=== PATIENT | female | born 1955 | race Caucasian/White ===

== ENCOUNTER 2018-04-08 22:46 | Emergency (ER) | payer MEDICARE, OTHER ==
[~2018-04-08] VITALS: Ht 160 cm; Wt 70.4 kg
[~2018-04-08 22:46] MED LIST: ATROVENT HFA12.9 GM INH; CEFPODOXIME PR100 MG PO; CEFUROXIME500 MG PO; CEPHALEXIN500 MG PO; CYCLOBENZAPRINE10 MG PO; FLOVENT HFA12 GM INH; GABAPENTIN600 MG PO; HARVONI 90-4001 EACH PO; HYDROCODON-ACE1 EAC8 PO; KEFLEX250 MG PO; LEVOFLOXACIN500 MG PO; LEVOTHYROXINE50 MCG PO; MACROBID 100 M100 MG PO; METFORMIN HCL1000 MG PO; NICOTINE LOZENGE2 MG BUCCAL; NORCO 10-325 T1 EACH PO; OXYCODONE HCL5 MG PO; POTASSIUM CHLO10 MEQ PO; PREDNISONE20 MG PO; PROAIR HFA8.5 GM IH; QVAR7.3 G1 IH; RANITIDINE HCL150 MG PO; TRAMADOL HCL50 MG PO; TRAZODONE HCL50 MG PO; VENLAFAXINE HCL75 MG PO
--- NOTE | 2018-04-09 07:07 | EKG ---
[facility] [address] [facility] [place], [place] [address] Signed Normal sinus rhythm Normal ECG When compared with ECG of 13-FEB-2018 15:38, No significant change was found Confirmed by JUAN LOCKWOOD MD ([id number]) on 04/09/2018 7:07:03 AM Electronically Signed By: JUAN LOCKWOOD MD 04/09/18 0707 PATIENT NAME: UMU CORMIER SURYA Electrocardiogram DATE OF : 51 PHYSICIAN: JUAN LOCKWOOD MD REPORT #: [id number] REPORT IS CONFIDENTIAL AND NOT TO BE RELEASED WITHOUT AUTHORIZATION
== END 2018-04-09 00:55 | disposition home or self-care (01) ==
LOC: ED 22:46
DX: J44.1 Chronic obstructive pulmonary disease with (acute) exacerbation (principal); E03.9 Hypothyroidism, unspecified; E11.9 Type 2 diabetes mellitus without complications; F17.200 Nicotine dependence, unspecified, uncomplicated; Z88.5 Allergy status to narcotic agent; Z79.899 Other long term (current) drug therapy; Z79.84 Long term (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 of oral hypoglycemic drugs
CPT/HCPCS: 71045; 80053; 83735; 83880; 84484; 85025; 93005; 93010; 94644; 96374; 99284; J2930

== ENCOUNTER 2018-04-17 17:16 | Inpatient (IN) | payer MEDICARE, OTHER ==
[~2018-04-17] VITALS: Ht 160 cm; Wt 67.5 kg
--- NOTE | 2018-04-17 22:37 | NUR ---
PATIENT ARRIVES TO CCU VIA STRETCHER FROM ER AROUND 2200 IN AN N-95 MASK. PT HAS A HISTORY OF TESTING POSITIVE ON SKIN TESTS FOR TB, AND ALSO HAS A SUSPICIOUS CT SCAN AT THIS TIME FOR TUBERCULOSIS. PT IS IN ISOLATION ROOM 130. PT ABLE TO STAND AND MOVE INTO CCU BED WITHOUT DIFFICULTLY. PT USES HOME CANE TO HELP SUPPORT SELF. PT RECEIVING IV BOLUS 1 L OF LR, WITH A 2ND TO INFUSE AFTERWARDS. PT AWAKE, ALERT, AND PLEASANT. PT ABLE TO ANSWER ALL QUESTIONS BEST POSSIBLE. PT BECOMES TEARY WHEN ASKING ABOUT HER POTENTIAL TB DIAGNOSIS. PT STATES SHE HAS BEEN WORKED UP FOR TB IN THE PAST AND HAS BEEN TOLD SHE DOES NOT ACTUALLY HAVE TB, BUT AGAIN STILL HAS A SUSPICIOUS CT SCAN. PT WILL HAVE 3 SETS OF SPUTUM CULTURES TO BE SENT FOR AF[employer] TO RULE OUT TB. PT NOTED TO HAVE BIBASILAR LOWER LUNG CRACKLES ON INSPIRATION. PT IS ON 2 L NC AT THIS TIME BUT SHE IS STATING SHE IS LESS SHORT OF BREATH COMPARED TO EARLIER TONIGHT. PT ORIENTED TO CCU ROOM AND CALL LIGHT. PT GIVEN SANDWICH BOX AND HOME MEDS. CBG AT THIS TIME 183 AND 3 UNITS TO BE GIVEN. PT REQUESTING NORCO INSTEAD OF OXYCODONE, SHE STATES THIS WORKS BETTER FOR HER AND SHE REFUSES TO TAKE OXYCODONE. DR. BOYKIN TO BE NOTIFIED OF THIS REQUEST FOR MEDICATION CHANGE. PT RECEIVED IV ZOSYN IN ER. CONTINUE TO MONITOR CLOSEY. LAST BP 124/63 AND HEART RATE IN THE 90-100s.
--- NOTE | 2018-04-17 23:12 | NUR ---
PATIENT UP TO BSC AT THIS TIME TO VOID AND HAVE DIARRHEA. FIRST SPUTUM CULTURE SENT TO LAB. ANOTHER IV TO BE STARTED AND IV MAG TO BE GIVEN. PT ATE SANDWICH BOX AND TOLERATED WELL.
--- NOTE | 2018-04-17 23:55 | NUR ---
DR. BOYKIN CALLED AND ASKED ABOUT PT'S PAIN MEDICATION. PATIENT NOT ON NORCO DUE TO TYLENOL AND PT'S LIVER CIRRHOSIS. THIS EXPLAINED TO PATIENT, AND PATIENT AGREEABLE TO TRY THE OXYCODONE FIRST. ASSESSMENT COMPLETE. 2 L BOLUS FINISHED. IV MAG CONTINUES WITH 2ND DOSE DUE SOON. PT SITTING AT EDGE OF BED WITHOUT COMPLAINTS AT THIS TIME. PT VOIDED ONLY 25 ML EARLIER BUT WILL TRY AGAIN SOON SHE STATES. CONTINUE TO MONITOR.
--- NOTE | 2018-04-18 01:33 | NUR ---
PATIENT UP TO VOID EARLIER AND ONLY ABLE TO VOID 50 ML. PT ONLY VOIDED 25 ML PRIOR TO THAT. BLADDER SCANNED FOR >[address] BOYKIN NOTIFIED AND ORDER REC'D TO PLACE A PADILLA CATHETER. PADILLA PLACED WITHOUT DIFFICULTY AND PT TOLERATED THIS WELL. 450 ML EMPTIED IMMEDIATELY AFTER PADILLA PLACED. PT RESTING. CONTINUE TO MONITOR.
--- NOTE | 2018-04-18 03:16 | NUR ---
PATIENT SLEEPING AT THIS TIME. LAST BP 104/53 AND HR IN THE 70-80s. PADILLA DRAINING CLEAR YELLOW URINE.SP02 IS 92% ON 2 L. PT ENCOURAGED TO GET SOME SLEEP EARLIER SHE WAS STAYING AWAKE WATCHING TELEVISION.
--- NOTE | 2018-04-18 04:43 | NUR ---
PATIENT USES CALL LIGHT AROUND 0400 AND COMPLAINS OF BEING SOAKING WET. PT NOTED TO BE DIAPHORETIC AND TO HAVE BROKE OUT INTO A SWEAT WHILE SLEEPING. LARGE [place] OF [place] OF MOISTURE NOTED ON PILLOWCASE. PT STATES, "I DO THIS A LOT AT HOME AT NIGHT." WHEN ASKING PATIENT HOW LONG SHE HAS NOTED HERSELF HAVING NIGHT SWEATS, SHE STATES FOR A COUPLE YEARS. PATIENT GIVEN A FRESH GOWN AND FRESH PILLOW CASE AND BLANKET UNDERNEATH HER. RT IN ROOM NEXT TO PROVIDE BREATHING TREATMENT. PADILLA CONTINUES TO DRAIN CLEAR YELLOW URINE. CONTINUE TO MONITOR.
--- NOTE | 2018-04-18 09:00 | NUR ---
RESTFUL AFTER PAIN MEDICATION GIVEN. HAS HARSH PRODUCTIVE COUGH. IVF PATENT, PADILLA CATH PATENT WITH CLEAR YELLOW URINE.
[2018-04-18] MEDS ORDERED: RANITIDINE HCL150 MG PO (11:54)
--- NOTE | 2018-04-18 12:55 | NUR ---
SITTING AT BEDSIDE EATING LUNCH. WILL BE TRANSFERRED TO MEDICAL FLOOR TODAY.
--- NOTE | 2018-04-18 13:24 | NUR ---
TOOK LUNCH WELL. SITTING AT BEDSIDE TAKING NEB TREATMENT.
--- NOTE | 2018-04-18 14:00 | NUR ---
PT ARRIVED TO FLOOR FROM CCU VIA BED. PT ALERT AND ORIENTED. RATING CHRONIC PAIN 5/10 AT THIS TIME, DENIED NEED FOR PAIN MEDS AT THIS TIME. SATTING 95% ON 2L NC. DENIES DIFFICULTY BREATHING. COUGHING UP THICK GREEN SPUTUM, LUNGS COURSE. IV INFUSING WNL. CALL LIGHT WITHIN REACH.
--- NOTE | 2018-04-18 16:30 | NUR ---
PT C/O PAIN, REQUESTING PAIN MEDICATION. MEDICATED WITH PRN OXY. PT ORDERED DINNER. CALL LIGHT WITHIN REACH. RANDY PATENT.
--- NOTE | 2018-04-18 18:45 | NUR ---
PT EATING DINNER, HIREN WELL. PT DENIES NEEDS OR CONCERNS AT THIS TIME. SATTING 94% ON 2LNC. CALL LIGHT WITHIN REACH.
--- NOTE | 2018-04-18 19:30 | NUR ---
RECEIVED REPORT ON PT, SHE IS AWAKE IN BED AT THIS TIME.
--- NOTE | 2018-04-18 20:15 | NUR ---
ENTERED PT'S ROOM TO ADMINISTER MEDICATIONS. SHE IS UNHAPPY BECAUSE SHE STATES HER PAIN IS 8/10 AND HER NEXT OXYCODONE IS DUE AT 2200. SHE STATES SHE TAKES 10MG EVERY 4 HOURS AND OUR AVAILABLE DOSE IS 5MG EVERY 6 HOURS. ADVISED HER THAT WE CAN CHECK WITH DR BOYKIN TO SEE WHAT WE CAN DO. PT IS CRYING AT THIS TIME AND STATES SHE NEEDS THE PAIN MEDICINE NOW.
--- NOTE | 2018-04-18 21:32 | NUR ---
SPOKE WITH DR BOYKIN ABOUT PT'S COMPLAINTS OF PAIN MEDS. TORB CHANGE OF OXYCODONE TO 7.5 MG Q6P. ORDERS ENTERED.
--- NOTE | 2018-04-18 23:05 | NUR ---
ADMINISTERED THE REST OF THE PT'S EVENING MEDICATIONS ALONG WITH 7.5 MG OF OXYCODONE. EXPLAINED THAT DR BOYKIN INCREASED THE DOSE TO HELP WITH HER PAIN. SHE CONTINUES TO HAVE COMPLAINTS ABOUT THE DOSE STATING SHE NEEDS 10MG OF OXYCODONE Q4H AND SHE ASKED IF IT WOULD BE NOTED IN THE CHART. CLEANED UP A LARGE PUDDLE OF URINE UNDER THE BED, IT APPEARS THE PADILLA CATHETER WAS LEAKING FROM THE GREEN VALVE AND TIGHTENED IT. PT WAS CONCERNED THAT THE CATHETER WAS LEAKING FROM INSERTION SITE BUT THIS RN DID NOT VISUALIZE ANY LEAKS AND PROVIDED CATH CARE. PT REQUESTED MILK AND DENIES FURTHER NEEDS AT THIS TIME. CALL LIGHT IS WITHIN REACH.
--- NOTE | 2018-04-19 00:45 | NUR ---
PT IS RESTING WITH EYES CLOSED, RESPIRATIONS ARE EVEN AND NONLABORED. CALL LIGHT IS WITHIN REACH.
--- NOTE | 2018-04-19 02:55 | NUR ---
PT IS RESTING WITH EYES CLOSED, RESPIRATIONS ARE EVEN AND NONLABORED. CALL LIGHT IS WITHIN REACH.
--- NOTE | 2018-04-19 03:32 | NUR ---
PT CALLED D/T IV BEEPING, SHE IS RESTING IN BED WITH A COOL WASH CLOTH ON HER FOREHEAD SHE HAS BEEN SWEATING ALOT.
--- NOTE | 2018-04-19 07:42 | NUR ---
PATIENT SITTING UP IN BED. PATIENT STATES PAIN LEVEL IS A 6 OUT OF 10. RN NOTIFIED. CALL LIGHT WITHIN REACH. NO OTHER NEEDS AT THIS TIME.
--- NOTE | 2018-04-19 08:32 | NUR ---
PATIENT SITTING UP IN BED. BLINDS DIMMING ROOM PER PATIENT REFERENCE. WATCHING TELEVISION AND EATING BREAKFAST IN BED. LUNGS DIM. 2L 02 VIA NC. IVF INFUSING INTO LFA IV. 10ML SALINE FLUSH IN RFA IV.
--- NOTE | 2018-04-19 11:22 | NUR ---
PADILLA CATHETER REMOVED BY AUTOMATIC SPINNING LATHE OPERATOR 2 STUDENT AND INSTRUCTOR. SALINE LOCKED IV. PROVIDED PAIN MEDICATION AND MUCINEX TO PATIENT.
--- NOTE | 2018-04-19 12:01 | NUR ---
PATIENT ASSISTED SBA OFF OF COMMODE. SITTING AT BEDSIDE EATING LUNCH. PHARMACIST GOING OVER HOME MEDICATIONS WITH PATIENT. RECLINER PLACED IN ROOM FOR PATIENT TO SIT IN LATER. PLAN TO WALK PATIENT THIS AFTERNOON.
--- NOTE | 2018-04-19 12:19 | NUR ---
MED REC COMPLETE
--- NOTE | 2018-04-19 13:21 | NUR ---
SEE PURCHASING ENGINEER NOTE ABOUT TRANSFERRING FROM CHAIR TO BED. CHANGED ATTENDS. CHANGED LINENS. ARMS FLOATING ON PILLOWS. CALL LIGHT WITHIN REACH.
--- NOTE | 2018-04-19 15:40 | NUR ---
PATIENT SITTING UP IN BED. PATIENT VISITING WITH A FAMILY MEMBER. CALL LIGHT WITHIN REACH. NO OTHER NEEDS AT THIS TIME.
--- NOTE | 2018-04-19 18:39 | NUR ---
CONTACT PERCAUTIONS REMOVED. 3 NEGATIVE SPUTUM SAMPLES. I SUGGEST WEARING MASK IN ROOM. PATIENT COUGHS FREQUENTLY. ADA DIET. ACCU CHECKS. PADILLA OUT. VOIDING WELL. VOIDS SMALL AMOUNTS. OXYCODONE X2. IND TO PIVOT TO COMMODE. SALINE LOCKED. SUMMER HAMMOND. BM 04/18.
--- NOTE | 2018-04-19 19:30 | NUR ---
RECEIVED REPORT, PT IS AWAKE SITTING AT EDGE OF BED WATCHING TV.
--- NOTE | 2018-04-19 22:50 | NUR ---
PT COMPLAINS OF LEFT EAR PAIN BOTH INTERNALLY AND EXTERNAL. SHE STATES SHE THOUGHT A BUG CRAWLS ACROSS HER FACE AND TRIED TO HIT IT OFF AND CUPPED HER EAR AND HAS HAD PAIN SINCE. ADVISED PT THAT WE WILL PASS ALONG THE INFO AND SHE CAN HAVE THE DR LOOK AT IN DURING ROUNDING TOMORROW. PT WAS ANXIOUS AND CRYING D/T A "FAMILY ISSUE". PT RATED PAIN AT 9/10 AND WAS GIVEN OXYCODONE 7.5MG ALONG WITH THE REST OF HER EVENING MEDS. HELPED PT TO THE COMMODE AND SHE VOIDED 325. PT IS BACK IN BED AT THIS TIME AND DENIES FURTHER NEEDS.
--- NOTE | 2018-04-20 | NUR ---
PT IS RESTING WITH EYES CLOSED, RESPIRATIONS ARE EVEN AND NONLABORED. CALL LIGHT IS WITHIN REACH.
--- NOTE | 2018-04-20 03:05 | NUR ---
PT IS AWAKE IN BED. HELPED HER TO THE COMMODE, SHE REQUESTED SOME PUDDING. SHE IS BACK IN BED AT THIS TIME AND DID NOT REQUEST PAIN MEDS. CALL LIGHT IS WITHIN REACH.
--- NOTE | 2018-04-20 04:06 | NUR ---
IN PT'S ROOM TO ADMINISTER PAIN MEDS. SHE RATES HER PAIN AT 8/10 AT THIS TIME. SHE GOT UP TO USE THE COMMODE AND REQUESTED A WARM BLANKET. FRESH WATER IS AT BEDSIDE AND SHE DENIES FURTHER NEEDS.
--- NOTE | 2018-04-20 06:10 | NUR ---
HELPED PT TO COMMODE AND ADMINISTERED MEDICATIONS. PT IS BACK IN BED AND WOULD LIKE TO SLEEP A LITTLE MORE. PT DENIES FURTHER NEEDS AT THIS TIME.
--- NOTE | 2018-04-20 07:19 | NUR ---
REPORT RECEIVED OUTSIDE PATIENT ROOM D/T PATIENT SLEEPING. WISHES TO BE LEFT ALONE IN THIS CASE. WILL UPDATE WHITE BOARD WHEN THIS RN ENTERS LATER. ALL QUESTIONS ANSWERED IN REPORT. PLAN TO WORK WITH PHYSICAL THERAPY TODAY. BSC NEXT TO BED PER REQUEST. LIAM MEDINA BILAT.
--- NOTE | 2018-04-20 07:47 | NUR ---
PATIENT RESTING IN BED, EYES CLOSED. CALL LIGHT IN REACH. NO OTHER NEEDS AT THIS TIME.
--- NOTE | 2018-04-20 08:52 | NUR ---
pt sitting at edge of bed eating breakfast. nicotine patch removed from left shoulder and replaced onto the right shoulder. blinds slightly raised to allow natural light in. patient likes room dimmed this morning.
--- NOTE | 2018-04-20 10:08 | NUR ---
PATIENT RESTING IN BED, EYES CLOSED. CALL LIGHT IN REACH, NO OTHER NEEDS AT THIS TIME.
--- NOTE | 2018-04-20 11:38 | NUR ---
assisted patient to bathroom. patient had medium BM and void. became dizzy when patient stood up. sat patient back down on commode until dizziness resolved. 2l 02 via nc on patient throughout ambulation. pt back in bed now.
--- NOTE | 2018-04-20 12:10 | NUR ---
spoke with patient about concerns for discharge and care for self at home. referred to case management about concerns.
--- NOTE | 2018-04-20 12:25 | NUR ---
PATIENT SITTING UP IN BED, EATING LUNCH. CALL LIGHT IN REACH. NO OTHER NEEDS AT THIS TIME.
--- NOTE | 2018-04-20 13:11 | NUR ---
THIS VENEER TAPING MACHINE OPERATOR ASSISTED PATIENT TO BATHROOM. PATIENT BACK IN BED, RT IN ROOM. SHOWER SET UP FOR PATIENT. CALL LIGHT IN REACH. NO OTHER NEEDS AT THIS TIME.
--- NOTE | 2018-04-20 14:22 | NUR ---
PATIENT SITTING UP IN BED. PATIENT STATES SHE IS TOO SHAKEY AND NAUSEOUS TO GET UP AND WALK OR TAKE A SHOWER AT THIS TIME. RN NOTIFIED. PATIENT RESTING, CALL LIGHT IN REACH. NO OTHER NEEDS AT THIS TIME.
--- NOTE | 2018-04-20 14:36 | NUR ---
PT SITTING AT BEDSIDE WITH VISITOR IN RECLINER. DEPUTY DIRECTOR OF PUBLIC WORKS GETTING DINNER ORDER. OXYCODONE GIVEN PER REQUEST. 1400 ROUDING CREW CAME IN TO CHECK ON PATIENT.
--- NOTE | 2018-04-20 17:02 | NUR ---
THIS YARD OPERATOR ASSISTED PATIENT IN TO SHOWER. PATIENT PERFORMED PERICARE AND SKINCARE. PATIENT BACK TO BED, HAIR BRUSHED, CALL LIGHT IN REACH, RT IN ROOM, NO OTHER NEEDS AT THIS TIME.
--- NOTE | 2018-04-20 17:30 | NUR ---
patient very emotional at this time. this RN entered room to check fsbs and patient was on phone with family member. patient quickly hung up and began to cry. used therapeutic communication to ease patient's discomfort. meal tray delivered to room and set up for patient. she is sitting at edge of bed now.
--- NOTE | 2018-04-20 18:22 | NUR ---
PATIENT EMOTIONAL TODAY. TALKED TO CASE MANAGEMENT ABOUT CONCERNS. ANXIOUS ABOUT GOING HOME-- FAMILY ISSUES, TAKING CARE OF SELF, ETC. 2L 02 VIA NC. 1PA FWW TO BATHROOM. DIZZY AT TIMES. SALINE LOCKED BILAT.
--- NOTE | 2018-04-20 18:46 | NUR ---
PATIENT SITTING UP IN BED, EATING DINNER. FAMILY IN ROOM. NO OTHER NEEDS AT THIS TIME.
--- NOTE | 2018-04-20 20:00 | NUR ---
RECEIVED REPORT AT 1900, FOUND PT AT SIDE OF BED EATING DINNER. PT HAD NO NEEDS OR CONCERNS AT THAT TIME.
--- NOTE | 2018-04-20 22:00 | NUR ---
V/S ARE WDL. ALL LOBES HAVE EXPIRATORY WHEEZING. PT DENIES SOB. PT STATED THAT SHE FELT HER HEART RACING. HR WAS WDL AND SO WERE ALL OTHER V/S. ABD SOUNDS ARE PRESENT. BG WAS 235, 5 UNITS NOVOLOG WAS GIVEN. PT SEEMS RESTLESS OVERALL. WILL CONTINUE TO MONITOR.
--- NOTE | 2018-04-20 22:23 | NUR ---
VITALS AND I&OS DONE AND CHARTED. FRESH WATER GIVEN. BEDSIDE TABLE AND CALL LIGHT WITHIN REACH.
--- NOTE | 2018-04-21 | NUR ---
PT IS AWAKE IN BED. PT IS ANXIOUS ABOUT HER D/C TOMORROW AND HOW SHE WILL CONTROL HER DIABETIS.
--- NOTE | 2018-04-21 02:00 | NUR ---
PT IS UP IN BED EATING. PT HAS PAIN 06/07. 7.5MG PRN OXY WAS GIVEN.
--- NOTE | 2018-04-21 04:00 | NUR ---
PT APPEARS TO BE SLEEPING
--- NOTE | 2018-04-21 05:26 | NUR ---
VITALS AND I&OS DONE AND CHARTED. HELPED PT TO THE BATHROOM AND BACK TO BED. BEDSIDE TABLE AND CALL LIGHT WITHIN REACH.
--- NOTE | 2018-04-21 06:25 | NUR ---
V/S ARE WDL, DURING FIRST ASSESSMENT ALL LOBES HAD EXPIRATORY WHEEZING PRESENT. DURING SENCOND ASSESSMENT ALL LOBES WERE COARSE. PT IS TILL COUGHING AND MUCUS IS VERY THICK. PT DENIED SOB THIS SHIFT. PAIN WAS MORE OF AN ISSUE THIS SHIFT. PT CALLED FOR PRN PAIN MEDICATION. PAIN IS ALWAYS A 7/10. BG WAS 258, PT RECEIVED 5 UNITS OF NOVOLOG. NO NEW ISSUES NOTED THIS SHIFT.
--- NOTE | 2018-04-21 06:47 | NUR ---
PT REQUESTED AND RECEIVED PAIN MEDICATION FOR GENERALIZED PAIN: ABD, JOINTS. FINISHED DRINKING PRUNE JUICE, ICE WATER REFILLED. NO OTHER NEEDS AT THIS TIME. CALL LIGHT WITHIN REACH.
--- NOTE | 2018-04-21 07:32 | NUR ---
UPON INITIAL ASSSESSMENT, PT LAYING IN BED AWAKE. COMPLAINS OF CONSTIPATION AND DISCOMFORT WITH LAYING IN BED. PT BREATHING IS EVEN AND UNLABORED WITH A RESPIRATORY RATE OF 18 BREATHS PER MINUTE. LUNGS ARE DIMINISHED BILATERLLY IN THE BASES. ASSISTED PATIENT UP INTO CHIAR FOR BREAKFAST. PT WAS STAND BY ASSIST WITH USE OF CANE FOR AMBULATION. CALL LIGHT WITHIN REACH. NO FURTHER REQUEST AT THIS TIME.
--- NOTE | 2018-04-21 10:29 | NUR ---
CLOSED THE BLINDS BECAUSE THE PATIENT WANTED IT DARK IN HER ROOM.
--- NOTE | 2018-04-21 11:38 | NUR ---
PT MEDICATED WITH 7.5MG OXY AT THIS TIME FOR PAIN, PT WAS LYING IN A DARK ROOM WITH TV OFF. STAFF IN ROOM COMPLETED CBG AND GAVE PAIN MEDICATIONS, ALSO PT LUNCH HERE SO ROOM LIGHTS ON AND PT SAT ATTHE EDGE OF THE BED TO EAT.
--- NOTE | 2018-04-21 11:47 | NUR ---
PATIENT AT EDGE OF BED, TABLE IN FRONT WITH LUNCH. JOSE VICENTE IN ROOM. GARBAGE EMPTIED. PATIENT REFUSED TODAYS SHOWER, STATES SHE WANTS TO EAT LUNCH AND LIE DOWN UNTIL ITS TIME TO BE DISCHARGED. CALLL AMANDA IN REACH
[2018-04-21] MEDS ORDERED: AMOX TR-K CLV1 EAC1 PO (11:54)
[2018-04-21] MEDS ORDERED: NICOTINE1 EAC1 TD (11:55)
[2018-04-21] MEDS ORDERED: PREDNISONE20 MG PO (11:58)
--- NOTE | 2018-04-21 13:34 | NUR ---
DISCHARGE CHARGE INSTRUCTIONS GIVEN TO PT AT THIS TIME. ALSO PROVIED A FEW PERSONAL ITEMS TO GET PT BY TILL SHE CAN GET TO THE STORE. PT WAS ASSITED TO GET DRESS.
--- NOTE | 2018-04-21 13:50 | NUR ---
STUDENT NURSE CINTHIA GAVE PT DISCHARGE INSTRUCTIONS ALL QUESTIONS ANSWERED AT THIS TIME. PT IS WAITING FOR HER RIDE AT THIS TIME. PORTABLE HOME O2 TANKS PROVIDED FOR PT ALSO AT THIS TIME.
--- NOTE | 2018-04-21 13:51 | NUR ---
REPORTED OFF TO KELVIN GARCIA AT THIS TIME. ALL QUESTIONS ANSWERED.
--- NOTE | 2018-04-21 14:59 | NUR ---
FAXED CHART NOTES INCLUDING FACESHEET, RT IN HOME QUALIFIER, ORDER, ER NOTES, H AND P, PROG NOTES, DC SUMMARY TO [facility]. ALSO SPOKE WITH OSMAR FROM [facility]. RECIEVED FAX CONFIRMATION.
--- NOTE | 2018-04-22 10:30 | NUR ---
RECEIVED A CALL FROM [facility] STATING PATIENT DID NOT QUALIFY THROUGH [facility] FOR OXYGEN SET UP DUE TO PNEUMONIA DIAGNOSIS. THEY STATED THEY OFFERED TO SET PATIENT UP FOR SELF-PAY FOR 30 DAYS AT $75.00. PATIENT REFUSED. THEY STATED PATIENT IS TO RETURN PORTABLE TANK TO HOSPITAL. UPDATED DR LOCKWOOD. SHE STATED PATIENT SHOULD BE OK, SHE BARELY QUALIFIED FOR OXYGEN WITH ACTIVITY, AT REST SHE DOES NOT NEED IT.
--- NOTE | 2018-04-22 13:02 | NUR ---
CALLED PATIENT AT HOME. PATIENT STATES SHE STILL FEELS "NOT GOOD". PATIENT DENIES SOB, STATES SHE JUST "STILL HAVE NO ENERGY". PATIENT STATES SHE HAS ALL HER MEDICATIONS AND IS TAKING THEM, HAS NO QUESTIONS REGARDING THIS. WE DISCUSSED THAT SHE DOES NOT HAVE THE OXYGEN SET UP. PATIENT WAS FRUSTRATED WITH THE PROCESS OF THIS, SHE UNDERSTOOD THE MEDICAL COMPANY WOULD HAVE IT ALL SET UP WHEN SHE CAME HOME. SHE STATED SHE DID NOT HAVE THE MONEY TO PAY FOR IT HERSELF. WE DISCUSSED HER AT REST SATURATIONS AND THAT THE DR FELT SHE SHOULD BE OK IF SHE DOESN'T OVER EXERT HERSELF. SHE STATES HER CAREGIVER IS THERE AND SHE ISN'T DOING MUCH. STATES SHE DOESN'T HAVE TO CLEAN OR DO "THAT SORT OF THING". PATIENT HAS A FOLLOW UP APPT WITH PCP ON WEDNESDAY. SHE STATES SHE ALREADY HAS TRANSPORTATION SET-UP TO TAKE HER. WE DISCUSSED HAVING OUR CHW FOLLOW UP WITH HER IF SHE WAS INTERESTED. WE DISCUSSED WHAT THAT WOULD INVOLVE. SHE IS VERY INTERESTED IN THIS. SHE UNDERSTANDS THEY WILL CALL HER NEXT WEEK. WE DISCUSSED SYMPTOMS AND THAT SHE CAN RETURN TO HOSPITAL IF SHE HAS ANY WORSENING ISSUES. SHE UNDERSTANDS THIS. I SPOKE WITH PATIENTS CAREGIVER, BOB. SHE STATES PATIENT SEEMS TO BE DOING WELL. SHE UNDERSTANDS ALSO THAT PATIENT CAN RETURN IF HAVING ANY WORSENING SYMPTOMS. I GAVE THEM THE NUMBER FOR CASE MANAGEMENT AND FOR THE NURSES STATION IF THEY HAVE ANY QUESTIONS OR CONCERNS.
== END 2018-04-21 13:55 | disposition home or self-care (01) | DRG 871 ==
LOC: ED 17:16 → CCU 21:17 → MS 04-18 14:29
PROVIDERS: ADMIT Internal Medicine
DX: A41.50 Gram-negative sepsis, unspecified (principal); J15.6 Pneumonia due to other Gram-negative bacteria; J96.01 Acute respiratory failure with hypoxia; J44.0 Chronic obstructive pulmonary disease with (acute) lower respiratory infection; J44.1 Chronic obstructive pulmonary disease with (acute) exacerbation; F11.20 Opioid dependence, uncomplicated; F17.210 Nicotine dependence, cigarettes, uncomplicated; E83.42 Hypomagnesemia; F19.11 Other psychoactive substance abuse, in remission; K74.60 Unspecified cirrhosis of liver; K52.9 Noninfective gastroenteritis and colitis, unspecified; B18.2 Chronic viral hepatitis C; E03.9 Hypothyroidism, unspecified; E11.9 Type 2 diabetes mellitus without complications; G89.4 Chronic pain syndrome; M79.7 Fibromyalgia; F39 Unspecified mood [affective] disorder; R74.0 Nonspecific elevation of levels of transaminase and lactic acid dehydrogenase [LDH]; Z88.5 Allergy status to narcotic agent; Z79.84 Long term (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 of oral hypoglycemic drugs; Z79.51 Long term (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 of inhaled steroids; Z79.899 Other long term (current) drug therapy
CPT/HCPCS: 36415; 71046; 74177; 80053; 81001; 83036; 83605; 83735; 84484; 85025; 86703; 87040; 87045; 87046; 87070; 87077; 87185; 87205; 87449; 87493; 87522; 87556; 87798; 87899; 94640; 94645; 94667; 94761; 97110; 97116; 97162; 99406; 99407; J1650; J2270; J2405; J2543; J2920; J2930; J3475; J7120; J7512; Q9967

== ENCOUNTER 2019-03-18 16:24 | Emergency (ER) | payer MEDICARE, OTHER ==
[~2019-03-18] VITALS: Ht 160 cm; Wt 67.5 kg
--- OUTSIDE RECORDS SUMMARY | ~2019-03-18 | XMS | Clinical Summary ---
Demographics + + + | Address | [address] | | | [place] [address] | + + + | Home Phone [...] Author + + + | Author | [facility] | + + + | Organization | [facility] | + + + | Address | Unknown | + + + | Phone | Unavailable | + + + Support + + +---------+ + | Name | Relationship | Address | Phone | + + +---------+ + | Andrew Nelson | ECON | Unknown | | + + +---------+ + Care Team Providers + +------+ + | Care Executive Talent Acquisition Consultant Name | Role | Phone | + +------+ + PP | Unavailable | + +------+ + Source Comments RONALDO is fully live on both [facility] Ambulatory and [facility] InPatient.[facility] Allergies Not on File Current Medications + +------+-------+---------+------+------+-------+ | Prescription | Sig. | Disp. | Refills | Star | End | Statu | | | | | | t | Date | s | | | | | | Date | | | + +------+-------+---------+------+------+-------+ | PROAIR HFA 90 | | | | 08/2 | | Activ | | mcg/actuation | | | | 3/20 | | e | | inhalation HFA | | | | 13 | | | | Aerosol Inhaler | | | | | | | + +------+-------+---------+------+------+-------+ | DOXYCYCLINE | | | | 10/0 | | Activ | | HYCLATE 100 mg oral | | | | 3/20 | | e | | capsule | | | | 13 | | | + +------+-------+---------+------+------+-------+ | FLUCONAZOLE 150 mg | | | | 10/1 | | Activ | | oral tablet | | | | 0/20 | | e | | | | | | 13 | | | + +------+-------+---------+------+------+-------+ | GABAPENTIN 600 mg | | | | 10/3 | | Activ | | oral tablet | | | | 0/20 | | e | | | | | | 13 | | | + +------+-------+---------+------+------+-------+ | | | | | 10/1 | | Activ | | HYDROCODONE-ACETAMIN | | | | 0/20 | | e | | OPHEN 10-325 mg oral | | | | 13 | | | | tablet | | | | | | | + +------+-------+---------+------+------+-------+ | ATROVENT HFA 17 | | | | 08/2 | | Activ | | mcg/actuation | | | | 3/20 | | e | | inhalation HFA | | | | 13 | | | | Aerosol Inhaler | | | | | | | + +------+-------+---------+------+------+-------+ | TRAZODONE 50 mg | | | | 10/2 | | Activ | | oral tablet | | | | 4/20 | | e | | | | | | 13 | | | + +------+-------+---------+------+------+-------+ | VENLAFAXINE 150 mg | | | | 10/1 | | Activ | | oral tablet | | | | 7/20 | | e | | extended release | | | | 13 | | | | 24hr | | | | | | | + +------+-------+---------+------+------+-------+ | VENLAFAXINE 75 mg | | | | 10/1 | | Activ | | oral tablet | | | | 7/20 | | e | | | | | | 13 | | | + +------+-------+---------+------+------+-------+ Active Problems + + + | Problem | Noted Date | + + + | Chronic hepatitis C virus infection (HCC) | 12/15/2011 | + + + + [...] on file | | + + + Last Filed Vital Signs + + + + | Vital Sign | Reading | Time Taken | + + + + | Blood Pressure | 129/69 | 10/04/2013 2:15 PM PST | + + + + | Pulse | 87 | 10/04/2013 2:15 PM PST | + + + + | Temperature | 37.1 C (98.8 F) | 10/04/2013 2:15 PM PST | + + + + | Respiratory Rate | 18 | 10/04/2013 2:15 PM PST | + + + + | Oxygen Saturation | - | - | + + + + | Inhaled Oxygen | - | - | | Concentration | | | + + + + | Weight | 94.1 kg (207 lb 8 | 10/04/2013 2:15 PM PST | | | oz) | | + + + + | Height | 160 cm (5' 3") | 10/04/2013 2:15 PM PST | + + + + | Body Mass Index | 36.76 | 10/04/2013 2:15 PM PST | + + + + Plan of Treatment + + + + + | Health Maintenance | Due Date | Last Done | Comments | + + + + + | Influenza (Flu) | | | | | vaccination (#1) | 8 | | | + + + + + | Pneumococcal (Adult) | | | | | (1 of 2 - PCV13) | 8 | | | + + + + + Results Not on filefrom Last 3 Months Insurance + +--------+ +--------+-------+---------+ | Payer | Benefi | Subscriber | Type | Phone | Address | | | t Plan | ID | | | | | | / | | | | | | | Group | | | | | + +--------+ +--------+-------+---------+ | [employer] | [employer] | xxxxxxxx | Medica | | | | | [place] | | id | | | | | [place] | | | | | + +--------+ +--------+-------+---------+ + +--------+ +--------+ + + | Guarantor Name | Accoun | Relation to | Date | Phone | Billing Address | | | t Type | Patient | of | | | | | | | | | | + +--------+ +--------+ + + | CAROLINA ANG | Person | Self | [birth year] | Home: | [address] | | | al/Fam | | 1955 | [phone] | [place] [address] | | | [place] | | | [phone] | | + +--------+ +--------+ + +
--- OUTSIDE RECORDS SUMMARY | ~2019-03-18 | XMS | Clinical Summary ---
Demographics + + + | Address | [address] | | | [place] [address] | + + + | Home Phone | | + + + | Preferred Language | Unknown | + + + | Marital Status | | + + + | Temple Affiliation | Unknown | + + + | Race | Unknown | + + + | Ethnic Group | Unknown | + + + Author + + + | Author | [facility] | | | and Dhav[place]ana | + + + | Organization | [facility] | | | and [place] | + + + | Address | Unknown | + + + | Phone | Unavailable | + + + Support + + +---------+ + | Name | Relationship | Address | Phone | + + +---------+ + | Agusto Bradford | ESTIVEN | Unknown | | + + +---------+ + | Andrew Andrews | ECON | Unknown | | + + +---------+ + Care Team Providers + +------+ + | Care Bottle Gauger Name | Role | Phone | + +------+ + | Corey Galvan MD | PP | | + +------+ + Allergies + + + + + + | Active Allergy | Reactions | Severity | Noted | Comments | | | | | Date | | + + + + + + | Codeine | Hives | High | 04/06/20 | | | | | | 14 | | + + + + + + | Latex | Rash | Medium | 05/28/20 | | | | | | 14 [...] Noted Date | + + + | Hepatitis C | 05/24/2014 | + + + [...] + + + | Blood Pressure | 112/68 | 06/04/20141132 PDT | + + + + | Pulse | 90 | 06/04/20141132 PDT | + + + + | Temperature | 36.8 C (98.2 F) | 06/04/20141132 PDT | + + + + | Respiratory Rate | 15 | 05/25/20141409 PDT | + + + + | Oxygen Saturation | 93% | 05/25/20141409 PDT | + + + + | Inhaled Oxygen | - | - | | Concentration | | | + + + + | Weight | 97.1 kg (214 lb) | 06/04/20141132 PDT | + + + + | Height | 160 cm (5' 3") | 06/04/20141132 PDT | + + + + | Body Mass Index | 37.91 | 06/04/2014 1133 PDT | + + + + Plan of [...] | | | | (Season Ended) | 9 | | | + + [...] | [employer] | [employer] | [id number] | | [phone] | | Medica | [...] Self | [birth year] | [address] | | | al/Abdullahi | | 1955 | [phone] | [place] [address] | | | [place] | | | 5 (Home) | | + +--------+ +--------+ + + Advance Directives Patient has advance care planning documents on file. For more information, please contact:[facility] [place] [address]
--- OUTSIDE RECORDS SUMMARY | ~2019-03-18 | XMS | Clinical Summary ---
Demographics + + + | Address | [address] | | | [place] [address] | + + + | Home Phone | | + + + | Preferred Language | Unknown | + + + | Marital Status | | + + + | Roman Catholic Affiliation | Unknown | + + + | Race | Unknown | + + + | Ethnic Group | Unknown | + + + Author + + + | Author | [facility] | | | and Dhavalana | + + + | Organization | [facility] | | | and [...] Team Providers + +------+ + | Care Instrument Maintenance Supervisor Name | Role | Phone | + [...] | [employer] | [employer] | [id number] | | [phone] | | Medica | [...] | 1955 | [phone] | [place] [address] | | | [place] | | | 5 (Home) | | + +--------+ +--------+ + + Advance Directives Patient has advance care planning documents on file. For more information, please contact:[facility] [place] [address]
--- OUTSIDE RECORDS SUMMARY | ~2019-03-18 | XMS | Clinical Summary ---
Demographics + + + | Address | [address] | | | [place] [address] | + + + | Home Phone [...] Author + + + | Author | [facility] | + + + | Organization | [facility] | + + + | Address | Unknown | + + + | Phone | Unavailable | + + + Support + + +---------+ + | Name | Relationship | Address | Phone | + + +---------+ + | Andrew Nelson | ECON | Unknown | | + + +---------+ + Care Team Providers + +------+ + | Care Honing Machine Try Out Setter Name | Role | Phone | + +------+ + PP | Unavailable | + +------+ + Source Comments RONALDO is fully live on both [facility] Ambulatory and [facility] InPatient.[facility] Allergies Not on File Current Medications + [...] | | | + +--------+ +--------+-------+---------+ | [employer] | [employer] | xxxxxxxx | Medica | | | [...] | | al/Fam | | 1955 | [phone] | [place] [address] | | | [place] | | | [phone] | | + +--------+ +--------+ + +
[~2019-03-18 16:24] MED LIST changes: +AMOX TR-K CLV1 EAC1 PO; +CITALOPRAM HBR20 MG PO; +KEFLEX500 MG PO; +NICOTINE1 EAC1 TD; +OXYCODONE HCL10 MG PO
--- OUTSIDE RECORDS SUMMARY | 2019-03-18 16:28 | XMS ---
PreManage Notification: [facility] COR[facility] Security [employer] Roller Events No recent Security Events currently on file CRITERIA MET - [facility] C[facility] PROVIDERS Clementina Pérez Boat Tender/Timber Poisoner 08/29/2018-Current PHONE: [phone] Kendall Floyd Boat Tender/Timber Poisoner 08/29/2018-Current PHONE: [phone] Kendall Floyd [facility] 08/29/2018-Current PHONE: [phone] SWAPNA CORONADO Primary [facility] 04/29/2012-Current PHONE: [phone] Henny has no Care Guidelines for this patient. [place] VISIT COUNT (12 MO.) 4 [facility] TOTAL 4 NOTE: Visits indicate total known visits. ED/UCC VISIT TRACKING (12 MO.) 03/18/2019 16:25 [facility] TYPE: Emergency COMPLAINT: - MUTLIPLE COMPLAINTS 12/05/2018 21:22 [facility] TYPE: Emergency COMPLAINT: - STATES BODY IS STRESSED OUT DIAGNOSES: - Hypothyroidism, unspecified - Other form setter helper (current) drug therapy - Allergy status to narcotic agent status - Nicotine dependence, unspecified, uncomplicated - Urinary tract infection, site not specified - Chronic obstructive pulmonary disease, unspecified - Dysuria - Type 2 diabetes mellitus without complications 04/17/2018 17:17 [facility] TYPE: Emergency COMPLAINT: - DIFFICULTY BREATHING,DIARRHEA, 04/08/2018 22:47 [facility] TYPE: Emergency COMPLAINT: - DIFFICULTY BREATHING DIAGNOSES: - Type 2 diabetes mellitus without complications - Chronic obstructive pulmonary disease with (acute) exacerbation - Hypothyroidism, unspecified - Other assisted (current) drug therapy - Nicotine dependence, unspecified, uncomplicated - RETIREMENT (CURRENT) USE OF ORAL HYPOGLYCEMIC DRUGS - Shortness of breath - Allergy status to narcotic agent status - sash clamp operator (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 of oral hypoglycemic drugs INPATIENT VISIT TRACKING (12 MO.) 04/17/2018 21:[address] [facility] [place] TYPE: Medical Surgical COMPLAINT: - SEPSIS,PNEUMONIA DIAGNOSES: - Chronic pain syndrome - Chronic obstructive pulmonary disease with acute lower respiratory infection - Unspecified cirrhosis of liver - halfway (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 of oral hypoglycemic drugs - Other psychoactive substance abuse, in remission - Unspecified mood [affective] disorder - Gram-negative sepsis, unspecified - Chronic obstructive pulmonary disease with (acute) exacerbation - sash clamp operator (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 of inhaled steroids - Pneumonia due to other Gram-negative bacteria - Sepsis, unspecified organism - Noninfective gastroenteritis and colitis, unspecified - Chronic viral hepatitis C - Hypomagnesemia - Type 2 diabetes mellitus without complications - Nicotine dependence, cigarettes, uncomplicated - Allergy status to narcotic agent status - Opioid dependence, uncomplicated - Nonspecific elevation of levels of transaminase and lactic acid dehydrogenase [LDH] - Fibromyalgia - Hypothyroidism, unspecified - Acute respiratory failure with hypoxia - Other form setter helper (current) drug therapy [email or web address]
[2019-03-18] MEDS ORDERED: KEFLEX500 MG PO (18:08)
== END 2019-03-18 19:06 | disposition home or self-care (01) ==
LOC: ED 16:24
DX: J44.1 Chronic obstructive pulmonary disease with (acute) exacerbation (principal); N39.0 Urinary tract infection, site not specified; E11.9 Type 2 diabetes mellitus without complications; E03.9 Hypothyroidism, unspecified; Z86.19 Personal history of other infectious and parasitic diseases; F17.200 Nicotine dependence, unspecified, uncomplicated; Z90.710 Acquired absence of both cervix and uterus; Z88.5 Allergy status to narcotic agent; Z79.84 Long term (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 of oral hypoglycemic drugs; Z79.899 Other long term (current) drug therapy
CPT/HCPCS: 71046; 80053; 81001; 85025; 87077; 87088; 87186; 94640; 96361; 96365; 96375; 99284-25; J0696; J2405; J7030

== ENCOUNTER 2019-07-29 01:25 | Emergency (ER) | payer MEDICARE, OTHER ==
[~2019-07-29] VITALS: Ht 160 cm; Wt 67.1 kg
[~2019-07-29 01:25] MED LIST changes: +PRAVASTATIN SOD20 MG PO
--- OUTSIDE RECORDS SUMMARY | 2019-07-29 01:28 | XMS ---
PreManage Notification: [facility] Security Banquet Set Up Person Events No recent Security Events currently on file CRITERIA MET - [facility] C[facility] PROVIDERS SWAPNA CORONADO [facility] 06/19/2019-Current PHONE: [phone] Kendall Floyd Manager Terminal/Senior Quality Engineer 04/29/2019-Current PHONE: [phone] Kendall Floyd Primary Care 04/29/2019-Current PHONE: [phone] SWAPNA CORONADO Primary Care 04/29/2012-Current PHONE: [phone] Henny has no Care Guidelines for this patient. [place] VISIT COUNT (12 MO.) 4 JOSÉ LUIS [place] TOTAL 4 NOTE: Visits indicate total known visits. ED/UCC VISIT TRACKING (12 MO.) 07/29/2019 01:26 [facility] [place] TYPE: Emergency COMPLAINT: - RASH 06/16/2019 12:27 [facility] [place] TYPE: Emergency COMPLAINT: - SOB DIAGNOSES: - Chronic obstructive pulmonary disease, unspecified - Allergy status to narcotic agent status - Hypothyroidism, unspecified - Shortness of breath - Other skilled nursing (current) drug therapy - terminal carman (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 of oral hypoglycemic drugs - Type 2 diabetes mellitus without complications - Acquired absence of other specified parts of digestive tract - Acquired absence of both cervix and uterus - Nicotine dependence, unspecified, uncomplicated 03/18/2019 16:25 [facility] [place] TYPE: Emergency COMPLAINT: - MUTLIPLE COMPLAINTS DIAGNOSES: - Acquired absence of both cervix and uterus - Chronic obstructive pulmonary disease with (acute) exacerbation - Hypothyroidism, unspecified - Personal history of other infectious and parasitic diseases - Nicotine dependence, unspecified, uncomplicated - Urinary tract infection, site not specified - Shortness of breath - Other skilled nursing (current) drug therapy - Allergy status to narcotic agent status - Type 2 diabetes mellitus without complications - terminal carman (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 of oral hypoglycemic drugs 12/05/2018 21:22 [facility] [place] TYPE: Emergency COMPLAINT: - STATES BODY IS STRESSED OUT DIAGNOSES: - Hypothyroidism, unspecified - Other terminal make up operator (current) drug therapy - Allergy status to narcotic agent status - Nicotine dependence, unspecified, uncomplicated - Urinary tract infection, site not specified - Chronic obstructive pulmonary disease, unspecified - Dysuria - Type 2 diabetes mellitus without complications INPATIENT VISIT TRACKING (12 MO.) No inpatient visits to display in this time frame [email or web address]
== END 2019-07-29 01:57 | disposition home or self-care (01) ==
LOC: ED 01:25
DX: L29.9 Pruritus, unspecified (principal); E11.9 Type 2 diabetes mellitus without complications; E03.9 Hypothyroidism, unspecified; F17.200 Nicotine dependence, unspecified, uncomplicated; Z88.5 Allergy status to narcotic agent; Z79.899 Other long term (current) drug therapy; Z79.84 Long term (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 of oral hypoglycemic drugs
CPT/HCPCS: 99282; Q0163

== ENCOUNTER 2020-03-30 14:49 | Emergency (ER) | payer MEDICARE, OTHER ==
[~2020-03-30] VITALS: Ht 160 cm; Wt 63.6 kg
--- OUTSIDE RECORDS SUMMARY | ~2020-03-30 | XMS | Encounter Summary ---
Demographics + + + | Address | [address] | | | [place] [address] | + + + | Home Phone | | + + + | Preferred Language | Unknown | + + + | Marital Status | | + + + | Yarsani Affiliation | Unknown | + + + | Race | Unknown | + + + | Ethnic Group | Unknown | + + + Author + + + | Author | [facility] | | | and Dhavalana | + + + | Organization | [facility] | | | and [place] | + + + | Address | Unknown | + + + | Phone | Unavailable | + + + Support + + + + + | Name | Relationship | Address | Phone | + + + + + | Agusto Bradford | ESTIVEN | Unknown | | + + + + + | Andrew Andrews | ECON | Unknown | | + + + + + | Magdiel Andrews | ECON | [address] | | | | | [place] [address] | | + + + + + Care Team Providers + +------+ + | Care Visual Display Manager Name | Role | Phone | + +------+ + | Corey Galvan MD | PCP | | + +------+ + Reason for Visit +--------+ + | Reason | Comments | +--------+ + | Other | ZOFRAN | +--------+ + Encounter Details +--------+ + + + + | Date | Type | Department | Care Team | Description | +--------+ + + + + | 05/08/ | Telephone | [facility] | [facility], | Other (ESTER) | | 2013 | | GASTROENTEROLOGY | [place] [address] | | | | | [address] | [place] | | | | | [address] [place], [place] | [place] | | | | | [address] | [id number] | | | | | [phone] | | | +--------+ + + + + Social History + +-------+ +--------+------+ | Tobacco Use | Types | Packs/Day | Years | Date | | | | | Used | | + +-------+ +--------+------+ | Current Every Day | | 1 | 49 | | | Smoker | | | | | + +-------+ +--------+------+ + +---+---+---+ | Smokeless Tobacco: | | | | | Never Used | | | | + +---+---+---+ + + +---------+ + | Alcohol Use | Drinks/Week | oz/Week | Comments | + + +---------+ + | No | | | | + + +---------+ + + + + | Sex Assigned at | Date Recorded | | | | + + + | Not on file | | + + + + + + + | Job Start Date | Occupation | Industry | + + + + | Not on file | Not on file | Not on file | + + + + + + + + | Travel History | Travel Start | Travel End | + + + + + + | No recent travel history available. | + + documented as of this encounter Plan of Treatment Not on filedocumented as of this encounter Visit Diagnoses Not on filedocumented in this encounter"
--- OUTSIDE RECORDS SUMMARY | ~2020-03-30 | XMS | Encounter Summary ---
Demographics + + + | Address | [address] | | | [place] [address] | + + + | Home Phone | | + + + | Preferred Language | Unknown | + + + | Marital Status | Single | + + + | Restorationist Affiliation | NON | + + + | Race | Unknown | + + + | Ethnic Group | Not or | + + + Author + + + | Author | [facility] | + + + | Organization | [facility] | + + + | Address | Unknown | + + + | Phone | Unavailable | + + + Support + + +---------+ + | Name | Relationship | Address | Phone | + + +---------+ + | Andrew Nelson | ECON | Unknown | | + + +---------+ + Care Team Providers + +------+ + | Care Extension Worker Name | Role | Phone | + +------+ + | Corey Galvan MD | PCP | Unavailable | + +------+ + Reason for Visit + + + | Reason | Comments | + + + | Follow-up visit | | + + + Consultation (Routine) +--------+ + + + + + | Status | Reason | Specialty | Diagnoses / | Referred By | Referred To | | | | | Procedures | Contact | Contact | +--------+ + + + + + | Closed | Specialty | Hepatology | Diagnoses | Arnaldo | Jaquan | | | Services | | Chronic | Deandre Linares | Hepatology | | | Required | | hepatitis C | [facility] | [address] | | | | | without | [facility] | [address] | | | | | mention of | Urgent Care | Mailcode: | | | | | hepatic coma | [address] | [facility] | | | | | Viral | [address] | for Health | | | | | hepatitis B | [facility] | and Healing, | | | | | without | [place], [place] | [address] | | | | | mention of | [address] | [place], [place] | | | | | hepatic | Phone: | [address] | | | | | coma, | [phone] | Phone: | | | | | chronic, | Fax: | [phone] | | | | | without | [phone] | Fax: | | | | | mention of | | [phone] | | | | | hepatitis | | | | | | | delta | | | | | | | Procedures | | | | | | | CONSULT TO | | | | | | | HEPATOLOGY | | | +--------+ + + + + + Encounter Details +--------+---------+ + + + | Date | Type | Department | Care Team | Description | +--------+---------+ + + + | 09/14/ | Office | [facility] | Hiren Gutierrez, | Chronic hepatitis C | | 2010 | Visit | Center at [facility] [address] | [place] | without mention of | | | | [address] | | hepatic coma | | | | Mailcode: [facility] | | (Primary Dx) | | | | [facility] | | | | | | and Healing, | | | | | | [address] | | | | | | [place], [place] | | | | | | [address] | | | | | | [phone] | | | +--------+---------+ + + + Social History + +-------+ +--------+------+ | Tobacco Use | Types | Packs/Day | Years | Date | | | | | Used | | + +-------+ +--------+------+ | Current Every Day | | | | | | Smoker | | | | | + +-------+ +--------+------+ + + +---------+ + | Alcohol Use | Drinks/Week | oz/Week | Comments | + + +---------+ + | Not Asked | | | | + + +---------+ [...] + + documented as of this encounter Last Filed Vital Signs + + + + + | Vital Sign | Reading | Time Taken | Comments | + + + + + | Blood Pressure | 124/74 | 09/14/2011 12:02 PM | | | | | PDT | | + + + + + | Pulse | 92 | 09/14/2011 12:02 PM | | | | | PDT | | + + + + + | Temperature | 37 C (98.6 F) | 09/14/2011 12:02 PM | | | | | PDT | | + + + + + | Respiratory Rate | 16 | 09/14/2011 12:02 PM | | | | | PDT | | + + + + + | Oxygen Saturation | - | - | | + + + + + | Inhaled Oxygen | - | - | | | Concentration | | | | + + + + + | Weight | 92.5 kg (203 lb 14.4 | 09/14/2011 12:02 PM | | | | oz) | PDT | | + + + + + | Height | 160 cm (5' 3") | 09/14/2011 12:02 PM | | | | | PDT | | + + + + + | Body Mass Index | 36.12 | 09/14/2011 12:02 PM | | | | | PDT | | + + + + + documented in this encounter Progress Notes Amanda Alfred LPN - 12/15/2011 3:16 PM PST Addended by: AMANDA ALFRED on: 12/15/2011 03: 16 PM Modules accepted: Orders Hiren Tejada PA - 09/14/2011 1:25 PM PDT ID: Carolina Ang is a 56 y.o. female patient of Deandre Mcintosh who was referred to the [facility] for consultation regarding Chronic Hepatitis C. History of Present Illness: Ms. Ang states that she first became aware of her liver dis ease in approximately 1987. At that time, she was under going routine health care and was n oted to have abnormal liver enzymes and further testing identified Chronic Hepatitis C, orig inally non a/non b hepatitis. Remote liver biopsy, pt unsure of results. No prior ifn based tx. She states that her current symptoms include: fatigue and abdominal pain in the RUQ. She denies fluid accumulation in feet/ankles, fluid accumulation in abdomen and blood in audrey wel movements or black tarry bm's. Risk factors for liver disease include: Ivdu 1979-, no transfusions Previously drank > 6 pck of beer daily but none for 17 yrs, remote dui with diversion Review of Systems: All other systems otherwise negative. Allergies not on file No current outpatient prescriptions on file. Pt will call [facility] Past medical history Depression Past surgical history .Tonsils, appendectomy, hysterectomy Family History No liver disease Social History: History Substance Use Topics Smoking status: Current Everyday Smoker Smokeless tobacco: Not on file Alcohol Use: Not on file Vital Signs: BP 124/74 | Pulse 92 | Temp (Src) 37 C (98.6 F) (Oral) | RR 16 | Ht 160 c m (5' 3") | Wt 92.488 kg (203 lb 14.4 oz) | BMI 36.12 kg/(m^2) Exam: General: Alert, NAD. HEENT: Normal, sclerae anicteric. Respiration: Normal CTAB, and good air exchange. Cardiac: Regular rate and rhythm. Abdomen: Soft, non-distended, normal bowel sounds, no hepatosplenomegaly, no fluid wave, no other masses noted. Neuro: Normal, alert with no asterixis. Psych: Normal speech pattern and thought process linear. Extremities: Normal, no edema, or skin discolorations. Skin: Warm and dry without rashes, lesions or spider hemangomota. Laboratory Data: Reviewed outside labs, will scan to epic Assessment: Chronic hepatitis C without mention of hepatic coma (primary encounter diagnosis) Comment: Stable, will evaluate for other etiologies also Discussed role of liver biopsy in evaluating the degree of disease including procedure, potential benefits and risks, pt agree s to procedure. Return to clinic 2-6 weeks after biopsy for discussion of results and manag ement. Plan: US BIOPSY LIVER W/ US & GUIDANCE, SURGICAL PATHOLOGY, COMPLETE METABOLIC SET (NA,K,CL,CO2,BUN,CREAT,GLUC,CA,AST,ALT,BILI TOTAL,ALK PHOS,ALB,PROT TOTAL), CBC, WITH DIFFERENTIAL, INR, ANTI SMOOTH MUSCLE AB, SERUM, ANTI NUCLEAR AB SCREEN, SERUM, IRON AND TIBC, SERUM, HEPATITIS A AB SCREEN, SERUM, HEPATITIS B SURFACE AB QUAL, SERUM, HEPATITIS B SURFACE AG, SERUM, HEPATITIS B CORE AB, SERUM, HEPATITIS C GENOTYPING, PLASMA ZION OROZCO documented in this en counter Plan of Treatment + +------+--------+ + + | Name | Type | Priori | Associated Diagnoses | Order Schedule | | | | ty | | | + +------+--------+ + + | SURGICAL PATHOLOGY | Lab | Routin | Chronic hepatitis | Ordered: 09/14/2011 | | | | e | C without mention of | | | | | | hepatic coma | | + +------+--------+ + + documented as of this encounter Procedures + +--------+ + + + | Procedure Name | Priori | Date/Time | Associated Diagnosis | Comments | | | ty | | | | + +--------+ + + + | LAB OTHER | Routin | 09/14/2011 | | Results for this | | | e | 1:56 PM | | procedure are in the | | | | PDT | | results section. | + +--------+ + + + documented in this encounter Results LAB OTHER (09/14/2011 1:56 PM PDT) + + + + + + | Component | Value | Ref Range | Performed | Pathologist | | | | | At | Signature | + + + + + + | MISC REF | Hepatitis C Virus | | [facility] | | | TEST NAME | Genotyping, Plasma | | DEPARTMENT | | | | | | OF | | | | | | PATHOLOGY | | + + + + + + | MISC REF | 1a or 1b | | [facility] | | | TEST RESULT | | | DEPARTMENT | | | | | | OF | | | | | | PATHOLOGY | | + + + + + + | REFERRAL | Test performed by [facility] | | [facility] | | | LAB NAME | Inez Mendoza | | DEPARTMENT | | | | [facility] [place] [address] | | OF | | | | [phone] | | PATHOLOGY | | | | com | | | | + + + + + + + + | Specimen | + + | | + + + + + + + | Performing | Address | City/State/Zipcode | Phone Number | | Organization | | | | + + + + + | [facility] DEPARTMENT OF | [address] | [place] [address] | | | PATHOLOGY | [address] | | | + + + + + HEPATITIS C GENOTYPING, PLASMA (09/14/2011 1:56 PM PDT) + + + + + + | Component | Value | Ref Range | Performed | Pathologist | | | | | At | Signature | + + + + + + | HEP C | Due to a reagent issue, | | [facility] | | | GENOTYPE | we are temporarily | | [facility] | | | | unable to offer | | LABS | | | | Hepatitis CGenotype | | | | | | testing at [facility]. The | | | | | | samples will be sent to | | | | | | [facility] | | | | | | testing. The results | | | | | | of the referred test | | | | | | will be in Chart | | | | | | Reviewunder Lab Other or | | | | | | in Results Review under | | | | | | Chemistry Misc. | | | | | | Referral. If you have | | | | | | any questions, please | | | | | | contact the laboratory | | | | | | at . | | | | + + + + + + | SPECIMEN | Plasma | | [facility] | | | TYPE | | | [facility] | | | | | | LABS | | + + + + + + + + | Specimen | + + | Blood - Blood | + + + + + + + | Performing | Address | City/State/Zipcode | Phone Number | | Organization | | | | + + + + + | [facility] | [address] | [place] [address] | | | GENETICS LABS | [address] | | | | | [address]VE[address] | | | + + + + + HEPATITIS B CORE AB, SERUM (09/14/2011 1:56 PM PDT) + + + + + + | Component | Value | Ref Range | Performed | Pathologist | | | | | At | Signature | + + + + + + | HEPATITIS B | Negative | Negative | [facility] | | | CORE AB, | | | [facility] | | | SERUM | | | LABORATORY | | + + + + + + + + | Specimen | + + | Blood - Blood | + + + + + | Narrative | Performed At | + + + | [facility] | [facility] | | [place] [address] | REGIONAL | | [place] [address] | LABORATORY | + + + + + + + + | Performing | Address | City/State/Zipcode | Phone Number | | Organization | | | | + + + + + | [facility] | [address] | [place] [address] | | | LABORATORY | | | | + + + + + HEPATITIS B SURFACE AG, SERUM (09/14/2011 1:56 PM PDT) + + + + + + | Component | Value | Ref Range | Performed | Pathologist | | | | | At | Signature | + + + + + + | HEPATITIS B | Negative | Negative | [facility] | | | SURFACE | | | REGIONAL | | | AG, SERUM | | | LABORATORY | | + + + + + + + + | Specimen | + + | Blood - Blood | + + + + + | Narrative | Performed At | + + + | [facility] | [facility] | | [place] [address] | REGIONAL | | [place] [address] | LABORATORY | + + + + + + + + | Performing | Address | City/State/Zipcode | Phone Number | | Organization | | | | + + + + + | [facility] | [address] | [place] [address] | | | LABORATORY | | | | + + + + + HEPATITIS B SURFACE AB QUAL, SERUM (09/14/2011 1:56 PM PDT) + + + + + + | Component | Value | Ref Range | Performed | Pathologist | | | | | At | Signature | + + + + + + | HEP B | Negative | Negative | [facility] | | | SURFACE AB | | | REGIONAL | | | QUAL, SERUM | | | LABORATORY | | + + + + + + + + | Specimen | + + | Blood - Blood | + + + + + | Narrative | Performed At | + + + | [facility] | [facility] | | [place] [address] | REGIONAL | | [place] [address] | LABORATORY | + + + + + + + + | Performing | Address | City/State/Zipcode | Phone Number | | Organization | | | | + + + + + | [facility] | [address] | [place] [address] | | | LABORATORY | | | | + + + + + HEPATITIS A AB SCREEN, SERUM (09/14/2011 1:56 PM PDT) + + + + + + | Component | Value | Ref Range | Performed | Pathologist | | | | | At | Signature | + + + + + + | HEPATITIS A | POSITIVE (A) | Negative | [facility] | | | AB TOTAL | | | REGIONAL | | | | | | LABORATORY | | + + + + + + + + | Specimen | + + | Blood - Blood | + + + + + | Narrative | Performed At | + + + | [facility] | [facility] | | [place] [address] | REGIONAL | | [place] [address] | LABORATORY | + + + + + + + + | Performing | Address | City/State/Zipcode | Phone Number | | Organization | | | | + + + + + | [facility] | [address] | [place] [address] | | | LABORATORY | | | | + + + + + IRON AND TIBC, SERUM (09/14/2011 1:56 PM PDT) + +-------+ + + + | Component | Value | Ref Range | Performed | Pathologist | | | | | At | Signature | + +-------+ + + + | IRON SERUM | 138 | 40 - 150 ug/dL | [facility] | | | | | | REGIONAL | | | | | | LABORATORY | | + +-------+ + + + | IRON BIND | 363 | 225 - 410 ug/dL | [facility] | | | CAP SERUM | | | REGIONAL | | | | | | LABORATORY | | + +-------+ + + + | % | 38 | 20 - 50 % | [facility] | | | SATURATION | | | REGIONAL | | | TRANSFERRIN | | | LABORATORY | | | , SERUM | | | | | + +-------+ + + + + + | Specimen | + + | Blood - Blood | + + + + + | Narrative | Performed At | + + + | Reference Range Change effective 12/25/08 | [facility] | | [facility] | [facility]AL | | [place] [address] | LABORATORY | | [place] [address] | | + + + + + + + + | Performing | Address | City/State/Zipcode | Phone Number | | Organization | | | | + + + + + | [facility] | [address] | [place] [address] | | | LABORATORY | | | | + + + + + ANTI NUCLEAR AB SCREEN, SERUM (09/14/2011 1:56 PM PDT) + + + + + + | Component | Value | Ref Range | Performed | Pathologist | | | | | At | Signature | + + + + + + | MATTY SCREEN | POSITIVE | Negative | [facility] | | | ON HEP | | | REGIONAL | | | 2,SERUM | | | LABORATORY | | + + + + + + + + | Specimen | + + | Blood - Blood | + + + + + | Narrative | Performed At | + + + | Because MATTY titers of 1:40 and 1:80 are prevalent in the | [facility] | | general population, in most cases these titers are not | REGIONAL | | associated with autoimmune disease. MATTY results | LABORATORY | | need to be interpreted in the context of clinical symptoms. A | | | low likelihood of autoimmune disease with equivocal test | | | results is generally not indicative of autoimmune disease. | | | [facility] | | | [address] [facility] [place] | | | [address] Because MATTY titers of 1:40 and 1:80 are prevalent in | | | the general population, in most cases these titers are not | | | associated with autoimmune disease. MATTY results | | | need to be interpreted in the context of clinical symptoms. A | | | low likelihood of autoimmune disease with equivocal test | | | results is generally not indicative of autoimmune disease. | | | [facility] | | | [address], [place] | | | [address] | | + + + + + + + + | Performing | Address | City/State/Zipcode | Phone Number | | Organization | | | | + + + + + | [facility] | [address] | [place] [address] | | | LABORATORY | | | | + + + + + ANTI SMOOTH MUSCLE AB, SERUM (09/14/2011 1:56 PM PDT) + + + + + + | Component | Value | Ref Range | Performed | Pathologist | | | | | At | Signature | + + + + + + | ANTI-SMOOTH | POSITIVE (A) | Negative | [facility] | | | MUSCLE | | | REGIONAL | | | | | | LABORATORY | | + + + + + + | ASMA TITER | 1:20 | Titer | [facility] | | | | | | REGIONAL | | | | | | LABORATORY | | + + + + + + + + | Specimen | + + | Blood - Blood | + + + + + | Narrative | Performed At | + + + | [facility] | [facility] | | [place] [address] | REGIONAL | | [place] [address] | LABORATORY | + + + + + + + + | Performing | Address | City/State/Zipcode | Phone Number | | Organization | | | | + + + + + | [facility] | [address] | [place] [address] | | | LABORATORY | | | | + + + + + INR (09/14/2011 1:56 PM PDT) + + + + + + | Component | Value | Ref Range | Performed | Pathologist | | | | | At | Signature | + + + + + + | INR | 0.91Comment: | 0.90 - 1.20 INR | [facility] | | | | INR Therapeutic ranges | | DEPARTMENT | | | | for full | | OF | | | | anticoagulation: | | PATHOLOGY | | | | INR for Venous | | | | | | Thromboembolism | | | | | | (2.0-3.0) | | | | | | INR INR for most | | | | | | patients with mech. | | | | | | valves (2.5-3.5) | | | | | | INR | | | | + + + + + + + + | Specimen | + + | Blood - Blood | + + + + + + + | Performing | Address | City/State/Zipcode | Phone Number | | Organization | | | | + + + + + | [facility] | [address] | [place] [address] | | | PATHOLOGY | [address] | | | + + + + + CBC, WITH DIFFERENTIAL (09/14/2011 1:56 PM PDT) + + + + + + | Component | Value | Ref Range | Performed | Pathologist | | | | | At | Signature | + + + + + + | WHITE CELL | 7.4 | 4.4 - 11.0 K/cu | [facility] | | | COUNT | | mm | DEPARTMENT | | | | | | OF | | | | | | PATHOLOGY | | + + + + + + | RED CELL | 5.33 (H) | 4.00 - 5.20 | [facility] | | | COUNT | | M/cu mm | DEPARTMENT | | | | | | OF | | | | | | PATHOLOGY | | + + + + + + | HEMOGLOBIN | 17.0 (H) | 12.0 - 16.0 | [facility] | | | | | g/dL | DEPARTMENT | | | | | | OF | | | | | | PATHOLOGY | | + + + + + + | HEMATOCRIT | 49.1 (H) | 36.0 - 46.0 % | [facility] | | | | | | DEPARTMENT | | | | | | OF | | | | | | PATHOLOGY | | + + + + + + | MCV | 92.1 | 80.0 - 96.0 fL | [facility] | | | | | | DEPARTMENT | | | | | | OF | | | | | | PATHOLOGY | | + + + + + + | MCHC | 34.7 | 33.4 - 35.5 | [facility] | | | | | g/dL | DEPARTMENT | | | | | | OF | | | | | | PATHOLOGY | | + + + + + + | RDW | 14.4 | 11.5 - 15.0 % | [facility] | | | | | | DEPARTMENT | | | | | | OF | | | | | | PATHOLOGY | | + + + + + + | PLATELET | 173 | 150 - 400 K/cu | [facility] | | | COUNT | | mm | DEPARTMENT | | | | | | OF | | | | | | PATHOLOGY | | + + + + + + + + | Specimen | + + | Blood - Blood | + + + + + + + | Performing | Address | City/State/Zipcode | Phone Number | | Organization | | | | + + + + + | [facility] | [address] | [place] [address] | | | PATHOLOGY | [address] | | | + + + + + COMPLETE METABOLIC SET (NA,K,CL,CO2,BUN,CREAT,GLUC,CA,AST,ALT,BILI TOTAL,ALK PHOS,ALB,PROT TOTAL) (09/14/2011 1:56 PM PDT) + + + + + + | Component | Value | Ref Range | Performed | Pathologist | | | | | At | Signature | + + + + + + | GLUCOSE, | 99 | 60 - 99 mg/dL | [facility] | | | PLASMA | | | DEPARTMENT | | | (LAB) | | | OF | | | | | | PATHOLOGY | | + + + + + + | BUN, PLASMA | 12 | 6 - 20 mg/dL | [facility] | | | (LAB) | | | DEPARTMENT | | | | | | OF | | | | | | PATHOLOGY | | + + + + + + | CREATININE | 0.79 | 0.60 - 1.10 | [facility] | | | PLASMA | | mg/dL | DEPARTMENT | | | (LAB) | | | OF | | | | | | PATHOLOGY | | + + + + + + | TOTAL | 7.4 | 6.1 - 7.9 g/dL | [facility] | | | PROTEIN, | | | DEPARTMENT | | | PLASMA | | | OF | | | (LAB) | | | PATHOLOGY | | + + + + + + | ALBUMIN, | 3.6 | 3.5 - 4.7 g/dL | [facility] | | | PLASMA | | | DEPARTMENT | | | (LAB) | | | OF | | | | | | PATHOLOGY | | + + + + + + | CALCIUM, | 9.1 | 8.6 - 10.2 | [facility] | | | PLASMA | | mg/dL | DEPARTMENT | | | (LAB) | | | OF | | | | | | PATHOLOGY | | + + + + + + | BILIRUBIN | 0.6 | 0.3 - 1.2 mg/dL | [facility] | | | TOTAL | | | DEPARTMENT | | | | | | OF | | | | | | PATHOLOGY | | + + + + + + | ALK PHOS | 120 (H) | 42 - 98 U/L | [facility] | | | | | | DEPARTMENT | | | | | | OF | | | | | | PATHOLOGY | | + + + + + + | AST(SGOT) | 51 (H) | 15 - 41 U/L | [facility] | | | | | | DEPARTMENT | | | | | | OF | | | | | | PATHOLOGY | | + + + + + + | SODIUM, | 141 | 134 - 143 | [facility] | | | PLASMA | | mmol/L | DEPARTMENT | | | (LAB) | | | OF | | | | | | PATHOLOGY | | + + + + + + | POTASSIUM, | 4.0 | 3.4 - 5.0 | [facility] | | | PLASMA | | mmol/L | DEPARTMENT | | | (LAB) | | | OF | | | | | | PATHOLOGY | | + + + + + + | CHLORIDE, | 103 | 97 - 108 mmol/L | [facility] | | | PLASMA | | | DEPARTMENT | | | (LAB) | | | OF | | | | | | PATHOLOGY | | + + + + + + | TOTAL CO2, | 31 (H) | 22 - 29 mmol/L | [facility] | | | PLASMA | | | DEPARTMENT | | | (LAB) | | | OF | | | | | | PATHOLOGY | | + + + + + + | ALT (SGPT) | 67 (H) | 13 - 48 U/L | [facility] | | | | | | DEPARTMENT | | | | | | OF | | | | | | PATHOLOGY | | + + + + + + | EGFR | > 60 | >60 mL/min | [facility] | | | - | | | DEPARTMENT | | | [facility] | | | OF | | | | | | PATHOLOGY | | + + + + + + | EGFR NON | > 60Comment: GFR is | >60 mL/min | [facility] | | | -MALINI | estimated using the MDRD | | DEPARTMENT | | | RICAN | equation recommended by | | OF | | | | theNational Kidney | | PATHOLOGY | | | | Disease Education | | | | | | Program. Estimated GFR | | | | | | Interpretive | | | | | | Information: <60 | | | | | | mL/min/1.73 sq m | | | | | | Chronic Kidney Disease | | | | | | <15 mL/min/1.73 sq m | | | | | | Kidney Failure | | | | | | Estimated GFR greater | | | | | | than 60mL/min/1.73 is of | | | | | | limited clinical Value. | | | | | | The MDRD equation is | | | | | | not valid in the | | | | | | following situations: - | | | | | | Patients under 18 years | | | | | | of age - Severe | | | | | | malnutrition or obesity | | | | | | - Vegetarian diet - | | | | | | Rapidly changing kidney | | | | | | function | | | | + + + + + + | ANION GAP | 7 | 4 - 11 mmol/L | [facility] | | | | | | DEPARTMENT | | | | | | OF | | | | | | PATHOLOGY | | + + + + + + | ANION | 8 | 4 - 11 mmol/L | [facility] | | | GAP(ALB | | | DEPARTMENT | | | CORRECTED) | | | OF | | | | | | PATHOLOGY | | + + + + + + + + | Specimen | + + | Blood - Blood | + + + + + + + | Performing | Address | City/State/Zipcode | Phone Number | | Organization | | | | + + + + + | [facility] | [address] | [place] [address] | | | PATHOLOGY | [address] | | | + + + + + documented in this encounter Visit Diagnoses + + | Diagnosis | + + | Chronic hepatitis C without mention of hepatic coma - Primary | + + documented in this encounter
--- OUTSIDE RECORDS SUMMARY | ~2020-03-30 | XMS | Encounter Summary ---
Demographics + + + | Address | [address] | | | [place] [address] | + + + | Home Phone | | + + + | Preferred Language | Unknown | + + + | Marital Status | Single | + + + | Moravian Affiliation | NON | + + + | Race | Unknown | + + + | Ethnic Group | Not or | + + + Author + + + | Author | [facility] | + + + | Organization | [facility] | + + + | Address | Unknown | + + + | Phone | Unavailable | + + + Support + + +---------+ + | Name | Relationship | Address | Phone | + + +---------+ + | Andrew Nelson | ECON | Unknown | | + + +---------+ + Care Team Providers + +------+ + | Care Education And Outreach Coordinator Name | Role | Phone | + +------+ + | Corey Galvan MD | PCP | Unavailable | + +------+ + Reason for Visit +--------+ + | Reason | Comments | +--------+ + | Other | liver biopsy with possible sedation | +--------+ + Encounter Details +--------+ + + + + | Date | Type | Department | Care Team | Description | +--------+ + + + + | 12/15/ | Telephone | Digestive Health | Hiren Gutierrez, | Other (liver biopsy | | 2011 | | [place] [facility] [address] | [place] | with possible | | | | [address] | | sedation) | | | | Mailcode: [facility] | | | | | | [facility] | | | | | | and Healing, | | | | | | [address] | | | | | | [place], [place] | | | | | | [address] | | | | | | [phone] | | | +--------+ + + + [...] as of this encounter Plan of Treatment + +------+--------+ + + | Name | Type | Priori | Associated Diagnoses | Order Schedule | | | | ty | | | + +------+--------+ + + | SURGICAL PATHOLOGY | Lab | Routin | Chronic hepatitis | Ordered: 12/15/2011 | | | | e | C without mention of | | | | | | hepatic coma | | | | | | Hepatitis C | | + +------+--------+ + + documented as of this encounter Visit Diagnoses + + | Diagnosis | + + | Chronic hepatitis C without mention of hepatic coma - Primary | + + | Hepatitis C Unspecified viral hepatitis C without hepatic coma | + + documented in this encounter"
--- OUTSIDE RECORDS SUMMARY | ~2020-03-30 | XMS | Encounter Summary ---
Demographics + + + | Address | [address] | | | [place] [address] | + + + | Home Phone | | + + + | Preferred Language | Unknown | + + + | Marital Status | | + + + | Congregation Affiliation | Unknown | + + + | Race | Unknown | + + + | Ethnic Group | Unknown | + + + Author + + + | Author | [facility] | | | and Dhav[place]ana | + + + | Organization | [facility] | | | and [place]hav[place]ana | [...] | | | | | [place] [address] | | + + + + + Care Team Providers + +------+ + | Care Shipwright Apprentice Name | Role | Phone | + [...] | | | | | | | Hemorrhage | | | | | | | of rectum | | | | | | | and anus | | | | | | | Other | | | | | | | symptoms | | | | | | | involving | | | | | | | digestive | | | | | | | system(787.9 | | | | | | | 9) | | | | | | | Dysphagia, | | | | | | | unspecified( | | | | | | | 787.20) | | | | | | | Heartburn | | | | | | | Morbid | | | | | | | obesity | | | | | | | (HCC) | | | | | | | Morbid | | | | | | | obesity | | | | | | | ([facility]) | | | | | | | [278.01] | | | | | | | Heartburn | | | | | | | [787.1] | | | | | | | Dysphagia, | | | | | | | unspecified | | | | | | | Other | | | | | | | symptoms | | | | | | | involving | | | | | | | digestive | | | | | | | system(787.9 | | | | | | | 9) [787.99] | | | | | | | | | | | | | | Procedures | | | | | | | NH | | | | | | | COLONOSCOPY, | | | | | | | DIAGNOSTIC | | | | | | | NH | | | | | | | ESOPHAGOGAST | | | | | | | RODUODENOSCO | | | | | | | PY TRANSORAL | | | | | | | DIAGNOSTIC | | | | | | | EGD / | | | | | | | COLONOSCOPY | | | +--------+--------+ + + + + Encounter Details +--------+---------+ + + + | Date | Type | Department | Care Team | Description | +--------+---------+ + + + | 05/25/ | Surgery | [facility] | Agusto Porter MD | EGD / COLONOSCOPY | | 2013 | | MED CTR [facility] OP | [address], [place] | | | | | [address] | [address] [place] | | | | | [place], [place] | [address] | | | | | [address] | | | | | | [phone] | | | +--------+---------+ + + + [...] + + + | Blood Pressure | 119/52 | 05/25/2014 2:10 PM | | | | | PDT | | + + + + + | Pulse | 70 | 05/25/2014 2:10 PM | | | | | PDT | | + + + + + | Temperature | 36.4 C (97.5 F) | 05/25/2014 1:20 PM | | | | | PDT | | + + + + + | Respiratory Rate | 15 | 05/25/2014 2:10 PM | | | | | PDT | | + + + + + | Oxygen Saturation | 93% | 05/25/2014 2:10 PM | | | | | PDT | | + + + + + | Inhaled Oxygen | - | - | | | Concentration | | | | + + + + + | Weight | 95.3 kg (210 lb) | 05/25/2014 10:00 AM | | | | | PDT | | + + + + + | Height | 160 cm (5' 3") | 05/25/2014 10:00 AM | | | | | PDT | | + + + + + | Body Mass Index | 37.2 | 05/25/2014 10:00 AM | | | | | PDT [...] + + + +---------+ + + | Venlafaxine HCl | Take 1 tablet by | | 0 | | | | 225 MG TB24 | mouth Daily. | | | | 4 | + + + +---------+ + + documented as of this encounter Plan of Treatment + +------+--------+ + + | Name | Type | Priori | Associated Diagnoses | Order Schedule | | | | ty | | | + +------+--------+ + + | Basic Metabolic | Lab | STAT | | As Needed for 1 | | Panel | | | | Occurrences starting | | | | | | 05/25/2014 | + +------+--------+ + + documented as of this encounter Procedures + +--------+ + + + | Procedure Name | Priori | Date/Time | Associated Diagnosis | Comments | | | ty | | | | + +--------+ + + + | HELICOBACTER PYLORI | Routin | 05/25/2014 | | Results for this | | BIOPSY | e | 1:00 PM | | procedure are in the | | | | PDT | | results section. | + +--------+ + + + | EGD | Routin | 05/25/2014 | | Results for this | | | e | 12:53 PM | | procedure are in the | | | | PDT | | results section. | + +--------+ + + + | COLONOSCOPY | Routin | 05/25/2014 | | Results for this | | | e | 12:52 PM | | procedure are in the | | | | PDT | | results section. | + +--------+ + + + | EGD / COLONOSCOPY | | 05/25/2014 | Hemorrhage of | | | | | 12:49 PM | rectum and anus | | | | | PDT | Other symptoms | | | | | | involving digestive | | | | | | system(787.99) | | | | | | Dysphagia, | | | | | | unspecified(787.20) | | | | | | Heartburn Morbid | | | | | | obesity (HCC) | | + +--------+ + + + +---+--------+ | | | | | Specia | | | l | | | Needs | | | BMI | | | 38 | +---+--------+ documented in this encounter Results Helicobactor pylori Biopsy (05/25/2014 1:00 PM PDT) + + + + + + | Component | Value | Ref Range | Performed | Pathologist | | | | | At | Signature | + + + + + + | Helicobacte | Negative | Negative | [facility] | | | r [facility] | | | [facility] | | [facility] - | | | | | | LABORATORY | | + + + + + + + + | Specimen | + + | Tissue - Entire | | pyloric antrum (body | | structure) | + + + + + + + | Performing | Address | City/State/Zipcode | Phone Number | | Organization | | | | + + + + + | [facility] | [address] | [place], [place] | [phone] | | [facility] | | [address] | | | - LABORATORY | | | | + + + + + | [facility] | [address] | [place] | | | [facility] | | [address] [place] [address] | | | - LABORATORY | | | | + + + + + EGD (05/25/2014 12:53 PM PDT) + + | Specimen | + + | | + + + + -+ | Narrative | Performed At | + + -+ | | [facility] | | GastroenterologyPatient Name: Carolina AngProcedure Date: 05/25/2014 | [facility] | | 12:53 PMMRN: [id number] #: [id number] of : | | | 1955dmit Type: AmbulatoryAge: 58Room: [facility] 01Gender: FemaleNote | | | Status: FinalizedAttending MD: Agusto Porter, [facility]rocedure: | | | Upper GI endoscopyIndications: Oropharyngeal phase | | | dysphagia, Hepatitis with suspected | | | esophageal varicesProviders: Agusto Porter MD, [facility] | | | Linda Interiano RN, Jacquie Alcaraz, | | | Lining Repairer, Corey Schwab MD (Anesthesia | | | Staff)Referring MD: Corey Galvan MD (Referring | | | MD)Medicines: Sedation Required Anesthesia Staff | | | AssistanceComplications: No immediate complications. Estimated | | | blood loss: Minimal.Procedure: Pre-Anesthesia Assessment: | | | - Prior to the procedure, a History and Physical was performed, and | | | patient medications, allergies and sensitivities were reviewed. | | | The patient's tolerance of previous anesthesia was reviewed. | | | - Prior to the procedure, a History and Physical was performed, | | | and patient medications and allergies were reviewed. The | | | patient is competent. The risks and benefits of the procedure | | | and the sedation options and risks were discussed with the | | | patient. All questions were answered and informed consent was | | | obtained. Patient identification and proposed procedure were | | | verified by the physician, the nurse, the anesthesiologist and | | | the processing technician in the endoscopy suite. Mental Status | | | Examination: normal. Airway Examination: small/crowded | | | oropharyngeal airway and Mallampati Class III (part of the uvula and | | | soft palate visualized). Prophylactic Antibiotics: The patient | | | does not require prophylactic antibiotics. Prior | | | Anticoagulants: The patient has taken no previous anticoagulant | | | or antiplatelet agents. ASA Grade Assessment: III - A patient | | | with severe systemic disease. After reviewing the risks and | | | benefits, the patient was deemed in satisfactory condition to | | | undergo the procedure. The anesthesia plan was to use monitored | | | anesthesia care (MAC). Immediately prior to administration of | | | medications, the patient was re-assessed for adequacy to receive | | | sedatives. The heart rate, respiratory rate, oxygen saturations, | | | blood pressure, adequacy of pulmonary ventilation, and response | | | to care were monitored throughout the procedure. The physical | | | status of the patient was re-assessed after the procedure. | | | - After reviewing the risks and benefits, the patient was deemed in | | | satisfactory condition to undergo the procedure. - Using | | | IV propofol under the supervision of an anesthesiologist was | | | determined to be medically necessary for this procedure based on | | | severe comorbidity (greater than ASA Grade II), morbid obesity, | | | patient's dependence on opiates, sedatives or hypnotics and | | | patient's history of drug or alcohol abuse. - Immediately | | | prior to administration of medications, the patient was | | | re-assessed for adequacy to receive sedatives. - The heart rate, | | | respiratory rate, oxygen saturations, blood pressure, adequacy | | | of pulmonary ventilation, and response to care were monitored | | | throughout the procedure. - The physical status of the patient | | | was re-assessed after the procedure. After obtaining informed | | | consent, the endoscope was passed under direct vision. | | | Throughout the procedure, the patient's blood pressure, pulse, | | | and oxygen saturations were monitored continuously. The endoscope was | | | introduced through the mouth, and advanced to the third part of | | | duodenum. The upper GI endoscopy was accomplished without | | | difficulty. The patient tolerated the procedure well.Findings: | | | The cricopharyngeus, upper third of the esophagus, middle third | | | of the esophagus, lower third of the esophagus and lower | | | esophageal sphincter were normal. The Z-line was regular | | | and was found 40 cm from the incisors. Localized moderately | | | erythematous mucosa without bleeding was found in the | | | prepyloric region of the stomach. Biopsies were taken with a cold | | | forceps for Helicobacter pylori testing using CLOtest. Verification | | | of patient identification for the specimen was done. Estimated | | | blood loss was minimal. The duodenal bulb, first part of | | | the duodenum, 2nd part of the duodenum, area of the papilla | | | and 3rd part of the duodenum were normal. The retroflexed view | | | confirmed previous findings,Impression: - Normal | | | cricopharyngeus, upper third of esophagus, middle third of | | | esophagus, lower third of esophagus and lower esophageal sphincter. | | | - Z-line regular, 40 cm from the incisors. - Erythematous | | | mucosa in the prepyloric region of the stomach. Biopsied. - | | | Normal duodenal bulb, first part of the duodenum, 2nd part of the | | | duodenum, area of the papilla and 3rd part of the duodenum. - | | | The retroflexed view confirmed previous findings,Recommendation: | | | - Discharge patient to home (ambulatory). - Return to | | | previous diet today. - Perform a colonoscopy today. - | | | Continue present medications. - Return to nurse practitioner at | | | appointment to be scheduled. - Telephone GI clinic for pathology | | | results in 1 week.Agusto Porter MD05/25/2014 1:21 PMThis report has | | | been signed electronically.Number of Addenda: 0Note Initiated On: | | | 05/25/2014 12:53 PM [facility], [address] | | | [place] [address] | | | - The retroflexed view confirmed previous findings, | | |Recommendation: | | | - Discharge patient to home (ambulatory). | | | - Return to previous diet today. | | | - Perform a colonoscopy today. | | | - Continue present medications. | | | - Return to nurse practitioner at appointment to be scheduled. | | | - Telephone GI clinic for pathology results in 1 week. | | |Agusto Porter MD | | |05/25/2014 1:21 PM | | |This report has been signed electronically. | | |Number of Addenda: 0 | | |Note Initiated On: 05/25/2014 12:53 PM | | | [facility], [address] [place], [place] | | | [address] | | + + -+ + + | Transcriptions | + + | Eduardo Casas - 05/25/2014 12:00 AM PDT | + + + +---------+ + + | Performing | Address | City/State/Zipcode | Phone Number | | Organization | | | | + +---------+ + + | [facility] | | | | + +---------+ + + COLONOSCOPY (05/25/2014 12:52 PM PDT) + + | Specimen | + + | | + + + + -+ | Narrative | Performed At | + + -+ | | [facility] | | GastroenterologyPatient Name: Carolina AngProcedure Date: 05/25/2014 | [facility] | | 12:52 [facility]: [id number] #: [id number] of : | | | 3Admit Type: AmbulatoryAge: 58Room: [facility] 01Gender: FemaleNote | | | Status: FinalizedAttending MD: Agusto Porter [facility]rocedure: | | | ColonoscopyIndications: Screening for colorectal malignant | | | neoplasmProviders: Agusto Porter MD, Carol Mckeon | | | JOSE Interiano, Jacquie Alcaraz, | | | TechnicianReferring MD: Corey Galvan MD (Referring | | | MD)Medicines: Sedation Required Anesthesia Staff | | | AssistanceComplications: No immediate complications.Procedure: | | | Pre-Anesthesia Assessment: - Prior to the procedure, a | | | History and Physical was performed, and patient medications, | | | allergies and sensitivities were reviewed. The patient's | | | tolerance of previous anesthesia was reviewed. - Prior to the | | | procedure, a History and Physical was performed, and patient | | | medications and allergies were reviewed. The patient is | | | competent. The risks and benefits of the procedure and the sedation | | | options and risks were discussed with the patient. All questions | | | were answered and informed consent was obtained. Patient | | | identification and proposed procedure were verified by the | | | physician, the nurse, the anesthesiologist and the processing technician | | | in the endoscopy suite. Mental Status Examination: normal. | | | Airway Examination: small/crowded oropharyngeal airway and | | | Mallampati Class III (part of the uvula and soft palate | | | visualized). Prophylactic Antibiotics: The patient does not | | | require prophylactic antibiotics. Prior Anticoagulants: The patient | | | has taken no previous anticoagulant or antiplatelet agents. ASA | | | Grade Assessment: III - A patient with severe systemic | | | disease. After reviewing the risks and benefits, the patient | | | was deemed in satisfactory condition to undergo the procedure. | | | The anesthesia plan was to use monitored anesthesia care (MAC). | | | Immediately prior to administration of medications, the | | | patient was re-assessed for adequacy to receive sedatives. The | | | heart rate, respiratory rate, oxygen saturations, blood | | | pressure, adequacy of pulmonary ventilation, and response to care were | | | monitored throughout the procedure. The physical status of the | | | patient was re-assessed after the procedure. - After | | | reviewing the risks and benefits, the patient was deemed in | | | satisfactory condition to undergo the procedure. - Using IV | | | propofol under the supervision of an anesthesiologist was | | | determined to be medically necessary for this procedure based on | | | severe comorbidity (greater than ASA Grade II), increased risk | | | of airway obstruction (oral, facial, neck, jaw abnormalities), | | | morbid obesity, patient's dependence on opiates, sedatives or | | | hypnotics and patient's history of drug or alcohol abuse. | | | - Immediately prior to administration of medications, the patient was | | | re-assessed for adequacy to receive sedatives. - The | | | heart rate, respiratory rate, oxygen saturations, blood pressure, | | | adequacy of pulmonary ventilation, and response to care were | | | monitored throughout the procedure. - The physical status | | | of the patient was re-assessed after the procedure. - After | | | reviewing the risks and benefits, the patient was deemed in | | | satisfactory condition to undergo the procedure. After I | | | obtained informed consent, the scope was passed under direct | | | vision. Throughout the procedure, the patient's blood pressure, pulse, | | | and oxygen saturations were monitored continuously. The | | | endoscope was introduced through the anus and advanced to the | | | cecum, identified by the appendiceal orifice, ileocecal valve | | | and palpation. The colonoscopy was somewhat difficult due to a | | | tortuous colon and the patient's body habitus. Successful | | | completion of the procedure was aided by using manual pressure. | | | The patient tolerated the procedure well. The quality of the | | | bowel preparation was good.Findings: The perianal exam was | | | abnormal. Findings include non-thrombosed external hemorrhoids. | | | The sigmoid colon was moderately tortuous. A moderate | | | amount of semi-liquid stool was found in the ascending colon | | | and in the cecum, interfering with visualization. Lavage of the area | | | was performed using copious amounts, resulting in clearance | | | with good visualization. Non-bleeding internal | | | hemorrhoids were found during retroflexion and during perianal | | | exam and were moderate. The exam was otherwise without | | | abnormality. No additional abnormalities were found on | | | retroflexion.Impression: - Non-thrombosed external hemorrhoids | | | found on perianal exam. - Tortuous colon. - Stool in the | | | ascending colon and in the cecum. - Non-bleeding internal | | | hemorrhoids. - The examination was otherwise | | | normal.Recommendation: - Discharge patient to home (ambulatory). | | | - Return to previous diet today. - Continue present | | | medications. - Repeat colonoscopy in 10 years for screening | | | purposes. - Return to primary care physician as previously | | | scheduled. - Return to nurse practitioner at appointment to be | | | scheduled.Agusto Porter MD05/25/2014 1:26 PMThis report has been | | | signed electronically.Number of Addenda: 0Note Initiated On: 05/25/2014 | | | 12:52 PM [facility], [address] [place] [address], | | | [place], [place] [address] | | | - Non-bleeding internal hemorrhoids. | | | - The examination was otherwise normal. | | |Recommendation: | | | - Discharge patient to home (ambulatory). | | | - Return to previous diet today. | | | - Continue present medications. | | | - Repeat colonoscopy in 10 years for screening purposes. | | | - Return to primary care physician as previously scheduled. | | | - Return to nurse practitioner at appointment to be scheduled. | | |Agusto Porter MD | | |05/25/2014 1:26 PM | | |This report has been signed electronically. | | |Number of Addenda: 0 | | |Note Initiated On: 05/25/2014 12:52 PM | | | [facility], [address], [place], [place] | | | [address] | | + + -+ + + | Transcriptions | + + | Eduardo Casas - 05/25/2014 12:00 AM PDT | + + + +---------+ + + | Performing | Address | City/State/Zipcode | Phone Number | | Organization | | | | + +---------+ + + | [facility] | | | | + +---------+ + + documented in this encounter Visit Diagnoses + + | Diagnosis | + + | Hemorrhage of rectum and anus | + + | Other symptoms involving digestive system(787.99) Other symptoms involving digestive | | system | + + | Dysphagia, unspecified(787.20) Dysphagia, unspecified | + + | Heartburn | + + | Morbid obesity (HCC) Morbid obesity | + + documented in this encounter Administered Medications + +---------+ +------+-------+------+ | Medication Order | MAR | Action | Dose | Rate | Site | | | Action | Date | | | | + +---------+ +------+-------+------+ | lactated ringers (LR) infusion | New Bag | 05/25/20 | | 100 | | | at 100 mL/hr, Intravenous, | | 14 11:30 | | mL/hr | | | CONTINUOUS, Starting 05/25/14 | | AM PDT | | | | | at 1130, Pre-op | | | | | | + +---------+ +------+-------+------+ +---+---+ | | | +---+---+ documented in this encounter
--- OUTSIDE RECORDS SUMMARY | ~2020-03-30 | XMS | Encounter Summary ---
Demographics + + + | Address | [address] | | | [place] [address] | + + + | Home Phone | | + + + | Preferred Language | Unknown | + + + | Marital Status | Single | + + + | Mu-Ism Affiliation | NON | + + + | Race | Unknown | + + + | Ethnic Group | Not or | + + + Author + + + | Author | [facility] | + + + | Organization | [facility] | + + + | Address | Unknown | + + + | Phone | Unavailable | + + + Support + + +---------+ + | Name | Relationship | Address | Phone | + + +---------+ + | Andrew Nelson | ECON | Unknown | | + + +---------+ + Care Team Providers + +------+ + | Care Fermenter Name | Role | Phone | + +------+ + | Corey Galvan MD | PCP | Unavailable | + +------+ + Encounter Details +--------+ + + + + | Date | Type | Department | Care Team | Description | +--------+ + + + + | 07/06/ | Abstract | [facility] | Ari Sierra MD | | | 2010 | | [place] [address] [id number] | [address] | | | | [address] | [place], [place] | | | | | Mailcode: [id number] | [address] | | | | | [facility] | [phone] | | | | | [facility] Healing, | | | | | | [address] | | | | | | [place], [place] | | | | | | [address] | | | | | | [phone] | | | +--------+ + + + + Social History + +-------+ +--------+------+ | Tobacco Use | Types | Packs/Day | Years | Date | | | | | Used | | + +-------+ +--------+------+ | Never Assessed | | | | | + +-------+ +--------+------+ + + + | Sex Assigned at [...]
--- OUTSIDE RECORDS SUMMARY | ~2020-03-30 | XMS | Clinical Summary ---
Demographics + + + | Address | [address] | | | [place] [address] | + + + | Home Phone | | + + + | Preferred Language | Unknown | + + + | Marital Status | | + + + | Baptist Affiliation | Unknown | + + + | Race | Unknown | + + + | Ethnic Group | Unknown | + + + Author + + + | Author | [facility] | | | and [place] | + + + | Organization | [facility] | | | and [place] | [...] | | | | | [place] [address] | | + + + + + Care Team Providers + +------+ + | Care Casino Floor Person Name | Role | Phone | + +------+ + | Corey Galvan MD | PCP | | + +------+ + Allergies + + + + + + | Active Allergy | Reactions | Severity | Noted | Comments | | | | | Date | | + + + + + + | Codeine | Hives, Itching | High | 04/06/20 | | | | | | 14 | | + + + + + + | Latex | Rash | Medium | 04/25/20 | | | | | | 14 | | + + + + + + Medications + + + +---------+------+------+-------+ | Medication | Sig | Dispensed | Refills | Star | End | Statu | | | | | | t | Date | s | | | | | | Date | | | + + + +---------+------+------+-------+ | beclomethasone | Inhale 2 puffs into | | 0 | | | Activ | | (QVAR) 40 mcg/puff | the lungs 2 times | | | | | e | | inhaler | daily. | | | | | | + + + +---------+------+------+-------+ | albuterol | Inhale 2 puffs into | | 0 | | | Activ | | (VENTOLIN HFA) 90 | the lungs EVERY 4 TO | | | | | e | | mcg/puff inhaler | 6 HOURS NEEDED. | | | | | | + + + +---------+------+------+-------+ | gabapentin | Take 600 mg by mouth | | 0 | | | Activ | | (NEURONTIN) 600 MG | 2 times daily. | | | | | e | | tablet | | | | | | | + + + +---------+------+------+-------+ | | Take 1 tablet by | | 0 | | | Activ | | HYDROcodone-acetamin | mouth every 6 hours | | | | | e | | ophen (NORCO) 10-325 | as needed. | | | | | | | mg per tablet | | | | | | | + + + +---------+------+------+-------+ | traZODone | Take 50 mg by mouth | | 0 | | | Activ | | (DESYREL) 50 mg | nightly. | | | | | e | | tablet | | | | | | | + + + +---------+------+------+-------+ | ipratropium | Inhale 2 puffs into | | 0 | | | Activ | | (ATROVENT HFA) 17 | the lungs 2 times | | | | | e | | mcg/puff inhaler | daily. | | | | | | + + + +---------+------+------+-------+ | MULTIPLE VITAMIN | Take 1 tablet by | | 0 | | | Activ | | PO | mouth Daily. | | | | | e | + + + +---------+------+------+-------+ | ondansetron | Take 1 tablet by | 20 | 0 | 06/0 | | Activ | | (ZOFRAN) 4 mg tablet | mouth Daily as | tablet | | 4/20 | | e | | | needed for Nausea. | | | 14 | | | + + + +---------+------+------+-------+ | venlafaxine | Take 75 mg by mouth | | 0 | | | Activ | | (EFFEXOR) 75 MG | Daily. | | | | | e | | tablet | | | | | | | + + + +---------+------+------+-------+ | cephalexin | Take 1 capsule by | | 0 | 11/1 | | Activ | | (KEFLEX) 750 mg | mouth 3 (three) | | | 0/20 | | e | | capsule | times daily. | | | 17 | | | + + + +---------+------+------+-------+ | cyclobenzaprine | take 1 tablet by | | 0 | 08/0 | | Activ | | (FLEXERIL) 10 mg | mouth three times a | | | 7/20 | | e | | tablet | day IF DROWSINESS IS | | | 17 | | | | | A PROBLEM TAKE ONLY | | | | | | | | at bedtime | | | | | | + + + +---------+------+------+-------+ | fluticasone | | | 0 | 07/3 | | Activ | | (FLOVENT HFA) 220 | | | | 1/20 | | e | | mcg/puff inhaler | | | | 17 | | | + + + +---------+------+------+-------+ | levothyroxine | | | 0 | 07/3 | | Activ | | (SYNTHROID) 50 mcg | | | | 1/20 | | e | | tablet | | | | 17 | | | + + + +---------+------+------+-------+ | metFORMIN | | | 0 | 07/1 | | Activ | | (GLUCOPHAGE) 850 mg | | | | 8/20 | | e | | tablet | | | | 17 | | | + + + +---------+------+------+-------+ Active Problems + + + | Problem | Noted Date | + + + | Chronic midline low back pain without sciatica | 11/19/2017 | + + + | Osteophyte, vertebrae | 11/19/2017 | + + + | S/P laminectomy | 10/26/2017 | + + + | Herniation of cervical intervertebral disc with radiculopathy | 2017 | + + + | Numbness and tingling in right hand | 07/26/2017 | + + + | Spondylosis of cervical joint with myelopathy | 07/26/2017 | + + + | DDD (degenerative disc disease), cervical | 06/24/2017 | + + + | Neck pain on right side | 06/24/2017 | + + + | Pain radiating to neck | 06/24/2017 | + + + | Chronic hepatitis C | 05/24/2014 | + + + | Dysphagia | 05/24/2014 | + + + | Rectal bleeding | 05/24/2014 | + + + | Other symptoms involving digestive system(787.99) | 05/24/2014 | + + + | Heartburn | 05/24/2014 | + + + | BMI 38.0-38.9 | 05/24/2014 | + + + | Smoker | 05/24/2014 | + + + | Hemorrhage of rectum | 05/24/2014 | + + + | Constipation | 05/24/2014 | + + + | Marijuana use | 05/24/2014 | + + + | COPD (chronic obstructive pulmonary disease) | | + + + Social History + +-------+ +--------+------+ | Tobacco Use | Types | Packs/Day | Years | Date | | | | | Used | | + +-------+ +--------+------+ | Current Every Day | | 0.75 | 49 | | | Smoker | | | | | + +-------+ +--------+------+ + +---+---+---+ | Smokeless Tobacco: | | | | | Never Used | | | | + +---+---+---+ + + | Tobacco Cessation: Ready to Quit: No; Counseling Given: Yes | + + + + +---------+ + | Alcohol Use [...] recent travel history available. | + + Last Filed Vital Signs + + + + + | Vital Sign | Reading | Time Taken | Comments | + + + + + | Blood Pressure | 131/79 | 01/19/2018 2:24 PM | | | | | PST | | + + + + + | Pulse | 86 | 01/19/2018 2:24 PM | | | | | PST | | + + + + + | Temperature | 37 C (98.6 F) | 10/08/2017 12:50 PM | | | | | PST | | + + + + + | Respiratory Rate | 16 | 10/08/2017 12:50 PM | | | | | PST | | + + + + + | Oxygen Saturation | 93% | 05/25/2014 2:10 PM | | | | | PDT | | + + + + + | Inhaled Oxygen | - | - | | | Concentration | | | | + + + + + | Weight | 71.2 kg (157 lb) | 01/19/2018 2:24 PM | | | | | PST | | + + + + + | Height | 160 cm (5' 3") | 01/19/2018 2:24 PM | | | | | PST | | + + + + + | Body Mass Index | 27.81 | 01/19/2018 2:24 PM | | | | | PST | | + + + + + Plan of Treatment + + + + + | Health Maintenance | Due Date | Last Done | Comments | + + + + + | Vaccine: | | | | | Dtap/Tdap/Td (1 - | 4 | | | | Tdap) | | | | + + + + + | Vaccine: Zoster (1 | | | | | of 2) | 3 | | | + + + + + | Breast Cancer | 09/28/200 | | | | Screening | 8 | | | + + + + + | Vaccine: | | | | | Pneumococcal 65+ (1 | 8 | | | | of 2 - PCV13) | | | | + + + + + | Vaccine: Influenza | | | | | (Season Ended) | 0 | | | + + + + + Results Not on filefrom Last 3 Months Insurance + +--------+ +--------+ +---------+--------+ | Payer | Benefi | Subscriber | Effect | Phone | Address | Type | | | t Plan | ID | richelle | | | | | | / | | Dates | | | | | | Group | | | | | | + +--------+ +--------+ +---------+--------+ | [employer] | [employer] | [id number] | | [phone] | | Medica | | MEDICAID HMO | HEALTH | | [id number] | 1 | | id | | | MDCD | | esent | | | | | | [place] | | | | | | + +--------+ +--------+ +---------+--------+ + +--------+ +--------+ + + | Guarantor Name | Accoun | Relation to | Date | Phone | Billing Address | | | t Type | Patient | of | | | | | | | | | | + +--------+ +--------+ + + | Carolina Ang | Person | Self [birth year] | [address] | | | al/Fam | | 1954 | [phone] | [address] [place] | | | [place] | | | [address] (Home) | [phone] | + +--------+ +--------+ + + Advance Directives + + + + + | Type | Date Recorded | Patient | Explanation | | | | Behavioral Health Assistant | | + + + + + | Power of | | | GAVE INFO ON [phone] | | Jet Worker | | | | + + + + + | Advance | 04/25/2014 10:03 | | | | Directive | AM | | | + + + + +
--- OUTSIDE RECORDS SUMMARY | ~2020-03-30 | XMS | Encounter Summary ---
Demographics + + + | Address | [address] | | | [place] [address] | + + + | Home Phone | | + + + | Preferred Language | Unknown | + + + | Marital Status | Single | + + + | Christian Affiliation | NON | + + + [...] Team Providers + +------+ + | Care Catalogue Clerk Name | Role | Phone | + [...] (liver biopsy | | 2011 | | [place] [facility] [address] | [place] | with possible | | | | [address] | | sedation) | | | | Mailcode: OC8D | | | | | | [facility] | | | | | | and Healing, | | | | | | [address] | | | | | | [place], [place] | | | | | | [address] | | | | | | [phone] | | | +--------+ + + + [...]
--- OUTSIDE RECORDS SUMMARY | ~2020-03-30 | XMS | Encounter Summary ---
Demographics + + + | Address | [address] | | | [place] [address] | + + + | Home Phone | | + + + | Preferred Language | Unknown | + + + | Marital Status | Single | + + + | Synagogue Affiliation | NON | + + + | Race | Unknown | + + + | Ethnic Group | Not or | + + + Author + + + | Author | [facility] | + + + | Organization | [facility] | + + + | Address | Unknown | + + + | Phone | Unavailable | + + + Support + + +---------+ + | Name | Relationship | Address | Phone | + + +---------+ + | Andrew Nelson | ECON | Unknown | | + + +---------+ + Care Team Providers + +------+ + | Care Dipper And Drier Name | Role | Phone | + [...] - Upper | | 2010 | | [place] [phone] | [place] | Respiratory | | | | [address] | | Infection; Fever | | | | Mailcode: OC8D | | | | | | [facility] | | | | | | and Healing, | | | | | | [address] | | | | | | [place], [place] | | | | | | [address] | | | | | | [phone] | | | +--------+ + + + [...]
--- OUTSIDE RECORDS SUMMARY | ~2020-03-30 | XMS | Encounter Summary ---
Demographics + + + | Address | [address] [facility] | | | [place] [address] | + + + | Home Phone | | + + + | Preferred Language | Unknown | + + + | Marital Status | | + + + | Druze Affiliation | Unknown | + + + | Race | Unknown | + + + | Ethnic Group | Unknown | + + + Author + + + | Author | [facility] | | | and Dhavalana | + + + | Organization | [facility] | | | and [...] | | | | | [place] [address] | | + + + + + Care Team Providers + +------+ + | Care Supervisor Wound Name | Role | Phone | + +------+ + | Corey Galvan MD | PCP | | + +------+ + Encounter Details +--------+ + + + + | Date | Type | Department | Care Team | Description | +--------+ + + + + | 10/06/ | Hospital | [facility] | Suzette Cao MD | Osteoarthritis of | | 2017 - | Encounter | [facility] [address] | [address] [facility] | cervical spine with | | | | [address] | 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; Cervical | | 10/08/ | | [place], [place] | [place] | disc prolapse with | | 2017 | | [address] | [address] | radiculopathy; | | | | [phone] | [phone] | Degeneration of | | | | | | intervertebral disc | | | | | | of cervical region | +--------+ + + + + Social [...] + + + | Blood Pressure | 126/64 | 10/08/2017 12:50 PM | | | | | PST | | + + + + + | Pulse | 79 | 10/08/2017 12:50 PM | | | [...] + + + + | Weight | 75.8 kg (167 lb 1.8 | 10/08/2017 12:50 PM | | | | oz) | PST | | + + + + + | Height | 160 cm (5' 3") | 10/08/2017 12:50 PM | | | | | PST | | + + + + + | Body Mass Index | 29.6 | 10/08/2017 12:50 PM | | | | | PST | | + + + + + documented in this encounter Discharge Summaries Suzette Cao MD - 10/08/2017 7:54 AM PSTFormatting of this note might be different fr om the original. Discharge Summaries by Suzette Cao MD at 10/08/17 0754 Author: Suzette Cao MD Service: Neurosurgery Author Type: Physician Filed: 10/08/17 0758 Date of Service: 10/08/17753 Status: Signed Product Safety Technician: Suzette Cao MD (Physician) [facility] Service: Neurosurgery Discharge Summary Date of Admission: 10/06/2017 Date of Discharge: 10/08/2017 Discharge Physician: SUZETTE CAO MD Treatment Team: Treatment Team: Admitting Provider: Suzette Cao MD Discharge Diagnoses: Cervical stenosis Procedures: CERVICAL - LAMINECTOMY POSTERIOR - C3-6 , right C7-T1 discectomy BRIEF HISTORY OF PRESENTATION: Umu Ang is a 62 y.o. female who presented for elective surgery. HOSPITAL COURSE: The patient was taken to the operating room and underwent surgery without complication s. They were sent to the surgical floor for postoperative recovery. Their diet and activit y level were advanced as tolerated. PT was consulted to help with mobilization. The hospita l course was uncomplicated. Her drain was removed on 10-08. On the day of discharge, the p atient was ambulatory, voiding and tolerating oral pain medications. The incision zoe w ere intact and she was stable for discharge home. Condition at discharge: Alive and well Past Medical History Diagnosis Date Arthritis Chronic bronchitis (HCC) Chronic kidney disease kidney stone Depression Emphysema/COPD (HCC) Hepatitis C Type 2 diabetes mellitus (HCC) Past Surgical History Procedure Laterality Date APPENDECTOMY arm surgery CERVICAL LAMINECTOMY N/A 10/06/2017 Procedure: CERVICAL - LAMINECTOMY POSTERIOR; Surgeon: Suzette Cao MD; Location: [facility]; Service: Neurosurgery; Laterality: N/A; C3-6 , right C7-T1 discectomy FINGER SURGERY HAND SURGERY HYSTERECTOMY TONSILLECTOMY Allergies Allergen Reactions Codeine Itching Prescriptions Prior to Admission Medication Sig Dispense Refill Last Dose albuterol (PROAIR HFA) 108 (90 Base) MCG/ACT inhaler 10/06/2017 at Unknown time ATROVENT HFA 17 MCG/ACT inhaler 0 10/06/2017 at Unknown time gabapentin (NEURONTIN) 600 MG tablet Take 600 mg by mouth. 10/05/2017 at Unknown time levothyroxine (SYNTHROID) 50 MCG tablet 0 10/06/2017 at Unknown time metFORMIN (GLUCOPHAGE) 850 MG tablet 0 10/05/2017 at Unknown time traZODone (DESYREL) 50 MG tablet 0 10/05/2017 at Unknown time venlafaxine (EFFEXOR) 75 MG tablet 0 10/05/2017 at Unknown time cyclobenzaprine (FLEXERIL) 10 MG tablet take 1 tablet by mouth three times a day IF CYN WSINESS IS A PROBLEM TAKE ONLY at bedtime 0 10/04/2017 FLOVENT HFA 220 MCG/ACT inhaler 0 09/29/2017 DISCHARGE EXAM Vital Signs: BP 140/77 (BP Location: Left upper arm) | Pulse 71 | Temp 98.3 F (36.8 C) (Oral) | R kevin 18 | Ht 1.6 m (5' 3") | Wt 75.8 kg (167 lb 1.7 oz) | LMP 09/21/1989 | SpO2 94% | BM I 29.60 kg/m Alert and oriented x 3. Moves UE and LE well. Ambulatory. Incision C/D/I zoe. PLAN Discharge home with granddaughter. Soft collar when up. Followup on about 10-25 for staple removal. Discharge instructions given (and provided in preop packet and discharge papers). Call office [phone] if any questions or problems or return to [facility] ER. Follow up: Suzette Cao MD [address] [address] In 2 weeks For staple removal Corey Galvan MD [address] [facility] [address] Medication List START taking these medications cephALEXin 750 MG capsule QTY: 30 capsule Refills: 0 Commonly known as: KEFLEX Take 1 capsule by mouth 3 (three) times daily. CHANGE how you take these medications HYDROcodone-acetaminophen 10-325 MG per tablet QTY: 60 tablet Refills: 0 Commonly known as: NORCO Take 1 tablet by mouth every 6 (six) hours as needed for Pain. What changed: when to take this reasons to take this CONTINUE taking these medications ATROVENT HFA 17 MCG/ACT inhaler Refills: 0 Generic drug: ipratropium cyclobenzaprine 10 MG tablet Refills: 0 Commonly known as: FLEXERIL FLOVENT HFA 220 MCG/ACT inhaler Refills: 0 Generic drug: fluticasone gabapentin 600 MG tablet Refills: 0 Commonly known as: NEURONTIN levothyroxine 50 MCG tablet Refills: 0 Commonly known as: SYNTHROID metFORMIN 850 MG tablet Refills: 0 Commonly known as: GLUCOPHAGE PROAIR HFA 108 (90 Base) MCG/ACT inhaler Refills: 0 Generic drug: albuterol traZODone 50 MG tablet Refills: 0 Commonly known as: DESYREL venlafaxine 75 MG tablet Refills: 0 Commonly known as: EFFEXOR You might also be taking other medications not listed above. If you have questions about an y of your other medications, talk to the person who prescribed them or your Primary Care Pro vider. Where to Get Your Medications You can get these medications from any pharmacy Bring a paper prescription for each of these medications cephALEXin 750 MG capsule HYDROcodone-acetaminophen 10-325 MG per tablet SUZETTE CAO MD documented in this encounter Medications at Time [...] + + + +---------+ + + | cephalexin | Take 1 capsule by | | 0 | 10/08/20 | | | (KEFLEX) 750 mg | mouth 3 (three) | | | 17 | | | capsule | times daily. | | | | | + + + +---------+ + + | cyclobenzaprine | take 1 tablet by | | 0 | 07/05/20 | | | (FLEXERIL) 10 mg | mouth three times a | | | 17 | | | tablet | day IF DROWSINESS IS | | | | | | | A PROBLEM TAKE ONLY | | | | | | | at bedtime | | | | | + + + +---------+ + + | fluticasone | | | 0 | 06/28/20 | | | (FLOVENT HFA) 220 | [...] + + documented as of this encounter Progress Notes Conversion Transaction, Provider Unknown - 10/08/2017 12:44 PM PSTFormatting of this note m ight be different from the original. Therapy Progress Note by Ernie Ibanez PTA at 10/08/17 4154 Author: Ernie Ibanez PTA Service: (none) Author Type: Health Information Manager Filed: 10/08/17 2877 Date of Service: 10/08/171243 Status: Signed Product Safety Technician: Ernie Ibanez PTA (Health Information Manager) 10/08/17 3088 PT Last Visit PT Received On 10/08/17 Reason for Treatment Spinal surgery Requires PT Follow Up Yes Assistance Required 1 person Precautions Spinal Precautions Cervical Other Comments Comments pt supine in bed willing to participate w/ therex Cognition Overall Cognitive Status WFL Orientation Level Oriented Supine Supine-Exercise Type Ankle pumps;Quad sets;Glut sets;ABD/ADD;Heel slides Activity Tolerance Activity Tolerance Patient limited by fatigue Plan Treatment/Interventions Continue per Primary PT POC Progress Progressing toward goals Recommendation Recommendations Home Assist PT Ready for Discharge Yes PT recommendations were discussed and verified with supervising PT. The patient demonstrated no indication of pain during therapy session. Education Completed: Education Topics: Rationale for PT, exercises Completed with: Patient Completed by: Verbal Education, Demonstration Response to Education: stated understanding Suzette Smith MD - 10/08/2017 7:48 AM PST Progress Notes by Suzette Cao MD at 10/08/1748 Author: Suzette Cao MD Service: Neurosurgery Author Type: Physician Filed: 10/08/17 0754 Date of Service: 10/08/17747 Status: Addendum Product Safety Technician: Suzette Cao MD (Physician) Related Notes: Original Note by Suzette Cao MD (Physician) filed at 10/08/17 0750 [facility] Service: Neurological Surgery Progress Note Hospital Day: LOS: 0 days Post-Op Day: 2 Days Post-Op SUBJECTIVE C/O some burning at incision site. Arms and legs feel less numb she says. OBJECTIVE Vital Signs: BP 140/77 (BP Location: Left upper arm) | Pulse 79 | Temp 98.3 F (36.8 C) (Oral) | R kevin 18 | Ht 1.6 m (5' 3") | Wt 75.8 kg (167 lb 1.7 oz) | LMP 09/21/1989 | SpO2 92% | BM I 29.60 kg/m Input/Output Last 3 shifts I/O last 3 completed shifts: In: 1774 [P.O.:1774] Out: 2049 [Urine:1895; Drains:155] Input/Output Last shift No intake/output data recorded. Physical Exam: Alert and oriented x 3. In soft collar. Drain removed. Some redness along zoe. Moves UE and LE to command. ASSESSMENT & PLAN Discharge home with granddaughter. Soft collar when up. Followup on about 10-25 for staple removal. Discharge instructions given (and provided in preop packet and discharge papers). Call office [phone] if any questions or problems or return to [facility] ER. SUZETTE CAO MD 10/08/2017 onversion Transact ion, Provider Unknown - 10/07/2017 4:17 PM PSTFormatting of this note might be different fr om the original. Case Management by Wilfred Mcmillan RN at 10/07/171616 Author: Wilfred Mcmillan RN Service: (none) Author Type: Registered Nurse Filed: 10/07/171622 Date of Service: 10/07/171616 Status: Signed Product Safety Technician: Wilfred Mcmillan RN (Registered Nurse) 10/07/171612 Discharge Planning Evaluation Admitting Diagnosis Cervical disc surgery Readmission No Living Arrangements Alone Support Systems Children;Friends/neighbors Type of Residence Private residence House type Apartment Elevator available Yes Independent with ADL's No-comment (jason will be staying with her to help) Independent with Mobility No-comment (FWW) Home Care Services Yes Type of Home Care Services Housekeeping Caregiver after Discharge Yes Caregiver Name Deborah Relationship to Patient granddaughter Mental Status Oriented Prior functional status indep with FWW Power of Box Closing Machine Operator No Anticipated Discharge Plan Post Acute Care Needs None at this time Resources Financial concerns No Transportation issues No Patient/Family concerns Yes (patient would like grab bars installed) Prescription Plan Yes Name of Pharmacy [facility] Previous home health equipment Yes (FWW, cane) Vascular access device No Ostomy/Drains/Appliances No Anticipated Disposition Facility Type Home Met with matti and her granddaughterDeborah at bedside to discuss discharge plan and ne eds. Umu is a 62 year old female who was admitted for cervical disc surgery. She lives in an upstairs aprt by herself. The apt building has an elevator and her granddaughter is going to stay with her to help as long as she needs. Patient is indep at baseline but does have assistance with household cleaning and chores. S he is not on any home oxygen, dialysis, blood thinners, or other home care services. CM to len hernandez for further needs that may arise. Patient's PCP is: Corey Galvan MD Patient's insurance:Medicare IP-OP; Medicaid- [place] Coverage concerns:no Medication coverage/concerns: no Community resources utilized / needed: TBD Assistance in transportation: no Identification of any specific education / training: PT Barriers to Discharge / Alternative housing needed: not at this time Anticipated DCP: home with assist WILFRED MCMILLAN RN Case Management [phone] IContorey Lópezaction, Provider Unknown - 10/07/2017 2:53 PM PST Therapy Progress Note by Ernie Ibanez PTA at 10/07/171452 Author: Ernie Ibanez PTA Service: (none) Author Type: Health Information Manager Filed: 10/07/171457 Date of Service: 10/07/171452 Status: Signed Product Safety Technician: Ernie Ibanez PTA (Health Information Manager) 10/07/171452 PT Last Visit PT Received On 10/07/17 Reason for Treatment Spinal surgery Requires PT Follow Up Yes Assistance Required 1 person Precautions Spinal Precautions Cervical Other Comments Comments pt supine in bed ready to participate completed transfer and gait training and re turned to supine in bed Cognition Overall Cognitive Status WFL Orientation Level Oriented Bed Mobility Rolling Standby assist Sidelying to Sit Minimal assist (1 LE OOB) Sit to Sidelying Minimal assist (1 LE into bed) Scooting Minimal assist Transfers Sit to/from Stand Minimal assist (steadying/contact guard) Mobility Ambulation Assistance Standby assist Maximal Ambulation Distance (feet) 60 Total Ambulation Distance (feet) 120 Distance limited by? Therapist/staff discretion Pattern Alternating;Decreased herbie Assistive Device Walker front wheeled Activity Tolerance Activity Tolerance Patient limited by fatigue Plan Treatment/Interventions Continue per Primary PT POC Progress Progressing toward goals Recommendation Recommendations Home Assist PT Ready for Discharge Yes PT recommendations were discussed and verified with supervising PT. The patient demonstrated no indication of pain during therapy session. Education Completed: Education Topics: Rationale for PT, precautions, bed mobility, transfer training with dunn nd placement, gait training, use of gait belt Completed with: Patient, Family Completed by: Verbal Education, Demonstration Response to Education: stated understanding onver ruth ann Transaction, Provider Unknown - 10/07/2017 9:00 AM PST Therapy Progress Note by Jocelyne Minor PT at 10/07/17899 Author: Jocelyne Minor PT Service: (none) Author Type: Physical Therapist Filed: 10/07/17947 Date of Service: 10/07/17899 Status: Signed Product Safety Technician: Jocelyne Minor PT (Physical Therapist) 10/07/17899 PT Last Visit PT Received On 10/07/17 Reason for Treatment Spinal surgery (C7-T1 hemilaminectomy/foraminotomy for discectomy, C3-6 lami) Requires PT Follow Up Yes Follow up PT Only? No PT Eval/Reassessment Date 10/07/17 Assistance Required 1 person Grape Pruner Needed No Home Environment Type of Home Apartment upper level Home Exterior Layout Elevator Home Interior Layout Lives on main level with bedroom/bathroom Bathroom Shower/Tub Walk-in shower Bathroom Toilet Standard Bathroom Equipment Built-in shower seat Bathroom Accessibility Accessible via walker Home Equipment Cane single point;Walker front wheeled Prior Function Level of Miller Modified independent with functional mobility;Independent with ADLs; Independent with IADLs Falls in Past Year No Lives With Other (Comment) (has granddaughter that is planning to stay with pt ) Receives Help From Family ADL Assistance Independent Home ADL's Independent RUE Assessment RUE Assessment X (3/5) LUE Assessment LUE Assessment X (3/5) RLE Assessment RLE Assessment WFL LLE Assessment LLE Assessment WFL Cognition Overall Cognitive Status WFL Orientation Level Oriented Assessment of Patient Status Assessment of Patient Status Decreased UE strength;Decreased functional mobility;Decreased ADL status;Decreased endurance;Precautions;Pain Prognosis Should progress with skilled therapy intervention Precautions Spinal Precautions Cervical Plan Treatment/Interventions Balance training;Bed mobility training;Family training;Gait trainin g;Provide HEP;Review HEP;Review precautions;Therapeutic exercise;Transfer training PT Frequency 5-7x/wk;Once per day;Twice a day Care Duration (# of days) 7 # of days Recommendation Recommendations Home Assist Equipment Recommended None Barriers to Discharge Physical Deficits Impacting Functional Miller;Self-care Deficit s Impacting Functional Miller;Pain PT Ready for Discharge Yes 11/09/17 0900 PT Last Visit PT Received On 10/07/17 Reason for Treatment Spinal surgery (C7-T1 hemilaminectomy/foraminotomy for discectomy, C3-6 lami) Requires PT Follow Up Yes Follow up PT Only? No PT Eval/Reassessment Date 10/07/17 Assistance Required 1 person Grape Pruner Needed No Precautions Spinal Precautions Cervical Other Comments Comments Eval/chart review performed in room, pt s/p C7-T1 hemilaminectomy/foraminotomy for discectomy, C3-6 lami. Pt supine in bed upon arrival. Bed mobility with HOB elevated SBA, e d pt on bed mobility techniques with bed flat. Pt needed Aaron for bringing turnk fully uprig ht. Sit-stand to FWW SBA. Pts breakfast just arrived and pt asked if she could just sit in c hair to eat. Pt amb to chair with FWW and slight LOB noted. Pt sitting up in chair at end of session. Ed pt on precautions and home safety techniques. Pt reports her granddaughter is bhavik flores on staying with her for a few days at d/c. Pt demonstrates good LE strength but impa ired balance. Encouraged pt to use her FWW for mobility. Cognition Overall Cognitive Status WFL Orientation Level Oriented Bed Mobility Rolling Standby assist Sidelying to Sit Minimal assist (1 LE OOB) Transfers Sit to/from Stand Standby assist Bed to/from Chair Minimal assist (steadying/contact guard) (pt had slight LOB turning to chair ) Mobility Ambulation Assistance Not performed (pts breakfast just arrived and pt wanted to eat ) Activity Tolerance Activity Tolerance Patient limited by fatigue;Patient limited by pain Nurse Made Aware Rn aware Plan Treatment/Interventions Balance training;Bed mobility training;Family training;Gait trainin g;Provide HEP;Review HEP;Review precautions;Therapeutic exercise;Transfer training PT Frequency 5-7x/wk;Once per day;Twice a day Care Duration (# of days) 7 # of days Recommendation Recommendations Home Assist Equipment Recommended None Barriers to Discharge Physical Deficits Impacting Functional Miller;Self-care Deficit s Impacting Functional Miller;Pain PT Ready for Discharge Yes Education Completed: Education Topics: Current condition, PT POC, precautions, safe mobility techniques, use of AD, use of call light, d/c planning. Completed with: Patient Completed by: Verbal Education, Demonstration as indicated Response to Education: Stated Understanding, Returned Demonstration Low - 26218 Moderate - 79967 High - 40953 History no personal factors &/or comorbidities Examination 1-2 elements Clinical Presentation stable Clinical Decision Making Complexity: Low 43989 Suzette Smith MD - 10/07/2017 7:03 AM PST Progress Notes by Suzette Cao MD at 10/07/17702 Author: Suzette Cao MD Service: Neurosurgery Author Type: Physician Filed: 10/07/17704 Date of Service: 10/07/17702 Status: Signed Product Safety Technician: Suzette Cao MD (Physician) [facility] Service: Neurological Surgery Post-Op Day: 1 Day Post-Op SUBJECTIVE Doing OK. Incisional pain. Says her legs and arms feel less numb. OBJECTIVE Vital Signs: BP 108/56 (BP Location: Left upper arm) | Pulse 66 | Temp 98 F (36.7 C) (Oral) | Res p 16 | Ht 1.6 m (5' 3") | Wt 75.8 kg (167 lb 1.7 oz) | LMP 09/21/1989 | SpO2 91% | BMI 29.60 kg/m Input/Output Last 3 shifts I/O last 3 completed shifts: In: 1610 [P.O.:600; I.V.:1010] Out: 1920 [Urine:1820; Drains:90; Blood:10] Input/Output Last shift No intake/output data recorded. Physical Exam: Alert and oriented x 3. Drain in place. Moves UE and LE to command. ASSESSMENT & PLAN POD#1 s/p C3-6 lami, C7-T1 discectomy, doing fine. -Keep drain likely until tomorrow. -PT to assist with mobility. -Probable d/c tomorrow, lives by herself but reportedly daughter is coming. SUZETTE CAO MD 10/07/2017 documented in this encounter Plan of Treatment Not on filedocumented as of this encounter Procedures + +--------+ + + + | Procedure Name | Priori | Date/Time | Associated Diagnosis | Comments | | | ty | | | | + +--------+ + + + | POC GLUCOSE | Routin | 10/08/2017 | | Results for this | | | e | 11:21 AM | | procedure are in the | | | | PST | | results section. | + +--------+ + + + | POC GLUCOSE | Routin | 10/08/2017 | | Results for this | | | e | 5:14 AM | | procedure are in the | | | | PST | | results section. | + +--------+ + + + | POC GLUCOSE | Routin | 10/07/2017 | | Results for this | | | e | 9:22 PM | | procedure are in the | | | | PST | | results section. | + +--------+ + + + | POC GLUCOSE | Routin | 10/07/2017 | | Results for this | | | e | 4:45 PM | | procedure are in the | | | | PST | | results section. | + +--------+ + + + | POC GLUCOSE | Routin | 10/07/2017 | | Results for this | | | e | 12:00 PM | | procedure are in the | | | | PST | | results section. | + +--------+ + + + | POC GLUCOSE | Routin | 10/07/2017 | | Results for this | | | e | 5:27 AM | | procedure are in the | | | | PST | | results section. | + +--------+ + + + | POC GLUCOSE | Routin | 10/06/2017 | | Results for this | | | e | 11:47 PM | | procedure are in the | | | | PST | | results section. | + +--------+ + + + | POC GLUCOSE | Routin | 10/06/2017 | | Results for this | | | e | 4:55 PM | | procedure are in the | | | | PST | | results section. | + +--------+ + + + | POC GLUCOSE | Routin | 10/06/2017 | | Results for this | | | e | 2:16 PM | | procedure are in the | | | | PST | | results section. | + +--------+ + + + | FL C ARM < 1 HOUR | Routin | 10/06/2017 | | Results for this | | | e | 1:55 PM | | procedure are in the | | | | PST | | results section. | + +--------+ + + + | POC ISTAT, CG8, | Routin | 10/06/2017 | | Results for this | | ARTERIAL | e | 12:49 PM | | procedure are in the | | | | PST | | results section. | + +--------+ + + + | POC GLUCOSE | Routin | 10/06/2017 | | Results for this | | | e | 10:20 AM | | procedure are in the | | | | PST | | results section. | + +--------+ + + + documented in this encounter Results POC Glucose (10/08/2017 11:21 AM PST) + + + + + + | Component | Value | Ref Range | Performed | Pathologist | | | | | At | Signature | + + + + + + | Glucose, | 99Comment: Testing | 65 - 99 mg/dL | EXTERNAL | | | Fingerstick | performed at [facility];[address] | | LAB | | | | [address];[place], [place] | | | | | | [address] | | | | + + + + + + + + | Specimen | + + | | + + + +---------+ + + | Performing | Address | City/State/Zipcode | Phone Number | | Organization | | | | + +---------+ + + | EXTERNAL LAB | | | | + +---------+ + + POC Glucose (10/08/2017 5:14 AM PST) + + + + + + | Component | Value | Ref Range | Performed | Pathologist | | | | | At | Signature | + + + + + + | Glucose, | 86Comment: Testing | 65 - 99 mg/dL | EXTERNAL | | | Fingerstick | performed at [facility];[address] | | LAB | | | [address];[place], [place] | | | | | | [address] | | | | + + + + + + + + | Specimen | + + | | + + + +---------+ + + | Performing | Address | City/State/Zipcode | Phone Number | | Organization | | | | + +---------+ + + | EXTERNAL LAB | | | | + +---------+ + + POC Glucose (10/07/2017 9:22 PM PST) + + + + + + | Component | Value | Ref Range | Performed | Pathologist | | | | | At | Signature | + + + + + + | Glucose, | 80Comment: Testing | 65 - 99 mg/dL | EXTERNAL | | | Fingerstick | performed at [facility] | | LAB | | | | [address];[place], [place] | | | | | | [address] | | | | + + + + + + + + | Specimen | + + | | + + + +---------+ + + | Performing | Address | City/State/Zipcode | Phone Number | | Organization | | | | + +---------+ + + | EXTERNAL LAB | | | | + +---------+ + + POC Glucose (10/07/2017 4:45 PM PST) + + + + + + | Component | Value | Ref Range | Performed | Pathologist | | | | | At | Signature | + + + + + + | Glucose, | 88Comment: Testing | 65 - 99 mg/dL | EXTERNAL | | | Fingerstick | performed at [facility];888 | | LAB | | | | [address];[place] | | | | | | [address] | | | | + + + + + + + + | Specimen | + + | | + + + +---------+ + + | Performing | Address | City/State/Zipcode | Phone Number | | Organization | | | | + +---------+ + + | EXTERNAL LAB | | | | + +---------+ + + POC Glucose (10/07/2017 12:00 PM PST) + + + + + + | Component | Value | Ref Range | Performed | Pathologist | | | | | At | Signature | + + + + + + | Glucose, | 104 (H)Comment: Testing | 65 - 99 mg/dL | EXTERNAL | | | Fingerstick | performed at [facility];888 | | LAB | | | | [address];[place] | | | | | | [address] | | | | + + + + + + + + | Specimen | + + | | + + + +---------+ + + | Performing | Address | City/State/Zipcode | Phone Number | | Organization | | | | + +---------+ + + | EXTERNAL LAB | | | | + +---------+ + + POC Glucose (10/07/2017 5:27 AM PST) + + + + + + | Component | Value | Ref Range | Performed | Pathologist | | | | | At | Signature | + + + + + + | Glucose, | 99Comment: Testing | 65 - 99 mg/dL | EXTERNAL | | | Fingerstick | performed at [facility];[address] | | LAB | | | | [address];[place], [place] | | | | | | [address] | | | | + + + + + + + + | Specimen | + + | | + + + +---------+ + + | Performing | Address | City/State/Zipcode | Phone Number | | Organization | | | | + +---------+ + + | EXTERNAL LAB | | | | + +---------+ + + POC Glucose (10/06/2017 11:47 PM PST) + + + + + + | Component | Value | Ref Range | Performed | Pathologist | | | | | At | Signature | + + + + + + | Glucose, | 117 (H)Comment: Testing | 65 - 99 mg/dL | EXTERNAL | | | Fingerstick | performed at [facility];888 | | LAB | | | | [address];[place] | | | | | | [address] | | | | + + + + + + + + | Specimen | + + | | + + + +---------+ + + | Performing | Address | City/State/Zipcode | Phone Number | | Organization | | | | + +---------+ + + | EXTERNAL LAB | | | | + +---------+ + + POC Glucose (10/06/2017 4:55 PM PST) + + + + + + | Component | Value | Ref Range | Performed | Pathologist | | | | | At | Signature | + + + + + + | Glucose, | 129 (H)Comment: Testing | 65 - 99 mg/dL | EXTERNAL | | | Fingerstick | performed at [facility];[address] | | LAB | | | | [address];[place], [place] | | | | | | [address] | | | | + + + + + + + + | Specimen | + + | | + + + +---------+ + + | Performing | Address | City/State/Zipcode | Phone Number | | Organization | | | | + +---------+ + + | EXTERNAL LAB | | | | + +---------+ + + POC Glucose (10/06/2017 2:16 PM PST) + + + + + + | Component | Value | Ref Range | Performed | Pathologist | | | | | At | Signature | + + + + + + | Glucose, | 144 (H)Comment: Testing | 65 - 99 mg/dL | EXTERNAL | | | Fingerstick | performed at [facility];8 | | LAB | | | | [address];[place] | | | | | | [address] | | | | + + + + + + + + | Specimen | + + | | + + + +---------+ + + | Performing | Address | City/State/Zipcode | Phone Number | | Organization | | | | + +---------+ + + | EXTERNAL LAB | | | | + +---------+ + + FL C-Arm < 1 Hour (10/06/2017 1:55 PM PST) + + | Specimen | + + | | + + + + + | Impressions | Performed At | + + + | 1. Surgical hardware is noted posterior to the C4-C5 disc level. | | | | | + + + + + + | Narrative | Performed At | + + + | [facility] ANG 1953 XR C-ARM FLUORO UP TO 1 HOUR 10/06/2017 | | | 1:55 PM INDICATION: Cervical laminectomy COMPARISON: MRI, | | | 08/23/2017 TECHNIQUE: Single intraoperative fluoroscopic view, | | | fluoroscopy time 2.5 seconds FINDINGS: Surgical retraction | | | hardware is noted posterior to the C4-C5 level. Vertebral body heights | | | are preserved. The mid to lower cervical spine is poorly seen due to | | | overlying soft tissues. | | + + + + + | Procedure Note | + + | Kirk, Rad Conversion - 07/12/2019 10:11 PM [facility] [id number] C-ARM FLUORO | | UP TO 1 HOUR10/06/2017 1:55 PM INDICATION: Cervical laminectomy COMPARISON: MRI, | | 08/23/2017 TECHNIQUE: Single intraoperative fluoroscopic view, fluoroscopy time 2.5 | | seconds FINDINGS: Surgical retraction hardware is noted posterior to the C4-C5 level. | | Vertebral body heights are preserved. The mid to lower cervical spine is poorly seen due | | to overlying soft tissues. IMPRESSION: 1. Surgical hardware is noted posterior to the | | C4-C5 disc level. | |COMPARISON: MRI, 08/23/2017 | | | |TECHNIQUE: Single intraoperative fluoroscopic view, fluoroscopy time 2.5 seconds | | | |FINDINGS: Surgical retraction hardware is noted posterior to the C4-C5 level. Vertebral bod y heights are preserved. The mid to lower cervical spine is poorly seen due to overlying sof t tissues. | | | |IMPRESSION: | |1. Surgical hardware is noted posterior to the C4-C5 disc level. | | | | | + + BRIA SALAS8, Arterial (10/06/2017 12:49 PM PST) + + + + + + | Component | Value | Ref Range | Performed | Pathologist | | | | | At | Signature | + + + + + + | PH ART | 7.280 (L) | 7.350 - 7.450 | EXTERNAL | | | | | | LAB | | + + + + + + | PCO2 ART | 60 (H) | 35 - 45 mmHg | EXTERNAL | | | | | | LAB | | + + + + + + | PO2 ART | 476 (H) | 80 - 105 mmHg | EXTERNAL | | | | | | LAB | | + + + + + + | HCO3 ART | 28 (H) | 22 - 26 mmol/L | EXTERNAL | | | | | | LAB | | + + + + + + | POC | 30 (H) | 23 - 27 mEq/L | EXTERNAL | | | APPEARANCE | | | LAB | | | UA | | | | | + + + + + + | Base | 1 | 0 - 3 mEq/L | EXTERNAL | | | Excess, | | | LAB | | | Arterial | | | | | + + + + + + | O2 SAT ART | 100 (H) | 95 - 98 % | EXTERNAL | | | | | | LAB | | + + + + + + | Sodium, POC | 140 | 135 - 145 mEq/L | EXTERNAL | | | | | | LAB | | + + + + + + | Potassium, | 3.7 | 3.5 - 5.0 mEq/L | EXTERNAL | | | POC | | | LAB | | + + + + + + | Ionized | 1.16 | 1.12 - 1.32 | EXTERNAL | | | Calcium, | | mmol/L | LAB | | | POC | | | | | + + + + + + | Glucose, | 126 (H) | 65 - 99 mg/dL | EXTERNAL | | | POC | | | LAB | | + + + + + + | Hematocrit, | 47 (H) | 35.0 - 46.0 % | EXTERNAL | | | POC | | | LAB | | + + + + + + | Hemoglobin, | 16.0 (H)Comment: Testing | 11.6 - 15.5 | EXTERNAL | | | POC | performed at [facility];888 | g/dL | LAB | | | | [address];[place], [place] | | | | | | [address] | | | | + + + + + + + + | Specimen | + + | | + + + +---------+ + + | Performing | Address | City/State/Zipcode | Phone Number | | Organization | | | | + +---------+ + + | EXTERNAL LAB | | | | + +---------+ + + POC Glucose (10/06/2017 10:20 AM PST) + + + + + + | Component | Value | Ref Range | Performed | Pathologist | | | | | At | Signature | + + + + + + | Glucose, | 93Comment: Testing | 65 - 99 mg/dL | EXTERNAL | | | Fingerstick | performed at [facility];[address] | | LAB | | | | [address];[place] | | | | | | [address] | | | | + + + + + + + + | Specimen | + + | | + + + +---------+ + + | Performing | Address | City/State/Zipcode | Phone Number | | Organization | | | | + +---------+ + + | EXTERNAL LAB | | | | + +---------+ + + documented in this encounter Visit Diagnoses + + | Diagnosis | + + | Osteoarthritis of cervical spine with myelopathy | + + | Cervical disc prolapse with radiculopathy Displacement of cervical intervertebral | | disc without myelopathy | + + | Degeneration of intervertebral disc of cervical region | + + documented in this encounter
--- OUTSIDE RECORDS SUMMARY | ~2020-03-30 | XMS | Encounter Summary ---
Demographics + + + | Address | [address] | | | [place] [address] | + + + | Home Phone | | + + + | Preferred Language | Unknown | + + + | Marital Status | | + + + | Adventism Affiliation | Unknown | + + + | Race | Unknown | + + + | Ethnic Group | Unknown | + + + Author + + + | Author | [facility] | | | and [place] | + + + | Organization | [facility] | | | and [place] [...] | | | | | [place] [address] | | + + + + + Care Team Providers + +------+ + | Care High Energy Forming Equipment Operator Name | Role | Phone | + +------+ + PCP | Unavailable | + +------+ + Encounter Details +--------+ + + + + | Date | Type | Department | Care Team | Description | +--------+ + + + + | 05/26/ | Emergency | [facility] | Conversion | Cervicalgia | | 2006 | | [facility]ICAL CENTER | Transaction, | | | | | EMERGENCY CENTER | Provider Unknown | | | | | [address] | | | | | | [place], [place] | (Fax) | | | | | [address] | | | | | | [phone] | | | +--------+ + + + [...] filedocumented as of this encounter Visit Diagnoses + + | Diagnosis | + + | Cervicalgia | + + documented in this encounter"
--- OUTSIDE RECORDS SUMMARY | ~2020-03-30 | XMS | Encounter Summary ---
Demographics + + + | Address | [address] | | | [place] [address] | + + + | Home Phone [...] Author + + + | Author | [facility] | + + + | Organization | [facility] | + + + | Address | Unknown | + + + | Phone | Unavailable | + + + Support + + +---------+ + | Name | Relationship | Address | Phone | + + +---------+ + | Andrew Nelson | ECON | Unknown | | + + +---------+ + Care Team Providers + +------+ + | Care Scaffold Worker Name | Role | Phone | + +------+ + | Corey Galvan MD | PCP | Unavailable | + +------+ + Encounter Details +--------+------+ + + + | Date | Type | Department | Care Team | Description | +--------+------+ + + + | 09/14/ | Lab | Laboratory at [facility] | | Chronic hepatitis C | | 2010 | | [address] | | without mention of | | | | [place], [place] | | hepatic coma | | | | [address] | | | | | | [phone] | | | +--------+------+ + + + Social History + +-------+ [...] | + +--------+ + + + | APT-MATTY AB ON HEP 2, | Routin | 09/14/2011 | | Results for this | | SER | e | 1:56 PM | | procedure are in the | | | | PDT | | results section. | + +--------+ + + + | DIFFERENTIAL | Routin | 09/14/2011 | | Results for this | | | e | 1:56 PM | | procedure are in the | | | | PDT | | results section. | + +--------+ + + + | HEPATITIS C | Routin | 09/14/2011 | Chronic hepatitis | Results for this | | GENOTYPING, PLASMA | e | 1:56 PM | C without mention of | procedure are in the | | | | PDT | hepatic coma | results section. | + +--------+ + + + | INR | Routin | 09/14/2011 | Chronic hepatitis | Results for this | | | e | 1:56 PM | C without mention of | procedure are in the | | | | PDT | hepatic coma | results section. | + +--------+ + + + | CBC, WITH | Routin | 09/14/2011 | Chronic hepatitis | Results for this | | DIFFERENTIAL | e | 1:56 PM | C without mention of | procedure are in the | | | | PDT | hepatic coma | results section. | + +--------+ + + + | COMPLETE METABOLIC | Routin | 09/14/2011 | Chronic hepatitis | Results for this | | SET | e | 1:56 PM | C without mention of | procedure are in the | | (NA,K,CL,CO2,BUN,CRE | | PDT | hepatic coma | results section. | | AT,GLUC,CA,AST,ALT,B | | | | | | MILO TOTAL,ALK | | | | | | PHOS,ALB,PROT TOTAL) | | | | | + +--------+ + + + | ANTI SMOOTH MUSCLE | Routin | 09/14/2011 | Chronic hepatitis | Results for this | | AB, SERUM | e | 1:56 PM | C without mention of | procedure are in the | | | | PDT | hepatic coma | results section. | + +--------+ + + + | ANTI NUCLEAR AB | Routin | 09/14/2011 | Chronic hepatitis | Results for this | | SCREEN, SERUM | e | 1:56 PM | C without mention of | procedure are in the | | | | PDT | hepatic coma | results section. | + +--------+ + + + | HEPATITIS A AB IGM, | Routin | 09/14/2011 | | Results for this | | SERUM | e | 1:56 PM | | procedure are in the | | | | PDT | | results section. | + +--------+ + + + | HEPATITIS B SURFACE | Routin | 09/14/2011 | Chronic hepatitis | Results for this | | AB QUAL, SERUM | e | 1:56 PM | C without mention of | procedure are in the | | | | PDT | hepatic coma | results section. | + +--------+ + + + | HEPATITIS B SURFACE | Routin | 09/14/2011 | Chronic hepatitis | Results for this | | AG, SERUM | e | 1:56 PM | C without mention of | procedure are in the | | | | PDT | hepatic coma | results section. | + +--------+ + + + | HEPATITIS B CORE AB, | Routin | 09/14/2011 | Chronic hepatitis | Results for this | | SERUM | e | 1:56 PM | C without mention of | procedure are in the | | | | PDT | hepatic coma | results section. | + +--------+ + + + | HEPATITIS A AB | Routin | 09/14/2011 | Chronic hepatitis | Results for this | | SCREEN, SERUM | e | 1:56 PM | C without mention of | procedure are in the | | | | PDT | hepatic coma | results section. | + +--------+ + + + | IRON AND TIBC, SERUM | Routin | 09/14/2011 | Chronic hepatitis | Results for this | | | e | 1:56 PM | C without mention of | procedure are in the | | | | PDT | hepatic coma | results section. | + +--------+ + + + documented in this encounter Results APT-MATTY AB ON HEP 2, SER (09/14/2011 1:56 PM PDT) + + + + + + | Component | Value | Ref Range | Performed | Pathologist | | | | | At | Signature | + + + + + + | MATTY PATTERN | Speckled | | [facility] | | | | | | REGIONAL | | | | | | LABORATORY | | + + + + + + | MATTY TITER | 1:40 | | [facility] | | | | | | REGIONAL | | | | | | LABORATORY | | + + + + + + + + | Specimen | + + | | + + + + + | Narrative | Performed At | + + + | Because MATTY titers of 1:40 and 1:80 are prevalent in the | [facility] | | general population, in most cases these titers are not | REGIONAL | | associated with autoimmune disease. MATTY results | LABORATORY | | need to be interpreted in the context of clinical symptoms. A | | | low likelihood of autoimmune disease with equivocal test | | | results is generally not indicative of autoimmune disease. | | | [facility] | | | [address] [facility] [place] | | | [address] Because MATTY titers of 1:40 and 1:80 [...] of autoimmune disease. | | | [facility]) [facility] | | | [address] [facility] [place] | | | [address] | | + + + + + + + + | Performing | Address | City/State/Zipcode | Phone Number | | Organization | | | | + + + + + | [facility] | [address] | [place] [address] | | | LABORATORY | | | | + + + + + HEPATITIS A AB IGM, SERUM (09/14/2011 1:56 PM PDT) + + + + + + | Component | Value | Ref Range | Performed | Pathologist | | | | | At | Signature | + + + + + + | HEPATITIS A | Negative | Negative | [facility] | | | AB, IGM | | | REGIONAL | | | | | | LABORATORY | | + + + + + + + + | Specimen | + + | | + + + + + | Narrative | Performed At | + + + | [facility] | [place] | | [place] [address] | REGIONAL | | [place] [address] | LABORATORY | + + + + + + + + | Performing | Address | City/State/Zipcode | Phone Number | | Organization | | | | + + + + + | [facility] | [address] | [place] [address] | | | LABORATORY | | | | + + + + + DIFFERENTIAL (09/14/2011 1:56 PM PDT) + +--------+ + + + | Component | Value | Ref Range | Performed | Pathologist | | | | | At | Signature | + +--------+ + + + | NEUTROPHIL | 59 | 50 - 70 % | [facility] | | | % | | | DEPARTMENT | | | | | | OF | | | | | | PATHOLOGY | | + +--------+ + + + | LYMPHOCYTE | 27 | 18 - 42 % | [facility] | | | % | | | DEPARTMENT | | | | | | OF | | | | | | PATHOLOGY | | + +--------+ + + + | MONOCYTE % | 10 (H) | 2 - 8 % | [facility] | | | | | | DEPARTMENT | | | | | | OF | | | | | | PATHOLOGY | | + +--------+ + + + | EOS % | 4 (H) | 1 - 3 % | [facility] | | | | | | DEPARTMENT | | | | | | OF | | | | | | PATHOLOGY | | + +--------+ + + + | BASO % | 0 | <3 % | [facility] | | | | | | DEPARTMENT | | | | | | OF | | | | | | PATHOLOGY | | + +--------+ + + + | NEUTROPHIL | 4.4 | 1.8 - 7.7 K/cu | [facility] | | | # | | mm | DEPARTMENT | | | | | | OF | | | | | | PATHOLOGY | | + +--------+ + + + | LYMPHOCYTE | 2.0 | 1.0 - 4.8 K/cu | [facility] | | | # | | mm | DEPARTMENT | | | | | | OF | | | | | | PATHOLOGY | | + +--------+ + + + | MONOCYTE # | 0.7 | <0.9 K/cu mm | [facility] | | | | | | DEPARTMENT | | | | | | OF | | | | | | PATHOLOGY | | + +--------+ + + + | EOS # | 0.3 | <0.6 K/cu mm | [facility] | | | | | | DEPARTMENT | | | | | | OF | | | | | | PATHOLOGY | | + +--------+ + + + | BASO # | 0.0 | <0.3 | [facility] | | | | | | DEPARTMENT | | | | | | OF | | | | | | PATHOLOGY | | + +--------+ + + + + + | Specimen | + + | | + + + + + + + | Performing | Address | City/State/Zipcode | Phone Number | | Organization | | | | + + + + + | [facility] | [address] | [place] [address] | | | PATHOLOGY | [address] [...] Due to a reagent issue, | | [facility] | | | GENOTYPE | we are temporarily | | [facility] | | | | unable to offer | | LABS | | | | Hepatitis CGenotype | | | | | | testing at [facility]. The | | | | | | samples will be sent to | | | | | | [facility] | | | | | | testing. [...] + | SPECIMEN | Plasma | | [facility] | | | TYPE | | | [...] + + + + | [facility] | Apartment List | [place] [address] | | | GENETICS LABS | [address] | | | | | [address]VE[address] [...] B | Negative | Negative | [facility] | | | CORE AB, | | | REGIONAL | | | SERUM | | | LABORATORY | | + + + + + + + + | Specimen | + + | Blood - Blood | + + + + + | Narrative | Performed At | + + + | [facility]) [facility] | [place] | | [place] [address] | REGIONAL | | [place] [address] | LABORATORY | + + + + + + + + | Performing | Address | City/State/Zipcode | Phone Number | | Organization | | | | + + + + + | [facility] | [address] | [place] [address] | | | LABORATORY | | | | + + + + + HEPATITIS B SURFACE AG, SERUM (09/14/2011 1:56 PM PDT) + + + + + + | Component | Value | Ref Range | Performed | Pathologist | | | | | At | Signature | + + + + + + | HEPATITIS B | Negative | Negative | [facility] | | | SURFACE | | | REGIONAL | | | AG, SERUM | | | LABORATORY | | + + + + + + + + | Specimen | + + | Blood - Blood | + + + + + | Narrative | Performed At | + + + | [facility] | [place] | | [place] [address] | REGIONAL | | [place] [address] | LABORATORY | + + + + + + + + | Performing | Address | City/State/Zipcode | Phone Number | | Organization | | | | + + + + + | [facility] | [address] | [place] [address] | | | LABORATORY | | | [...] B | Negative | Negative | [facility] | | | SURFACE AB | | | REGIONAL | | | QUAL, SERUM | | | LABORATORY | | + + + + + + + + | Specimen | + + | Blood - Blood | + + + + + | Narrative | Performed At | + + + | [facility]) [place] | [address] | | [place] [address] [address] [facility] | | [place] [address] | LABORATORY | + + + + + + + + | Performing | Address | City/State/Zipcode | Phone Number | | Organization | | | | + + + + + | [facility] | [address] | [place] [address] | | | LABORATORY | | | | + + + + + HEPATITIS A AB SCREEN, SERUM (09/14/2011 1:56 PM PDT) + + + + + + | Component | Value | Ref Range | Performed | Pathologist | | | | | At | Signature | + + + + + + | HEPATITIS A | POSITIVE (A) | Negative | [facility] | | | AB TOTAL | | | REGIONAL | | | | | | LABORATORY | | + + + + + + + + | Specimen | + + | Blood - Blood | + + + + + | Narrative | Performed At | + + + | [facility]) [place] | [place] | | [place] [address] | REGIONAL | | [place] [address] | LABORATORY | + + + + + + + + | Performing | Address | City/State/Zipcode | Phone Number | | Organization | | | | + + + + + | [facility] | [address] | [place] [address] | | | LABORATORY | | | | + + + + + IRON AND TIBC, SERUM (09/14/2011 1:56 PM PDT) + +-------+ + + + | Component | Value | Ref Range | Performed | Pathologist | | | | | At | Signature | + +-------+ + + + | IRON SERUM | 138 | 40 - 150 ug/dL | [facility] | | | | | | REGIONAL | | | | | | LABORATORY | | + +-------+ + + + | IRON BIND | 363 | 225 - 410 ug/dL | [facility] | | | CAP SERUM | | | REGIONAL | | | | | | LABORATORY | | + +-------+ + + + | % | 38 | 20 - 50 % | [facility] | | | SATURATION | | | [...] | Reference Range Change effective 12/25/08 | [facility] | | [facility] | REGIONAL | | [place] [place] [address] | LABORATORY | | [place] [address] | | + + + + + + + + | Performing | Address | City/State/Zipcode | Phone Number | | Organization | | | | + + + + + | [facility] | [address] | [place] [address] | | | LABORATORY | | | | + + + + + ANTI NUCLEAR AB SCREEN, SERUM (09/14/2011 1:56 PM PDT) + + + + + + | Component | Value | Ref Range | Performed | Pathologist | | | | | At | Signature | + + + + + + | MATTY SCREEN | POSITIVE | Negative | [facility] | | | ON HEP | | [...] and 1:80 are prevalent in the | [facility] | | general population, in most cases these titers are not | REGIONAL | | associated with autoimmune disease. MATTY results | LABORATORY | | need to be interpreted in the context of clinical symptoms. A | | | low likelihood of autoimmune disease with equivocal test | | | results is generally not indicative of autoimmune disease. | | | [facility]) [facility] | | | [address] [facility] [place] | | | [address] Because MATTY titers of 1:40 and 1:80 [...] of autoimmune disease. | | | [facility] | | | [address] [facility] [place] | | | [address] | | + + + + + + + + | Performing | Address | City/State/Zipcode | Phone Number | | Organization | | | | + + + + + | [facility] | [address] | [place] [address] | | | LABORATORY | | | | + + + + + ANTI SMOOTH MUSCLE AB, SERUM (09/14/2011 1:56 PM PDT) + + + + + + | Component | Value | Ref Range | Performed | Pathologist | | | | | At | Signature | + + + + + + | ANTI-SMOOTH | POSITIVE (A) | Negative | [facility] | | | MUSCLE | | | REGIONAL | | | | | | LABORATORY | | + + + + + + | ASMA TITER | 1:20 | Titer | [facility] | | | | | | REGIONAL | | | | | | LABORATORY | | + + + + + + + + | Specimen | + + | Blood - Blood | + + + + + | Narrative | Performed At | + + + | [facility] | [place] | | [place] [address] | REGIONAL | | [place] [address] | LABORATORY | + + + + + + + + | Performing | Address | City/State/Zipcode | Phone Number | | Organization | | | | + + + + + | [facility] | [address] | [place] [address] | | | LABORATORY | | | [...] + + + + + | [facility] | [address] | [place] [address] | | | PATHOLOGY | [address] [...] | + + + + + | [facility] | [address] | [place] [address] | | | PATHOLOGY | [address] [...] 99 | 60 - 99 mg/dL | [facility] | | | PLASMA | | | [...] | | | DEPARTMENT | | | [place] | | | OF | | | [...] | + + + + + | [facility] | [address] | [place] [address] | | | PATHOLOGY | [address] | | | + + + + + documented in this encounter Visit Diagnoses + + | Diagnosis | + + | Chronic hepatitis C without mention of hepatic coma | + + documented in this encounter"
--- OUTSIDE RECORDS SUMMARY | ~2020-03-30 | XMS | Encounter Summary ---
Demographics + + + | Address | [address] | | | [place] [address] | + + + | Home Phone | | + + + | Preferred Language | Unknown | + + + | Marital Status | Single | + + + | Orthodox Affiliation | NON | + + + | Race | Unknown | + + + | Ethnic Group | Not or | + + + Author + + + | Author | [facility] | + + + | Organization | [facility] | + + + | Address | Unknown | + + + | Phone | Unavailable | + + + Support + + +---------+ + | Name | Relationship | Address | Phone | + + +---------+ + | Andrew Nelson | ECON | Unknown | | + + +---------+ + Care Team Providers + +------+ + | Care Electric Drill Operator Name | Role | Phone | + +------+ + | Corey Galvan MD | PCP | Unavailable | + +------+ + Encounter Details +--------+ + + + + | Date | Type | Department | Care Team | Description | +--------+ + + + + | 10/11/ | Abstract | [facility] | Hiren Gutierrez, | | | 2012 | | [place] [address] | [place] | | | | | [address] | | | | | | Mailcode: OC8D | | | | | | [facility] | | | | | | and Healing, | | | | | | Building [address] | | | | | | [facility] [place] | | | | | | [address] | | | | | | [phone] | | | +--------+ + + + [...]
--- OUTSIDE RECORDS SUMMARY | ~2020-03-30 | XMS | Encounter Summary ---
Demographics + + + | Address | [address] | | | [place] [address] | + + + | Home Phone | | + + + | Preferred Language | Unknown | + + + | Marital Status | | + + + | Yarsanism Affiliation | Unknown | + + + | Race | Unknown | + + + | Ethnic Group | Unknown | + + + Author + + + | Author | [facility] | | | and Dhavalana | + + + | Organization | [facility] | | | and [...] | | | | | [place] [address] | | + + + + + Care Team Providers + +------+ + | Care Automobile Taillight Assembler Name | Role | Phone | + +------+ + | Corey Galvan MD | PCP | | + +------+ + Encounter Details +--------+ + + + + | Date | Type | Department | Care Team | Description | +--------+ + + + + | 07/10/ | Orders Only | [facility] | Provider, | | | 2019 | | SYSTEM GENERIC OP | MD [address] | | | | | CONVERSION [address] | [address] | | | | | [address] [place], [place] | [place] [address] | | | | | [address] | | | | | | [phone] | | | +--------+ + + + [...]
--- OUTSIDE RECORDS SUMMARY | ~2020-03-30 | XMS | Encounter Summary ---
Demographics + + + | Address | [address] | | | [place] [address] | + + + | Home Phone | | + + + | Preferred Language | Unknown | + + + | Marital Status | | + + + | Worship Affiliation | Unknown | + + + | Race | Unknown | + + + | Ethnic Group | Unknown | + + + Author + + + | Author | [facility] | | | and Dhavalana | + + + | Organization | [facility] | | | and Dhavalana [...] | | | | | [place] [address] | | + + + + + Care Team Providers + +------+ + | Care Tap And Die Maker Technician Name | Role | Phone | + +------+ + | Corey Galvan MD | PCP | | + +------+ + Reason for Visit + + + | Reason | Comments | + + + | Appointment | liver biopsy | + + + Encounter Details +--------+ + + + + | Date | Type | Department | Care Team | Description | +--------+ + + + + | 04/11/ | Telephone | [facility] | [facility], | Appointment (liver | | 2013 | | GASTROENTEROLOGY | [address] | biopsy) | | | | [address] [place] | [place], [place] [address] | | | | | [address] [place] [address] | [place] | | | | | [address] | [address] | | | | | [phone] | | | +--------+ + + + [...]
--- OUTSIDE RECORDS SUMMARY | ~2020-03-30 | XMS | Encounter Summary ---
Demographics + + + | Address | [address] | | | [place] [address] | + + + | Home Phone | | + + + | Preferred Language | Unknown | + + + | Marital Status | | + + + | Protestant Affiliation | Unknown | + + + | Race | Unknown | + + + | Ethnic Group | Unknown | + + + Author + + + | Author | [facility] | | | and Dhavalana | + + + | Organization | [facility] | | | and Dhavalana [...] | Magdiel Andrews | ECON | [address] | | | | | [place] [address] | | + + + + + Care Team Providers + +------+ + | Care Splitter Machine Name | Role | Phone | + +------+ + | Corey Galvan MD | PCP | | + +------+ + Reason for Visit + + + | Reason | Comments | + + + | Medication Refill | | + + + Encounter Details +--------+--------+ + + + | Date | Type | Department | Care Team | Description | +--------+--------+ + + + | 05/02/ | Refill | [facility] | [facility], | Medication Refill | | 2013 | | GASTROENTEROLOGY | [address] | | | | | [address] | [place], [address] | | | | | [address] [place], [place] | [place] | | | | | [address] | [address] | | | | | [phone] | | | +--------+--------+ + + + [...]
--- OUTSIDE RECORDS SUMMARY | ~2020-03-30 | XMS | Encounter Summary ---
Demographics + + + | Address | [address] | | | [place] [address] | + + + | Home Phone | | + + + | Preferred Language | Unknown | + + + | Marital Status | | + + + | Anabaptism Affiliation | Unknown | + + + | Race | Unknown | + + + | Ethnic Group | Unknown | + + + Author + + + | Author | [facility] | | | and Dhavalana | + + + | Organization | [facility] | | | and Dhavalana [...] | | | | | [place] [address] | | + + + + + Care Team Providers + +------+ + | Care Content Management Specialist Name | Role | Phone | + [...] Provider Unknown | | | | | [place] | [phone] | | | | | [address] | | | | | | [phone] | | | +--------+ + + + [...]
--- OUTSIDE RECORDS SUMMARY | ~2020-03-30 | XMS | Encounter Summary ---
Demographics + + + | Address | [address] | | | [place] [address] | + + + | Home Phone | | + + + | Preferred Language | Unknown | + + + | Marital Status | | + + + | Jehovah'S Witness Affiliation | Unknown | + + + | Race | Unknown | + + + | Ethnic Group | Unknown | + + + Author + + + | Author | [facility] | | | and Dhavalana | + + + | Organization | [facility] | | | and Dhavalana | [...] | + + + + + | aMgdiel Andrews | ECON | [address] | | | | | [place] [address] | | + + + + + Care Team Providers + +------+ + | Care Fabric Machine Operator Name | Role | Phone | + +------+ + | Corey Galvan MD | PCP | | + +------+ + Encounter Details +--------+ + + + + | Date | Type | Department | Care Team | Description | +--------+ + + + + | 09/21/ | Hospital | [facility] | Conversion | | | 2017 | Encounter | [facility] | Transaction, | | | | | [address] | Provider Unknown | | | | | [place], [place] | [phone] | | | | | [address] | | | | | | [phone] | Kong Cao MD | | | | | | [address] [facility] | | | | | | FLOOR [place], [place] | | | | | | [address] | | | | | | [phone] | | | | | | | | +--------+ + + + [...]
--- OUTSIDE RECORDS SUMMARY | ~2020-03-30 | XMS | Encounter Summary ---
Demographics + + + | Address | [address] | | | [place] [address] | + + + | Home Phone [...] + | Author | [facility] | | | and Dhavalana | + + + | Organization | [facility] | | | and [...] | | | | | [place] [address] | | + + + + + Care Team Providers + +------+ + | Care Mammography Tech Name | Role | Phone | + +------+ + PCP | Unavailable | + +------+ + Encounter Details +--------+ + + + + | Date | Type | Department | Care Team | Description | +--------+ + + + + | 11/08/ | Emergency | [facility] | Conversion | Cough | | 2006 | | MEDICAL CENTER | Transaction, | | | | | EMERGENCY CENTER | Provider Unknown | | | | | [address] | | | | | | [place], [place] | (Fax) | | | | | [address] | | | | | | [phone] | | | +--------+ + + + [...] + | Diagnosis | + + | Cough | + + documented in this encounter"
--- OUTSIDE RECORDS SUMMARY | ~2020-03-30 | XMS | Encounter Summary ---
Demographics + + + | Address | [address] | | | [place] [address] | + + + | Home Phone | | + + + | Preferred Language | Unknown | + + + | Marital Status | | + + + | Pentecostalism Affiliation | Unknown | + + + | Race | Unknown | + + + | Ethnic Group | Unknown | + + + Author + + + | Author | [facility] | | | and Dhavalana | + + + | Organization | [facility] [...] | | | | | [place] [address] | | + + + + + Care Team Providers + +------+ + | Care Copy Worker Name | Role | Phone | [...] | | | | | | | ([facility]) | | | | | | | [...] | | | | | | | [place] | | | | | | | COLONOSCOPY, | | | | | | | DIAGNOSTIC | | | | | | | [place] | | | | | | | [...] | +--------+ + + + + | 05/25/ | Hospital | [facility] | Agusto Porter MD | Dysphagia (Primary | | 2013 | Encounter | MED CTR MP INTRA OP | [address], [place] | Dx); Heartburn; | | | | [address] | [address] [place], [place] | Hemorrhage of rectum | | | | [place], [place] | [address] | and anus | | | | [address] | | | | | | [phone] | | | +--------+ + + + [...] r pylori Ag | | | [facility] | | | | | | MEDICAL [...] + | [facility] | [address] | [place], [place] | [phone] | | [facility] | | [address] | | | - LABORATORY | | | | + + + + + | [facility] | [address] | [place], [place] | | | [facility] | | [id number] [place] [address] | | | - LABORATORY | | | | + + + + + EGD (05/25/2014 12:53 PM PDT) + + | Specimen | + + | | + + + + -+ | Narrative | Performed At | + + -+ | | [facility] | | GastroenterologyPatient Name: Carolina Bejarano Date: 05/25/2014 | [place] | | 12:53 PMMRN: [id number] #: [id number] of : | | | 1955dmit Type: AmbulatoryAge: 58Room: [facility] 01Gender: FemaleNote | | | Status: FinalizedAttending MD: Agusto Porter, [facility] | | | Upper GI endoscopyIndications: Oropharyngeal phase | | | dysphagia, Hepatitis with suspected | | | esophageal varicesProviders: Agusto Porter MD, Carol | | | Linda Interiano RN, Jacquie Alcaraz, | | | Carbon Cleaner, Corey Schwab MD (Anesthesia | | | [...] the anesthesiologist and | | | the radiocommunications technician in the endoscopy suite. Mental Status [...] On: | | | 05/25/2014 12:53 PM [facility], [address] | | | [place] [address] | | | - The retroflexed view [...] On: 05/25/2014 12:53 PM | | | [facility], [address] [place], [place] | | | [address] | | + + -+ + + [...] Date: 05/25/2014 | [place] | | 12:52 PMMRN: [id number] #: [id number] of : | | | 1955dmit Type: AmbulatoryAge: 58Room: [facility] 01Gender: FemaleNote | | | Status: FinalizedAttending MD: Agusto Porter, MDProcedure: | | | ColonoscopyIndications: Screening for colorectal [...] physician, the nurse, the anesthesiologist and the radiocommunications technician | | | in the endoscopy [...] On: 05/25/2014 | | | 12:52 PM [facility], [address] [place] [address], | | | [place] [address] | | | - Non-bleeding internal hemorrhoids. [...] On: 05/25/2014 12:52 PM | | | [facility], [facility] [address] [facility], [place], [place] | | | [address] | | + + -+ + + [...] + | Diagnosis | + + | Dysphagia - Primary Dysphagia, unspecified | + + | Heartburn | + + | Hemorrhage of rectum and anus | + + | Chronic hepatitis C (HCC) Chronic hepatitis C without mention of hepatic coma | + + | Rectal bleeding Hemorrhage of rectum and anus | + + | Other symptoms involving digestive system(787.99) Other symptoms involving digestive | | system | + + documented in this encounter Administered Medications + +---------+ +------+-------+------+ | Medication Order | MAR | Action | Dose | Rate | Site | | | Action | Date | | | | + +---------+ +------+-------+------+ | lactated ringers (LR) infusion | New Bag | 06/27/20 | | 100 | | | at 100 mL/hr, Intravenous, | | 14 11:30 | | mL/hr | | | CONTINUOUS, Starting 05/25/14 | | AM PDT | | | | | at 1130, Pre-op | | | | | | + +---------+ +------+-------+------+ +---+---+ | | | +---+---+ documented in this encounter
--- OUTSIDE RECORDS SUMMARY | ~2020-03-30 | XMS | Encounter Summary ---
Demographics + + + | Address | [address] | | | [place] [address] | + + + | Home Phone | | + + + | Preferred Language | Unknown | + + + | Marital Status | Single | + + + | Catholic Affiliation | NON | + + + | Race | Unknown | + + + | Ethnic Group | Not or | + + + Author + + + | Author | [facility] | + + + | Organization | [facility] | + + + | Address | Unknown | + + + | Phone | Unavailable | + + + Support + + +---------+ + | Name | Relationship | Address | Phone | + + +---------+ + | Andrew Nelson | ECON | Unknown | | + + +---------+ + Care Team Providers + +------+ + | Care Shipper Receiver Name | Role | Phone | + [...] | | | | mention of | [address] | [place], [place] | | | | | hepatic | Phone: | [address] | | | | | coma, | [phone] | Phone: | | | | | chronic, | Fax: | [phone] | | | | | without | [phone] | Fax: | | | | | mention of | | [phone] | | | | | hepatitis | [...] | 2013 | Visit | Center at [facility] [address] | [place] | without mention of | | | | [address] | | hepatic coma | | | | Mailcode: OC8D | | (Primary Dx) | | | | [facility] | | | | | | and Healing, | | | | | | Building [address] | | | | | | [place], [place] | | | | | | [address] | | | | | | [phone] | | | +--------+---------+ + + + [...] | | | | Test performed by [id number] | | | [place] [address] | | |[facility] | | |[address] | | |[place] [address] | | + + + + + + + + | Performing | Address | City/State/Zipcode | Phone Number | | Organization | | | | + + + + + | [facility] | | | | + + + + + | [facility] | [address] | [place] [address] | | | SERVICES, JOS[address] | [address] | | | + + + + + | [facility] | see below | | [...] + | [facility] | [address] | [place] [address] | | | [place] | | | [...] + | [facility] | [address] | [place] [address] | | | [place] | | | [...] + | [facility] | [address] | [place] [address] | | | [place] | | | [...] [facility] | [address] | [place] [address] | | | SERVICES, CORE | PARK [...] | | | LABORATORY | | | EMIRATI | | | SERVICES, | | | [...] the MDRD equation recommended by the | [facility] | | National Kidney Disease Education Program. [...] | + + + + + | [facility] | [address] | [place] [id number] | | | SERVICES, CORE | [address] | | | + + + + + documented in this encounter Visit Diagnoses + + | Diagnosis | + + | Chronic hepatitis C without mention of hepatic coma - Primary | + + documented in this encounter
--- OUTSIDE RECORDS SUMMARY | ~2020-03-30 | XMS | Encounter Summary ---
Demographics + + + | Address | [address] | | | [place] [address] | + + + | Home Phone | | + + + | Preferred Language | Unknown | + + + | Marital Status | | + + + | Rastafari Affiliation | Unknown | + + + | Race | Unknown | + + + | Ethnic Group | Unknown | + + + Author + + + | Author | [facility] | | | and Dhavalana | + + + | Organization | [facility] | | [...] | | | | | [place] [address] | | + + + + + Care Team Providers + +------+ + | Care Track Maintainer Name | Role | Phone | + [...] + + | 04/25/ | Hospital | [facility] | Agusto Vital MD | HCV infection, | | 2014 | Encounter | MED CTR IR INTRA OP | [address] | without hepatic coma | | | | [address] | [place], [place] | | | | | [place], [place] | [address] | | | | | [address] | [phone] | | | | | [phone] | | | +--------+ + + + [...] appointment. Thank you documented in this encounter Plan of Treatment [...] The | | | patient was placed [id number] down and remained this way for | [...] wasapplied. | | The patient was placed [id number] down and remained this way forapproximately 1 [...] + + | Performing | Address | City/State/[facility] | Phone Number | | Organization | | | | + +---------+ + + | [facility] | | | [phone] | + +---------+ + + | [facility] | | | [phone] | + +---------+ + + POC Fingerstick [...]
--- OUTSIDE RECORDS SUMMARY | ~2020-03-30 | XMS | Encounter Summary ---
Demographics + + + | Address | [address] | | | [place] [address] | + + + | Home Phone | | + + + | Preferred Language | Unknown | + + + | Marital Status | | + + + | Sikhism Affiliation | Unknown | + + + | Race | Unknown | + + + | Ethnic Group | Unknown | + + + Author + + + | Author | [facility] | | | and Dhavalana | + + + | Organization | [facility] | | | and Dhavalana [...] [address] | | | | | [place] [address] | | + + + + + Care Team Providers + +------+ + | Care Charger Operator Helper Name | Role | Phone | + [...] | | | | | | | ([facility]) | | | | | | [...] | | | | | | | [place] | | | | | | | COLONOSCOPY, | | | | | | | DIAGNOSTIC | | | | | | | [place] | | | | | | | [...] + + | 05/25/ | Surgery | [facility] | Agusto Porter MD | EGD / COLONOSCOPY | | 2013 | | MED CTR MP INTRA OP | [address], [place] | | | | | [address] | [address] [place] | | | | | [place], [place] | [address] | | | | | [address] | | | | | | [phone] | | | +--------+---------+ + + + [...] + | [facility] | [address] | [place], [place] | [phone] | | [facility] | | [address] | | | - LABORATORY | | | | + + + + + | [facility] | [address] | [place] | | | [facility] | | [address] [place] [address] | | | - LABORATORY | | | | + + + + + EGD (05/25/2014 12:53 PM PDT) + + | Specimen | + + | | + + + + -+ | Narrative | Performed At | + + -+ | | [facility] | | GastroenterologyPatient Name: Carolina AngProcedure Date: 05/25/2014 | [place] | | 12:53 PMMRN: [id number] #: [id number] of : | | | 1955dmit Type: AmbulatoryAge: 58Room: [facility] 01Gender: FemaleNote | | | Status: FinalizedAttending MD: Agusto Porter, [facility]: | | | Upper GI endoscopyIndications: Oropharyngeal phase | | | dysphagia, Hepatitis with suspected | | | esophageal varicesProviders: Agusto Porter MD, [facility] | | | Linda Interiano RN, Jacquie Alcaraz, | | | Hop Separator, Corey Schwab MD (Anesthesia | | | [...] the anesthesiologist and | | | the human resources technician in the endoscopy suite. Mental Status [...] On: | | | 05/25/2014 12:53 PM [facility], [address] | | | [place] [address] | | | - The retroflexed view [...] On: 05/25/2014 12:53 PM | | | [facility], [address] [place], [place] | | | [address] | | + + -+ + + [...] [facility] | | 12:52 [facility]: [id number] #: [id number] of : | | | 3Admit Type: AmbulatoryAge: 58Room: [facility] 01Gender: FemaleNote | | | Status: FinalizedAttending MD: Agusto Porter [facility]: | | | ColonoscopyIndications: Screening for colorectal [...] physician, the nurse, the anesthesiologist and the human resources technician | | | in the endoscopy [...] On: 05/25/2014 | | | 12:52 PM [facility], [address] [place] [address], | | | [place], [place] [address] | | | - Non-bleeding internal hemorrhoids. [...] On: 05/25/2014 12:52 PM | | | [facility], [address] [facility], [place], [place] | | | [address] | | + + -+ + + [...]
--- OUTSIDE RECORDS SUMMARY | ~2020-03-30 | XMS | Encounter Summary ---
Demographics + + + | Address | [address] | | | [place] [address] | + + + | Home Phone | | + + + | Preferred Language | Unknown | + + + | Marital Status | | + + + | Samaritan Affiliation | Unknown | + + + | Race | Unknown | + + + | Ethnic Group | Unknown | + + + Author + + + | Author | [facility] | | | and Dhavalana | + + + | Organization | [facility] | | | and [...] | | | | | [place] [address] | | + + + + + Care Team Providers + +------+ + | Care Film Numberer Name | Role | Phone | + [...] | | | | | | | ([facility]) | | | | | | [...] | | | | | | | [place] | | | | | | | COLONOSCOPY, | | | | | | | DIAGNOSTIC | | | | | | | [place] | | | | | | | [...] + + | 05/25/ | Hospital | [facility] | Agusto Porter MD | Dysphagia (Primary | | 2013 | Encounter | MED CTR MP INTRA OP | [address], [place] | Dx); Heartburn; | | | | [address] | [address] [place], [place] | Hemorrhage of rectum | | | | [place], [place] | [address] | and anus | | | | [address] | | | | | | [phone] | | | +--------+ + + + [...] + | [facility] | [address] | [place], [place] | [phone] | | [facility] | | [address] | | | - LABORATORY | | | | + + + + + | [facility] | [address] | [place], [place] | | | [facility] | | [id number] [place] [address] | | | - LABORATORY | | | | + + + + + EGD (05/25/2014 12:53 PM PDT) + + | Specimen | + + | | + + + + -+ | Narrative | Performed At | + + -+ | | [facility] | | GastroenterologyPatient Name: Carolina Bejarano Date: 05/25/2014 | [place] | | 12:53 PMMRN: [id number] #: [id number] of : | | | 1955dmit Type: AmbulatoryAge: 58Room: [facility] 01Gender: FemaleNote | | | Status: FinalizedAttending MD: Agusto Porter, [facility]rocedure: | | | Upper GI endoscopyIndications: Oropharyngeal phase | | | dysphagia, Hepatitis with suspected | | | esophageal varicesProviders: Agusto Porter MD, Carol | | | Linda Interiano RN, Jacquie Alcaraz, | | | Retail Pharmacy Merchandiser, Corey Schwab MD (Anesthesia | | | [...] the anesthesiologist and | | | the quality assurance lab technician in the endoscopy suite. Mental Status [...] On: | | | 05/25/2014 12:53 PM [facility], [address] | | | [place] [address] | | | - The retroflexed view [...] On: 05/25/2014 12:53 PM | | | [facility], [address] [place], [place] | | | [address] | | + + -+ + + [...] 05/25/2014 | [place] | | 12:52 PMMRN: [id number] #: [id number] of : | | | 1955dmit Type: AmbulatoryAge: 58Room: [facility] 01Gender: FemaleNote | | | Status: FinalizedAttending [...] physician, the nurse, the anesthesiologist and the quality assurance lab technician | | | in the endoscopy [...] On: 05/25/2014 | | | 12:52 PM [facility], [address] [place] [address], | | | [place] [address] | | | - Non-bleeding internal hemorrhoids. [...] On: 05/25/2014 12:52 PM | | | [facility], [facility] [address] [facility], [place], [place] | | | [address] | | + + -+ + + [...]
--- OUTSIDE RECORDS SUMMARY | ~2020-03-30 | XMS | Clinical Summary ---
Demographics + + + | Address | [address] | | | [place] [address] | + + + | Home Phone | | + + + | Preferred Language | Unknown | + + + | Marital Status | Legally | + + + | Orthodoxy Affiliation | Unknown | + + + | Race | Unknown | + + + | Ethnic Group | Unknown | + + + Author + + + | Author | [facility] (Historical as of | | | 07-15-19) | + + + | Organization | [facility] (Historical as of | | | 07-15-19) | + + + | Address | Unknown | + + + | Phone | Unavailable | + + + Support + + + + + | Name | Relationship | Address | Phone | + + + + + | Magdiel Andrews | ECON | [address] | | | | | [place] [address] | | + + + + + Care Team Providers + +------+ + | Care Database Development Project Manager Name | Role | Phone | + +------+ + | Corey Galvan MD | PP | | + +------+ + Allergies + + + + + + | Active Allergy | Reactions | Severity | Noted | Comments | | | | | Date | | + + + + + + | Codeine | Itching | Medium | 06/24/20 | | | | | | 17 | | + + + + + + Current Medications + + +---------+---------+------+------+-------+ | Prescription | Sig. | Disp. | Refills | Star | End | Statu | | | | | | t | Date | s | | | | | | Date | | | + + +---------+---------+------+------+-------+ | gabapentin | Take 600 mg by | | | | | Activ | | (NEURONTIN) 600 MG | mouth. | | | | | e | | tablet | | | | | | | + + +---------+---------+------+------+-------+ | venlafaxine | | | 0 | 08/1 | | Activ | | (EFFEXOR) 75 MG | | | | 8/20 | | e | | tablet | | | | 17 | | | + + +---------+---------+------+------+-------+ | traZODone | | | 0 | /3 | | Activ | | (DESYREL) 50 MG | | | | 20 | | e | | tablet | | | | 17 | | | + + +---------+---------+------+------+-------+ | ATROVENT HFA 17 | | | 0 | 3 | | Activ | | MCG/ACT inhaler | | | | 12/18 | | e | | | | | | 17 | | | + + +---------+---------+------+------+-------+ | albuterol (PROAIR | | | | 08/2 | | Activ | | HFA) 108 (90 Base) | | | | 02/15 | | e | | MCG/ACT inhaler | | | | 13 | | | + + +---------+---------+------+------+-------+ | cyclobenzaprine | take 1 tablet by | | 0 | 08/0 | | Activ | | (FLEXERIL) 10 MG | mouth three times a | | | 06/17 | | e | | tablet | day IF DROWSINESS IS | | | 17 | | | | | A PROBLEM TAKE ONLY | | | | | | | | at bedtime | | | | | | + + +---------+---------+------+------+-------+ | FLOVENT HFA 220 | | | 0 | 07/3 | | Activ | | MCG/ACT inhaler | | | | 1/20 | | e | | | | | | 17 | | | + + +---------+---------+------+------+-------+ | metFORMIN | | | 0 | 07/1 | | Activ | | (GLUCOPHAGE) 850 MG | | | | 8/20 | | e | | tablet | | | | 17 | | | + + +---------+---------+------+------+-------+ | levothyroxine | | | 0 | 07/3 | | Activ | | (SYNTHROID) 50 MCG | | | | 1/20 | | e | | tablet | | | | 17 | | | + + +---------+---------+------+------+-------+ | | Take 1 tablet by | 60 | 0 | 11/1 | | Activ | | HYDROcodone-acetamin | mouth every 6 (six) | tablet | | 0/20 | | e | | ophen (NORCO) 10-325 | hours as needed for | | | 17 | | | | MG per tablet | Pain. | | | | | | + + +---------+---------+------+------+-------+ | cephALEXin | Take 1 capsule by | 30 | 0 | / | | Activ | | (KEFLEX) 750 MG | mouth 3 (three) | capsule | | 0/20 | | e | | capsule | times daily. | | | 17 | | | + + +---------+---------+------+------+-------+ Active Problems + + + | Problem | Noted Date | + + + | Chronic midline low back pain without sciatica | 11/19/2017 | + + + | Osteophyte, vertebrae | 11/19/2017 | + + + | S/P laminectomy | 10/26/2017 | + + + | Herniation of cervical intervertebral disc with radiculopathy | 2017 | + + + | Spondylosis of cervical joint with myelopathy | 07/26/2017 | + + + | Numbness and tingling in right hand | 07/26/2017 | + + + | Neck pain on right side | 06/24/2017 | + + + | Pain radiating to neck | 06/24/2017 | + + + | DDD (degenerative disc disease), cervical | 06/24/2017 | + + + Social History + +-------+ +--------+------+ | Tobacco Use | Types | Packs/Day | Years | Date | | | | | Used | | + +-------+ +--------+------+ | Current Every Day | | 0.75 | 53 | | | Smoker | | | | | + +-------+ +--------+------+ + +---+---+---+ | Smokeless Tobacco: | | | | | Never Used | | | | + +---+---+---+ + + +---------+ + | Alcohol Use | Drinks/We | oz/Week | Comments | | | ek | | | + + +---------+ + | No [...] | Blood Pressure | 131/79 | 01/19/2018 2:22 PM PST | + + + + | Pulse | 86 | 01/19/2018 2:22 PM PST | + + + + | Temperature | 37 C (98.6 F) | 10/08/2017 11:18 AM PST | + + + + | Respiratory Rate | 16 | 10/08/2017 11:18 AM PST | + + + + | Oxygen Saturation | 92% | 10/08/2017 11:18 AM PST | + + + + | Inhaled Oxygen | - | - | | Concentration | | | + + + + | Weight | 71.2 kg (157 lb) | 01/19/2018 2:22 PM PST | + + + + | Height | 160 cm (5' 3") | 01/19/2018 2:22 PM PST | + + + + | Body Mass Index | 27.81 | 01/19/2018 2:22 PM PST | + + + + Plan of Treatment + + + + + | Health Maintenance | Due Date | Last Done | Comments | + + + + + | Vaccine: | | | | | Dtap/Tdap/Td (1 - | 2 | | | | Tdap) | | | | + + + + + | Breast Cancer | | | | | Screening | 3 | | | | (Mammogram) | | | | + + + + + | Colon Cancer | | | | | Screening | 3 | | | | (Colonoscopy) | | | | + + + + + | Vaccine: Zoster (1 | | | | | of 2) | 3 | | | + + + + + | Lung Cancer | | | | | Screening | 8 | | | + + + + + | DEXA SCAN SCREENING | | | | | | 8 | | | + + + + + | Vaccine: | | | | | Pneumococcal 65+ | 8 | | | | Low/Medium Risk (1 | | | | | of 2 - PCV13) | | | | + + + + + | Vaccine: Influenza | | | | | (Season Ended) | 0 | | | + + + + + Results Not on filefrom Last 3 Months Insurance + +--------+ +------+-------+ + | Payer | Benefi | Subscriber | Type | Phone | Address | | | t Plan | ID | | | | | | / | | | | | | | Group | | | | | + +--------+ +------+-------+ + | MEDICARE | MEDICA | [id number] | | | [address] | | | [place] | | | | [place] [phone] | | | IP-OP | | | | | + +--------+ +------+-------+ + | MEDICAID | [place] | [id number] | | | [address] | | | N | | | | [place] | | | [place] | | | | [phone] | | | 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
--- OUTSIDE RECORDS SUMMARY | ~2020-03-30 | XMS | Encounter Summary ---
Demographics + + + | Address | [address] | | | [place] [address] | + + + | Home Phone | | + + + | Preferred Language | Unknown | + + + | Marital Status | | + + + | Mandaen Affiliation | Unknown | + + + | Race | Unknown | + + + | Ethnic Group | Unknown | + + + Author + + + | Author | [facility] | | | and [place]ana | + + + | Organization | [facility] | | [...] | | | | | [place] [address] | | + + + + + Care Team Providers + +------+ + | Care Ironing Worker Name | Role | Phone | [...] Provider Unknown | | | | | [address] | [phone] | | | | | [address] | | | | | | [phone] | | | +--------+ + + + [...] | + +--------+ + + + | CT ABDOMEN PELVIS W | Routin | 04/14/2017 | | Results for this | | CONTRAST | e | 12:26 AM | | procedure are in the | | | | PDT | | results section. | + +--------+ + + + documented in this encounter Results CT Abdomen Pelvis w Contrast (04/14/2017 12:26 AM PDT) + + | Specimen | + + | | + + + + + | Narrative | Performed At | + + + | This is a non-reportable procedure without a radiologist report and | | | is used for image storage only | | + + + + + | Procedure Note | + + | Vinicius Bradley Pino - 07/12/2019 10:11 PM PDT This is a non-reportable procedure | | without a radiologist report and isused for image storage only | + + documented in this encounter Visit Diagnoses + + | Diagnosis | + + | Pain Generalized pain | + + documented in this encounter"
--- OUTSIDE RECORDS SUMMARY | ~2020-03-30 | XMS | Encounter Summary ---
Demographics + + + | Address | [address] | | | [place] [address] | + + + | Home Phone | | + + + | Preferred Language | Unknown | + + + | Marital Status | Single | + + + | Islam Affiliation | NON | + + + | Race | Unknown | + + + | Ethnic Group | Not or | + + + Author + + + | Author | [facility] | + + + | Organization | [facility] | + + + | Address | Unknown | + + + | Phone | Unavailable | + + + Support + + +---------+ + | Name | Relationship | Address | Phone | + + +---------+ + | Andrew Nelson | ECON | Unknown | | + + +---------+ + Care Team Providers + +------+ + | Care It Senior Analyst Name | Role | Phone | + +------+ + | Corey Galvan MD | PCP | Unavailable | + +------+ + Encounter Details +--------+ + + + + | Date | Type | Department | Care Team | Description | +--------+ + + + + | 10/11/ | Abstract | Dig[facility]ive [facility] | Hiren Gutierrez, | | | 2012 | | [place] [address] | [place] | | | | | [place] | | | | | | Mailcode: OC8D | | | | | | [facility] | | | | | | and Healing, | | | | | | [address] | | | | | | [facility] [place] | | | | | | [address] | | | | | | [phone] | | | +--------+ + + + [...]
--- OUTSIDE RECORDS SUMMARY | ~2020-03-30 | XMS | Encounter Summary ---
Demographics + + + | Address | [address] | | | [place] [address] | + + + | Home Phone | | + + + | Preferred Language | Unknown | + + + | Marital Status | | + + + | Muslim Affiliation | Unknown | + + + | Race | Unknown | + + + | Ethnic Group | Unknown | + + + Author + + + | Author | [facility] | | | and [place]havalana | + + + | Organization | [facility] | | | and [place] | [...] | | | | | [place] [address] | | + + + + + Care Team Providers + +------+ + | Care Transcription Specialist Name | Role | Phone | + +------+ + | Corey Galvan MD | PCP | | + +------+ + Reason for Visit +--------+ + | Reason | Comments | +--------+ + | Other | | +--------+ + Encounter Details +--------+--------+ + + + | Date | Type | Department | Care Team | Description | +--------+--------+ + + + | 07/10/ | Refill | [facility] | [place], | Other | | 2013 | | GASTROENTEROLOGY | [place] | | | | | [address] | [place] | | | | | [address] [place], [place] | [place] | | | | | [address] | [address] | | | | | [phone] | | | +--------+--------+ + + + [...]
--- OUTSIDE RECORDS SUMMARY | ~2020-03-30 | XMS | Encounter Summary ---
Demographics + + + | Address | [address] | | | [place] [address] | + + + | Home Phone | | + + + | Preferred Language | Unknown | + + + | Marital Status | Single | + + + | Hoahaoism Affiliation | NON | + + + | Race | Unknown | + + + | Ethnic Group | Not or | + + + Author + + + | Author | [facility] | + + + | Organization | [facility] | + + + | Address | Unknown | + + + | Phone | Unavailable | + + + Support + + +---------+ + | Name | Relationship | Address | Phone | + + +---------+ + | nAdrew Nelson | ECON | Unknown | | + + +---------+ + Care Team Providers + +------+ + | Care Animal Sitter Name | Role | Phone | + [...] - Upper | | 2010 | | [place] [address] | [place] | Respiratory | | | | [address] | | Infection; Fever | | | | Mailcode: OC8D | | | | | | [facility] | | | | | | and Healing, | | | | | | [address] | | | | | | [place], [place] | | | | | | [address] | | | | | | [phone] | | | +--------+ + + + [...]
--- OUTSIDE RECORDS SUMMARY | ~2020-03-30 | XMS | Encounter Summary ---
Demographics + + + | Address | [address] | | | [place] [address] | + + + | Home Phone | | + + + | Preferred Language | Unknown | + + + | Marital Status | | + + + | Gnosticism Affiliation | Unknown | + + + | Race | Unknown | + + + | Ethnic Group | Unknown | + + + Author + + + | Author | [facility] | | | and [place]hav[place]ana | + + + | Organization | [facility] | | | and [...] | | | | | [place] [address] | | + + + + + Care Team Providers + +------+ + | Care Lag Screwer Name | Role | Phone | + [...] Provider Unknown | | | | | [place] | [phone] | | | | | [address] | | | | | | [phone] | | | +--------+ + + + [...]
--- OUTSIDE RECORDS SUMMARY | ~2020-03-30 | XMS | Encounter Summary ---
Demographics + + + | Address | [address] | | | [place] [address] | + + + | Home Phone | | + + + | Preferred Language | Unknown | + + + | Marital Status | Single | + + + | Muslim Affiliation | NON | + + + | Race | Unknown | + + + | Ethnic Group | Not or | + + + Author + + + | Author | [facility] | + + + | Organization | [facility] | + + + | Address | Unknown | + + + | Phone | Unavailable | + + + Support + + +---------+ + | Name | Relationship | Address | Phone | + + +---------+ + | Andrew Nelson | ECON | Unknown | | + + +---------+ + Care Team Providers + +------+ + | Care Senior Data Warehouse Architect Name | Role | Phone | + +------+ + | Corey Galvan MD | PCP | Unavailable | + +------+ + Encounter Details +--------+ + + + + | Date | Type | Department | Care Team | Description | +--------+ + + + + | 06/23/ | Abstract | Dig[facility]ive Health | Hiren Gutierrez, | | | 2012 | | [place] [address] | [place] | | | | | [place] | | | | | | Mailcode: OC8D | | | | | | [facility] | | | | | | and Healing, | | | | | | [address] | | | | | | [place], [place] | | | | | | [address] | | | | | | [phone] | | | +--------+ + + + [...]
--- OUTSIDE RECORDS SUMMARY | ~2020-03-30 | XMS | Encounter Summary ---
Demographics + + + | Address | [address] | | | [place] [address] | + + + | Home Phone | | + + + | Preferred Language | Unknown | + + + | Marital Status | | + + + | Yarsanism Affiliation | Unknown | + + + | Race | Unknown | + + + | Ethnic Group | Unknown | + + + Author + + + | Author | [facility] | | | and [place]hav[place] | + + + | Organization | [facility] | | | and [place]hav[place]ana [...] | | | | | [place] [address] | | + + + + + Care Team Providers + +------+ + | Care Weight Control Engineer Name | Role | Phone | + +------+ + | Corey Galvan MD | PCP | | + +------+ + Reason for Visit +--------+ + | Reason | Comments | +--------+ + | Other | | +--------+ + Encounter Details +--------+ + + + + | Date | Type | Department | Care Team | Description | +--------+ + + + + | 04/26/ | Telephone | [facility] | [facility], | Other | | 2013 | | GASTROENTEROLOGY | [place] [address] | | | | | [address] | [place] | | | | | [address] [place], [place] | [place] | | | | | [address] | [address] | | | | | [phone] | | | +--------+ + + + [...]
--- OUTSIDE RECORDS SUMMARY | ~2020-03-30 | XMS | Clinical Summary ---
Demographics + + + | Address | [address] | | | [place] [address] | + + + | Home Phone | | + + + | Preferred Language | Unknown | + + + | Marital Status | Single | + + + | Denominational Affiliation | NON | + + + | Race | Unknown | + + + | Ethnic Group | Not or | + + + Author + + + | Author | [facility] | + + + | Organization | [facility] | + + + | Address | Unknown | + + + | Phone | Unavailable | + + + Support + + +---------+ + | Name | Relationship | Address | Phone | + + +---------+ + | Andrew Nelson | ECON | Unknown | | + + +---------+ + Care Team Providers + +------+ + | Care Shelter Case Manager Name | Role | Phone | + +------+ + PCP | Unavailable | + +------+ + Source Comments RONALDO is fully live on both [facility] and [facility] InPatient.[facility] Allergies Not on File Medications + +-----+ [...] | | | + +--------+ +--------+-------+---------+--------+ | PARAFFIN MACHINE OPERATOR MEDICAID | PARAFFIN MACHINE OPERATOR | xxxxxxxx | | | | Medica [...] | 1955 | [phone] | [place] [address] | | | [place] | | | 5 (Home) | | + +--------+ +--------+ + +
--- OUTSIDE RECORDS SUMMARY | ~2020-03-30 | XMS | Encounter Summary ---
Demographics + + + | Address | [address] | | | [place] [address] | + + + | Home Phone | | + + + | Preferred Language | Unknown | + + + | Marital Status | | + + + | Mormon Affiliation | Unknown | + + + | Race | Unknown | + + + | Ethnic Group | Unknown | + + + Author + + + | Author | [facility] | | | and [place]hav[place]ana | + + + | Organization | [facility] | | | and [...] | | | | | [place] [address] | | + + + + + Care Team Providers + +------+ + | Care Project Archivist Name | Role | Phone | + +------+ + PCP | Unavailable | + +------+ + Encounter Details +--------+ + + + + | Date | Type | Department | Care Team | Description | +--------+ + + + + | 03/13/ | Emergency | [facility] | Carter Bailey MD | | | 2010 | | MEDICAL CENTER | [address] | | | | | EMERGENCY CENTER | [place] [address] | | | | | [address] | [phone] | | | | | [place], [place] | | | | | | [address] | | | | | | [phone] | | | +--------+ + + + [...]
--- OUTSIDE RECORDS SUMMARY | ~2020-03-30 | XMS | Encounter Summary ---
Demographics + + + | Address | [address] | | | [place] [address] | + + + | Home Phone | | + + + | Preferred Language | Unknown | + + + | Marital Status | | + + + | Roman Catholic Affiliation | Unknown | + + + | Race | Unknown | + + + | Ethnic Group | Unknown | + + + Author + + + | Author | [facility] | | | and [place]hav[place]ana | + + + | Organization | [facility] | | | and [place]hav[place]ana [...] | | | | | [place] [address] | | + + + + + Care Team Providers + +------+ + | Care Fisher Terrapin Name | Role | Phone | + +------+ + PCP | Unavailable | + +------+ + Encounter Details +--------+ + + + + | Date | Type | Department | Care Team | Description | +--------+ + + + + | 10/27/ | Emergency | [facility] | Conversion | Pain in Joint, | | 2006 | | [facility] | Transaction, | Shoulder Region | | | | EMERGENCY CENTER | Provider Unknown | | | | | [address] | | | | | | [place], [place] | (Fax) | | | | | [address] | | | | | | [phone] | | | +--------+ + + + [...] | Diagnosis | + + | Pain in joint, shoulder region | + + documented in this encounter"
--- OUTSIDE RECORDS SUMMARY | ~2020-03-30 | XMS | Encounter Summary ---
Demographics + + + | Address | [address] | | | [place] [address] | + + + | Home Phone | | + + + | Preferred Language | Unknown | + + + | Marital Status | Single | + + + | Confucianism Affiliation | NON | + + + | Race | Unknown | + + + | Ethnic Group | Not or | + + + Author + + + | Author | [facility] | + + + | Organization | [facility] | + + + | Address | Unknown | + + + | Phone | Unavailable | + + + Support + + +---------+ + | Name | Relationship | Address | Phone | + + +---------+ + | Andrew Nelson | ECON | Unknown | | + + +---------+ + Care Team Providers + +------+ + | Care Surgery Aide Name | Role | Phone | + [...] | | | | mention of | [address] | [place], [place] | | | | | hepatic | Phone: | [address] | | | | | coma, | [phone] | Phone: | | | | | chronic, | Fax: | [phone] | | | | | without | [phone] | Fax: | | | | | mention of | | [phone] | | | | | hepatitis | [...] | 2010 | Visit | Center at [facility] [address] | [place] | without mention of | | | | [address] | | hepatic coma | | | | Mailcode: OC8D | | (Primary Dx) | | | | [facility] | | | | | | and Healing, | | | | | | [address] | | | | | | [place], [place] | | | | | | [address] | | | | | | [phone] | | | +--------+---------+ + + + [...] Deandre Mcintosh who was referred to the [facility] for consultation regarding Chronic [...] outpatient prescriptions on file. Pt will call [facility] list Past medical history Depression Past surgical [...] | DEPARTMENT | | | | [facility] [place] [address] | | OF | | | | [phone] | PATHOLOGY | | | | com | | | | + + + + + + + + | Specimen | + + | | + + + + + + + | Performing | Address | City/State/Zipcode | Phone Number | | Organization | | | | + + + + + | [facility] DEPARTMENT OF | [address] | [place] [address] | | | PATHOLOGY | [address] [...] Due to a reagent issue, | | [facility] | | | GENOTYPE | we are temporarily | | [facility] | | | | unable to offer | | LABS | | | | Hepatitis CGenotype | | | | | | testing at [facility]. The | | | | | | samples will be sent to | | | | | | [facility] | | | | | | testing. [...] + | SPECIMEN | Plasma | | [facility] | | | TYPE | | [...] + + + + | [facility] | [facility] | [place] [address] | | | GENETICS LABS | [address] | | | | | AVE. [...] At | + + + | [facility] ([facility]) [facility] | [facility] | | [place] [address] | REGIONAL | | [place] [address] | LABORATORY | + + + + + + + + | Performing | Address | City/State/Zipcode | Phone Number | | Organization | | | | + + + + + | [facility] | [address] | [place] [address] | | | LABORATORY | | | [...] [facility] | [facility] | | [place] [address] | REGIONAL | | [place] [address] | LABORATORY | + + + + + + + + | Performing | Address | City/State/Zipcode | Phone Number | | Organization | | | | + + + + + | [facility] | [address] | [place] [address] | | | LABORATORY | | | [...] [facility] | [place] | | [place] [address] | REGIONAL | | [place] [address] | LABORATORY | + + + + + + + + | Performing | Address | City/State/Zipcode | Phone Number | | Organization | | | | + + + + + | [facility] | [address] | [place] [address] | | | LABORATORY | | | [...] [facility] | [facility] | | [place] [address] | REGIONAL | | [place] [address] | LABORATORY | + + + + + + + + | Performing | Address | City/State/Zipcode | Phone Number | | Organization | | | | + + + + + | [facility] | [address] | [place] [address] | | | LABORATORY | | | [...] [facility] | [facility]IONAL | | [place] [address] | LABORATORY | | [place] [address] | | + + + + + + + + | Performing | Address | City/State/Zipcode | Phone Number | | Organization | | | | + + + + + | [facility] | [address] | [place] [address] | | | LABORATORY | | | [...] | | | [facility] ([address] [facility]) [facility] [place] | | | [address] [facility] [place] | | | [address] Because MATTY titers of 1:40 and 1:80 [...] | | | [facility] ([address] [facility]) [facility] [place] | | | [address], [place] | | | [address] | | + + + + + + + + | Performing | Address | City/State/Zipcode | Phone Number | | Organization | | | | + + + + + | [facility] | [address] | [place] [address] | | | LABORATORY | | | [...] + + + | [facility] ([facility] [facility]) [facility] | [facility] | | [place] [address] | REGIONAL | | [place] [address] | LABORATORY | + + + + + + + + | Performing | Address | City/State/Zipcode | Phone Number | | Organization | | | | + + + + + | [facility] | [address] | [place] [address] | | | LABORATORY | | | [...] | + + + + + | [facility] | [address] | [place] [address] | | | PATHOLOGY | [address] [...] | + + + + + | [facility] | [address] | [place] [address] | | | PATHOLOGY | [address] [...] | | | DEPARTMENT | | | [place] | | | OF | | | [...] | + + + + + | [facility] | [address] | [place] [address] | | | PATHOLOGY | [address] | | | + + + + + documented in this encounter Visit Diagnoses + + | Diagnosis | + + | Chronic hepatitis C without mention of hepatic coma - Primary | + + documented in this encounter
--- OUTSIDE RECORDS SUMMARY | ~2020-03-30 | XMS | Encounter Summary ---
Demographics + + + | Address | [address] | | | [place] [address] | + + + | Home Phone | | + + + | Preferred Language | Unknown | + + + | Marital Status | | + + + | Jainism Affiliation | Unknown | + + + | Race | Unknown | + + + | Ethnic Group | Unknown | + + + Author + + + | Author | [facility] | | | and Dhavalana | + + + | Organization | [facility] | | | and Dhavalana [...] | | | | | [place] [address] | | + + + + + Care Team Providers + +------+ + | Care Endless Belt Finisher Name | Role | Phone | + +------+ + PCP | Unavailable | + +------+ + Encounter Details +--------+ + + + + | Date | Type | Department | Care Team | Description | +--------+ + + + + | 06/10/ | Hospital | [facility] | | Unspecified | | 2007 | Encounter | [address] | | Inflammatory | | | | [address] | | Polyarthropathy | | | | [place], [place] | | ([facility]) | | | | [address] | | | | | | [phone] | | | +--------+ + + + [...] + | Diagnosis | + + | Unspecified inflammatory polyarthropathy | + + documented in this encounter"
--- OUTSIDE RECORDS SUMMARY | ~2020-03-30 | XMS | Encounter Summary ---
Demographics + + + | Address | [address] | | | [place] [address] | + + + | Home Phone | | + + + | Preferred Language | Unknown | + + + | Marital Status | | + + + | Mormonism Affiliation | Unknown | + + + | Race | Unknown | + + + | Ethnic Group | Unknown | + + + Author + + + | Author | [facility] | | | and Dhavalana | + + + | Organization | [facility] [...] | | | | | [place] [address] | | + + + + + Care Team Providers + +------+ + | Care Home Planning Consultant Salesperson Name | Role | Phone | + [...] Provider Unknown | | | | | [place] | [phone] | | | | | [address] | | | | | | [phone] | | | +--------+ + + + [...]
--- OUTSIDE RECORDS SUMMARY | ~2020-03-30 | XMS | Encounter Summary ---
Demographics + + + | Address | [address] | | | [place] [address] | + + + | Home Phone | | + + + | Preferred Language | Unknown | + + + | Marital Status | | + + + | Zoroastrian Affiliation | Unknown | + + + | Race | Unknown | + + + | Ethnic Group | Unknown | + + + Author + + + | Author | [facility] | | | and Dhavalana | + + + | Organization | [facility] | | | [...] | | | | | [place] [address] | | + + + + + Care Team Providers + +------+ + | Care Assistant Operator Name | Role | Phone | [...] Provider Unknown | | | | | [place] | [phone] | | | | | [address] | | | | | | [phone] | | | +--------+ + + + [...] XR CHEST 1 VIEW | Routin | 04/26/2016 | | Results for this | | | e | 12:28 AM | | procedure are in the | | | | PDT | | results section. | + +--------+ + + + documented in this encounter Results XR Chest 1 Vw (04/26/2016 12:28 AM PDT) + + | Specimen | [...]
--- OUTSIDE RECORDS SUMMARY | ~2020-03-30 | XMS | Encounter Summary ---
Demographics + + + | Address | [address] | | | [place] [address] | + + + | Home Phone [...] | [facility] | | | and Dhavalana | + + + | Organization | [facility] | | | and Dhavalana [...] | | | | | [place] [address] | | + + + + + Care Team Providers + +------+ + | Care Typesetter Perforator Operator Name | Role | Phone | [...] Provider Unknown | | | | | [place] | [phone] | | | | | [address] | | | | | | [phone] | | | +--------+ + + + [...]
--- OUTSIDE RECORDS SUMMARY | ~2020-03-30 | XMS | Encounter Summary ---
Demographics + + + | Address | [address] | | | [place] [address] | + + + | Home Phone | | + + + | Preferred Language | Unknown | + + + | Marital Status | | + + + | Church Affiliation | Unknown | + + + | Race | Unknown | + + + | Ethnic Group | Unknown | + + + Author + + + | Author | [facility] | | | and Dhavalana | + + + | Organization | [facility] | | [...] | | | | | [place] [address] | | + + + + + Care Team Providers + +------+ + | Care Mix House Tender Name | Role | Phone | + +------+ + | Corey Galvan MD | PCP | | + +------+ + Reason for Referral Evaluate & Treat (Routine) +--------+ + + + + + | Status | Reason | Specialty | Diagnoses / | Referred By | Referred To | | | | | Procedures | Contact | Contact | +--------+ + + + + + | Closed | Specialty | Gastroenterol | Diagnoses | | Harri, | | | Services | ogy | HCV | Maya, | Agusto Worrell MD | | | Required | | infection, | Mindi, | [address], | | | | | without | [employer] [employer] [address] | [address] | | | | | hepatic coma | [place], [place] | [place], | | | | | Rectal | [address] [place] | [place] [address] | | | | | bleeding | [place] | Phone: | | | | | Bowel habit | [address] | [phone] | | | | | changes | Phone: | Fax: | | | | | Dysphagia | [phone] | [phone] | | | | | Heartburn | Fax: | | | | | | COPD | [phone] | | | | | | (chronic | | | | | | | obstructive | | | | | | | pulmonary | | | | | | | disease) | | | | | | | (HCC) | | | | | | | Obesity, | | | | | | | Class II, | | | | | | | BMI 35-39.9, | | | | | | | with | | | | | | | comorbidity | | | | | | | Procedures | | | | | | | OH | | | | | | | ESOPHAGOGAST | | | | | | | RODUODENOSCO | | | | | | | PY TRANSORAL | | | | | | | DIAGNOSTIC | | | | | | | OH EDG | | | | | | | TRANSORAL | | | | | | | BIOPSY | | | | | | | SINGLE/MULTI | | | | | | | PLE [place] | | | | | | | COLONOSCOPY, | | | | | | | DIAGNOSTIC | | | | | | | [place] | | | | | | | COLONOSCOPY, | | | | | | | BIOPSY | | | +--------+ + + + + + Evaluate & Treat (Routine) +--------+ + + + + + | Status | Reason | Specialty | Diagnoses / | Referred By | Referred To | | | | | Procedures | Contact | Contact | +--------+ + + + + + | Closed | Specialty | Gastroenterol | Diagnoses | | [facility] | | | Services | ogy / | HCV | [place], | Ultrasound | | | Required | Radiology | infection, | Mindi, | [address] | | | | | without | [employer] [address] | [place], | | | | | hepatic coma | [place], [place] | [place] | | | | | Rectal | [address] | [address] | | | | | bleeding | [place] | Phone: | | | | | Bowel habit | [address] | [phone] | | | | | changes | Phone: | Fax: | | | | | Dysphagia | [phone] | [phone] | | | | | Heartburn | Fax: | | | | | | COPD | [phone] | | | | | | (chronic | | | | | | | obstructive | | | | | | | pulmonary | | | | | | | disease) | | | | | | | (HCC) | | | | | | | Obesity, | | | | | | | Class II, | | | | | | | BMI 35-39.9, | | | | | | | with | | | | | | | comorbidity | | | | | | | Procedures | | | | | | | [place] BIOPSY | | | | | | | LIVER NEEDLE | | | | | | | | | | | | | | PERCUTANEOUS | | | | | | | OH SONO | | | | | | | GUIDE NEEDLE | | | | | | | BIOPSY US, | | | | | | | ABDOMEN | | | | | | | LIMITED | | | +--------+ + + + + + Reason for Visit +--------+ + | Reason | Comments | +--------+ + | Other | Hep C | +--------+ + Evaluate & Treat (Routine) +--------+--------+ + + + + | Status | Reason | Specialty | Diagnoses / | Referred By | Referred To | | | | | Procedures | Contact | Contact | +--------+--------+ + + + + | Closed | | Gastroenterol | Diagnoses | Mandy, | Maya, | | | | ogy | Chronic | Corey | Mindi | | | | | hepatitis C | MD Cholo | [employer] [address] | | | | | without | [address] | [place] [address] | | | | | mention of | [address] | [address] | | | | | hepatic coma | [place], | [place] | | | | | Procedures | [place] [address] | [address] Phone: | | | | | evaluate | Phone: | [phone] | | | | | and treat | [phone] | Fax: | | | | | | Fax: | [phone] | | | | | | [phone] | | +--------+--------+ + + + + Encounter Details +--------+---------+ + + + | Date | Type | Department | Care Team | Description | +--------+---------+ + + + | 04/09/ | Office | [facility] | [facility], | HCV infection, | | 2013 | Visit | GASTROENTEROLOGY | [address] | without hepatic coma | | | | [address] | [place], [address] | (Primary Dx); | | | | [address] [place], [place] | [place], [place] | Rectal bleeding; | | | | [address] | [address] | Bowel habit changes; | | | | [phone] | | Dysphagia; | | | | | | Heartburn; COPD | | | | | | (chronic obstructive | | | | | | pulmonary disease) | | | | | | (HCC); Obesity, | | | | | | Class II, BMI | | | | | | 35-39.9, with | | | | | | comorbidity (HCC) | +--------+---------+ + + + Social History [...] + + + | Blood Pressure | 140/82 | 04/09/2014 11:29 AM | | | | | PDT | | + + + + + | Pulse | 76 | 04/09/2014 11:29 AM | | | | | PDT | | + + + + + | Temperature | 36.6 C (97.8 F) | 04/09/2014 11:29 AM | | | | | PDT | | + + + + + | Respiratory Rate | 18 | 04/09/2014 11:29 AM | | | | | PDT | | + + + + + | Oxygen Saturation | - | - | | + + + + + | Inhaled Oxygen | - | - | | | Concentration | | | | + + + + + | Weight | 97.5 kg (215 lb) | 04/09/2014 11:29 AM | | | | | PDT | | + + + + + | Height | 160 cm (5' 3") | 04/09/2014 11:29 AM | | | | | PDT | | + + + + + | Body Mass Index | 38.09 | 04/09/2014 11:29 AM | | | | | PDT | | + + + + + documented in this encounter Progress Notes Mindi Trejo ARNP - 04/09/2014 12:01 PM PDTFormatting of this note might be differe nt from the original. Carolina Ang is a 58 y.o. female [...] changes, or confusion. Patient was seen at [facility] 09/2013. Records indicate negative HBV panel. Not [...] not have to vomit. Allergies Allergen Reactions Codeine Hives Past Medical History Diagnosis Date Chronic hepatitis [...] Genotype 06/24/2011 1a Final HCV Quantitative 06/24/2011 [id number] Final HCV Quantitative Log 06/24/2011 6.5 Final [...] and AFP. All other labs done by [facility]. Vaccination: If it has not been done, recommend patient is vaccinated for both Hepatitis A and Hepatitis B. Transmission: Discussed following infection control guidelines. In[facility] of HCV infection. Avoid sharing personal [...] and procedures. documented in t his encounter Plan of Treatment + +------+--------+ + + | Name | Type | Priori | Associated Diagnoses | Order Schedule | | | | ty | | | + +------+--------+ + + | CBC with | Lab | Routin | HCV infection | 1 Occurrences | | Differential | | e | | starting 04/09/2014 | | | | | | until 04/09/2015 | + +------+--------+ + + | Comprehensive | Lab | Routin | HCV infection | 1 Occurrences | | Metabolic Panel | | e | | starting 04/09/2014 | | | | | | until 04/09/2015 | + +------+--------+ + + | Protime INR | Lab | Routin | HCV infection | 1 Occurrences | | | | e | | starting 04/09/2014 | | | | | | until 04/09/2015 | + +------+--------+ + + | Alpha Fetoprotein, | Lab | Routin | HCV infection | 1 Occurrences | | Tumor Marker | | e | | starting 04/09/2014 | | | | | | until 04/09/2015 | + +------+--------+ + + + + +--------+ + + | Name | Type | Priori | Associated Diagnoses | Order Schedule | | | | ty | | | + + +--------+ + + | Ambulatory referral | Outpatient | Routin | HCV infection, | Ordered: 04/09/2014 | | to Gastroenterology | Referral | e | without hepatic coma | | | | | | Rectal bleeding | | | | | | Bowel habit changes | | | | | | Dysphagia | | | | | | Heartburn COPD | | | | | | (chronic obstructive | | | | | | pulmonary disease) | | | | | | ([facility]) Obesity, | | | | | | Class II, BMI | | | | | | 35-39.9, with | | | | | | comorbidity (HCC) | | + + +--------+ + + | Ambulatory referral | Outpatient | Routin | HCV infection | Expected: | | to Gastroenterology | Referral | e | Rectal bleeding | 04/27/2014, Expires: | | (riky) | | | Bowel habit changes | 04/09/2015 | | | | | Dysphagia | | | | | | Heartburn COPD | | | | | | (chronic obstructive | | | | | | pulmonary disease) | | | | | | (HCC) Obesity, | | | | | | Class II, BMI | | | | | | 35-39.9, with | | | | | | comorbidity (HCC) | | + + +--------+ + + documented as of this encounter Results US Guided Liver Biopsy [...] The | | | patient was placed dnhfy-fsif-hdlv down and remained this way for | [...] wasapplied. | | The patient was placed [id number]-[id number] down and remained this way forapproximately 1 [...] + | MISCELLANEOUS LAB | | | [phone] | + +---------+ + + | MISCELANIOUS LAB | | | [phone] | + +---------+ + + documented in this encounter Visit Diagnoses + + | Diagnosis | + + | HCV infection, without hepatic coma - Primary | + + | Rectal bleeding Hemorrhage of rectum and anus | + + | Bowel habit changes Other symptoms involving digestive system | + + | Dysphagia Dysphagia, unspecified | + + | Heartburn | + + | COPD (chronic obstructive pulmonary disease) (HCC) Chronic airway obstruction, not | | elsewhere classified | + + | Obesity, Class II, BMI 35-39.9, with comorbidity Obesity, unspecified | + + documented in this encounter
--- OUTSIDE RECORDS SUMMARY | ~2020-03-30 | XMS | Encounter Summary ---
Demographics + + + | Address | [address] | | | [place] [address] | + + + | Home Phone | | + + + | Preferred Language | Unknown | + + + | Marital Status | | + + + | Restorationist Affiliation | Unknown | + + + | Race | Unknown | + + + | Ethnic Group | Unknown | + + + Author + + + | Author | [facility] | | | and Dhavalana | + + + | Organization | [facility] | | | and Dhavalana [...] | | | | | [place] [address] | | + + + + + Care Team Providers + +------+ + | Care Stationary Engineer Apprentice Name | Role | Phone | [...] + + | 05/08/ | Telephone | [facility] | [facility], | Other (ESTER) | | 2013 | | GASTROENTEROLOGY | [address] | | | | | [address] [facility] | [place] | | | | | [address] [place], [place] | [place] | | | | | [address] | [id number] | | | | | [phone] | | | +--------+ + + + [...]
--- OUTSIDE RECORDS SUMMARY | ~2020-03-30 | XMS | Encounter Summary ---
Demographics + + + | Address | [address] | | | [place] [address] | + + + | Home Phone | | + + + | Preferred Language | Unknown | + + + | Marital Status | Single | + + + | Mormon Affiliation | NON | + + + | Race | Unknown | + + + | Ethnic Group | Not or | + + + Author + + + | Author | [facility] | + + + | Organization | [facility] | + + + | Address | Unknown | + + + | Phone | Unavailable | + + + Support + + +---------+ + | Name | Relationship | Address | Phone | + + +---------+ + | Andrew Nelson | ECON | Unknown | | + + +---------+ + Care Team Providers + +------+ + | Care Youth Development Specialist Name | Role | Phone | + +------+ + | Corey Galvan MD | PCP | Unavailable | + +------+ + Encounter Details +--------+ + + + + | Date | Type | Department | Care Team | Description | +--------+ + + + + | 06/23/ | Abstract | [facility] | Hiren Gutierrez, | | | 2012 | | [place] [address] [address] | [place] | | | | | [address] | | | | | | Mailcode: OC8D | | | | | | [facility] | | | | | | and Healing, | | | | | | [address] | | | | | | [place], [place] | | | | | | [address] | | | | | | [phone] | | | +--------+ + + + [...]
--- OUTSIDE RECORDS SUMMARY | ~2020-03-30 | XMS | Encounter Summary ---
Demographics + + + | Address | [address] | | | [place] [address] | + + + | Home Phone | | + + + | Preferred Language | Unknown | + + + | Marital Status | | + + + | Rastafari Affiliation | Unknown | + + + | Race | Unknown | + + + | Ethnic Group | Unknown | + + + Author + + + | Author | [facility] | | | and Dhavalana | + + + | Organization | [facility] | | | and Dhavalana [...] | | | | | [place] [address] | | + + + + + Care Team Providers + +------+ + | Care Global Supply Chain Director Name | Role | Phone | + +------+ + | Corey Galvan MD | PCP | | + +------+ + Encounter Details +--------+ + + + + | Date | Type | Department | Care Team | Description | +--------+ + + + + | 08/26/ | Hospital | [facility] [place] [place] [facility] | Conversion | Neck pain | | 2017 | Encounter | [address] | Transaction, | | | | | [address] | Provider Unknown | | | | | [place] | [phone] | | | | | [address] | | | | | | [phone] | | | +--------+ + + + [...] + + + | XR CERVICAL SPINE 6 | Routin | 08/17/2017 | | Results for this | | OR MORE VWS | e | 8:43 AM | | procedure are in the | | | | PDT | | results section. | + +--------+ + + + documented in this encounter Results XR Cervical Spine 6 or More Vws (08/17/2017 8:43 AM PDT) + + | Specimen [...]
--- OUTSIDE RECORDS SUMMARY | ~2020-03-30 | XMS | Encounter Summary ---
Demographics + + + | Address | [address] | | | [place] [address] | + + + | Home Phone | | + + + | Preferred Language | Unknown | + + + | Marital Status | Single | + + + | Congregation Affiliation | NON | + + + [...] Team Providers + +------+ + | Care Lime Plant Operator Name | Role | Phone | [...] | | | | mention of | [address] | [place], [place] | | | | | hepatic | Phone: | [address] | | | | | coma, | [phone] | Phone: | | | | | chronic, | Fax: | [phone] | | | | | without | [phone] | Fax: | | | | | mention of | | [phone] | | | | | hepatitis | [...] | 2013 | Visit | Center at [facility] [address] | [place] | without mention of | | | | [address] | | hepatic coma | | | | Mailcode: OC8D | | (Primary Dx) | | | | [facility] | | | | | | and Healing, | | | | | | Building [address] | | | | | | [place], [place] | | | | | | [address] | | | | | | [phone] | | | +--------+---------+ + + + [...] | | | | Test performed by [address] | | | [place] [address] | | |[facility] | | |[address] | | |[place] [address] | | + + + + + + + + | Performing | Address | City/State/Zipcode | Phone Number | | Organization | | | | + + + + + | [facility] | | | | + + + + + | [facility] | [address] | [place] [address] | | | SERVICES, JOSH | [address] | | | + + + + + | [facility] | see below | | [...] + | [facility] [facility] | [address] | [place] [address] | | | [place] | | | [...] + | [facility] | [address] | [place] [address] | | | [place] | | | [...] + | [facility] | [address] | [place] [address] | | | [place] | | | [...] [facility] | [address] | [place] [address] | | | SERVICES, CORE | [address]ARK [...] | | | LABORATORY | | | NIUEAN | | | SERVICES, | | | [...] the MDRD equation recommended by the | [facility] | | National Kidney Disease Education Program. [...] | + + + + + | [facility] | [address] | [place] [id number] | | | SERVICES, CORE | [address] | | | + + + + + documented in this encounter Visit Diagnoses + + | Diagnosis | + + | Chronic hepatitis C without mention of hepatic coma - Primary | + + documented in this encounter
--- OUTSIDE RECORDS SUMMARY | ~2020-03-30 | XMS | Encounter Summary ---
Demographics + + + | Address | [address] | | | [place] [address] | + + + | Home Phone | | + + + | Preferred Language | Unknown | + + + | Marital Status | Single | + + + | Nondenominational Affiliation | NON | + + + | Race | Unknown | + + + | Ethnic Group | Not or | + + + Author + + + | Author | [facility] | + + + | Organization | [facility] | + + + | Address | Unknown | + + + | Phone | Unavailable | + + + Support + + +---------+ + | Name | Relationship | Address | Phone | + + +---------+ + | Andrew Nelson | ECON | Unknown | | + + +---------+ + Care Team Providers + +------+ + | Care Foreign Service Teacher Name | Role | Phone | + +------+ + | Corey Galvan MD | PCP | Unavailable | + +------+ + Encounter Details +--------+------+ + + + | Date | Type | Department | Care Team | Description | +--------+------+ + + + | 10/04/ | Lab | Laboratory at [facility] | | Chronic hepatitis C | | 2012 | | [address] | | without mention of | | | | [place], [place] | | hepatic coma | | | | [address] | | | | | | [phone] | | | +--------+------+ + + + [...] | + + + + + | [facility] | [address] | [place] [address] | | | SERVICES, CORE | [address] [...] [address] | | | [place] [address] | | |[facility]arc [address] | | |[address] | | |[place] [address] | | + + + + + + + + | Performing | Address | City/State/Zipcode | Phone Number | | Organization | | | | + + + + + | [facility] | | | | + + + + + | [facility] | [address] | [place] [address] | | | ESTELLA, JOSH | [address] | | | + + + + + | [facility] | see below | | [...] + | [facility] | [address] | [place] [address] | | | [place] | | | [...] + | [facility] | [address] | [place] [address] | | | [place] | | | [...] + | [facility] | [address] | [place] [address] | | | [place] | | | [...] + + | [facility] | [address] | [place] [address] | | | SERVICES, CORE | PARK [...] | | | LABORATORY | | | [place] | | | SERVICES, | | | [...] the MDRD equation recommended by the | [facility] | | National Kidney Disease Education Program. Estimated GFR | LABORATORY | | Interpretive Information: <60 mL/min/1.73 sq m | SERVICES, [facility] | | Chronic Kidney Disease <15 mL/min/1.73 [...] | + + + + + | [facility] | [address] | [place] [address] | | | SERVICES, CORE | [address] | | | + + + + + documented in this encounter Visit Diagnoses + + | Diagnosis | + + | Chronic hepatitis C without mention of hepatic coma | + + documented in this encounter"
--- OUTSIDE RECORDS SUMMARY | ~2020-03-30 | XMS | Encounter Summary ---
Demographics + + + | Address | [address] | | | [place] [address] | + + + | Home Phone [...] Author | [facility] | | | and Dhavalana | + + + | Organization | [facility] | | | [...] | | | | | [place] [address] | | + + + + + Care Team Providers + +------+ + | Care Notereader Name | Role | Phone | + [...] Description | +--------+---------+ + + + | 04/25/ | Surgery | [facility] | Agusto Vital MD | US LIVER BIOPSY | | 2013 | | MED CTR IR [facility]TRA OP | [address] | | | | | [address] | [place], [place] | | | | | [place], [place] | [address] | | | | | [address] | [phone] | | | | | [phone] | | | +--------+---------+ + + + [...] The | | | patient was placed slzpr-mtfe-vxgi down and remained this way for | [...] wasapplied. | | The patient was placed nlchd-qunp-jweo down and remained this way forapproximately 1 [...] + | MISCELLANEOUS LAB | | | [phone] | + +---------+ + + | MISCELANIOUS LAB | | | [phone] | + +---------+ + + POC Fingerstick [...] + documented in this encounter Visit Diagnoses Not on filedocumented in this encounter Administered Medications + +--------+ [...] | | | | | protocol, Starting Wed04/25/14 at | | | | | | | 1205, For 6 doses, To maximum of | | | | | | | 300 mcg in 4 hours, | | | | | | + +--------+ +--------+------+------+ +---+---+ | | | +---+---+ + +-------+ +--------+---+---+ | fentaNYL injection PRN, Pain, | Given | 04/25/20 | 50 mcg | | | | Starting Wed04/25/14 at 1134 | | 14 11:41 | [...]
--- OUTSIDE RECORDS SUMMARY | ~2020-03-30 | XMS | Encounter Summary ---
Demographics + + + | Address | [address] | | | [place] [address] | + + + | Home Phone | | + + + | Preferred Language | Unknown | + + + | Marital Status | | + + + | Advent Affiliation | Unknown | + + + | Race | Unknown | + + + | Ethnic Group | Unknown | + + + Author + + + | Author | [facility] | | | and Dhavalana | + + + | Organization | [facility] | | | and [...] | | | | | [place] [address] | | + + + + + Care Team Providers + +------+ + | Care Allocations Clerk Name | Role | Phone | + +------+ + | Corey Galvan MD | PCP | | + +------+ + Encounter Details +--------+ + + + + | Date | Type | Department | Care Team | Description | +--------+ + + + + | 04/06/ | Abstract | [facility] [place] | [facility], | | | 2013 | | GASTROENTEROLOGY | [address] | | | | | [address] | [place] | | | | | [address] [place], [place] | [place] | | | | | [address] | [address] | | | | | [phone] | | | +--------+ + + + [...] +--------+ + + + | EXTERNAL LAB: AST | Routin | 12/07/2012 | | Results for this | | | e | 12:33 PM | | procedure are in the | | | | PST | | results section. | + +--------+ + + + | EXTERNAL LAB: ALT | Routin | 12/07/2012 | | Results for this | | | e | 12:33 PM | | procedure are in the | | | | PST | | results section. | + +--------+ + + + | EXTERNAL LAB: EGFR | Routin | 12/07/2012 | | Results for this | | | e | 12:33 PM | | procedure are in the | | | | PST | | results section. | + +--------+ + + + | EXTERNAL LAB: | Routin | 12/07/2012 | | Results for this | | CREATININE | e | 12:33 PM | | procedure are in the | | | | PST | | results section. | + +--------+ + + + | COMPREHENSIVE | Routin | 12/07/2012 | | Results for this | | METABOLIC PANEL | e | | | procedure are in the | | | | | | results section. | + +--------+ + + + | HEPATITIS C | Routin | 06/24/2011 | | Results for this | | GENOTYPING | e | | | procedure are in the | | | | | | results section. | + +--------+ + + + | HEPATITIS C | Routin | 06/24/2011 | | Results for this | | RNA,QUANTITATIVE,PCR | e | | | procedure are in the | | | | | | results section. | + +--------+ + + + documented in this encounter Results External Lab: RUTHIE (12/07/2012 12:33 PM PST) + +-------+ + + + | Component | Value | Ref Range | Performed | Pathologist | | | | | At | Signature | + +-------+ + + + | AST, | 32 | | EXTERNAL | | | External | | | LAB | | + +-------+ + + + + + | Specimen | + + | Blood specimen | | (specimen) | + + + + | Resulting Agency Comment | + + | [facility] | + + + +---------+ + + | Performing | Address | City/State/Zipcode | Phone Number | | Organization | | | | + +---------+ + + | EXTERNAL LAB | | | | + +---------+ + + External Lab: ALT (12/07/2012 12:33 PM PST) + +-------+ + + + | Component | Value | Ref Range | Performed | Pathologist | | | | | At | Signature | + +-------+ + + + | ALT, | 35 | | EXTERNAL | | | External | | | LAB | | + +-------+ + + + + + | Specimen | + + | Blood specimen | | (specimen) | + + + + | Resulting Agency Comment | + + | [facility] | + + + +---------+ + + | Performing | Address | City/State/Zipcode | Phone Number | | Organization | | | | + +---------+ + + | EXTERNAL LAB | | | | + +---------+ + + External Lab: eGFR (12/07/2012 12:33 PM PST) + +-------+ + + + | Component | Value | Ref Range | Performed | Pathologist | | | | | At | Signature | + +-------+ + + + | eGFR, | >60 | | EXTERNAL | | | External | | | LAB | | + +-------+ + + + | eGFR, | | | EXTERNAL | | | | | | LAB | | | [place]ian, | | | | | | External | | | | | + +-------+ + + + + + | Specimen | + + | Blood specimen | | (specimen) | + + + + | Resulting Agency Comment | + + | [facility] | + + + +---------+ + + | Performing | Address | City/State/Zipcode | Phone Number | | Organization | | | | + +---------+ + + | EXTERNAL LAB | | | | + +---------+ + + External Lab: Creatinine (12/07/2012 12:33 PM PST) + +-------+ + + + | Component | Value | Ref Range | Performed | Pathologist | | | | | At | Signature | + +-------+ + + + | Creatinine, | 0.80 | | EXTERNAL | | | External | | | LAB | | + +-------+ + + + + + | Specimen | + + | Blood specimen | | (specimen) | + + + + | Resulting Agency Comment | + + | [facility] | + + + +---------+ + + | Performing | Address | City/State/Zipcode | Phone Number | | Organization | | | | + +---------+ + + | EXTERNAL LAB | | | | + +---------+ + + Comprehensive Metabolic Panel (12/07/2012) + +-------+ + + + | Component | Value | Ref Range | Performed | Pathologist | | | | | At | Signature | + +-------+ + + + | Na | 141 | mmol/L | [facility] | | [facility] | [facility] | | | | | [facility] - | | | | | | LABORATORY | | + +-------+ + + + | K | 4.3 | mmol/L | [facility] | [facility] | | | [facility] | | [facility] | | | | | | [facility] - | | | | | | LABORATORY | | + +-------+ + + + | Cl | 102 | mmol/L | [facility] | | | [facility] | | | | | | [facility] | | | | | | C[facility] - | | | | | | LABORATORY | | + +-------+ + + + | CO2 | 30 | mmol/L | [facility] | | [facility] | | | | | | [facility] | | | | | | CENTER - | | | | | | LABORATORY | | + +-------+ + + + | Anion Gap | 13 | mmol/L | [facility] | | | [facility] | | | | | | [facility]ICAL | | | | | | CENTER - | | | | | | LABORATORY | | + +-------+ + + + | Glucose | 121 | mg/dL | [facility] | | | [facility] | | | | | | MEDICAL | | | | | | CENTER - | | | | | | LABORATORY | | + +-------+ + + + | BUN | 16 | mg/dL | [facility] | | | | | | [facility] | | | | | | MEDICAL | | | | | | CENTER - | | | | | | LABORATORY | | + +-------+ + + + | BUN/Creatin | 20 | | [facility] | | | ine Ratio | | | [facility] | | | | | | MEDICAL | | | | | | CENTER - | | | | | | LABORATORY | | + +-------+ + + + | Calcium | 8.9 | mg/dL | [facility] | | | | | | [facility] | | | | | | MEDICAL | | | | | | CENTER - | | | | | | LABORATORY | | + +-------+ + + + | Alkaline | 104 | U/L | [facility] | | | Phosphatase | | | [facility] | | | | | | MEDICAL | | | | | | CENTER - | | | | | | LABORATORY | | + +-------+ + + + | Bilirubin | 0.3 | mg/dL | [facility] | | | Total | | | [facility] | | | | | | MEDICAL | | | | | | CENTER - | | | | | | LABORATORY | | + +-------+ + + + | Total | 6.8 | g/dL | [facility] | | | Protein | | | [facility] | | | | | | MEDICAL | | | | | | CENTER - | | | | | | LABORATORY | | + +-------+ + + + | Albumin | 4.0 | g/dL | [facility] | | | | | | [facility] | | | | | | MED[facility] | | | | | | CENTER - | | | | | | LABORATORY | | + +-------+ + + + | Globulin | 2.8 | | [facility] | | | | | | [facility] | | | | | | [facility]ICAL | | | | | | CENTER - | | | | | | LABORATORY | | + +-------+ + + + | Albumin/Carmencita | 1.4 | | [facility] | | | bulin Ratio | | | [facility] | | | | | | MEDICAL | | | | | | CENTER - | | | | | | LABORATORY | | + +-------+ + + + + + | Specimen | + + | Blood specimen | | (specimen) | + + + + + + + | Performing | Address | City/State/Zipcode | Phone Number | | Organization | | | | + + + + + | [facility] | [address] | [place] | | | [facility] | | [address] | | | - LABORATORY | | | | + + + + + Hepatitis C RNA, quantitative, PCR (06/24/2011) + + + + + + | Component | Value | Ref Range | Performed | Pathologist | | | | | At | Signature | + + + + + + | HCV | 2,930,083 | | [facility] | | | Quantitativ | | | [facility] | | | e | | | MEDICAL | | | | | | CENTER - | | | | | | LABORATORY | | + + + + + + | HCV | 6.5 | | [facility] | | | Quantitativ | | | [facility] | | | e Log | | | MEDICAL | | | [...] | | + +---------+ + + | [facility] | | | | | [facility] | | | | | - LABORATORY | | | | + +---------+ + + Hepatitis C Genotyping (06/24/2011) + +-------+ + + + | Component | Value | Ref Range | Performed | Pathologist | | | | | At | Signature | + +-------+ + + + | HCV | 1a | | | | | Genotype | | | | | + +-------+ + + + + + | Specimen | + + | Blood specimen | | (specimen) | + + documented in this encounter Visit Diagnoses Not on filedocumented in this encounter"
--- OUTSIDE RECORDS SUMMARY | ~2020-03-30 | XMS | Encounter Summary ---
Demographics + + + | Address | [address] | | | [place] [address] | + + + | Home Phone | | + + + | Preferred Language | Unknown | + + + | Marital Status | Single | + + + | Baptist Affiliation | NON | + + + | Race | Unknown | + + + | Ethnic Group | Not or | + + + Author + + + | Author | [facility] | + + + | Organization | [facility] | + + + | Address | Unknown | + + + | Phone | Unavailable | + + + Support + + +---------+ + | Name | Relationship | Address | Phone | + + +---------+ + | Andrew Nelson | ECON | Unknown | | + + +---------+ + Care Team Providers + +------+ + | Care Subpoena Server Name | Role | Phone | + [...] | Scheduling | | 2012 | | [place] [address] [address] | [facility] | | | | | [address] | | | | | | Mailcode: OC8D | | | | | | [facility] | | | | | | and Healing, | | | | | | [address] | | | | | | [place], [place] | | | | | | [address] | | | | | | [phone] | | | +--------+ + + + [...]
--- OUTSIDE RECORDS SUMMARY | ~2020-03-30 | XMS | Encounter Summary ---
Demographics + + + | Address | [address] | | | [place] [address] | + + + | Home Phone | | + + + | Preferred Language | Unknown | + + + | Marital Status | | + + + | Synagogue Affiliation | Unknown | + + + | Race | Unknown | + + + | Ethnic Group | Unknown | + + + Author + + + | Author | [facility] | | | and Dhavalana | + + + | Organization | [facility] | | | and [...] | | | | | [place] [address] | | + + + + + Care Team Providers + +------+ + | Care Field Installation Technician Name | Role | Phone | [...] + + | 04/26/ | Telephone | [facility] | [facility], | Other | | 2013 | | GASTROENTEROLOGY | [address] | | | | | [address] | [place] | | | | | [address] [place], [place] | [place] | | | | | [address] | [address] | | | | | [phone] | | | +--------+ + + + [...]
--- OUTSIDE RECORDS SUMMARY | ~2020-03-30 | XMS | Encounter Summary ---
Demographics + + + | Address | [address] | | | [place] [address] | + + + | Home Phone | | + + + | Preferred Language | Unknown | + + + | Marital Status | | + + + | Congregational Affiliation | Unknown | + + + | Race | Unknown | + + + | Ethnic Group | Unknown | + + + Author + + + | Author | [facility] | | | and Dhavalana | + + + | Organization | [facility] | | | and Dhavalana | [...] | | | | | [place] [address] | | + + + + + Care Team Providers + +------+ + | Care Career Representative Name | Role | Phone | + [...] | | | | | | | ([facility]) | | | | | | | [...] | | | | | | | CT | | | | | | | COLONOSCOPY, | | | | | | | DIAGNOSTIC | | | | | | | CT | | | | | | | [...] + + + + | 05/25/ | Anesthesia | [facility] | Corey Schwab, | | | 2013 | Event | MED CTR MP INTRA OP | MD [address] | | | | | [address] | [place] | | | | | [place] | [address] | | | | | [address] | | | | | | [phone] | | | +--------+ + + + + Anesthesia Record + + + + + | Procedure Name | Responsible | Anesthesia Start | Anesthesia Stop Time | | | Anesthesiologist | Time | | + + + + + | EGD / COLONOSCOPY | | 05/25/14 1247 | 05/25/14 1323 | | (N/A ) | | | | + + + + + +----+---+ + + | Da | T | Event | Comment | | te | i | | | | | m | | | | | e | | | +----+---+ + + | 06 | 1 | An Checkout | Pre-use anesthesia machine/equipment checkout | | /2 | 2 | | | | 7/ | 2 | | | | 20 | 9 | | | | 14 | | | | +----+---+ + + | | 1 | | | | | 2 | | | | | 4 | | | | | 1 | | | +----+---+ + + | | 1 | An Start | Reassessment prior to anesthesia induction/procedure. | | | 2 | | | | | 4 | | | | | 7 | | | +----+---+ + + | | 1 | AN | Per surgeon request | | | 2 | Antibiotic | | | | 5 | declined | | | | 1 | | | +----+---+ + + | | 1 | An | | | | 2 | Induction | | | | 5 | | | | | 6 | | | +----+---+ + + | | 1 | Breathing | | | | 2 | Spontaneous | | | | 5 | ly | | | | 7 | | | +----+---+ + + | | 1 | an stop | | | | 3 | data | | | | 1 | | | | | 6 | | | +----+---+ + + | | 1 | An Stop | Patient handed off to recovery nurse. | | | 2 | | | | | 3 | | | +----+---+ + + +------+ | Meds | +------+ + + + | Name | Total | + + + | lidocaine 2% | 50 mg | + + + | propofol | 70 mg | + + + | propofol | 244.35 mg | + + + | lactated ringers (LR) infusion | 950 mL | + + + + + | Name | + + | O2 Flow Rate (L/Min) | + + + + | No blood administrations on file. | + + +--------+ + + + | Type | Details | Placement | Removal | +--------+ + + + | Wound | 04/25/14; 1145; Right:; abdomen; | 04/25/14 1145 by | 02/20/19 1643 by | | | puncture; 02/20/19 | Davion Connor, | User Epic | | | (Removed/Completed by utility); | RN | | | | 1643 (Removed/Completed by | | | | | utility) | | | +--------+ + + + | [READ | 05/25/14; 1130; healing within | 05/25/14 1130 by | 05/25/14 1415 by | | ONLY] | expectations; 05/25/14; 1415 | Cydney Collier RN | Cydney Collier RN | | | | | | | Periph | | | | | eral | | | | | IV - | | | | | Single | | | | | Lumen | | | | | | | | | +--------+ + + + documented in this encounter Social History + +-------+ +--------+------+ | Tobacco [...] in this encounter Administered Medications + +--------+ +-------+------+------+ | Medication Order | MAR | Action | Dose | Rate | Site | | | Action | Date | | | | + +--------+ +-------+------+------+ | lidocaine (PF) 2% injection | Given | 05/25/20 | 50 mg | | | | Intravenous, PRN, Starting Wed | | 14 12:55 | | | | | 05/25/14 at 1255, Anesthesia | | PM PDT | | | | | Intra-op | | | | | | + +--------+ +-------+------+------+ +---+---+ | | | +---+---+ + +-------+ +-------+---+---+ | propofol (DIPRIVAN) injection | Given | 05/25/20 | 70 mg | | | | PRN, Starting 05/25/14 at | | 14 12:56 | | | | | 1256, Anesthesia Intra-op | | PM PDT | | | | + +-------+ +-------+---+---+ +---+---+ | | | +---+---+ + + + + +-------+---+ | propofol (DIPRIVAN) injection | Rate/Dos | 05/25/20 | 75 | 40.5 | | | CONTINUOUS PRN, Starting Fri | e Change | 14 1:09 | mcg/kg/m | mL/hr | | | 05/25/14 at 1256, Anesthesia | | PM PDT | in | | | | Intra-op | | | | | | + + + + +-------+---+ +---------+ + +-------+---+ | New Bag | 05/25/20 | 180 | 97.2 | | | | 14 12:56 | mcg/kg/m | mL/hr | | | | PM PDT | in | | | +---------+ + +-------+---+ +---+---+ | | | +---+---+ documented in this encounter"
--- OUTSIDE RECORDS SUMMARY | ~2020-03-30 | XMS | Encounter Summary ---
Demographics + + + | Address | [address] | | | [place] [address] | + + + | Home Phone [...] | Author | [facility] | | | and Dahvalana | + + + | Organization | [facility] | | | and Dhavalana | [...] | | | | | [place] [address] | | + + + + + Care Team Providers + +------+ + | Care Circulation Sales Representative Name | Role | Phone | [...] + + | 04/25/ | Hospital | [facility] | Agusto Vital MD | HCV infection, | | 2014 | Encounter | MED CTR IR INTRA OP | [address] | without hepatic coma | | | | [address] | [place], [place] | | | | | [place], [place] | [address] | | | | | [address] | [phone] | | | | | [phone] | | | +--------+ + + + [...] The | | | patient was placed xieun-wgko-pdkk down and remained this way for | [...] wasapplied. | | The patient was placed hjamz-riju-whfv down and remained this way forapproximately 1 [...] + + | Performing | Address | City[facility] Phone Number | | Organization | | | | + +---------+ + + | MISCELLANEOUS LAB | | | [phone] | + +---------+ + + | MISCELANIOUS LAB | | | [phone] | + +---------+ + + POC Fingerstick [...]
--- OUTSIDE RECORDS SUMMARY | ~2020-03-30 | XMS | Encounter Summary ---
Demographics + + + | Address | [address] | | | [place] [address] | + + + | Home Phone [...] Author | [facility] | | | and Dhavalana | + + + | Organization | [facility] | | | and [...] | | | | | [place] [address] | | + + + + + Care Team Providers + +------+ + | Care Manager Front Name | Role | Phone | + [...] Provider Unknown | | | | | [place] | [phone] | | | | | [address] | | | | | | [phone] | | | +--------+ + + + [...]
--- OUTSIDE RECORDS SUMMARY | ~2020-03-30 | XMS | Encounter Summary ---
Demographics + + + | Address | [address] | | | [place] [address] | + + + | Home Phone | | + + + | Preferred Language | Unknown | + + + | Marital Status | | + + + | Alevism Affiliation | Unknown | + + + | Race | Unknown | + + + | Ethnic Group | Unknown | + + + Author + + + | Author | [facility] | | | and [place]hav[place]ana | + + + | Organization | [facility] | | | and [place] | [...] | | | | | [place] [address] | | + + + + + Care Team Providers + +------+ + | Care Worm Farm Laborer Name | Role | Phone | + +------+ + | Corey Galvan MD | PCP | | + +------+ + Encounter Details +--------+ + + + + | Date | Type | Department | Care Team | Description | +--------+ + + + + | 07/10/ | Orders Only | [facility] | Provider, | | | 2019 | | SYSTEM GENERIC OP | [address] | | | | | CONVERSION [address] | [address] | | | | | [address] [place], [place] | [place] [address] | | | | | [address] | | | | | | [phone] | | | +--------+ + + + [...]
--- OUTSIDE RECORDS SUMMARY | ~2020-03-30 | XMS | Encounter Summary ---
Demographics + + + | Address | [address] | | | [place] [address] | + + + | Home Phone | | + + + | Preferred Language | Unknown | + + + | Marital Status | | + + + | Christianity Affiliation | Unknown | + + + | Race | Unknown | + + + | Ethnic Group | Unknown | + + + Author + + + | Author | [facility] | | | and Dhavalana | + + + | Organization | [facility] [...] | | | | | [place] [address] | | + + + + + Care Team Providers + +------+ + | Care Livestock Caretaker Name | Role | Phone | + +------+ + | Corey Galvan MD | PCP | | + +------+ + Encounter Details +--------+ + + + + | Date | Type | Department | Care Team | Description | +--------+ + + + + | 08/26/ | Hospital | [facility] | Conversion | Neck pain | | 2017 | Encounter | CONVERSION [address] | Transaction, | | | | | [address] | Provider Unknown | | | | | [place] | [phone] | | | | | [address] | | | | | | [phone] | | | +--------+ + + + [...]
--- OUTSIDE RECORDS SUMMARY | ~2020-03-30 | XMS | Encounter Summary ---
Demographics + + + | Address | [address] | | | [place] [address] | + + + | Home Phone [...] Author + + + | Author | [facility] | + + + | Organization | [facility] | + + + | Address | Unknown | + + + | Phone | Unavailable | + + + Support + + +---------+ + | Name | Relationship | Address | Phone | + + +---------+ + | Andrew Nelson | ECON | Unknown | | + + +---------+ + Care Team Providers + +------+ + | Care Claims Customer Service Representative Name | Role | Phone | + +------+ + | Corey Galvan MD | PCP | Unavailable | + +------+ + Encounter Details +--------+------+ + + + | Date | Type | Department | Care Team | Description | +--------+------+ + + + | 10/04/ | Lab | Laboratory at [facility] | | Chronic hepatitis C | | 2012 | | [address] | | without mention of | | | | [place], [place] | | hepatic coma | | | | [address] | | | | | | [phone] | | | +--------+------+ + + + [...] [facility] | [address] | [place] [address] | | | SERVICES, CORE | PARK [...] [address] | | | [place] [address] | | |[address] | | |[address] | | |[place] [address] | | + + + + + + + + | Performing | Address | City/State/Zipcode | Phone Number | | Organization | | | | + + + + + | [facility] | | | | + + + + + | [facility] | [address] | [place] [address] | | | [place], [place]OS[address] | [address] | | | + + + + + | [facility] | see below | | [...] + | [facility] | [address] | [place] [address] | | | [place] | | | [...] + | [facility] | [address] | [place] [address] | | | [place] | | | [...] + | [facility] | [address] | [place] [address] | | | [place] | | | [...] [facility] | [address] | [place] [address] | | | SERVICES, CORE | PARK [...] | | | LABORATORY | | | LAO | | | SERVICES, | | | [...] the MDRD equation recommended by the | [facility] | | National Kidney Disease Education Program. Estimated GFR | LABORATORY | | Interpretive Information: <60 mL/min/1.73 sq m | SERVICES, [facility] | | Chronic Kidney Disease <15 mL/min/1.73 [...] | + + + + + | [facility] | [address] | [place] [address] | | | SERVICES, CORE | [address] | | | + + + + + documented in this encounter Visit Diagnoses + + | Diagnosis | + + | Chronic hepatitis C without mention of hepatic coma | + + documented in this encounter"
--- OUTSIDE RECORDS SUMMARY | ~2020-03-30 | XMS | Encounter Summary ---
Demographics + + + | Address | [address] | | | [place] [address] | + + + | Home Phone [...] | [facility] | | | and [place] | + + + | Organization | [facility] | | | and [...] | | | | | [place] [address] | | + + + + + Care Team Providers + +------+ + | Care Rounding Machine Operator Name | Role | Phone | + +------+ + | Corey Galvan MD | PCP | | + +------+ + Encounter Details +--------+ + + + + | Date | Type | Department | Care Team | Description | +--------+ + + + + | 09/21/ | Hospital | [facility] | Conversion | 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, | intervertebral disc | | | | CLINIC [address] | Provider Unknown | of cervical region | | | | [address] [place], [place] | | | | | | [address] | (Fax) | | | | | [phone] | | | +--------+ + + + [...] | fluticasone | | | 0 | 07/31/20 | | | (FLOVENT HFA) 220 | [...] Kirk, Rad Conversion - 07/12/2019 10:11 PM PDT HISTORY: [...] present on the studies | | from 2015 and stable to technique since that time [...] NEGATIVE Testing | | | performed at [facility];[address] [place] [address];[place] [address] | | + + + + +---------+ [...] | | | Patient | performed at [facility];[address] | | LAB | | | | [address];[place] | | | | | | [address] | | | | + + + [...] | | | | | performed at [facility] | | | | | | [facility];[place], [place] | | | | | | [address] | | | | + + + [...] + + + + + + | Red Blood | 5.69 (H) | 3.70 - 5.10 | EXTERNAL | | | Cells | | M/uL | LAB | | | Counted | | | [...] | | | Basophils | performed at [facility], [address] | K/uL | LAB | | | | [address], | | | | | | [place] [address] | | | | + + + [...] | | | | | | at [facility], [address] | | | | | | [address], | | | | | | [place] [address] | | | | + + + [...] + + | Historically converted procedure [facility] Epic environment | EXTERNAL LAB | + [...]
--- OUTSIDE RECORDS SUMMARY | ~2020-03-30 | XMS | Encounter Summary ---
Demographics + + + | Address | [address] | | | [place] [address] | + + + | Home Phone | | + + + | Preferred Language | Unknown | + + + | Marital Status | | + + + | Denominational Affiliation | Unknown | + + + | Race | Unknown | + + + | Ethnic Group | Unknown | + + + Author + + + | Author | [facility] | | | and Dhavalana | + + + | Organization | [facility] | [...] | | | | | [place] [address] | | + + + + + Care Team Providers + +------+ + | Care Herd Tester Name | Role | Phone | + +------+ + | Corey Galvan MD | PCP | | + +------+ + Reason for Visit + + + | Reason | Comments | + + + | Follow-up | | + + + | Hepatitis C | | + + + | Results | | + + + Evaluate & Treat (Routine) +--------+--------+ + + + + | Status | Reason | Specialty | Diagnoses / | Referred By | Referred To | | | | | Procedures | Contact | Contact | +--------+--------+ + + + + | Closed | | Nurse | Diagnoses | Mandy, | Maya, | | | | Practitioner | Unspecified | Corey | Mindi | | | | / | viral | MD Cholo | [facility] [address] | | | | Gastroenterol | hepatitis C | [address] | [place] [address] | | | | oggissell | without | [address] | [address] | | | | | hepatic coma | [place], | [place] | | | | | follow up | [place] [address] | [address] Phone: | | | | | hep c & test | Phone: | [phone] | | | | | results/pcp | [phone] | Fax: | | | | | | Fax: | [phone] | | | | | mandy/fami | [phone] | | | | | | [facility]care | | | | | | | Procedures | | | | | | | OFFICE VISIT | | | | | | | REGULAR | | | +--------+--------+ + + + + Encounter Details +--------+---------+ + + + | Date | Type | Department | Care Team | Description | +--------+---------+ + + + | 06/04/ | Office | [facility] [place] | [facility], | Hepatitis C | | 2013 | Visit | GASTROENTEROLOGY | [address] [address] | infection, without | | | | [address] | [place], [address] | hepatic coma | | | | [address] [place], [place] | [place], [place] | (Primary Dx); Fatty | | | | [address] | [address] | liver; Obesity (BMI | | | | [phone] | | 30-39.9); Marijuana | | | | | | use | +--------+---------+ + + + Social History [...] + | Blood Pressure | 112/68 | 06/04/2014 11:33 AM | | | | | PDT | | + + + + + | Pulse | 90 | 06/04/2014 11:33 AM | | | | | PDT | | + + + + + | Temperature | 36.8 C (98.2 F) | 06/04/2014 11:33 AM | | | | | PDT [...] Weight | 97.1 kg (214 lb) | 06/04/2014 11:33 AM | | | | | PDT | | + + + + + | Height | 160 cm (5' 3") | 06/04/2014 11:33 AM | | | | | PDT | | + + + + + | Body Mass Index | 37.91 | 06/04/2014 11:33 AM | | | | | PDT | | + + + + + documented in this encounter Patient Instructions Patient Instructions Mindi Trejo ARNP - 06/04/2014 11:49 AM PDT Adding Flavor to Low-Fat Meals There are endless ways to add more variety and flavor to your diet. You don t need salt o r high-fat additions. Coat meats, poultry, and fish with mixtures of dry or fresh herbs and spices (rubs) before grilling or baking. The flavors will diffuse into the food as it cooks. Keep plenty of fresh fruit on hand. Try adding it to your main dishes. For example, peac hes go well with chicken. They can be very flavorful in casseroles or with roasted poultry. Bananas or raisins add flavor to mcfarlane dishes with a Ace theme. Buy fruits and vegetables you haven t tried before. Often, recipes or suggestions for their use will be listed in the produce section at the grocery store. This is often the case with more exotic or rare foods. Go to the cookbook section at the bookstore or library. Many of the unique flavors we as sociate with German, , or Ace dishes come from the seasonings used in their recip es. Try one new recipe a week. You ll soon know what spices to add to a dish to give it th e taste of exotic places. Marinate meats, poultry, and fish before grilling or baking. Try mixtures of wine, fruit juice, low-sodium tomato juice, vinegar, lemon juice, herbs, and spices. Be aware that soy sauce and teriyaki sauce are high in sodium. Use low-sodium versions, and use less of them. Florentino, dry sera, and sesame seeds can add flavors to foods. [id number] [facility], [address] [place] [address], [place] [address]. All rights reserve d. This information is not intended as a substitute for professional medical care. Always fo llow your healthcare professional's instructions. Low Fat Diet A Low-fat diet will help you lose weight. It also can lower cholesterol and prevent symptom s of gallbladder disease. The average Wallisian diet contains up to 50% fat. This means that 50% of all calories come from fat (80-100 Grams of fat per day). Choosing normal portions of foods from the list below can lower your fat intake to 25-40 Grams of fat per day. This cliff ns 10-20% of calories come from fat. The remaining 80-90% of calories come from protein and carbohydrate. This is much healthier for you. Beverages Ok: Nonfat milk, coffee, tea, carbonated beverages Avoid: Whole and low-fat milk, evaporated milk and condensed milk; hot chocolate mixes, mil k shakes, malts, eggnog Bread Ok: White, whole wheat or rye bread, john or soda crackers, [place] toast, plain rolls, bag els Avoid: Rolls and breads containing whole milk or egg, waffles, pancakes, biscuits, corn bharath ad; cheese crackers, other flavored crackers, pastries, doughnuts; wheat germ Cereal Ok: Oatmeal, whole wheat, bran, multi grain, rice Avoid: Granola or others containing oil or coconut or more than 2 Grams of fat per serving Desserts Ok: Gelatin, water ices, cristiana food cake, puddings or sherbet made with non-fat milk, matt gues and non-fat yogurt Avoid: Any other commercially prepared desserts or desserts containing fat, whole milk, cre am, chocolate and coconut Fats Ok: You may have up to 3 teaspoons of fat daily. This can be in the form of butter, margari ne, mayonnaise or vegetable oil Avoid: Cream, non-dairy creams, gravies and cream sauces Fruits Ok: All fruits prepared without fat Avoid: Avocado, coconut, olives Meats Ok: Limit meat to 6 oz daily (broiled, roasted, baked or boiled). Select only lean cuts, we ll trimmed of fat: beef, fish, ballesteros, pork and canned fish packed in water. Chicken and turke y with the skin removed Avoid: Fried meats, fish, poultry, fried eggs and fish canned in oils; fatty meats such as solis, corned beef, hot dogs, luncheon meats, or meats with gravies and sauces Cheese & Eggs Ok: Cheeses labeled "Low Fat"; 3 whole eggs per week, egg whites (Eggbeaters) as desired Avoid: All other cheeses Potatoes, Beans, Pasta Ok: Dried beans, split peas, lentils, potatoes, rice, macaroni, noodles, spaghetti prepared without added fat Avoid: Fried potatoes, potato chips, potatoes prepared with butter, cream cheese Soups Ok: Bouillon or broth soups without fat and with allowed vegetables Avoid: All other soups Vegetables Ok: Fresh, frozen, canned or dried vegetables all prepared without added fat Avoid: Fried vegetables and those prepared with butter, cream, sauces Miscellaneous Ok: Salt, sugar, jelly, hard candy, marshmallows, honey, syrup, spices and herbs, mustard, catsup, lemon, vinegar Avoid: Chocolate, nuts, coconut, cream candies, olives, sunflower or sesame and other seeds , all fried foods, and all cream sauces and gravies 1189-4815 [facility], [address] [place] [address]. All rights reserve d. This information is not intended as a substitute for professional medical care. Always fo llow your healthcare professional's instructions. Low-Fat Cooking Tips To eat less fat, you may need to learn some new ways to cook. But that doesn t mean you h ave to eat bland, boring food. And it doesn t mean cooking needs to take any more time. He re are some tips for cooking and seasoning foods with less fat. Broil fish instead of frying it. And sprinkle on herbs to add flavor. Try New Cooking Methods Broil, roast, bake, steam, or microwave fish, chicken, turkey, and meat. Remove skin from chicken and turkey and trim extra fat from meat before cooking. Sprinkle herbs on meat, chicken, and fish, and in soups. Cook in broth instead of fat. Use nonstick cooking sprays or nonstick pans. Steam or microwave vegetables without adding fat. Serve with herbs, lemon juice, vinegar , or fat-free butter-flavored powder. To flavor beans and rice, add chopped onions, garlic, and peppers. Chill soups and stews. Before reheating and serving, skim off the fat. When you add fat, use canola or olive oil instead of butter or lard. Lighten Up Your Recipes In soups and sauces: Replace whole milk or cream with low-fat milk, evaporated fat-free milk, or nonfat dry milk. In puddings and other desserts: Replace whole milk or cream with low-fat milk or fat-bonilla e condensed milk. To make dips and toppings: Use low-fat or nonfat cottage cheese or sour cream. To make salad dressings: Use nonfat yogurt or low-fat buttermilk. In place of 1 whole egg in recipes: Use 2 egg whites or 1/4 cup egg substitute. In place of regular cheese: Use fat-free or reduced-fat cheese. [phone] [facility], [address] [place] [address], [place] [address]. All rights reserve d. This information is not intended as a substitute for professional medical care. Always fo llow your healthcare professional's instructions. Quick, Healthy Ways to Cook Here are some tips for quick and nutritious food preparation. These techniques will save yo u time and help to cut down on fat. Stir-Frying If you don t have a wok, use a cast-iron or non-stick skillet. Most dishes can be cooked with just a tablespoon of oil if you heat the coffey first. Buy pre-cut vegetables to cut down on preparation time. Try stir-frying sliced lean beef or boneless, skinless chicken and read y-cut broccoli with a dash of soy sauce and a few slices of fresh florentino root. Microwaving Because microwaves cook so quickly, most of the nutrients in the foods you re cooking don t have time to escape. Read the cooking directions carefully; it s easy to overcook padmini ds. Use the microwave to bake potatoes or winter squash and to reheat leftovers or laila p. Fish filets can be microwaved in minutes add seasoning and a dash of milk, cover with w ax paper, and cook. Crock Pots This handy kitchen appliance cooks food slowly at low temperatures. Set it up in the Squee and dinner will be ready and waiting for you when you get home. Soups, stews, and pot roas ts all make great crock pot meals. (Be sure to trim fat before cooking.) Extra-lean, less ma rbled cuts of meat become tender and juicy when cooked in a crock pot. Create a variety of f lavors by adding different types of canned tomatoes, herbs, and spices. Baking, Broiling, and Grilling Bake, broil, or grill foods on a rack to drain fats away during cooking. Not only is this a healthier way to eat, but it s delicious as well. Sena vegetables as well as meat add bradford peppers, tomatoes, onions, and mushrooms to kebobs and foil-wrapped packets. Steaming Steaming can be done either in a microwave or on the stove top. Either way, it keeps in nut rients and flavor, without adding fat. Ready-cut vegetable florettes and baby carrots can go straight from the bag to the steamer. Pressure Cooking By using steam, pressure cookers can cook a pound of potatoes in just 4 minutes or a chicke n stew in less than half an hour. A pressure cooker can also turn the toughest cut of meat i nto a tender main course. Don t overseason foods pressure cooking uses very little liqui d, so flavors are more concentrated. Poaching In poaching, the food is covered with liquid (such as broth, milk, or wine) and gently simm ered until done. Poaching uses less liquid than steaming or boiling, so delicate flavors are less diluted. Poaching works well for fish or eggs. [id number] [facility], [address] [place] [address], [place] [address]. All rights reserve d. This information is not intended as a substitute for professional medical care. Always fo llow your healthcare professional's instructions. Non-Alcoholic Fatty Liver Disease (NAFLD) NAFLD is a common disease of the liver. It occurs when there is too much fat in the liver. If NAFLD is severe, it can cause liver damage similar to the damage caused by drinking too m uch alcohol. However, NAFLD is not caused by drinking alcohol. This sheet tells you more abo ut NAFLD and how it can be managed. How the Liver Works The liver is an organ located in the upper right side of the abdomen. It has many important functions. These include: Metabolizing proteins, carbohydrates, and fats Making a substance called bile that helps break down fats Storing and releasing sugar (glucose) into the blood to give the body energy Removing toxins from the blood Helping with the clotting of blood Understanding NAFLD A healthy liver may contain some fat. But if too much fat builds up in the liver, this caus es NAFLD. NAFLD can be mild, causing fatty liver. Or it can be more severe, causing non-alco holic steatohepatitis (PRAJAPATI) or cirrhosis. With fatty liver, the liver simply contains more fat than normal. This extra fat usually causes no damage to the liver. With PRAJAPATI, the fatty liver becomes inflamed over time. PRAJAPATI is serious because it can lead to hardening and early scarring of the liver (fibrosis). If the fibrosis worsens, it can cause complete scarring o f the liver (cirrhosis). This can eventually cause liver failure or liver cancer. Causes and Risk Factors of NAFLD The cause of NAFLD is unknown. But certain risk factors make the problem more likely to occ ur. These include: Obesity Prediabetes or diabetes High levels of cholesterol and triglycerides (types of fat found in the blood) Exposure to certain medications or toxins Symptoms of NAFLD Most people with NAFLD have no symptoms. If symptoms do occur, they can include: Tiredness Weakness Weight loss Loss of appetite Nausea and vomiting Abdominal pain and cramping Yellowing of the skin and eyes (jaundice); dark urine, or light-colored stools Swelling in the abdomen or legs Diagnosing NAFLD The doctor may suspect you have NAFLD if routine blood tests show high levels of liver enzy mes. This means that a liver problem is likely. One or more imaging tests, such as an ultras ound, CT scan, or MRI scan, may be done to check for NAFLD. A liver biopsy may also be done. During this test, a hollow needle is used to remove a tiny amount of tissue from the liver. This tissue is then studied in a lab. This test can detect signs of damage involving liver tissue. It can also help determine the cause of the damage and tell the difference between f atty liver and PRAJAPATI. Treating NAFLD Treatment for NAFLD varies for each person. Your doctor will monitor your health and treat any symptoms or underlying health problems you have. Your doctor will also work with you to control your risk factors so that damage to your liver is less likely. Your plan may include : Losing excess weight Getting regular exercise Controlling diabetes and high cholesterol or triglyceride levels Taking medications and vitamins as prescribed by your doctor Quitting smoking Avoiding drinking alcohol Eating a healthy and balanced diet Living with NAFLD If NAFLD is caught early, it can be managed to help reverse the liver damage. If NAFLD has progressed to PRAJAPATI or cirrhosis, you will likely need more aggressive treatment. Your doctor will discuss further treatment options with you as needed. [id number] [facility], [address] [place] [address], [place] [address]. All rights reserve d. This information is not intended as a substitute for professional medical care. Always fo llow your healthcare professional's instructions. documented in this encounter Progress Notes Mindi Trejo ARNP - 06/04/2014 11:43 AM PDTFormatting of this note might be differe nt from the original. Carolina Ang is a 58 y.o. female here for followup liver biopsy for hepatitis C. History of present illness: Patient complains of increased fatigue. She in the middle of changing living situations. She last smoked marijuana 2 weeks ago. Does not drink alcohol. Denies ascites, jaundice, hematemesis, peripheral edema, sleep changes, or confusion. Complains of continued abdominal bloating and lower abdominal pain. Concerned that bladder mesh is causing her pain. Allergies Allergen Reactions Codeine Hives Latex Rash Past Medical History Diagnosis Date Chronic hepatitis C without mention of hepatic coma (HCC) Tobacco use disorder Spondylosis of unspecified site without mention of myelopathy Myalgia and myositis, unspecified COPD (chronic obstructive pulmonary disease) (HCC) Past Surgical History Procedure Date Hysterectomy Bladder suspension X 2 with mesh Appendectomy Tonsillectomy and adenoidectomy Finger surgery fracture repair Rt arm orif Egd and colonoscopy 05/25/2014 EGD / COLONOSCOPY performed by Agusto Porter MD at [facility] History reviewed. No pertinent family history. History Social History Marital Status: Spouse Name: N/A Number of Children: N/A Years of Education: N/A Occupational History Not on file. Social History Main Topics Smoking status: Current Every Day Smoker -- 1.0 packs/day for 49 years Smokeless tobacco: Never Used Alcohol Use: No Drug Use: 6 per week Comment: marijuana Sexually Active: Not on file Other Topics Concern Not on file Social History Narrative No narrative on file Review of systems: Constitutional:Denies any fevers, chills, or unintentional weight loss. Respiratory:Denies shortness of breath, cough or wheezing. Gastrointestinal:Denies constipation, diarrhea, bloody or black stools, hematemesis, nausea or vomiting, hemorrhoids, heartburn, abdominal pain, or dysphagia Cardiovascular:Denies chest pain, palpitations, or swelling to legs. Physical exam: General: Alert and oriented, NAD Eyes: Sclera clear Mouth: Mucous membranes moist Extremities: No clubbing or edema Skin: Warm, dry, intact. No rashes noted Neuro: Cranial nerves 2-12 grossly intact. Psych: Appropriate mood and affect. Pathology 04/25/2014: Liver biopsy: -Steatosis, prominent. -Chronic portal inflammation consistent with hepatitis C. -Knodell activity score: I. Moderate piecemeal necrosis (3). II. Moderate lobular degeneration (3). III. Moderate portal inflammation (3). IV. Negative for fibrosis (0). - Knodell activity score: 3+3+3+0 = 08/20 - Iron stain-negative for increased iron stores. - Negative for malignancy. Laboratory 04/23/2014: CBC within normal limits with the exception of glucose 169, AST 66, ALT 81. WBC 7.8 Hemoglobin 17.1 Hematocrit 49.9 Platelets 154,000 INR 1.0 Assessment 1. Hepatitis C infection, without hepatic coma Genotype 1A 2. Fatty liver 3. Obesity (BMI 30-39.9) 4. Marijuana use Has been abstinent for 2 weeks. Plan: Discussed results of liver biopsy and lab tests. Advised that in order to be a candidate fo r HCV treatment she will need to remain sober from all illegal drugs including marijuana and alcohol. Discussed options for HCV therapy. Current treatment for hepatitis C genotype 1 includes S ofosbuvir, Peg interferon, and Ribavirin for 12 weeks. Other option for HCV treatment naive , genotype 1, would be to wait for once daily combination pill taken for 8 weeks. This is s cheduled to be FDA approved 08/2014. Patient is currently not eligible to undergo hepatitis C treatment due to recent marijuana use. Patient opts to wait for once daily shorter treatment regimen that is interferon free. Patient should maintain a normal BMI, avoid high fat foods, keep triglycerides under contro l, and ensure vaccinations are up to date. Recommend ultrasound of liver, CBC, CMP, and INR every 12 months for routine screening for hepatocellular carcinoma. Discussed exercise and low-fat diet. Spent approximately 25 minutes with patient, with over half in patient education Patient is to call with any question or concerns. Any fevers, chills, chest pain, SOB or o ther serious symptoms patient is to call the office or go to ER Cc: Corey Galvan This note was dictated using voice recognition software. Please contact me if there are an y questions regarding its content. documented in this encounter Plan of Treatment Not on filedocumented as of this encounter Visit Diagnoses + + | Diagnosis | + + | Hepatitis C infection, without hepatic coma - Primary | + + | Fatty liver Other chronic nonalcoholic liver disease | + + | Obesity (BMI 30-39.9) Obesity, unspecified | + + | Marijuana use Cannabis abuse, unspecified | + + documented in this encounter
--- OUTSIDE RECORDS SUMMARY | ~2020-03-30 | XMS | Encounter Summary ---
Demographics + + + | Address | [address] | | | [place] [address] | + + + | Home Phone [...] + | Author | [facility] | | | and Dhaavlana | + + + | Organization | [facility] | | | and Dhavalana [...] | | | | | [place] [address] | | + + + + + Care Team Providers + +------+ + | Care Police Detention Attendant Name | Role | Phone | + +------+ + | Corey Galvna MD | PCP | | + +------+ [...] Provider Unknown | | | | | [place] | [phone] | | | | | [address] | | | | | | [phone] | | | +--------+ + + + [...]
--- OUTSIDE RECORDS SUMMARY | ~2020-03-30 | XMS | Encounter Summary ---
Demographics + + + | Address | [address] | | | [place] [address] | + + + | Home Phone | | + + + | Preferred Language | Unknown | + + + | Marital Status | | + + + | Evangelical Affiliation | Unknown | + + + | Race | Unknown | + + + | Ethnic Group | Unknown | + + + Author + + + | Author | [facility] | | | and Dhavalana | + + + | Organization | [facility] | | | and Dhavalana [...] | | | | | [place] [address] | | + + + + + Care Team Providers + +------+ + | Care Mud Analysis Well Logging Operator Name | Role | Phone | + +------+ + | Corey Galvan MD | PCP | | + +------+ + Encounter Details +--------+ + + + + | Date | Type | Department | Care Team | Description | +--------+ + + + + | 04/06/ | Abstract | [facility] [place] | [facility], | | | 2013 | | GASTROENTEROLOGY | [place] [place] [address] | | | | | [address] [place] | [place] | | | | | [address] [place], [place] | [place] | | | | | [address] | [address] | | | | | [phone] | | | +--------+ + + + [...] Resulting Agency Comment | + + | [facility] | + + + +---------+ [...] Resulting Agency Comment | + + | [facility] | + + + +---------+ [...] | | | LAB | | | [place], | | | | | | External | | | | | + +-------+ + + + + + | Specimen | + + | Blood specimen | | (specimen) | + + + + | Resulting Agency Comment | + + | [facility] | + + + +---------+ [...] Resulting Agency Comment | + + | [facility] | + + + +---------+ [...] + | [facility] | [address] [place] [address] | [place] | | | [facility] | | [address] | | | - LABORATORY | | | | + + + + + Hepatitis C RNA, quantitative, PCR (06/24/2011) + + + + + + | Component | Value | Ref Range | Performed | Pathologist | | | | | At | Signature | + + + + + + | HCV | [phone] | | [facility] | | | Quantitativ [...] | | | | | [facility] | | | | | - [...]
--- OUTSIDE RECORDS SUMMARY | ~2020-03-30 | XMS | Encounter Summary ---
Demographics + + + | Address | [address] [facility] | | | [place] [address] | + + + | Home Phone | | + + + | Preferred Language | Unknown | + + + | Marital Status | | + + + | Rastafarian Affiliation | Unknown | + + + | Race | Unknown | + + + | Ethnic Group | Unknown | + + + Author + + + | Author | [facility] | | | and Dhavalana | + + + | Organization | [facility] | | [...] | | | | | [place] [address] | | + + + + + Care Team Providers + +------+ + | Care Application Systems Engineer Name | Role | Phone | [...] | | | | | [address] [facility] | | | | | | [place], [place] | (Fax) | | | | | [address] | | | | | | [phone] | | | +--------+ + + + [...]
--- OUTSIDE RECORDS SUMMARY | ~2020-03-30 | XMS | Encounter Summary ---
Demographics + + + | Address | [address] [facility] [address] | | | [place] [address] | + + + | Home Phone | | + + + | Preferred Language | Unknown | + + + | Marital Status | | + + + | Orthodoxy Affiliation | Unknown | + + + | Race | Unknown | + + + | Ethnic Group | Unknown | + + + Author + + + | Author | [facility] | | | and Dhavalana | + + + | Organization | [facility] | | | and Dhavalana [...] [place] | | | | | [place] [address] | | + + + + + Care Team Providers + +------+ + | Care Car Conditioner Name | Role | Phone | + [...] | | Polyarthropathy | | | | [place], [place] | | ([facility]) | | | | [address] | | | | | | [phone] | | | +--------+ + + + [...]
--- OUTSIDE RECORDS SUMMARY | ~2020-03-30 | XMS | Encounter Summary ---
Demographics + + + | Address | [address] [facility] [facility] [facility] [address] | | | [place] [address] | + + + | Home Phone | | + + + | Preferred Language | Unknown | + + + | Marital Status | | + + + | Orthodox Affiliation | Unknown | + + + | Race | Unknown | + + + | Ethnic Group | Unknown | + + + Author + + + | Author | [facility] | | | and Dhavalana | + + + | Organization | [facility] | | | and [...] | | | | | [place] [address] | | + + + + + Care Team Providers + +------+ + | Care Program Services Planner Name | Role | Phone | + +------+ + | Corey Galvan MD | PCP | | + +------+ + Encounter Details +--------+ + + + + | Date | Type | Department | Care Team | Description | +--------+ + + + + | 12/11/ | Hospital | [facility] | Conversion | Pain | | 2018 | Encounter | CONVERSION DEP [address] | Transaction, | | | | [address] | Provider Unknown | | | | | [place] | [phone] | | | | | [address] | | | | | | [phone] | | | +--------+ + + + [...] + | Vinicius Bradley Pino - 07/12/2019 8:16 AM PDT This is a non-reportable procedure | | without a radiologist report and isused for image storage only | + + documented in this encounter Visit Diagnoses + + | Diagnosis | + + | Pain Generalized pain | + + documented in this encounter"
--- OUTSIDE RECORDS SUMMARY | ~2020-03-30 | XMS | Encounter Summary ---
Demographics + + + | Address | [address] [facility] [address] | | | [place] [address] | + + + | Home Phone | | + + + | Preferred Language | Unknown | + + + | Marital Status | | + + + | Taoist Affiliation | Unknown | + + + | Race | Unknown | + + + | Ethnic Group | Unknown | + + + Author + + + | Author | [facility] | | | and Dhavalana | + + + | Organization | [facility] | | | and [...] | | | | | [place] [address] | | + + + + + Care Team Providers + +------+ + | Care Software Engineer Web Services Name | Role | Phone | + +------+ + | Corey Galvan MD | PCP | | + +------+ + Encounter Details +--------+ + + + + | Date | Type | Department | Care Team | Description | +--------+ + + + + | 09/21/ | Hospital | [facility] | Conversion | 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, | intervertebral disc | | | | CLINIC [address] | Provider Unknown | of cervical region | | | | [address] [place], [place] | | | | | | [address] | (Fax) | | | | | [phone] | | | +--------+ + + + [...] NEGATIVE Testing | | | performed at [facility] [place] [address];[place] [address] | | + + + + +---------+ [...] | | | Patient | performed at [facility];[address] | | LAB | | | | [place] [place] | | | | | | [address] | | | | + + + [...] | | | | | performed at [facility] | | | | | | [facility];[place], [place] | | | | | | [address] | | | | + + + [...] | | | Basophils | performed at [facility], [address] | K/uL | LAB | | | | [address], | | | | | | [place] [address] | | | | + + + [...] | | | | | | at [facility], [address] | | | | | | [address], | | | | | | [place] [address] | | | | + + + [...] + + | Historically converted procedure from [facility] Epic environment | EXTERNAL LAB | [...]
--- OUTSIDE RECORDS SUMMARY | ~2020-03-30 | XMS | Encounter Summary ---
Demographics + + + | Address | [address] [facility] [address] | | | [place] [address] | + + + | Home Phone [...] Author | [facility] | | | and Dhavalana | + + + | Organization | [facility] | | | and Dhavalana [...] | | | | | [place] [address] | | + + + + + Care Team Providers + +------+ + | Care Environmental Programs Manager Name | Role | Phone | [...] + + | 04/11/ | Telephone | [facility] | [facility], | Appointment (liver | | 2013 | | GASTROENTEROLOGY | [address] | biopsy) | | | | [address] [place] | [place], [place] | | | | | [address] [address] | [place] | | | | | [address] | [address] | | | | | [phone] | | | +--------+ + + + [...]
--- OUTSIDE RECORDS SUMMARY | ~2020-03-30 | XMS | Encounter Summary ---
Demographics + + + | Address | [address] [facility] | | | [place] [address] | + + + | Home Phone | | + + + | Preferred Language | Unknown | + + + | Marital Status | | + + + | Baptist Affiliation | Unknown | + + + | Race | Unknown | + + + | Ethnic Group | Unknown | + + + Author + + + | Author | [facility] | | | and Dhavalana | + + + | Organization | [facility] [...] | | | | | [place] [address] | | + + + + + Care Team Providers + +------+ + | Care Nuclear Medical Technologist Name | Role | Phone | + [...] Provider Unknown | | | | | [place] | [phone] | | | | | [address] | | | | | | [phone] | | | +--------+ + + + [...]
--- OUTSIDE RECORDS SUMMARY | ~2020-03-30 | XMS | Encounter Summary ---
Demographics + + + | Address | [address] [facility] | | | [place] [address] | + + + | Home Phone | | + + + | Preferred Language | Unknown | + + + | Marital Status | | + + + | Episcopal Affiliation | Unknown | + + + | Race | Unknown | + + + | Ethnic Group | Unknown | + + + Author + + + | Author | [facility] | | | and Dhavalana | + + + | Organization | [facility] | | | and Dhavalana [...] | | | | | [place] [address] | | + + + + + Care Team Providers + +------+ + | Care Facilities Director Name | Role | Phone | + +------+ + | Corey Galvan MD | PCP | | + +------+ + Encounter Details +--------+ + + + + | Date | Type | Department | Care Team | Description | +--------+ + + + + | 09/21/ | Hospital | [facility] | Conversion | | | 2017 | Encounter | [facility] XRAY | Transaction, | | | | | [address] | Provider Unknown | | | | | [place], [place] | [phone] | | | | | [address] | | | | | | [phone] | Kong Cao MD | | | | | | [address] [facility] | | | | | | FLOOR [place], [place] | | | | | | [address] | | | | | | [phone] | | | | | | | [...]
--- OUTSIDE RECORDS SUMMARY | ~2020-03-30 | XMS | Encounter Summary ---
Demographics + + + | Address | [address] [facility] [address] | | | [place] [address] | + + + | Home Phone | | + + + | Preferred Language | Unknown | + + + | Marital Status | | + + + | Denominational Affiliation | Unknown | + + + | Race | Unknown | + + + | Ethnic Group | Unknown | + + + Author + + + | Author | [facility] | | | and Dhavalana | + + + | Organization | [facility] | | | and Dhavalana | + + + | Address | Unknown | + + + | Phone | Unavailable | + + + Support + + + + + | Name | Relationship | Address | Phone | + + + + + | Agusto Bradford | ESTIVEN | Unknown | | + + + + + | Andrew nAdrews | ECON | Unknown | | + + + + + | Magdiel Andrews | ECON | [address] | | | | | [place] [address] | | + + + + + Care Team Providers + +------+ + | Care Plate Glass Polisher Name | Role | Phone | + +------+ + | Corey Galvan MD | PCP | | + +------+ + Encounter Details +--------+ + + + + | Date | Type | Department | Care Team | Description | +--------+ + + + + | 02/28/ | Documentati | [facility] [place] | [facility], | | | 2013 | on | GASTROENTEROLOGY | [address] | | | | | [address] [place] | [place], [place] [address] | | | | | [address] | [place] | | | | | [address] | [id number] | | | | | [phone] | | | +--------+ + + + [...]
--- OUTSIDE RECORDS SUMMARY | ~2020-03-30 | XMS | Encounter Summary ---
Demographics + + + | Address | [address] [facility] [address] | | | [place] [address] | + + + | Home Phone | | + + + | Preferred Language | Unknown | + + + | Marital Status | | + + + | Gnosticism Affiliation | Unknown | + + + | Race | Unknown | + + + | Ethnic Group | Unknown | + + + Author + + + | Author | [facility] | | | and Dhavalana | + + + | Organization | [facility] | | | and Dhavalana [...] | | | | | [place] [address] | | + + + + + Care Team Providers + +------+ + | Care Radiology Services Manager Name | Role | Phone | [...] Provider Unknown | | | | | [place] | [phone] | | | | | [address] | | | | | | [phone] | | | +--------+ + + + [...]
--- OUTSIDE RECORDS SUMMARY | ~2020-03-30 | XMS | Encounter Summary ---
Demographics + + + | Address | [address] [facility] [facility] [facility] [facility] [address] | | | [place] [address] | + + + | Home Phone [...] Author | [facility] | | | and Dhavalana | + + + | Organization | [facility] | | | and Dhavalana [...] | | | | | [place] [address] | | + + + + + Care Team Providers + +------+ + | Care Reimbursement Counselor Name | Role | Phone | + [...] | infection, | Mindi, | [address] [place], | | | | | without | ACCOUNTING REPRESENTATIVE [address] | [address] | | | | | hepatic coma | [place], [place] | [place], | | | | | Rectal | [address] [place] | [place] [address] | | | | | bleeding | [place] | Phone: | | | | | Bowel habit | [address] | [phone] | | | | | changes | Phone: | Fax: | | | | | Dysphagia | [phone] | [phone] | | | | | Heartburn | Fax: | | | | | | COPD | [phone] | | | | | | (chronic [...] | | | | | | | [place] | | | | | | | ESOPHAGOGAST | | | | | | | RODUODENOSCO | | | | | | | PY TRANSORAL | | | | | | | DIAGNOSTIC | | | | | | | [place] EDG | | | | | | | TRANSORAL | | | | | | | BIOPSY | | | | | | | SINGLE/MULTI | | | | | | | PLE [place] | | | | | | | COLONOSCOPY, | | | | | | | DIAGNOSTIC | | | | | | | [place] | | | | | | | [...] | infection, | Mindi, | [address] | | | | | without | ACCOUNTING REPRESENTATIVE [address] | [place], | | | | | hepatic coma | [place], [place] | [place] | | | | | Rectal | [address] [place] | [address] | | | | | bleeding | [place] | Phone: | | | | | Bowel habit | [address] | [phone] | | | | | changes | Phone: | Fax: | | | | | Dysphagia | [phone] | [phone] | | | | | Heartburn | Fax: | | | | | | COPD | [phone] | | | | | | (chronic [...] | | | | | | | [place] BIOPSY | | | | | | | LIVER NEEDLE | | | | | | | | | | | | | | PERCUTANEOUS | | | | | | | [place] SONO | | | | | | [...] | hepatitis C | MD Cholo | ACCOUNTING REPRESENTATIVE [address] | | | | | without | [address] | [place] | | | | | mention of | [address] | [address] | | | | | hepatic coma | [place], | [place] | | | | | Procedures | [place] [address] | [address] Phone: | | | | | evaluate | Phone: | [phone] | | | | | and treat | [phone] | Fax: | | | | | | Fax: | [phone] | | | | | | [phone] | | +--------+--------+ + + + + Encounter Details +--------+---------+ + + + | Date | Type | Department | Care Team | Description | +--------+---------+ + + + | 04/09/ | Office | [facility] | [facility], | HCV infection, | | 2013 | Visit | GASTROENTEROLOGY | [address] | without hepatic coma | | | | [address] | [place], [address] | (Primary Dx); | | | | [address] [place], [place] | [place] | Rectal bleeding; | | | | [address] | [address] | Bowel habit changes; | | | | [phone] | | Dysphagia; | | | | [...] changes, or confusion. Patient was seen at [facility] 09/2013. Records indicate negative HBV panel. Not [...] Genotype 06/24/2011 1a Final HCV Quantitative 06/24/2011 [id number] Final HCV Quantitative Log 06/24/2011 6.5 Final [...] and AFP. All other labs done by [facility]. Vaccination: If it has not been done, recommend patient is vaccinated for both Hepatitis A and Hepatitis B. Transmission: Discussed following infection control guidelines. Inform tattoo parl[facility] and [facility] providers of HCV infection. Avoid sharing personal [...] disease) | | | | | | ([facility]) Obesity, | | | | | | [...] The | | | patient was placed mwmdo-deqj-zltt down and remained this way for | [...] wasapplied. | | The patient was placed wsvji-nwih-zfbc down and remained this way forapproximately 1 [...] + | MISCELLANEOUS LAB | | | [phone] | + +---------+ + + | MISCELANIOUS LAB | | | [phone] | + +---------+ + + documented in [...]
--- OUTSIDE RECORDS SUMMARY | ~2020-03-30 | XMS | Encounter Summary ---
Demographics + + + | Address | [address] [facility] [address] | | | [place] [address] | + + + | Home Phone | | + + + | Preferred Language | Unknown | + + + | Marital Status | | + + + | Gnosticism Affiliation | Unknown | + + + | Race | Unknown | + + + | Ethnic Group | Unknown | + + + Author + + + | Author | [facility] | | | and Dhavalana | + + + | Organization | [facility] | | | and [...] | | | | | [place] [address] | | + + + + + Care Team Providers + +------+ + | Care Electromechanical Technologist Name | Role | Phone | [...] Provider Unknown | | | | | [place] | [phone] | | | | | [address] | | | | | | [phone] | | | +--------+ + + + [...]
--- OUTSIDE RECORDS SUMMARY | ~2020-03-30 | XMS | Encounter Summary ---
Demographics + + + | Address | [address] | | | [place] [address] | + + + | Home Phone | | + + + | Preferred Language | Unknown | + + + | Marital Status | Single | + + + | Sikh Affiliation | NON | + + + | Race | Unknown | + + + | Ethnic Group | Not or | + + + Author + + + | Author | [facility] | + + + | Organization | [facility] | + + + | Address | Unknown | + + + | Phone | Unavailable | + + + Support + + +---------+ + | Name | Relationship | Address | Phone | + + +---------+ + | nAdrew Nelson | ECON | Unknown | | + + +---------+ + Care Team Providers + +------+ + | Care General Laborer Name | Role | Phone | + +------+ + | Corey Galvan MD | PCP | Unavailable | + +------+ + Encounter Details +--------+ + + + + | Date | Type | Department | Care Team | Description | +--------+ + + + + | 07/06/ | Abstract | [facility] | Ari Sierra MD | | | 2010 | | [place] [address] [address] | [address] | | | | | [address] | [place], [place] | | | | | Mailcode: OC8D | [address] | | | | | [facility] | [phone] | | | | | and Healing, | | | | | | [address] | | | | | | [place], [place] | | | | | | [address] | | | | | | [phone] | | | +--------+ + + + [...]
--- OUTSIDE RECORDS SUMMARY | ~2020-03-30 | XMS | Encounter Summary ---
Demographics + + + | Address | [address] | | | [place] [address] | + + + | Home Phone | | + + + | Preferred Language | Unknown | + + + | Marital Status | Single | + + + | Church Affiliation | NON | + + + | Race | Unknown | + + + | Ethnic Group | Not or | + + + Author + + + | Author | [facility] | + + + | Organization | [facility] | + + + | Address | Unknown | + + + | Phone | Unavailable | + + + Support + + +---------+ + | Name | Relationship | Address | Phone | + + +---------+ + | Andrew Nelson | ECON | Unknown | | + + +---------+ + Care Team Providers + +------+ + | Care Beeswax Bleacher Name | Role | Phone | + [...] | Scheduling | | 2012 | | [place] [address] [address] | [facility] | | | | | [address] | | | | | | Mailcode: OC8D | | | | | | [facility] | | | | | | and Healing, | | | | | | [address] | | | | | | [place], [place] | | | | | | [address] | | | | | | [phone] | | | +--------+ + + + [...]
--- OUTSIDE RECORDS SUMMARY | ~2020-03-30 | XMS | Encounter Summary ---
Demographics + + + | Address | [address] [address] [facility] | | | [place] [address] | + + + | Home Phone | | + + + | Preferred Language | Unknown | + + + | Marital Status | | + + + | Congregation Affiliation | Unknown | + + + | Race | Unknown | + + + | Ethnic Group | Unknown | + + + Author + + + | Author | [facility] | | | and Dhavalana | + + + | Organization | [facility] | | | and Dhavalana [...] | | | | | [place] [address] | | + + + + + Care Team Providers + +------+ + | Care Vp Genetic Name | Role | Phone | + [...] Provider Unknown | | | | | [place] | [phone] | | | | | [address] | | | | | | [phone] | | | +--------+ + + + [...]
--- OUTSIDE RECORDS SUMMARY | ~2020-03-30 | XMS | Clinical Summary ---
Demographics + + + | Address | [address] | | | [place] [address] | + + + | Home Phone | | + + + | Preferred Language | Unknown | + + + | Marital Status | Legally | + + + | Restorationism Affiliation | Unknown | + + + | Race | Unknown | + + + | Ethnic Group | Unknown | + + + Author + + + | Author | [facility] (Historical as of | | | 07-15-19) | + + + | Organization | [facility] (Historical as of | | | 07-15-19) | + + + | Address | Unknown | + + + | Phone | Unavailable | + + + Support + + + + + | Name | Relationship | Address | Phone | + + + + + | Magdiel Andrews | ECON | [address] | | | | | [place] [address] | | + + + + + Care Team Providers + +------+ + | Care Electrical And Instrument Engineer Name | Role | Phone | [...] +------+-------+ + | MEDICARE | MEDICA | [id number] | | | [address] | | | RE | | | | [place] [address] | | | IP-OP | | | | | + +--------+ +------+-------+ + | MEDICAID | [place] | [id number] | | | [address] | | | N | | | | [place] | | | [place] | | | | [address] | | | GROUT MACHINE OPERATOR | | | | | + +--------+ [...] | [place] | | | [address] | [address] | + +--------+ +--------+ + +
--- OUTSIDE RECORDS SUMMARY | ~2020-03-30 | XMS | Encounter Summary ---
Demographics + + + | Address | [address] | | | [place] [address] | + + + | Home Phone [...] + | Author | [facility] | | | and Dhavalana | + + + | Organization | [facility] | [...] | | | | | [place] [address] | | + + + + + Care Team Providers + +------+ + | Care Delivery Aide Name | Role | Phone | [...] | [address] | [place], [address] | | | | | [address] [place], [place] | [place] | | | | | [address] | [address] | | | | | [phone] | | | +--------+--------+ + + + [...]
--- OUTSIDE RECORDS SUMMARY | ~2020-03-30 | XMS | Clinical Summary ---
Demographics + + + | Address | [address] | | | [place] [address] | + + + | Home Phone | | + + + | Preferred Language | Unknown | + + + | Marital Status | Single | + + + | Uatsdin Affiliation | NON | + + + | Race | Unknown | + + + | Ethnic Group | Not or | + + + Author + + + | Author | [facility] | + + + | Organization | [facility] | + + + | Address | Unknown | + + + | Phone | Unavailable | + + + Support + + +---------+ + | Name | Relationship | Address | Phone | + + +---------+ + | Andrew Nelson | ECON | Unknown | | + + +---------+ + Care Team Providers + +------+ + | Care Novelty Balloon Assembler And Packer Name | Role | Phone | + +------+ + PCP | Unavailable | + +------+ + Source Comments RONALDO is fully live on both [facility] Ambulatory and [facility] InPatient.[facility] Allergies Not on File Medications + +-----+ [...] | | | + +--------+ +--------+-------+---------+--------+ | QUALITY ASSURANCE TESTER MEDICAID | QUALITY ASSURANCE TESTER | xxxxxxxx | | | | Medica [...] | 1955 | [phone] | [place] [address] | | | [place] | | | 5 (Home) | | + +--------+ +--------+ + +
--- OUTSIDE RECORDS SUMMARY | ~2020-03-30 | XMS | Encounter Summary ---
Demographics + + + | Address | [address] | | | [place] [address] | + + + | Home Phone | | + + + | Preferred Language | Unknown | + + + | Marital Status | | + + + | Buddhist Affiliation | Unknown | + + + | Race | Unknown | + + + | Ethnic Group | Unknown | + + + Author + + + | Author | [facility] | | | and Dhavalana | + + + | Organization | [facility] | | | and [...] | | | | | [place] [address] | | + + + + + Care Team Providers + +------+ + | Care Street Light Servicer Supervisor Name | Role | Phone | [...] | | | follow up | [place] [address] | [address] Phone: | | | | | hep c & test | Phone: | [phone] | | | | | results/pcp | [phone] | Fax: | | | | | | Fax: | [phone] | | | | | mandy/fami | [phone] | | | | | | lycare [...] | Office | [facility] [place] | [facility], | Hepatitis C | | 2013 | Visit | GASTROENTEROLOGY | [address] | infection, without | | | | [address] | [place], [place] [address] | hepatic coma | | | | [address] [place], [place] | [place], [place] | (Primary Dx); Fatty | | | | [address] | [address] | liver; Obesity (BMI | | | | [phone] | | 30-39.9); Marijuana | | | [...] the unique flavors we as sociate with Greek, , or Ace dishes come from the [...] sesame seeds can add flavors to foods. [phone] [facility], [address] [place] [address], [place] [address]. All rights reserve d. This information is not intended as a substitute for professional medical care. Always fo llow your healthcare professional's instructions. Low Fat Diet A Low-fat diet will help you lose weight. It also can lower cholesterol and prevent symptom s of gallbladder disease. The average [place]ine[place] diet contains up to 50% fat. This [...] or rye bread, john or soda crackers, Concrete toast, plain rolls, bag els Avoid: Rolls [...] foods, and all cream sauces and gravies 7596-3922 [employer], [address] [place] [address]. All rights reserve d. This information is [...] regular cheese: Use fat-free or reduced-fat cheese. 4095-6563 [employer] [facility], [address] [place] [address], [place] [address]. All rights reserve d. This information is [...] low temperatures. Set it up in the [employer] and dinner will be ready and waiting [...] eat, but it s delicious as well. [place] vegetables as well as meat add bradford [...] Poaching works well for fish or eggs. [phone] [employer], [address] [place] [address], [place] [address]. All rights reserve d. This information is [...] further treatment options with you as needed. 8574-0813 [facility], [address] [place] [address], [place] [address]. All rights reserve d. This information is [...] COLONOSCOPY performed by Agusto Porter MD at [facility] MEDICAL PROCEDURE UNIT History reviewed. [...]
--- OUTSIDE RECORDS SUMMARY | ~2020-03-30 | XMS | Encounter Summary ---
Demographics + + + | Address | [address] | | | [place] [address] | + + + | Home Phone | | + + + | Preferred Language | Unknown | + + + | Marital Status | | + + + | Adventist Affiliation | Unknown | + + + | Race | Unknown | + + + | Ethnic Group | Unknown | + + + Author + + + | Author | [facility] | | | and Dhavalana | + + + | Organization | [facility] | | | and Dhavalana [...] | | | | | [place] [address] | | + + + + + Care Team Providers + +------+ + | Care Box Hinge And Lock Attacher Name | Role | Phone | + +------+ + PCP | Unavailable | + +------+ + Encounter Details +--------+ + + + + | Date | Type | Department | Care Team | Description | +--------+ + + + + | 05/26/ | Emergency | [facility] | Conversion | Cervicalgia | | 2006 | | MEDICAL CENTER | Transaction, | | | | | EMERGENCY CENTER | Provider Unknown | | | | | [address] | | | | | | [place], [place] | (Fax) | | | | | [address] | | | | | | [phone] | | | +--------+ + + + [...]
--- OUTSIDE RECORDS SUMMARY | ~2020-03-30 | XMS | Encounter Summary ---
Demographics + + + | Address | [address] [facility] [facility] | | | [place] [address] | + + + | Home Phone | | + + + | Preferred Language | Unknown | + + + | Marital Status | | + + + | Sikhism Affiliation | Unknown | + + + | Race | Unknown | + + + | Ethnic Group | Unknown | + + + Author + + + | Author | [facility] | | | and Dhavalana | + + + | Organization | [facility] | | | and [...] | | | | | [place] [address] | | + + + + + Care Team Providers + +------+ + | Care Aerophysicist Name | Role | Phone | + [...] | | | | | [address] | [place], [place] | | | | | [place], [place] | [address] | | | | | [address] | [phone] | | | | | [phone] | | | +--------+---------+ + + + [...] The | | | patient was placed aperl-xnvx-eaxy down and remained this way for | [...] wasapplied. | | The patient was placed kguov-tkxd-fkax down and remained this way forapproximately 1 [...] + | MISCELLANEOUS LAB | | | [phone] | + +---------+ + + | MISCELANIOUS LAB | | | [phone] | + +---------+ + + POC Fingerstick [...]
--- OUTSIDE RECORDS SUMMARY | ~2020-03-30 | XMS | Encounter Summary ---
Demographics + + + | Address | [address] | | | [place] [address] | + + + | Home Phone | | + + + | Preferred Language | Unknown | + + + | Marital Status | | + + + | Protestant Affiliation | Unknown | + + + | Race | Unknown | + + + | Ethnic Group | Unknown | + + + Author + + + | Author | [facility] | | | and Dhavalana | + + + | Organization | [facility] | | | and [...] | | | | | [place] [address] | | + + + + + Care Team Providers + +------+ + | Care Hospital Social Worker Name | Role | Phone | + +------+ + PCP | Unavailable | + +------+ + Encounter Details +--------+ + + + + | Date | Type | Department | Care Team | Description | +--------+ + + + + | 11/08/ | Emergency | [facility] | Conversion | Cough | | 2006 | | MEDICAL CENTER | Transaction, | | | | | EMERGENCY CENTER | Provider Unknown | | | | | [address] | | | | | | [place], [place] | (Fax) | | | | | [address] | | | | | | [phone] | | | +--------+ + + + [...]
--- OUTSIDE RECORDS SUMMARY | ~2020-03-30 | XMS | Encounter Summary ---
Demographics + + + | Address | [address] | | | [place] [address] | + + + | Home Phone | | + + + | Preferred Language | Unknown | + + + | Marital Status | | + + + | Jainism Affiliation | Unknown | + + + | Race | Unknown | + + + | Ethnic Group | Unknown | + + + Author + + + | Author | [facility] | | | and Dhavalana | + + + | Organization | [facility] | | | and Dhavalana | [...] | | | | | [place] [address] | | + + + + + Care Team Providers + +------+ + | Care Tractor Drill Operator Name | Role | Phone [...] Provider Unknown | | | | | [place] | [phone] | | | | | [address] | | | | | | [phone] | | | +--------+ + + + [...]
--- OUTSIDE RECORDS SUMMARY | ~2020-03-30 | XMS | Encounter Summary ---
Demographics + + + | Address | [address] | | | [place] [address] | + + + | Home Phone | | + + + | Preferred Language | Unknown | + + + | Marital Status | | + + + | Presybeterian Affiliation | Unknown | + + + | Race | Unknown | + + + | Ethnic Group | Unknown | + + + Author + + + | Author | [facility] | | | and Dhavalana | + + + | Organization | [facility] | | | and Dhavalana | [...] | | | | | [place] [address] | | + + + + + Care Team Providers + +------+ + | Care Well Point Pumping Supervisor Name | Role | Phone | + +------+ + | Corey Galvan MD | PCP | | + +------+ + Encounter Details +--------+ + + + + | Date | Type | Department | Care Team | Description | +--------+ + + + + | 08/26/ | Hospital | [facility] | Conversion | Neck pain | | 2017 | Encounter | CONVERSION [address] | Transaction, | | | | | [address] | Provider Unknown | | | | | [place] | [phone] | | | | | [address] | | | | | | [phone] | | | +--------+ + + + [...]
--- OUTSIDE RECORDS SUMMARY | ~2020-03-30 | XMS | Encounter Summary ---
Demographics + + + | Address | [address] | | | [place] [address] | + + + | Home Phone | | + + + | Preferred Language | Unknown | + + + | Marital Status | | + + + | Protestant Affiliation | Unknown | + + + | Race | Unknown | + + + | Ethnic Group | Unknown | + + + Author + + + | Author | [facility] | | | and Dhavalana | + + + | Organization | [facility] | | | and Dhavalana [...] | | | | | [place] [address] | | + + + + + Care Team Providers + +------+ + | Care Assistant Manager Retail Name | Role | Phone | + [...] Provider Unknown | | | | | [place] | [phone] | | | | | [address] | | | | | | [phone] | | | +--------+ + + + [...]
--- OUTSIDE RECORDS SUMMARY | ~2020-03-30 | XMS | Encounter Summary ---
Demographics + + + | Address | [address] | | | [place] [address] | + + + | Home Phone | | + + + | Preferred Language | Unknown | + + + | Marital Status | | + + + | Latter Day Affiliation | Unknown | + + + | Race | Unknown | + + + | Ethnic Group | Unknown | + + + Author + + + | Author | [facility] | | | and Dhavalana | + + + | Organization | [facility] | | | and [...] | | | | | [place] [address] | | + + + + + Care Team Providers + +------+ + | Care Contracting Officer Name | Role | Phone | + +------+ + PCP | Unavailable | + +------+ + Encounter Details +--------+ + + + + | Date | Type | Department | Care Team | Description | +--------+ + + + + | 03/13/ | Emergency | [facility] | Carter Bailey MD | | | 2010 | | MEDICAL CENTER | [address] | | | | | EMERGENCY CENTER | [place] [address] | | | | | [address] | [phone] | | | | | [place], [place] | | | | | | [address] | | | | | | [phone] | | | +--------+ + + + [...]
--- OUTSIDE RECORDS SUMMARY | ~2020-03-30 | XMS | Encounter Summary ---
Demographics + + + | Address | [address] | | | [place] [address] | + + + | Home Phone | | + + + | Preferred Language | Unknown | + + + | Marital Status | | + + + | Hinduism Affiliation | Unknown | + + + | Race | Unknown | + + + | Ethnic Group | Unknown | + + + Author + + + | Author | [facility] | | | and Dhavalana | + + + | Organization | [facility] | | | and Dhavalana [...] | | | | | [place] [address] | | + + + + + Care Team Providers + +------+ + | Care Skidder Name | Role | Phone | + +------+ + | Corey Galvan MD | PCP | | + +------+ + Encounter Details +--------+ + + + + | Date | Type | Department | Care Team | Description | +--------+ + + + + | 02/28/ | Documentati | [facility] [place] | [facility], | | | 2013 | on | GASTROENTEROLOGY | [address] | | | | | [address] | [place], [place] [address] | | | | | [address] [place] | [place] | | | | | [address] | [id number] | | | | | [phone] | | | +--------+ + + + [...]
--- OUTSIDE RECORDS SUMMARY | ~2020-03-30 | XMS | Encounter Summary ---
Demographics + + + | Address | [address] | | | [place] [address] | + + + | Home Phone | | + + + | Preferred Language | Unknown | + + + | Marital Status | | + + + | Gnosticist Affiliation | Unknown | + + + | Race | Unknown | + + + | Ethnic Group | Unknown | + + + Author + + + | Author | [facility] | | | and Dhavalana | + + + | Organization | [facility] | [...] | | | | | [place] [address] | | + + + + + Care Team Providers + +------+ + | Care Chief Of Harbor Patrol Name | Role | Phone | + [...] | | | | | | | ([facility]) | | | | | | | [...] | | | | | | | [place] | | | | | | | COLONOSCOPY, | | | | | | | DIAGNOSTIC | | | | | | | [place] | | | | | | | [...] | | | | | [address] | [place] | | | | | [place] | [address] | | | | | [address] | | | | | | [phone] | | | +--------+ + + + [...]
--- OUTSIDE RECORDS SUMMARY | ~2020-03-30 | XMS | Encounter Summary ---
Demographics + + + | Address | [address] | | | [place] [address] | + + + | Home Phone | | + + + | Preferred Language | Unknown | + + + | Marital Status | | + + + | Lutheran Affiliation | Unknown | + + + | Race | Unknown | + + + | Ethnic Group | Unknown | + + + Author + + + | Author | [facility] | | | and Dhavalana | + + + | Organization | [facility] | | | and [...] | | | | | [place] [address] | | + + + + + Care Team Providers + +------+ + | Care Transportation Economics Teacher Name | Role | Phone | [...] + + | 05/02/ | Refill | [facility] | [facility], | Medication Refill | | 2013 | | GASTROENTEROLOGY | [address] | | | | | [address] | [place], [place] [address] | | | | | [address] [place], [place] | [place] | | | | | [address] | [address] | | | | | [phone] | | | +--------+--------+ + + + [...]
--- OUTSIDE RECORDS SUMMARY | ~2020-03-30 | XMS | Encounter Summary ---
Demographics + + + | Address | [address] | | | [place] [address] | + + + | Home Phone [...] Author | [facility] | | | and Dhavalana | + + + | Organization | [facility] [...] | | | | | [place] [address] | | + + + + + Care Team Providers + +------+ + | Care It Security Administrator Name | Role | Phone | + +------+ + | Corey Galvan MD | PCP | | + +------+ + Encounter Details +--------+ + + + + | Date | Type | Department | Care Team | Description | +--------+ + + + + | 12/11/ | Hospital | [facility] | Conversion | Pain | | 2018 | Encounter | CONVERSION [address] | Transaction, | | | | | [address] | Provider Unknown | | | | | [place] | [phone] | | | | | [address] | | | | | | [phone] | | | +--------+ + + + [...]
--- OUTSIDE RECORDS SUMMARY | ~2020-03-30 | XMS | Encounter Summary ---
Demographics + + + | Address | [address] [facility] [address] [address] | | | [place] [address] | + + + | Home Phone | | + + + | Preferred Language | Unknown | + + + | Marital Status | | + + + | Hoahaoism Affiliation | Unknown | + + + | Race | Unknown | + + + | Ethnic Group | Unknown | + + + Author + + + | Author | [facility] | | | and Dhavalana | + + + | Organization | [facility] | | | and Dhavalana [...] | | | | | [place] [address] | | + + + + + Care Team Providers + +------+ + | Care Cleaner Laboratory Equipment Name | Role | Phone | + +------+ + | Corey Galvan MD | PCP | | + +------+ + Encounter Details +--------+ + + + + | Date | Type | Department | Care Team | Description | +--------+ + + + + | 10/06/ | Hospital | [facility] | Suzette Cao MD | Osteoarthritis of | | 2017 - | Encounter | CENTER SUR[facility] [address] | [address] [facility] | 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 Call office [phone] if any questions or problems or return to [facility] ER. Follow up: Suzette Cao MD [address] [address] In 2 weeks For staple removal Corey Galvan MD [address] [facility] [address] Medication List START taking these medications cephALEXin [...] Note by Ernie Ibanez PTA at 10/08/17 4406 Author: Ernie Ibanez PTA Service: (none) Author Type: Traffic Technician Filed: 10/08/17 0437 Date of Service: 10/08/171243 Status: Signed Float Operator: Ernie Ibanez PTA (Traffic Technician) 10/08/17 8316 PT Last Visit PT Received On 10/08/17 [...] 0754 Date of Service: 10/08/17747 Status: Addendum Float Operator: Suzette Cao MD (Physician) Related Notes: Original Note by Suzette Cao MD (Physician) filed at 10/08/17 0750 [facility] Service: Neurological Surgery Progress Note Hospital [...] preop packet and discharge papers). Call office [phone] if any questions or problems or return to [facility] ER. SUZETTE CAO MD 10/08/2017 onversion Transact ion, Provider Unknown - 10/07/2017 4:17 PM PSTFormatting of this note might be different fr om the original. Case Management by Wilfred Mcmillan RN at 10/07/171616 Author: Wilfred Mcmillan RN Service: (none) Author Type: Registered Nurse Filed: 10/07/171622 Date of Service: 10/07/171616 Status: Signed Float Operator: Wilfred Mcmillan RN (Registered Nurse) 10/07/171612 Discharge [...] functional status indep with FWW Power of Director Of Donor Relations No Anticipated Discharge Plan Post Acute Care [...] with assist WILFRED MCMILLAN RN Case Management [phone] IContorey Lópezaction, Provider Unknown - 10/07/2017 2:53 PM PST Therapy Progress Note by Ernie Ibanez PTA at 10/07/171452 Author: Ernie Ibanez PTA Service: (none) Author Type: Traffic Technician Filed: 10/07/171457 Date of Service: 10/07/171452 Status: Signed Float Operator: Ernie Ibanez PTA (Traffic Technician) 10/07/171452 PT Last Visit PT Received On [...] 10/07/17947 Date of Service: 10/07/17899 Status: Signed Float Operator: Jocelyne Minor PT (Physical Therapist) 10/07/17899 PT Last Visit PT Received On 10/07/17 Reason for Treatment Spinal surgery (C7-T1 hemilaminectomy/foraminotomy for discectomy, C3-6 lami) Requires PT Follow Up Yes Follow up PT Only? No PT Eval/Reassessment Date 10/07/17 Assistance Required 1 person Service Promoter Salesperson Needed No Home Environment Type of Home Apartment upper level Home Exterior Layout Elevator Home Interior Layout Lives on main level with bedroom/bathroom Bathroom Shower/Tub Walk-in shower Bathroom Toilet Standard Bathroom Equipment Built-in shower seat Bathroom Accessibility Accessible via walker Home Equipment Cane single point;Walker front wheeled Prior Function Level of [place] Modified independent with functional mobility;Independent with ADLs; [...] Barriers to Discharge Physical Deficits Impacting Functional [place];Self-care Deficit s Impacting Functional [place];Pain PT Ready for Discharge Yes 11/09/17 0900 PT Last Visit PT Received On 10/07/17 Reason for Treatment Spinal surgery (C7-T1 hemilaminectomy/foraminotomy for discectomy, C3-6 lami) Requires PT Follow Up Yes Follow up PT Only? No PT Eval/Reassessment Date 10/07/17 Assistance Required 1 person Service Promoter Salesperson Needed No Precautions Spinal Precautions Cervical Other [...] Barriers to Discharge Physical Deficits Impacting Functional [place];Self-care Deficit s Impacting Functional [place];Pain PT Ready for Discharge Yes Education Completed: Education Topics: Current condition, PT POC, precautions, safe mobility techniques, use of AD, use of call light, d/c planning. Completed with: Patient Completed by: Verbal Education, Demonstration as indicated Response to Education: Stated Understanding, Returned Demonstration Low - 98458 Moderate - 15436 High - 41840 History no personal factors &/or comorbidities Examination 1-2 elements Clinical Presentation stable Clinical Decision Making Complexity: Low 77599 Suzette Smith MD - 10/07/2017 7:03 AM PST Progress Notes by Suzette Cao MD at 10/07/17702 Author: Suzette Cao MD Service: Neurosurgery Author Type: Physician Filed: 10/07/17704 Date of Service: 10/07/17702 Status: Signed Float Operator: Suzette Cao MD (Physician) [facility] Service: Neurological Surgery Post-Op Day: 1 [...] | Fingerstick | performed at [facility];[address] | | LAB | | | | [address];[place], [place] | | | | | | [address] | | | | + + + [...] | Fingerstick | performed at [facility];[address] | | LAB | | | [address];[place], [place] | | | | | | [address] | | | | + + + [...] | Fingerstick | performed at [facility] | | LAB | | | | [address];[place], [place] | | | | | | [address] | | | | + + + [...] | Fingerstick | performed at [facility];[address] | | LAB | | | | [address];[place] | | | | | | [address] | | | | + + + [...] | Fingerstick | performed at [facility];[address] | | LAB | | | | [address];[place] | | | | | | [address] | | | | + + + [...] | Fingerstick | performed at [facility];[address] | | LAB | | | | [address];[place], [place] | | | | | | [address] | | | | + + + [...] | Fingerstick | performed at [facility];[address] | | LAB | | | | [address];[place] | | | | | | [address] | | | | + + + [...] | Fingerstick | performed at [facility];[address] | | LAB | | | | [address];[place], [place] | | | | | | [address] | | | | + + + [...] | Fingerstick | performed at [facility];[address] | | LAB | | | | [address];[place] | | | | | | [address] | | | | + + + [...] | POC | performed at [facility];[address] | g/dL | LAB | | | | [address];[place], [place] | | | | | | [address] | | | | + + + [...] | Fingerstick | performed at [facility];[address] | | LAB | | | | [address];[place] | | | | | | [address] | | | | + + + [...]
--- OUTSIDE RECORDS SUMMARY | ~2020-03-30 | XMS | Encounter Summary ---
Demographics + + + | Address | [address] | | | [place] [address] | + + + | Home Phone [...] + + | Author | [facility] | + + + | Organization | [facility] | + + + | Address | Unknown | + + + | Phone | Unavailable | + + + Support + + +---------+ + | Name | Relationship | Address | Phone | + + +---------+ + | Andrew Nelson | ECON | Unknown | | + + +---------+ + Care Team Providers + +------+ + | Care Enrollment Services Dean Name | Role | Phone | + +------+ + | Corey Galvan MD | PCP | Unavailable | + +------+ + Encounter Details +--------+------+ + + + | Date | Type | Department | Care Team | Description | +--------+------+ + + + | 09/14/ | Lab | Laboratory at [facility] | | Chronic hepatitis C | | 2010 | | [address] | | without mention of | | | | [place], [place] | | hepatic coma | | | | [address] | | | | | | [phone] | | | +--------+------+ + + + [...] of autoimmune disease. | | | [facility] ([facility]) [facility] | | | [address] [facility] [place] | | | [address] Because MATTY titers of 1:40 and 1:80 [...] of autoimmune disease. | | | [facility] ([facility]) [facility] | | | [address] [facility] [place] | | | [address] | | + + + + + + + + | Performing | Address | City/State/Zipcode | Phone Number | | Organization | | | | + + + + + | [facility] | [address] | [place] [address] | | | LABORATORY | | | [...] [place] [facility] [place] | | [facility] [place] [address] | REGIONAL | | [place] [address] | LABORATORY | + + + + + + + + | Performing | Address | City/State/Zipcode | Phone Number | | Organization | | | | + + + + + | [facility] | [address] | [place] [address] | | | LABORATORY | | | [...] | + + + + + | [facility] | [address] | [place] [address] | | | PATHOLOGY | [address] [...] | | | | | testing at [facility]. The | | | | | | samples will be sent to | | | | | | [email or web address] | | | | | | testing. [...] + + + + | [facility] | [email or web address] | [place] [address] | | | [facility] | [address] | | | | | [address]VE. [...] + + + | [facility] ([facility]) [facility] | [place] | | [place] [address] | REGIONAL | | [place] [address] | LABORATORY | + + + + + + + + | Performing | Address | City/State/Zipcode | Phone Number | | Organization | | | | + + + + + | [facility] | [address] | [place] [address] | | | LABORATORY | | | [...] [facility] [facility] [place] | | [place] [address] | REGIONAL | | [place] [address] | LABORATORY | + + + + + + + + | Performing | Address | City/State/Zipcode | Phone Number | | Organization | | | | + + + + + | [facility] | [address] | [place] [address] | | | LABORATORY | | | [...] At | + + + | [facility] ([facility]) [facility] | [address] | | [place] [address] [facility] | [facility] | | [place] [address] | LABORATORY | + + + + + + + + | Performing | Address | City/State/Zipcode | Phone Number | | Organization | | | | + + + + + | [facility] | [address] | [place] [address] | | | LABORATORY | | | [...] At | + + + | [facility] ([facility]) [facility] | [place] | | [place] [address] | REGIONAL | | [place] [address] | LABORATORY | + + + + + + + + | Performing | Address | City/State/Zipcode | Phone Number | | Organization | | | | + + + + + | [facility] | [address] | [place] [address] | | | LABORATORY | | | [...] [facility] | [facility]AL | | [place] [address] | LABORATORY | | [place] [address] | | + + + + + + + + | Performing | Address | City/State/Zipcode | Phone Number | | Organization | | | | + + + + + | [facility] | [address] | [place] [address] | | | LABORATORY | | | [...] of autoimmune disease. | | | [facility] ([facility]) [facility] | | | [address] [facility] [place] | | | [address] Because MATTY titers of 1:40 and 1:80 [...] of autoimmune disease. | | | [facility] ([facility]) [facility] | | | [address] [facility] [place] | | | [address] | | + + + + + + + + | Performing | Address | City/State/Zipcode | Phone Number | | Organization | | | | + + + + + | [facility] | [address] | [place] [address] | | | LABORATORY | | | [...] [place] | [place] | | [place] [address] | REGIONAL | | [place] [address] | LABORATORY | + + + + + + + + | Performing | Address | City/State/Zipcode | Phone Number | | Organization | | | | + + + + + | [facility] | [address] | [place] [address] | | | LABORATORY | | | [...] DEPARTMENT OF | [address] | [place] [address] | | | PATHOLOGY | [address] [...] | + + + + + | [facility] | [address] | [place] [address] | | | PATHOLOGY | [address] [...] 99 | 60 - 99 mg/dL | [facility] | | | PLASMA | | | [...] | | | DEPARTMENT | | | [place] | | | OF | | | [...] | + + + + + | [facility] | [address] | [place] [address] | | | PATHOLOGY | [address] | | | + + + + + documented in this encounter Visit Diagnoses + + | Diagnosis | + + | Chronic hepatitis C without mention of hepatic coma | + + documented in this encounter"
--- OUTSIDE RECORDS SUMMARY | ~2020-03-30 | XMS | Clinical Summary ---
Demographics + + + | Address | [address] | | | [place] [address] | + + + | Home Phone | | + + + | Preferred Language | Unknown | + + + | Marital Status | | + + + | Adventism Affiliation | Unknown | + + + | Race | Unknown | + + + | Ethnic Group | Unknown | + + + Author + + + | Author | [facility] | | | and Dhavalana | + + + | Organization | [facility] | | [...] | | | | | [place] [address] | | + + + + + Care Team Providers + +------+ + | Care Dot Compliance Coordinator Name | Role | Phone | [...] | [employer] | [facility] | [id number] | | [phone] | | [employer] | [...] | | al/Fam | | 1954 | [phone] | [address] [place] | | | [place] | | | 5 (Home) | [address] | + +--------+ +--------+ + + Advance Directives + + + + + | Type | Date Recorded | Patient | Explanation | | | | Pasting Machine Operator | | + + + + + | Power of | | | GAVE INFO ON [id number] | | Hair And Makeup Designer | | | | + + + + + | Advance | 04/25/2014 10:03 | | | | Directive | AM | | | + + + + +
--- OUTSIDE RECORDS SUMMARY | ~2020-03-30 | XMS | Encounter Summary ---
Demographics + + + | Address | [address] | | | [place] [address] | + + + | Home Phone [...] | Author | [facility] | | | and Dhavalana | + + + | Organization | [facility] | | | [...] | | | | | [place] [address] | | + + + + + Care Team Providers + +------+ + | Care Electrician Apprentice Name | Role | Phone | + +------+ + | Corey Galvan MD | PCP | | + +------+ + Encounter Details +--------+ + + + + | Date | Type | Department | Care Team | Description | +--------+ + + + + | 08/26/ | Hospital | [facility] | Conversion | Neck pain | | 2017 | Encounter | [address]VERSION [address] | Transaction, | | | | | [address] | Provider Unknown | | | | | [place] | [phone] | | | | | [address] | | | | | | [phone] | | | +--------+ + + + [...]
[~2020-03-30 14:49] MED LIST changes: +CALCIUM600 MG PO; +NAPROXEN250 MG PO
--- OUTSIDE RECORDS SUMMARY | 2020-03-30 14:52 | XMS ---
PreManage Notification: [facility] Security Engineering Aide Events No recent Security Events currently on file CRITERIA MET - History of Sepsis Dx - [employer] CARE PROVIDERS SWAPNA CORONADO [facility] 06/19/2019-Current PHONE: [phone] Kendall Floyd Robotic Weld Technician/Software Quality Assurance Analyst 04/29/2019-Current PHONE: [phone] Henny has no Care Guidelines for this patient. [facility] VISIT COUNT (12 MO.) 3 JOSÉ LUIS Schmidt TOTAL 3 NOTE: Visits indicate total known visits. ED/UCC VISIT TRACKING (12 MO.) 03/30/2020 14:50 [facility] [place] TYPE: Emergency COMPLAINT: - FLANK PAIN 07/29/2019 01:26 [facility] [place] TYPE: Emergency COMPLAINT: - RASH DIAGNOSES: - Type 2 diabetes mellitus without complications - intermediate (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 of oral hypoglycemic drugs - Nicotine dependence, unspecified, uncomplicated - Pruritus, unspecified - Allergy status to narcotic agent status - Other keno terminal operator (current) drug therapy - Hypothyroidism, unspecified - Disorder of the skin and subcutaneous tissue, unspecified 06/16/2019 12:[address] [facility] [place] TYPE: Emergency COMPLAINT: - SOB DIAGNOSES: - Chronic obstructive pulmonary disease, unspecified - Allergy status to narcotic agent status - Hypothyroidism, unspecified - Shortness of breath - Other longterm (current) drug therapy - intermediate (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 of oral hypoglycemic drugs - Type 2 diabetes mellitus without complications - Acquired absence of other specified parts of digestive tract - Acquired absence of both cervix and uterus - Nicotine dependence, unspecified, uncomplicated INPATIENT VISIT TRACKING (12 MO.) No inpatient visits to display in this time frame [id number]
== END 2020-03-30 17:45 | disposition home or self-care (01) ==
LOC: ED 14:49
DX: G89.29 Other chronic pain (principal); M54.5 Low back pain; F17.200 Nicotine dependence, unspecified, uncomplicated; J44.9 Chronic obstructive pulmonary disease, unspecified; E03.9 Hypothyroidism, unspecified; E11.9 Type 2 diabetes mellitus without complications; Z88.5 Allergy status to narcotic agent; Z79.899 Other long term (current) drug therapy
CPT/HCPCS: 51701; 81001; 99283-25

== ENCOUNTER 2020-07-10 19:49 | Emergency (ER) | payer MEDICARE, OTHER ==
[~2020-07-10] VITALS: Ht 160 cm; Wt 63.6 kg
--- OUTSIDE RECORDS SUMMARY | ~2020-07-10 | XMS | Encounter Summary ---
Demographics + + + | Address | [address] | | | [place] [address] | + + + | Home Phone | | + + + | Preferred Language | Unknown | + + + | Marital Status | | + + + | [employer] Affiliation | Unknown | + + + | Race | Unknown | + + + | Ethnic Group | Unknown | + + + Author + + + | Author | [facility] | | | and Dhavalana | + + + | Organization | [facility] | | | and Dhavalana [...] | | | | | [place] [address] | | + + + + + Care Team Providers + +------+ + | Care Accounts Receivable Analyst Name | Role | Phone | + +------+ + | Corey Galvan MD | PCP | | + +------+ + Encounter Details +--------+ + + + + | Date | Type | Department | Care Team | Description | +--------+ + + + + | 05/31/ | Hospital | C GENERIC IP | Conversion | Pain | | 2017 | Encounter | CONVERSION [address] | Transaction, | | | | | [address] | Provider Unknown | | | | | [place] | [phone] | | | | | [address] | | | | | | [phone] | | | +--------+ + + + [...] on file | | + + + documented as of this encounter Medications at Time of Discharge + + + +---------+ + + | Medication | Sig | Dispensed | Refills | Start | End Date | | | | | | Date | | + + + +---------+ + + | albuterol | Inhale 2 puffs into | | 0 | | | | (VENTOLIN HFA) 90 | the lungs EVERY 4 TO | | | | | | mcg/puff inhaler | 6 HOURS NEEDED. | | | | | + + + +---------+ + + | beclomethasone | Inhale 2 puffs into | | 0 | | | | (QVAR) 40 mcg/puff | the lungs 2 times | | | | | | inhaler | daily. | | | | | + + + +---------+ + + | gabapentin | Take 600 mg by mouth | | 0 | | | | (NEURONTIN) 600 MG | 2 times daily. | | | | | | tablet | | | | | | + + + +---------+ + + | | Take 1 tablet by | | 0 | | | | HYDROcodone-acetamin | mouth every 6 hours | | | | | | ophen (NORCO) 10-325 | as needed. | | | | | | mg per tablet | | | | | | + + + +---------+ + + | ipratropium | Inhale 2 puffs into | | 0 | | | | (ATROVENT HFA) 17 | the lungs 2 times | | | | | | mcg/puff inhaler | daily. | | | | | + + + +---------+ + + | MULTIPLE VITAMIN | Take 1 tablet by | | 0 | | | | PO | mouth Daily. | | | | | + + + +---------+ + + | ondansetron | Take 1 tablet by | 20 | 0 | 05/02/20 | | | (ZOFRAN) 4 mg tablet | mouth Daily as | tablet | | 14 | | | | needed for Nausea. | | | | | + + + +---------+ + + | traZODone | Take 50 mg by mouth | | 0 | | | | (DESYREL) 50 mg | nightly. | | | | | | tablet | | | | | | + + + +---------+ + + | venlafaxine | Take 75 mg by mouth | | 0 | | | | (EFFEXOR) 75 MG | Daily. | | | | | | tablet | | | | | | + + + +---------+ + + documented as of this encounter Plan of Treatment Not on filedocumented as of this encounter Procedures + +--------+ + + + | Procedure Name | Priori | Date/Time | Associated Diagnosis | Comments | | | ty | | | | + +--------+ + + + | US ABDOMEN LIMITED | Routin | 04/14/2017 | | Results for this | | | e | 12:27 AM | | procedure are in the | | | | PDT | | results section. | + +--------+ + + + documented in this encounter Results US Abdomen Limited (04/14/2017 12:27 AM PDT) + + | Specimen | + + | | + + + + + | Narrative | Performed At | + + + | This is a non-reportable procedure without a radiologist report and | | | is used for image storage only | | + + + + + | Procedure Note | + + | Vinicius Bradley Conversion - 07/12/2019 10:11 PM PDT This is a non-reportable procedure | | without a radiologist report and isused for image storage only | + + documented in this encounter Visit Diagnoses + + | Diagnosis | + + | Pain Generalized pain | + + documented in this encounter"
--- OUTSIDE RECORDS SUMMARY | ~2020-07-10 | XMS | Encounter Summary ---
Demographics + + + | Address | [address] | | | [place] [address] | + + + | Home Phone | | + + + | Preferred Language | Unknown | + + + | Marital Status | | + + + | Jewish Affiliation | Unknown | + + + | Race | Unknown | + + + | Ethnic Group | Unknown | + + + Author + + + | Author | [facility] | | | and Dhavalana | + + + | Organization | [facility] | | | and Dhavalana | [...] | | | | | [place] [address] | | + + + + + Care Team Providers + +------+ + | Care Pattern Fitter Name | Role | Phone | + +------+ + | Corey Galvan MD | PCP | | + +------+ + Reason for Visit Auth/Cert +--------+--------+ + + + + | Status | Reason | Specialty | Diagnoses / | Referred By | Referred To | | | | | Procedures | Contact | Contact | +--------+--------+ + + + + | Closed | | | Diagnoses | | | | | | | BIOPSY | | | | | | | Procedures | | | | | | | DI: OTHER | | | +--------+--------+ + + + + Encounter Details +--------+ + + + + | Date | Type | Department | Care Team | Description | +--------+ + + + + | 04/25/ | Hospital | [facility] | Agusto Vital MD | HCV infection, | | 2014 | Encounter | [facility] | [address] | without hepatic coma | | | | [address] | [place], [place] | | | | | [place], [place] | [address] | | | | | [address] | [phone] | | | | | [phone] | | | +--------+ + + + [...] + + + | Blood Pressure | 114/68 | 04/25/2014 1:30 PM | | | | | PDT | | + + + + + | Pulse | 68 | 04/25/2014 1:30 PM | | | | | PDT | | + + + + + | Temperature | 36.4 C (97.5 F) | 04/25/2014 10:18 AM | | | | | PDT | | + + + + + | Respiratory Rate | 18 | 04/25/2014 1:30 PM | | | | | PDT | | + + + + + | Oxygen Saturation | 93% | 04/25/2014 1:30 PM | | | | | PDT | | + + + + + | Inhaled Oxygen | - | - | | | Concentration | | | | + + + + + | Weight | 97.1 kg (214 lb) | 04/25/2014 10:18 AM | | | | | PDT | | + + + + + | Height | 160 cm (5' 3") | 04/25/2014 10:18 AM | | | | | PDT | | + + + + + | Body Mass Index | 37.91 | 04/25/2014 10:18 AM | | | | | PDT | | + + + + + documented in this encounter Medications at Time of Discharge + + + +---------+--------+ + | Medication | Sig | Dispensed | Refills | Start | End Date | | | | | | Date | | + + + +---------+--------+ + | albuterol | Inhale 2 puffs into | | 0 | | | | (VENTOLIN HFA) 90 | the lungs EVERY 4 TO | | | | | | mcg/puff inhaler | 6 HOURS NEEDED. | | | | | + + + +---------+--------+ + | beclomethasone | Inhale 2 puffs into | | 0 | | | | (QVAR) 40 mcg/puff | the lungs 2 times | | | | | | inhaler | daily. | | | | | + + + +---------+--------+ + | gabapentin | Take 600 mg by mouth | | 0 | | | | (NEURONTIN) 600 MG | 2 times daily. | | | | | | tablet | | | | | | + + + +---------+--------+ + | | Take 1 tablet by | | 0 | | | | HYDROcodone-acetamin | mouth every 6 hours | | | | | | ophen (NORCO) 10-325 | as needed. | | | | | | mg per tablet | | | | | | + + + +---------+--------+ + | ipratropium | Inhale 2 puffs into | | 0 | | | | (ATROVENT HFA) 17 | the lungs 2 times | | | | | | mcg/puff inhaler | daily. | | | | | + + + +---------+--------+ + | MULTIPLE VITAMIN | Take 1 tablet by | | 0 | | | | PO | mouth Daily. | | | | | + + + +---------+--------+ + | traZODone | Take 50 mg by mouth | | 0 | | | | (DESYREL) 50 mg | nightly. | | | | | | tablet | | | | | | + + + +---------+--------+ + | Venlafaxine HCl | Take 1 tablet by | | 0 | | | | 225 MG TB24 | mouth Daily. | | | | 4 | + + + +---------+--------+ + documented as of this encounter Progress Notes Mindi Trejo ARNP - 05/02/2014 8:06 AM PDT Quick Note: Will follow up after procedure. Please schedule appointment. Thank you documented in this encounter H&P Notes Agusto Vital MD - 04/25/2014 12:07 PM PDT SURGICAL INTERIM HISTORY AND PHYSICAL UPDATE Pt. Name/Age/: Carolina Ang 58 y.o. 1955 Date of admission: 04/25/2014 The current H&P was reviewed. The patient was reexamined. Re-evaluation of the patient co nfirms the necessity for the scheduled procedure. No change has occurred in the patient s condition since the H&P was completed less than 30 days ago. ASA 2 - A patient with mild systemic disease Mallampati: III (base of uvula and soft palate) Electronically signed by: Agusto Vital MD, 04/[facility]/2014 [facility] - 04/09/2014 12:01 PM PDT Carolina Ang is a 58 y.o. female referred by Corey Galvan for evaluation and t reatment of HCV and GI related symptoms. History of present illness: Patient was initially diagnosed with HCV 20 years ago. Likely cause of infection of HCV is likely related to intranasal drug use, intravenous drug use, or tattoo. Has never been treated for HCV in the past. Last drank alcohol: 14 years ago. Last smoked marijuana: last night. Last used illegal drugs: 30 years ago. Denies ascites, jaundice, hematemesis, peripheral edema, sleep changes, or confusion. Patient was seen at [facility] 09/2013. Records indicate negative HBV panel. Not immune to HBV. No ultrasound of liver for over 1 year. States she has had liver biopsy in the past. She thinks it has been 8 years ago. She is uns ure where biopsy was done. Patient complains of both constipation and diarrhea. Rectal bleeding can follow episodes of constipation. Notes heartburn about once per month for the past 6 months. This never used to be an issue. Dysphagia comes about once every 3 months. Usually associated with bread or dry foods. Will go down on its own. Does not have to vomit. Allergies Allergen Reactions Codearanza Isaacs Past Medical History Diagnosis Date Chronic hepatitis C without mention of hepatic coma (HCC) Tobacco use disorder Spondylosis of unspecified site without mention of myelopathy Myalgia and myositis, unspecified Past Surgical History Procedure Date Hysterectomy Bladder suspension X 2 with mesh Appendectomy Tonsillectomy and adenoidectomy Finger surgery fracture repair No family history on file. History Social History Marital Status: Spouse Name: N/A Number of Children: N/A Years of Education: N/A Occupational History Not on file. Social History Main Topics Smoking status: Current Every Day Smoker Smokeless tobacco: Never Used Alcohol Use: No Drug Use: Yes Comment: marijuana Sexually Active: Not on file Other Topics Concern Not on file Social History Narrative No narrative on file Review of systems: Constitutional:Denies any fevers, chills, or unintentional weight loss. Eyes:Denies using glaucoma eye drops. Denies dry, burning, painful eyes Respiratory:Complains of shortness of breath, cough or wheezing. Gastrointestinal:Complains of diarrhea, constipation, blood in stool, hemorrhoids, heartbur n and dysphagia. Denies hematemesis, nausea, vomiting or abdominal pain. Skin: Denies rashes Neurological:Complains of numbness and tingling, muscle weakness, frequent bothersome heada ches. Denies memory difficulties, paralysis of arms or legs, epilepsy or seizure. ENT:Complains of ringing and buzzing in ears, hearing loss, and constantly runny nose. Kendrick es nasal obstruction, hayfever, dentures, or hoarseness. Cardiovascular:Complains of chest pain, palpitations, or swelling to legs :Complains of urine incontinence. Denies painful urination, waking up on average more william n once per night to urinate, bloody urine, or impotence Musculoskeletal:Complains of swollen joints, painful back, or painful joints. Psychiatric:Complains of depression and anxiety Endocrine:Denies enlarged thyroid Heme/lymph:Denies anemia or enlarged lymph glands. Physical exam: General: well developed, well nourished, in no acute distress, no muscle wasting noted Head: normocephalic and atraumatic Eyes: Sclera clear Mouth: MMM Lungs: Clear to auscultate bilaterally and throughout Heart: regular rate and rhythm Abdomen: Soft, non tender, non distended, bowel tones positive times 4 quadrants, negative Pedro y's sign, negative rebound tenderness, no guarding, no hepatosplenomegaly palpated. Msk: symmetrical with no deformity, with normal posture and gait, normal strength. Extremities: no clubbing, cyanosis, edema, or deformity noted Neurologic: no focal deficits, cranial nerves II-XII grossly intact Skin: intact without lesions or rashes.negative for spider angioma Psych: alert and cooperative; normal mood and affect; normal attention span and concentration, negative for asterixis Abstract on 04/06/2014 Component Date Value Range Status Creatinine, External 12/07/2012 0.80 Final eGFR, External 12/07/2012 >60 Final ALT, External 12/07/2012 35 Final AST, External 12/07/2012 32 Final NA 12/07/2012 141 Final K 12/07/2012 4.3 Final CL 12/07/2012 102 Final CO2 12/07/2012 30 Final ANION GAP 12/07/2012 13 Final GLUCOSE 12/07/2012 121 Final BUN 12/07/2012 16 Final BUN/Creatinine Ratio 12/07/2012 20 Final CALCIUM 12/07/2012 8.9 Final ALK PHOS 12/07/2012 104 Final BILIRUBIN TOTAL 12/07/2012 0.3 Final Total protein 12/07/2012 6.8 Final ALBUMIN 12/07/2012 4.0 Final Globulin 12/07/2012 2.8 Final Albumin/Globulin Ratio 12/07/2012 1.4 Final HCV Genotype 06/24/2011 1a Final HCV Quantitative 06/24/2011 [id number] Final HCV Quantitative Log 06/24/2011 6.5 Final Assessment: 1. HCV infection, without hepatic coma CBC with Differential, Comprehensive Metabolic Pane l, Protime INR, Alpha Fetoprotein, Tumor Marker, US Guided Liver Biopsy genotype 1a or 1b. 2. Rectal bleeding 3. Bowel habit changes 4. Dysphagia 5. Heartburn 6. COPD (chronic obstructive pulmonary disease) (HCC) 7. Obesity, Class II, BMI 35-39.9, with comorbidity (HCC) Plan: Liver Biopsy: A liver biopsy has never been done. Liver biopsy is recommended to determine severity of liver disease and to determine the appropriate interval to screen for hepatocell ular carcinoma. The liver biopsy will also help determine if there is evidence of other live r conditions such as, alpha 1 antitrypsin or steatohepatitis. Ordered liver biopsy, CBC, CMP, INR, and AFP. All other labs done by [facility]. Vaccination: If it has not been done, recommend patient is vaccinated for both Hepatitis A and Hepatitis B. Transmission: Discussed following infection control guidelines. Inform tattoo parlors and [facility] providers of HCV infection. Avoid sharing personal items that might have blood on them, such as razors, toothbrushes, and nail clippers. Recommend safe sex with multiple sex partners. Substance use/abuse: Patient was educated on the importance of avoiding all alcohol and mar ijuana. Cannot treat HCV unless patient has been sober from alcohol, marijuana, and all othe r illegal drugs. Contraindications to HCV treatment: Absolute contraindications to HCV treatment include: 1. Short life expectancy.severe comorbidities (less than 10 years). 2. Known advanced cirrhosis with clinical decompensation (e.g. Ascites, encephalopa thy, variceal bleeding or SBP) 3. Pregancy or inability to reliably use control. 4. Severe cardiac disease. Patient to have EGD and colonoscopy for further evaluation of GI symptoms. The procedural t echniques, risks, indications, and alternatives were discussed. Among the risks, are perfor ation, bleeding, infection, allergic/adverse reactions to medications, and cardiovascular co mplications. Each of these could result in hospitalization, additional procedures (includin g surgery), or other life threatening complications. Patient verbalized understanding. Risk factors to colo-rectal cancer discussed with patient including smoking, obesity, excessive red meat ingestion, advancing age and first degree family relative with history of colo-rect al cancer discussed with patient. Patient to call with any questions or concerns prior to pr ocedure. Recommend procedure with anesthesia due to COPD and obesity. Will follow up with results. Patient is to call with any question or concerns. Any fevers, chills, chest pain, SOB or other serious symptoms patient is to call the office or go to ER . Cc: Corey Galvan Reviewed most recent labs, imaging, and procedures. documented in t his encounter Miscellaneous Notes [facility] - 05/01/2014 12:00 AM PDT lan [facility] - 04/26/2014 12:00 AM PDTElec tronically signed by Eduardo Casas at 04/26/2014 12:16 PM PDTMiscellaneous - [facility] - 04/26/2014 12:00 AM PDT i scellaneous - [facility] - 04/26/2014 12:00 AM PDT p Shona Pfeiffer RN - 04/25/2014 1:56 PM PDTDc'd Iv intact. Vitals stable. Dc instructions given to pt. Her dumpcart driver is here. 1302 Home in good and stable condition.Electronically signed by Shona Oro RN at 1:58 PM PDTOp Shona Pfeiffer RN - 04/25/2014 1:43 PM [id number] Alert and oriented, denies any discomfort at this time.Electronically signed by JOSE Mauricio t 04/25/2014 1:46 PM PDTOp Shona Pfeiffer RN - 04/25/2014 1:21 PM [id number] Pt judy roberts laying on her right side, vitals stable. 1230 Sleeping, even and unlabored resp. 1300 C/o of her chronic pain and requesting her hydrocodone. Rx given per request. 1315 Dr Vital at bedside chatting with patient. 1320 Pt eating and drinking, denies any c/o.Electronically signed by JOSE Mauricio t 04/25/2014 1:26 PM PDTOp Note - Agusto Vital MD - 04/25/2014 12:11 PM PDTUS Liver Biop sy Procedure Note Ultrasound guided random liver core biopsy performed with an 18g Biopince biopsy gun. Anesthesia: Local with 1% Xylocaine and moderate sedation. Specimen: 1 - 3cm 18g core No immediate complications. Pt will remain in [facility] for 2hrs of observ ation before discharge. See dictation for further details. Electronically signed by: Agusto Vital MD, 04/25/2014 12:11 [facility] documented in this en counter Plan of Treatment Not on filedocumented as of this encounter Procedures + +--------+ + + + | Procedure Name | Priori | Date/Time | Associated Diagnosis | Comments | | | ty | | | | + +--------+ + + + | US GUIDED LIVER | Routin | 04/25/2014 | HCV infection, | Results for this | | BIOPSY | e | 11:54 AM | without hepatic coma | procedure are in the | | | | PDT | | results section. | + +--------+ + + + | DI: OTHER | | 04/25/2014 | BIOPSY | | | | | 11:08 AM | | | | | | PDT | | | + +--------+ + + + | POCT FINGERSTICK INR | STAT | 04/25/2014 | | Results for this | | | | 10:40 AM | | procedure are in the | | | | PDT | | results section. | + +--------+ + + + documented in this encounter Results US Guided Liver Biopsy (04/25/2014 11:54 AM PDT) + + | Specimen | + + | | + + + + | Addenda | + + | Addendum by Agusto Vital MD on 05/02/2014 7:32 AM The biopsy was performed in | | the right lobe of the liver. Dictated and Signed by: Agusto Vital MD | | Electronically signed: 05/02/2014 7:29 AM | + + + + + | Narrative | Performed At | + + + | ULTRASOUND-GUIDED RANDOM LIVER BIOPSY: 04/25/2014 11:00 AM | [facility] | | CLINICAL HISTORY: HCV PROCEDURE: The risks, benefits, indications, | LAB | | and alternatives to the procedure were discussed with the patient in | | | advance. The patient's clinical information and prior imaging | | | studies were reviewed, if available. The patient was evaluated for | | | moderate conscious sedation according to protocol. The patient was | | | placed supine on the sonography table. A timeout was taken. A | | | preprocedural ultrasound was performed to plan percutaneous access to | | | the liver. A subcostal approach to the right lobe was chosen. The | | | skin entrance site was marked. The site was then prepped and draped | | | in the usual sterile manner. Local anesthesia was obtained at the | | | skin surface and deep to the liver capsule with ultrasound guidance. | | | Suspended respiration was utilized to localize the site of entry | | | and appropriately anesthetize the liver capsule. A small skin jag | | | was made. This allowed introduction of an 18-gauge BioPince needle | | | device. This was advanced into the liver under ultrasound guidance. | | | A single 3 cm core sample was obtained. This was removed and | | | placed in formalin. Hemostasis was achieved at the skin surface | | | with manual pressure. An occlusive dressing was applied. The | | | patient was placed ahrro-bldb-dubb down and remained this way for | | | approximately 1 hour following completion of the procedure. The | | | patient was transferred to the recovery room. They were recovered | | | according to protocol. The patient was evaluated by myself at | | | approximately 1 hour following completion of the procedure. The | | | patient was discharged at approximately 2 hours following completion | | | of the procedure and when appropriate criteria were met. During | | | the procedure the patient received sedation medication according to | | | protocol. The amount are detailed in the nursing records. | | | IMPRESSION - Technically successful ultrasound-guided random core | | | biopsy of the liver. Dictated and Signed by: Agusto Vital MD | | | Electronically signed: 04/25/2014 2:41 PM | | + + + + + | Procedure Note | + + | Kirk, Rad Results In - 04/25/2014 2:44 PM PDT ULTRASOUND-GUIDED RANDOM LIVER BIOPSY: | | 04/25/2014 11:00 AMCLINICAL HISTORY: HCVPROCEDURE: The risks, benefits, indications, and | | alternatives to the procedurewere discussed with the patient in advance. The patient's | | clinical informationand prior imaging studies were reviewed, if available. The patient | | wasevaluated for moderate conscious sedation according to protocol. The patientwas | | placed supine on the sonography table. A timeout was taken. Apreprocedural ultrasound | | was performed to plan percutaneous access to the liver. A subcostal approach to the | | right lobe was chosen. The skin entrance site wasmarked. The site was then prepped and | | draped in the usual sterile manner. Local anesthesia was obtained at the skin surface | | and deep to the liver capsulewith ultrasound guidance. Suspended respiration was | | utilized to localize thesite of entry and appropriately anesthetize the liver capsule. | | A small skinnick was made. This allowed introduction of an 18-gauge BioPince needle | | device. This was advanced into the liver under ultrasound guidance. A single 3 cm | | coresample was obtained. This was removed and placed in formalin. Hemostasis | | wasachieved at the skin surface with manual pressure. An occlusive dressing wasapplied. | | The patient was placed cfjhv-mabb-uraf down and remained this way forapproximately 1 | | hour following completion of the procedure.The patient was transferred to the recovery | | room. They were recovered accordingto protocol. The patient was evaluated by myself at | | approximately 1 hourfollowing completion of the procedure. The patient was discharged | | atapproximately 2 hours following completion of the procedure and when | | appropriatecriteria were met.During the procedure the patient received sedation | | medication according toprotocol. The amount are detailed in the nursing | | records.IMPRESSION - Technically successful ultrasound-guided random core biopsy of | | theliver.Dictated and Signed by: Agusto Vital MD Electronically signed: 04/25/2014 | | 2:41 PM | |approximately 2 hours following completion of the procedure and when appropriate | |criteria were met. | | | |During the procedure the patient received sedation medication according to | |protocol. The amount are detailed in the nursing records. | | | |IMPRESSION - Technically successful ultrasound-guided random core biopsy of the | |liver. | | | |Dictated and Signed by: Agusto Vital MD | | Electronically signed: 04/25/2014 2:41 PM | + + + +---------+ + + | Performing | Address | City/State/Zipcode | Phone Number | | Organization | | | | + +---------+ + + | [facility] | | | [phone] | + +---------+ + + | [facility] | | | [phone] | + +---------+ + + POC Fingerstick INR (04/25/2014 10:40 AM PDT) + +-------+ + + + | Component | Value | Ref Range | Performed | Pathologist | | | | | At | Signature | + +-------+ + + + | INR, POC | 1.0 | 0.9 - 1.2 | | | + +-------+ + + + | Instrument | | | | | | ID | | | | | + +-------+ + + + + + | Specimen | + + | Blood specimen | | (specimen) | + + documented in this encounter Visit Diagnoses + + | Diagnosis | + + | HCV infection, without hepatic coma | + + documented in this encounter Administered Medications + +--------+ +--------+------+------+ | Medication Order | MAR | Action | Dose | Rate | Site | | | Action | Date | | | | + +--------+ +--------+------+------+ | fentaNYL injection 50 mcg 50 | Given | 04/25/20 | 50 mcg | | | | mcg, Intravenous, EVERY 5 MIN | | 14 12:07 | | | | | PRN, Pain, per moderate sedation | | PM PDT | | | | | protocol, Starting 04/25/14 at | | | | | | | 1205, For 6 doses, To maximum of | | | | | | | 300 mcg in 4 hours, | | | | | | + +--------+ +--------+------+------+ +---+---+ | | | +---+---+ + +-------+ +--------+---+---+ | fentaNYL injection PRN, Pain, | Given | 04/25/20 | 50 mcg | | | | Starting 04/25/14 at 1134 | | 14 11:41 | | | | | | | AM PDT | | | | + +-------+ +--------+---+---+ +-------+ +--------+---+---+ | Given | 04/25/20 | 50 mcg | | | | | 14 11:34 | | | | | | AM PDT | | | | +-------+ +--------+---+---+ +---+---+ | | | +---+---+ + +-------+ +---------+---+---+ | HYDROcodone-acetaminophen | Given | 04/25/20 | 2 | | | | (NORCO) 5-325 mg per tablet 2 | | 14 1:00 | tablets | | | | tablet 2 tablet, Oral, ONCE, Wed | | PM PDT | | | | | 04/25/14 at 1245, For 1 dose, | | | | | | | Administer dose once for | | | | | | | increasing pain after | | | | | | | consultation with the | | | | | | | Radiologist., Post-op/Phase II | | | | | | + +-------+ +---------+---+---+ +---+---+ | | | +---+---+ + +---------+ +---+ +---+ | lactated ringers (LR) infusion | New Bag | 04/25/20 | | 25 mL/hr | | | at 25 mL/hr, Intravenous, | | 14 11:04 | | | | | CONTINUOUS, Starting 04/25/14 | | AM PDT | | | | | at 1130, TKO, Pre-op | | | | | | + +---------+ +---+ +---+ +---+---+ | | | +---+---+ documented in this encounter
--- OUTSIDE RECORDS SUMMARY | ~2020-07-10 | XMS | Encounter Summary ---
Demographics + + + | Address | [address] | | | [place] [address] | + + + | Home Phone | | + + + | Preferred Language | Unknown | + + + | Marital Status | Single | + + + | Anglican Affiliation | NON | + + + | Race | Unknown | + + + | Ethnic Group | Not or | + + + Author + + + | Author | [facility] | + + + | Organization | [facility] | + + + | Address | Unknown | + + + | Phone | Unavailable | + + + Support + + +---------+ + | Name | Relationship | Address | Phone | + + +---------+ + | Andrew Nelson | ECON | Unknown | | + + +---------+ + Care Team Providers + +------+ + | Care Proof Press Operator Name | Role | Phone | + +------+ + | Corey Galvan MD | PCP | Unavailable | + +------+ + Reason for Visit + + + | Reason | Comments | + + + | URI - Upper | | | Respiratory | | | Infection | | + + + | Fever | | + + + Encounter Details +--------+ + + + + | Date | Type | Department | Care Team | Description | +--------+ + + + + | 09/28/ | Telephone | [facility] | Hiren Gutierrez, | URI - Upper | | 2010 | | Center at [facility] [address] | [place] | Respiratory | | | | [address] | | Infection; Fever | | | | [facility] | | | | | | Healing, [address] | | | | | | [place], [place] | | | | | | [address] | | | | | | [phone] | | | +--------+ + + + [...]
--- OUTSIDE RECORDS SUMMARY | ~2020-07-10 | XMS | Encounter Summary ---
Demographics + + + | Address | [address] | | | [place] [address] | + + + | Home Phone | | + + + | Preferred Language | Unknown | + + + | Marital Status | | + + + | Latter-Day Affiliation | Unknown | + + + | Race | Unknown | + + + | Ethnic Group | Unknown | + + + Author + + + | Author | [facility] | | | and Dhavalana | + + + | Organization | [facility] | | | and [place] | [...] | | | | | [place] [address] | | + + + + + Care Team Providers + +------+ + | Care Flight Service Agent Name | Role | Phone | + +------+ + | Corey Galvan MD | PCP | | + +------+ + Reason for Visit +--------+--------+ + | Reason | Onset | Comments | | | Date | | +--------+--------+ + | Other | 07/10/ | | | | 2013 | | +--------+--------+ + Encounter Details +--------+--------+ + + + | Date | Type | Department | Care Team | Description | +--------+--------+ + + + | 07/10/ | Refill | [facility] | Maya, | Kenna | | 2013 | | GASTROENTEROLOGY | [address] | | | | | [address] | [address] | | | | | [address] [place], [place] | [place] | | | | | [address] | [address] | | | | | [phone] | | | +--------+--------+ + + + Social History + +-------+ [...] + + documented as of this encounter Miscellaneous Notes Telephone Encounter - Luda Carrasco, Master of Arts - 07/12/2014 8:47 AM PDTLeft a me ssage for patient to call and make an appointment if she is still having trouble with nausea . Brie will not refill until we see the patient. documented in this encounter Plan of Treatment Not on filedocumented as of this encounter Visit Diagnoses Not on filedocumented in this encounter"
--- OUTSIDE RECORDS SUMMARY | ~2020-07-10 | XMS | Encounter Summary ---
Demographics + + + | Address | [address] | | | [place] [address] | + + + | Home Phone | | + + + | Preferred Language | Unknown | + + + | Marital Status | | + + + | Moravian Affiliation | Unknown | + + + | Race | Unknown | + + + | Ethnic Group | Unknown | + + + Author + + + | Author | [facility] | | | and Dhavalana | + + + | Organization | [facility] | | | and [place]hav[place]ana [...] | | | | | [place] [address] | | + + + + + Care Team Providers + +------+ + | Care Braddisher Name | Role | Phone | + +------+ + | Corey Galvan MD | PCP | | + +------+ + Encounter Details +--------+ + + + + | Date | Type | Department | Care Team | Description | +--------+ + + + + | 08/26/ | Hospital | [facility] | Conversion | Neck pain | | 2017 | Encounter | CONVERSION [address] | Transaction, | | | | | [address] | Provider Unknown | | | | | [place] | [phone] | | | | | [address] | | | | | | [phone] | | | +--------+ + + + [...] + + + +---------+ + + | cyclobenzaprine | take 1 tablet by | | 0 | 07/05/ | | | (FLEXERIL) 10 mg | mouth three times a | | | 17 | | | tablet | day IF DROWSINESS IS | | | | | | | A PROBLEM TAKE ONLY | | | | | | | at bedtime | | | | | + + + +---------+ + + | fluticasone | | | 0 | // | | | (FLOVENT HFA) 220 | | | | 17 | | | mcg/puff inhaler | | | | | | + [...] + + + +---------+ + + | levothyroxine | | | 0 | 06/28/20 | | | (SYNTHROID) 50 mcg | | | | 17 | | | tablet | | | | | | + + + +---------+ + + | metFORMIN | | | 0 | 06/15/20 | | | (GLUCOPHAGE) 850 mg | | | | 17 | | | tablet | | | [...] | + +--------+ + + + | MRI CERVICAL SPINE | Routin | 08/23/2017 | | Results for this | | WO CONTRAST | e | 8:43 AM | | procedure are in the | | | | PDT | | results section. | + +--------+ + + + documented in this encounter Results MRI Cervical Spine wo Contrast (08/23/2017 8:43 AM PDT) + + | Specimen | + + | | + + + + + | Narrative | Performed At | + + + | This is a non-reportable procedure without a radiologist report and | | | is used for image storage only | | + + + + + | Procedure Note | + + | Vinicius Bradley - 07/12/2019 10:11 PM PDT This is a non-reportable procedure | | without a radiologist report and isused for image storage only | + + documented in this encounter Visit Diagnoses + + | Diagnosis | + + | Neck pain Cervicalgia | + + documented in this encounter"
--- OUTSIDE RECORDS SUMMARY | ~2020-07-10 | XMS | Encounter Summary ---
Demographics + + + | Address | [address] | | | [place] [address] | + + + | Home Phone | | + + + | Preferred Language | Unknown | + + + | Marital Status | | + + + | Episcopalian Affiliation | Unknown | + + + | Race | Unknown | + + + | Ethnic Group | Unknown | + + + Author + + + | Author | [facility] | | | and [place]hav[place]ana | + + + | Organization | [facility] | | | and [place] [...] | | | | | [place] [address] | | + + + + + Care Team Providers + +------+ + | Care Culinary Arts Instructor Name | Role | Phone | + +------+ + | Corey Galvan MD | PCP | | + +------+ + Reason for Visit + +--------+ + | Reason | Onset | Comments | | | Date | | + +--------+ + | Medication Refill | 05/02/ | | | | 2013 | | + +--------+ + Encounter Details +--------+--------+ + + + | Date | Type | Department | Care Team | Description | +--------+--------+ + + + | 05/02/ | Refill | [facility] | [facility], | Medication Refill | | 2013 | | GASTROENTEROLOGY | [address] | | | | | [address] | [address] | | | | | [address] [place] | [place] | | | | | [address] | [id number] | | | | | [phone] | | | +--------+--------+ + + + [...]
--- OUTSIDE RECORDS SUMMARY | ~2020-07-10 | XMS | Encounter Summary ---
Demographics + + + | Address | [address] | | | [place] [address] | + + + | Home Phone | | + + + | Preferred Language | Unknown | + + + | Marital Status | Single | + + + | Yazdanism Affiliation | NON | + + + | Race | Unknown | + + + | Ethnic Group | Not or | + + + Author + + + | Author | [facility] | + + + | Organization | [facility] | + + + | Address | Unknown | + + + | Phone | Unavailable | + + + Support + + +---------+ + | Name | Relationship | Address | Phone | + + +---------+ + | Andrew Nelson | ECON | Unknown | | + + +---------+ + Care Team Providers + +------+ + | Care Turn Operator Name | Role | Phone | + +------+ + | Corey Galvan MD | PCP | Unavailable | + +------+ + Reason for Visit + + + | Reason | Comments | + + + | Follow-up visit | | + + + Office Visit - E/M Services (Routine) +--------+ + + + + + [...] | Required | | hepatitis C | [facility] | [address] | | | | | without | [facility] | [address] | | | | | mention of | Urgent Care | [facility] for | | | | | hepatic coma | [address] | Health and | | | | | [address]al | [address] | Healing, | | | | | hepatitis B | [facility] | [address] | | | | | without | [place], [place] | [place], [place] | | | | | mention of | [address] | [address] | | | | | hepatic | Phone: | Phone: | | | | | coma, | [phone] | [phone] | | | | | chronic, | Fax: | Fax: | | | | | without | [phone] | [phone] | | | | | mention of | | | | | | | hepatitis | [...] Description | +--------+---------+ + + + | 10/04/ | Office | [facility] | Hiren Gutierrez, | Chronic hepatitis C | | 2013 | Visit | [facility] [address] | [place] | without mention of | | | | [address] [facility] | | hepatic coma | | | | for Health and | | (Primary Dx) | | | | Healing, [address] | | | | | | [place], [place] | | | | | | [address] | | | | | | [phone] | | | +--------+---------+ + + + [...] + + + | Blood Pressure | 129/69 | 10/04/2013 2:15 PM | | | | | PST | | + + + + + | Pulse | 87 | 10/04/2013 2:15 PM | | | | | PST | | + + + + + | Temperature | 37.1 C (98.8 F) | 10/04/2013 2:15 PM | | | | | PST | | + + + + + | Respiratory Rate | 18 | 10/04/2013 2:15 PM | | | | | PST | | + + + + + | Oxygen Saturation | - | - | | + + + + + | Inhaled Oxygen | - | - | | | Concentration | | | | + + + + + | Weight | 94.1 kg (207 lb 8 | 10/04/2013 2:15 PM | | | | oz) | PST | | + + + + + | Height | 160 cm (5' 3") | 10/04/2013 2:15 PM | | | | | PST | | + + + + + | Body Mass Index | 36.76 | 10/04/2013 2:15 PM | | | | | PST | | + + + + + documented in this encounter Progress Notes Hiren Gutierrez PA - 10/17/2013 10:13 PM PSTFormatting of this note might be different fro m the original. HEPATOLOGY FOLLOW UP VISIT Diagnoses: 1 Chronic hcv 1.1 Genotype 1 1.2 Ivdu 1979-, no transfusions 1.3 Previously drank > 6 pck of beer daily but none for 17 yrs, remote dui with diversion Current Outpatient Prescriptions Medication Sig ATROVENT HFA 17 mcg/actuation inhalation HFA Aerosol Inhaler DOXYCYCLINE HYCLATE 100 mg oral capsule FLUCONAZOLE 150 mg oral tablet GABAPENTIN 600 mg oral tablet HYDROCODONE-ACETAMINOPHEN 10-325 mg oral tablet PROAIR HFA 90 mcg/actuation inhalation HFA Aerosol Inhaler TRAZODONE 50 mg oral tablet VENLAFAXINE 150 mg oral tablet extended release 24hr VENLAFAXINE 75 mg oral tablet No current facility-administered medications for this visit. Allergy: Allergies not on file Subjective: Ms. Ang is seen in Hepatology clinic for follow up of Chronic Hepatitis C. She states that her current symptoms are fatigue. She denies fluid accumulation in feet/ankles, fluid accumulation in abdomen and blood in audrey wel movements or black tarry bm's. Review of Systems: All other systems negative. Social History: Current alcohol use: no Objective: BP 129/69 | Pulse 87 | Temp (Src) 37.1 C (98.8 F) (Oral) | RR 18 | Ht 1.6 m (5' 3") | W t 94.121 kg (207 lb 8 oz) | BMI 36.77 kg/(m^2) General: Alert, NAD. HEENT: No muscle wasting, sclerae anicteric. Respiration: Normal CTAB, and good air exchange. Cardiac: Regular rate and rhythm. Abdomen: Soft, non-distended, normal bowel sounds, no hepatosplenomegaly, no fluid wave, no other masses noted. Neuro: Normal, alert with no asterixis. Psych: Normal speech pattern and thought process linear. Extremities: Normal, no edema, or skin discolorations. Skin: Warm and dry without rashes, lesions or spider hemangomota. Laboratory Data: Recent Labs 10/04/13 1510 NA 138 CR 0.84 AST 44* ALT 63* TBILI 0.8 ALB 3.8 WBC 9.99 HB 17.5* MCV 89.8 PLT 183 INRPT 0.95 Assessment/Plan: Chronic hepatitis C without mention of hepatic coma (primary encounter diagnosis) Comment: pt declines bx, will order fibrospect and us to eval for cirrhosis, discussed tx, rtc 2 months. Plan: COMPLETE METABOLIC SET (NA,K,CL,CO2,BUN,CREAT,GLUC,CA,AST,ALT,BILI TOTAL,ALK PHOS,ALB,PROT TOTAL), CBC, WITH DIFFERENTIAL, INR, HEPATITIS B SURFACE AB QUAL, SERUM, HEPATITIS B SURFACE AG, SERUM, HEPATITIS B CORE AB, SERUM, LAB OTHER, US ABDOMEN COMPLETE ZION OROZCO documented in this en counter Plan of Treatment Not on filedocumented as of this encounter Results LAB OTHER (10/04/2013 3:10 PM PST) + + + + + + | Component | Value | Ref Range | Performed | Pathologist | | | | | At | Signature | + + + + + + | MISC REF | FIBROSpect II, Serum | | [facility] | | | TEST NAME | | | LABORATORY | | | | | | SERVICES, | | | | | | CORE | | + + + + + + | MISC REF | | | [facility] | | | TEST RESULT | | | REFERENCE | | | | | | LAB | | + + + + + + | NORMAL | | | [facility] | | | RANGE | | | REFERENCE | | | | | | LAB | | + + + + + + | REFERRAL | | | [facility] | | | LAB NAME | | | REFERENCE | | | | | | LAB | | + + + + + + + + | Specimen | + + | | + + + + + | Narrative | Performed At | + + + | See scanned | [facility] | | report for Technical Results and further Interpretation and Comments. | REFERENCE LAB | | | | | Test performed by [employer] [id number] | | | [place] [address] | | |[place] | | |[address] | | |[place] [address] | | + + + + + + + + | Performing | Address | City/State/Zipcode | Phone Number | | Organization | | | | + + + + + | [facility] | | | | + + + + + | [facility] | [address] | [place] [address] | | | SERVICES, CORE | [address] | | | + + + + + | [facility] | see below | | | + + + + + HEPATITIS B CORE AB, SERUM (10/04/2013 3:10 PM PST) + + + + + + | Component | Value | Ref Range | Performed | Pathologist | | | | | At | Signature | + + + + + + | HEPATITIS B | Negative | Negative | [facility] | | | CORE AB, | | | [facility] - | | | SERUM | | | [place] | | + + + + + + + + | Specimen | + + | Blood | + + + + + + + | Performing | Address | City/State/Zipcode | Phone Number | | Organization | | | | + + + + + | [facility] | [address] | [place] [address] | | | [place] | | | | + + + + + HEPATITIS B SURFACE AG, SERUM (10/04/2013 3:10 PM PST) + + + + + + | Component | Value | Ref Range | Performed | Pathologist | | | | | At | Signature | + + + + + + | HEPATITIS B | Negative | Negative | [facility] | | | SURFACE | | | [facility] - | | | AG, SERUM | | | [place] | | + + + + + + + + | Specimen | + + | Blood | + + + + + + + | Performing | Address | City/State/Zipcode | Phone Number | | Organization | | | | + + + + + | [facility] | [address] | [place] [address] | | | [place] | | | | + + + + + HEPATITIS B SURFACE AB QUAL, SERUM (10/04/2013 3:10 PM PST) + + + + + + | Component | Value | Ref Range | Performed | Pathologist | | | | | At | Signature | + + + + + + | HEP B | Negative | Negative | [facility] | | | SURFACE AB | | | [facility] - | | | QUAL, SERUM | | | [place] | | + + + + + + + + | Specimen | + + | Blood | + + + + + + + | Performing | Address | City/State/Zipcode | Phone Number | | Organization | | | | + + + + + | [facility] | [address] | [place] [address] | | | [place] | | | | + + + + + INR (10/04/2013 3:10 PM PST) + +-------+ + + + | Component | Value | Ref Range | Performed | Pathologist | | | | | At | Signature | + +-------+ + + + | INR | 0.95 | 0.90 - 1.20 INR | [facility] | | | | | | LABORATORY | | | | | | SERVICES, | | | | | | CORE | | + +-------+ + + + + + | Specimen | + + | Blood | + + + + + | Narrative | Performed At | + + + | INR Therapeutic ranges for full anticoagulation: INR for | [facility] | | Venous Thromboembolism (2.0 - 3.0) INR INR for | LABORATORY | | most patients with mech. valves (2.5 - 3.5) INR | SERVICES, CORE | + + + + + + + + | Performing | Address | City/State/Zipcode | Phone Number | | Organization | | | | + + + + + | [facility] | [address] | [place] [address] | | | SERVICES, CORE | [address] | | | + + + + + COMPLETE METABOLIC SET (NA,K,CL,CO2,BUN,CREAT,GLUC,CA,AST,ALT,BILI TOTAL,ALK PHOS,ALB,PROT TOTAL) (10/04/2013 3:10 PM PST) + +---------+ + + + | Component | Value | Ref Range | Performed | Pathologist | | | | | At | Signature | + +---------+ + + + | GLUCOSE, | 86 | 60 - 99 mg/dL | [facility] | | | PLASMA | | | LABORATORY | | | (LAB) | | | SERVICES, | | | | | | CORE | | + +---------+ + + + | BUN, PLASMA | 14 | 6 - 20 mg/dL | [facility] | | | (LAB) | | | LABORATORY | | | | | | SERVICES, | | | | | | CORE | | + +---------+ + + + | CREATININE | 0.84 | 0.60 - 1.10 | [facility] | | | PLASMA | | mg/dL | LABORATORY | | | (LAB) | | | SERVICES, | | | | | | CORE | | + +---------+ + + + | EGFR | >60 | >60 mL/min | [facility] | | | - | | | LABORATORY | | | SOMALI | | | SERVICES, | | | | | | CORE | | + +---------+ + + + | EGFR NON | >60 | >60 mL/min | [facility] | | | -MALINI | | | LABORATORY | | | RICAN | | | SERVICES, | | | | | | CORE | | + +---------+ + + + | SODIUM, | 138 | 136 - 145 | [facility] | | | PLASMA | | mmol/L | LABORATORY | | | (LAB) | | | SERVICES, | | | | | | CORE | | + +---------+ + + + | POTASSIUM, | 3.9 | 3.4 - 5.0 | [facility] | | | PLASMA | | mmol/L | LABORATORY | | | (LAB) | | | SERVICES, | | | | | | CORE | | + +---------+ + + + | CHLORIDE, | 104 | 97 - 108 mmol/L | [facility] | | | PLASMA | | | LABORATORY | | | (LAB) | | | SERVICES, | | | | | | CORE | | + +---------+ + + + | TOTAL CO2, | 27 | 21 - 32 mmol/L | [facility] | | | PLASMA | | | LABORATORY | | | (LAB) | | | SERVICES, | | | | | | CORE | | + +---------+ + + + | CALCIUM, | 9.3 | 8.6 - 10.2 | [facility] | | | PLASMA | | mg/dL | LABORATORY | | | (LAB) | | | SERVICES, | | | | | | CORE | | + +---------+ + + + | BILIRUBIN | 0.8 | mg/dL | [facility] | | | TOTAL | | | LABORATORY | | | | | | SERVICES, | | | | | | CORE | | + +---------+ + + + | TOTAL | 7.5 | 6.4 - 8.2 g/dL | [facility] | | | PROTEIN, | | | LABORATORY | | | PLASMA | | | SERVICES, | | | (LAB) | | | CORE | | + +---------+ + + + | ALBUMIN, | 3.8 | 3.5 - 4.7 g/dL | [facility] | | | PLASMA | | | LABORATORY | | | (LAB) | | | SERVICES, | | | | | | CORE | | + +---------+ + + + | ALK PHOS | 137 | 53 - 141 U/L | [facility] | | | | | | LABORATORY | | | | | | SERVICES, | | | | | | CORE | | + +---------+ + + + | AST(SGOT) | 44 (H) | 15 - 41 U/L | [facility] | | | | | | LABORATORY | | | | | | SERVICES, | | | | | | CORE | | + +---------+ + + + | ALT (SGPT) | 63 (H) | 12 - 60 U/L | [facility] | | | | | | LABORATORY | | | | | | SERVICES, | | | | | | CORE | | + +---------+ + + + | ANION | 7 | 4 - 11 mmol/L | [facility] | | | GAP(ALB | | | LABORATORY | | | CORRECTED) | | | SERVICES, | | | | | | CORE | | + +---------+ + + + | POTASSIUM | No Hemo | | [facility] | | | CMNT | | | LABORATORY | | | | | | SERVICES, | | | | | | CORE | | + +---------+ + + + | BILI T CMNT | No Hemo | | [facility] | | | | | | LABORATORY | | | | | | SERVICES, | | | | | | CORE | | + +---------+ + + + | AST CMNT | No Hemo | | [facility] | | | | | | LABORATORY | | | | | | SERVICES, | | | | | | CORE | | + +---------+ + + + | ANION GAP | 7 | mmol/L | [facility] | | | | | | LABORATORY | | | | | | SERVICES, | | | | | | CORE | | + +---------+ + + + + + | Specimen | + + | Blood | + + + + + | Narrative | Performed At | + + + | GFR is estimated using the MDRD equation recommended by the | [facility] | | National Kidney Disease Education Program. Estimated GFR | LABORATORY | | Interpretive Information: <60 mL/min/1.73 sq m | SERVICES, CORE | | Chronic Kidney Disease <15 mL/min/1.73 sq m | | | Kidney Failure Estimated GFR greater that 60 mL/min/1.73 sq m is of | | | limited clinical value. The MDRD equation is not valid in the | | | following situations: - Patients under 18 years of age - Severe | | | malnutrition or obesity - Vegetarian diet - Rapidly changing kidney | | | function New reference range effective 2013 for Total proteins | | | performed in Core Lab only. | | + + + + + + + + | Performing | Address | City/State/Zipcode | Phone Number | | Organization | | | | + + + + + | [facility] | [address] | [place] [address] | | | [facility] | [address] | | | + + + + + documented in this encounter Visit Diagnoses + + | Diagnosis | + + | Chronic hepatitis C without mention of hepatic coma - Primary | + + documented in this encounter
--- OUTSIDE RECORDS SUMMARY | ~2020-07-10 | XMS | Encounter Summary ---
Demographics + + + | Address | [address] | | | [place] [address] | + + + | Home Phone | | + + + | Preferred Language | Unknown | + + + | Marital Status | | + + + | Cheondoism Affiliation | Unknown | + + + | Race | Unknown | + + + | Ethnic Group | Unknown | + + + Author + + + | Author | [facility] | | | and [place]hav[place]ana | + + + | Organization | [facility] | | | and [...] | | | | | [place] [address] | | + + + + + Care Team Providers + +------+ + | Care Employee Benefits Manager Name | Role | Phone | + +------+ + | Corey Galvan MD | PCP | | + +------+ + Encounter Details +--------+ + + + + | Date | Type | Department | Care Team | Description | +--------+ + + + + | 12/11/ | Hospital | [facility] | Conversion | Pain | | 2018 | Encounter | CONVERSION [address] | Transaction, | | | | | [address] | Provider Unknown | | | | | [place] | [phone] | | | | | [address] | | | | | | [phone] | | | +--------+ + + + [...] 1 capsule by | | 0 | 11/10/20 | | | (KEFLEX) 750 mg | [...] | + +--------+ + + + | XR CERVICAL SPINE 2 | Routin | 12/09/2017 | | Results for this | | OR 3 VIEWS | e | 2:56 AM | | procedure are in the | | | | PST | | results section. | + +--------+ + + + documented in this encounter Results XR Cervical Spine 2 or 3 Views (12/09/2017 2:56 AM PST) + + | Specimen | + + | | + + + + + | Narrative | Performed At | + + + | This is a non-reportable procedure without a radiologist report and | | | is used for image storage only | | + + + + + | Procedure Note | + + | Vinicius Bradley - 07/12/2019 8:16 AM PDT This is a non-reportable procedure | | without a radiologist report and isused for image storage only | + + documented in this encounter Visit Diagnoses + + | Diagnosis | + + | Pain Generalized pain | + + documented in this encounter"
--- OUTSIDE RECORDS SUMMARY | ~2020-07-10 | XMS | Clinical Summary ---
Demographics + + + | Address | [address] | | | [place] [address] | + + + | Home Phone | | + + + | Preferred Language | Unknown | + + + | Marital Status | Single | + + + | Adventist Affiliation | NON | + + + | Race | Unknown | + + + | Ethnic Group | Not or | + + + Author + + + | Author | [facility] | + + + | Organization | [facility] | + + + | Address | Unknown | + + + | Phone | Unavailable | + + + Support + + +---------+ + | Name | Relationship | Address | Phone | + + +---------+ + | Andrew Nelson | ECON | Unknown | | + + +---------+ + Care Team Providers + +------+ + | Care Software Test Technician Name | Role | Phone | + +------+ + PCP | Unavailable | + +------+ + Source Comments RONALDO is fully live on both [facility] Ambulatory and [facility] InPatient.[facility] Allergies Not on File Medications + +-----+ +---------+------+------+-------+ | Medication | Sig | Dispensed | Refills | Star | End | Statu | | | | | | t | Date | s | | | | | | Date | | | + +-----+ +---------+------+------+-------+ | PROAIR HFA 90 | | | 0 | 08/2 | | Activ | | mcg/actuation | | | | 3/20 | | e | | inhalation HFA | | | | 13 | | | | Aerosol Inhaler | | | | | | | + +-----+ +---------+------+------+-------+ | DOXYCYCLINE | | | 0 | 10/0 | | Activ | | HYCLATE 100 mg oral | | | | 3/20 | | e | | capsule | | | | 13 | | | + +-----+ +---------+------+------+-------+ | FLUCONAZOLE 150 mg | | | 0 | 10/1 | | Activ | | oral tablet | | | | 0/20 | | e | | | | | | 13 | | | + +-----+ +---------+------+------+-------+ | GABAPENTIN 600 mg | | | 0 | 10/3 | | Activ | | oral tablet | | | | 0/20 | | e | | | | | | 13 | | | + +-----+ +---------+------+------+-------+ | | | | 0 | 10/1 | | Activ | | HYDROCODONE-ACETAMIN | | | | 0/20 | | e | | OPHEN 10-325 mg oral | | | | 13 | | | | tablet | | | | | | | + +-----+ +---------+------+------+-------+ | ATROVENT HFA 17 | | | 0 | 08/2 | | Activ | | mcg/actuation | | | | 3/20 | | e | | inhalation HFA | | | | 13 | | | | Aerosol Inhaler | | | | | | | + +-----+ +---------+------+------+-------+ | TRAZODONE 50 mg | | | 0 | 10/2 | | Activ | | oral tablet | | | | 4/20 | | e | | | | | | 13 | | | + +-----+ +---------+------+------+-------+ | VENLAFAXINE 150 mg | | | 0 | 10/1 | | Activ | | oral tablet | | | | 7/20 | | e | | extended release | | | | 13 | | | | 24hr | | | | | | | + +-----+ +---------+------+------+-------+ | VENLAFAXINE 75 mg | | | 0 | 10/1 | | Activ | | oral tablet | | | | 7/20 | | e | | | | | | 13 | | | + +-----+ +---------+------+------+-------+ Active Problems + + + | Problem | Noted Date | + + + | Chronic hepatitis C virus infection | 12/15/2011 | + + + + + | Overview: ICD10 | + + Social History + +-------+ +--------+------+ [...] | + + + + + | Pneumococcal | | | | | vaccination (1 of 2 | 8 | | | | - PCV13) | | | | + + + + + | Influenza (Flu) | | | | | vaccination (#1) | 9 | | | + + + + + Results Not on filefrom Last 3 Months Insurance + +--------+ +--------+-------+---------+--------+ | Payer | Benefi | Subscriber | Effect | Phone | Address | Type | | | t Plan | ID | richelle | | | | | | / | | Dates | | | | | | Group | | | | | | + +--------+ +--------+-------+---------+--------+ | UTILITY TECH MEDICAID | UTILITY TECH | xxxxxxxx | | | | Medica | | | [place]AST[place] | | 012-Pr | | | id | | | [place] | | esent | | | | + +--------+ +--------+-------+---------+--------+ + +--------+ +--------+ + + | Guarantor Name | Accoun | Relation to | Date | Phone | Billing Address | | | t Type | Patient | of | | | | | | | | | | + +--------+ +--------+ + + | Carolina Ang | Person | Self | [birth year] | [address] | | | al/Fam | | 1955 | [phone] | [place] [address] | | | [place] | | | 5 (Home) | | + +--------+ +--------+ + +
--- OUTSIDE RECORDS SUMMARY | ~2020-07-10 | XMS | Encounter Summary ---
Demographics + + + | Address | [address] | | | [place] [address] | + + + | Home Phone | | + + + | Preferred Language | Unknown | + + + | Marital Status | Single | + + + | Gnosticism Affiliation | NON | + + + | Race | Unknown | + + + | Ethnic Group | Not or | + + + Author + + + | Author | [facility] | + + + | Organization | [facility] | + + + | Address | Unknown | + + + | Phone | Unavailable | + + + Support + + +---------+ + | Name | Relationship | Address | Phone | + + +---------+ + | Andrew Nelson | ECON | Unknown | | + + +---------+ + Care Team Providers + +------+ + | Care Retail Account Manager Name | Role | Phone | + +------+ + | Corey Galvan MD | PCP | Unavailable | + +------+ + Encounter Details +--------+------+ + + + | Date | Type | Department | Care Team | Description | +--------+------+ + + + | 10/04/ | Lab | Laboratory at [facility] | | Chronic hepatitis C | | 2012 | | [address] | | without mention of | | | | [place] [facility] | | hepatic coma | | | | and Healing, | | | | | | [address] | | | | | | [place], [place] | | | | | | [address] | | | | | | [phone] | | | +--------+------+ + + + [...] | + +--------+ + + + | CBC AND AUTO DIFF | Routin | 10/04/2013 | Chronic hepatitis | Results for this | | | e | 3:10 PM | C without mention of | procedure are in the | | | | PST | hepatic coma | results section. | + +--------+ + + + | LAB OTHER | Routin | 10/04/2013 | Chronic hepatitis | Results for this | | | e | 3:10 PM | C without mention of | procedure are in the | | | | PST | hepatic coma | results section. | + +--------+ + + + | INR | Routin | 10/04/2013 | Chronic hepatitis | Results for this | | | e | 3:10 PM | C without mention of | procedure are in the | | | | PST | hepatic coma | results section. | + +--------+ + + + | CBC, WITH | Routin | 10/04/2013 | Chronic hepatitis | Results for this | | DIFFERENTIAL | e | 3:10 PM | C without mention of | procedure are in the | | | | PST | hepatic coma | results section. | + +--------+ + + + | COMPLETE METABOLIC | Routin | 10/04/2013 | Chronic hepatitis | Results for this | | SET | e | 3:10 PM | C without mention of | procedure are in the | | (NA,K,CL,CO2,BUN,CRE | | PST | hepatic coma | results section. | | AT,GLUC,CA,AST,ALT,B | | | | | | MILO TOTAL,ALK | | | | | | PHOS,ALB,PROT TOTAL) | | | | | + +--------+ + + + | HEPATITIS B SURFACE | Routin | 10/04/2013 | Chronic hepatitis | Results for this | | AB QUAL, SERUM | e | 3:10 PM | C without mention of | procedure are in the | | | | PST | hepatic coma | results section. | + +--------+ + + + | HEPATITIS B SURFACE | Routin | 10/04/2013 | Chronic hepatitis | Results for this | | AG, SERUM | e | 3:10 PM | C without mention of | procedure are in the | | | | PST | hepatic coma | results section. | + +--------+ + + + | HEPATITIS B CORE AB, | Routin | 10/04/2013 | Chronic hepatitis | Results for this | | SERUM | e | 3:10 PM | C without mention of | procedure are in the | | | | PST | hepatic coma | results section. | + +--------+ + + + documented in this encounter Results CBC AND AUTO DIFF (10/04/2013 3:10 PM PST) + + + + + + | Component | Value | Ref Range | Performed | Pathologist | | | | | At | Signature | + + + + + + | WHITE CELL | 9.99 | 4.40 - 11.00 | [facility] | | | COUNT | | K/cu mm | LABORATORY | | | | | | SERVICES, | | | | | | CORE | | + + + + + + | RED CELL | 5.89 (H) | 4.00 - 5.20 | [facility] | | | COUNT | | M/cu mm | LABORATORY | | | | | | SERVICES, | | | | | | CORE | | + + + + + + | HEMOGLOBIN | 17.5 (H) | 12.0 - 16.0 | [facility] | | | | | g/dL | LABORATORY | | | | | | SERVICES, | | | | | | CORE | | + + + + + + | HEMATOCRIT | 52.9 (H) | 36.0 - 46.0 % | [facility] | | | | | | LABORATORY | | | | | | SERVICES, | | | | | | CORE | | + + + + + + | MCV | 89.8 | 80.0 - 96.0 fL | [facility] | | | | | | LABORATORY | | | | | | SERVICES, | | | | | | CORE | | + + + + + + | MCHC | 33.1 | 33.0 - 35.5 | [facility] | | | | | g/dL | LABORATORY | | | | | | SERVICES, | | | | | | CORE | | + + + + + + | RDW SD | 45.0 | 35.1 - 46.3 fL | [facility] | | | | | | LABORATORY | | | | | | SERVICES, | | | | | | CORE | | + + + + + + | PLATELET | 183 | 150 - 400 K/cu | [facility] | | | COUNT | | mm | LABORATORY | | | | | | SERVICES, | | | | | | CORE | | + + + + + + | MPV | 11.3 | 9.7 - 12.3 fL | [facility] | | | | | | LABORATORY | | | | | | SERVICES, | | | | | | CORE | | + + + + + + | NRBC% | 0.0 | 0.0 - 0.3 % | [facility] | | | | | | LABORATORY | | | | | | SERVICES, | | | | | | CORE | | + + + + + + | NRBC# | 0.00 | 0.00 - 0.02 | [facility] | | | | | K/cu mm | LABORATORY | | | | | | SERVICES, | | | | | | CORE | | + + + + + + | NEUTROPHIL | 62.3 | 50.0 - 70.0 % | [facility] | | | % | | | LABORATORY | | | | | | SERVICES, | | | | | | CORE | | + + + + + + | LYMPHOCYTE | 26.9 | 18.0 - 42.0 % | [facility] | | | % | | | LABORATORY | | | | | | SERVICES, | | | | | | CORE | | + + + + + + | MONOCYTE % | 7.6 | 3.5 - 9.0 % | [facility] | | | | | | LABORATORY | | | | | | SERVICES, | | | | | | CORE | | + + + + + + | EOS % | 2.3 | 1.0 - 3.0 % | [facility] | | | | | | LABORATORY | | | | | | SERVICES, | | | | | | CORE | | + + + + + + | BASO % | 0.6 | 0.0 - 2.0 % | [facility] | | | | | | LABORATORY | | | | | | SERVICES, | | | | | | CORE | | + + + + + + | IG% | 0.3 | 0.0 - 0.6 % | [facility] | | | | | | LABORATORY | | | | | | SERVICES, | | | | | | CORE | | + + + + + + | NEUTROPHIL | 6.22 | 1.80 - 7.70 | [facility] | | | # | | K/cu mm | LABORATORY | | | | | | SERVICES, | | | | | | CORE | | + + + + + + | LYMPHOCYTE | 2.69 | 1.00 - 4.80 | [facility] | | | # | | K/cu mm | LABORATORY | | | | | | SERVICES, | | | | | | CORE | | + + + + + + | MONOCYTE # | 0.76 | 0.10 - 0.90 | [facility] | | | | | K/cu mm | LABORATORY | | | | | | SERVICES, | | | | | | CORE | | + + + + + + | EOS # | 0.23 | 0.00 - 0.50 | [facility] | | | | | K/cu mm | LABORATORY | | | | | | SERVICES, | | | | | | CORE | | + + + + + + | BASO # | 0.06 | 0.00 - 0.10 | [facility] | | | | | K/cu mm | LABORATORY | | | | | | SERVICES, | | | | | | CORE | | + + + + + + | IG# | 0.03 | 0.00 - 0.03 | [facility] | | | | | K/cu mm | LABORATORY | | | | | | SERVICES, | | | | | | CORE | | + + + + + + + + | Specimen | + + | Blood | + + + + + | Narrative | Performed At | + + + | Immature Granulocyes (IG) include metamyelocytes, myelocytes | [facility] | | and promyelocytes. Bands are not included in the IG count. New | LABORATORY | | methodology and reference ranges for some CBC/Differential analytes in | SERVICES, CORE | | effect on 06/16/13. | | + + + + + + + + | Performing | Address | City/State/Zipcode | Phone Number | | Organization | | | | + + + + + | [facility] | [address] | [place] [address] | | | SERVICES, CORE | [address] | | | + + + + + LAB OTHER (10/04/2013 3:10 PM PST) + [...] | | | | Test performed by [id number] | | | [place] [address] | | |[facility] | | |[address] | | |[place] [address] | | + + + + + + + + | Performing | Address | City/State/Zipcode | Phone Number | | Organization | | | | + + + + + | [facility] | | | | + + + + + | [facility] | [address] | [place] [address] | | | SERVICES, CORE | [address] [...] + | [facility] | [address] | [place] [address] | | | [place] | | | [...] + | [facility] | [address] | [place] [address] | | | [place] | | | [...] + | [facility] | [address] | [place] [address] | | | [place] | | | | + + + [...] | + + + + + | [facility] | [address] | [place] [address] | | | SERVICES, CORE | [address] [...] | | | LABORATORY | | | ENGLISH | | | SERVICES, | | | [...] | + + + + + | [facility] | [address] | [place] [address] | | | SERVICES, JOSH | [address] | | | + + + + + documented in this encounter Visit Diagnoses + + | Diagnosis | + + | Chronic hepatitis C without mention of hepatic coma | + + documented in this encounter"
--- OUTSIDE RECORDS SUMMARY | ~2020-07-10 | XMS | Encounter Summary ---
Demographics + + + | Address | [address] | | | [place] [address] | + + + | Home Phone | | + + + | Preferred Language | Unknown | + + + | Marital Status | Single | + + + | Taoism Affiliation | NON | + + + | Race | Unknown | + + + | Ethnic Group | Not or | + + + Author + + + | Author | [facility] | + + + | Organization | [facility] | + + + | Address | Unknown | + + + | Phone | Unavailable | + + + Support + + +---------+ + | Name | Relationship | Address | Phone | + + +---------+ + | Andrew Nelson | ECON | Unknown | | + + +---------+ + Care Team Providers + +------+ + | Care Mailhouse Operator Name | Role | Phone | + +------+ + | Corey Galvan MD | PCP | Unavailable | + +------+ + Encounter Details +--------+ + + + + | Date | Type | Department | Care Team | Description | +--------+ + + + + | 07/06/ | Abstract | [facility] | Ari Sierra MD | | | 2010 | | [place] [address] [address] | [address] | | | | | [address] | [place], [place] | | | | | for Health and | [address] | | | | | [facility], [address] | [phone] | | | | | [place], [place] | | | | | | [address] | | | | | | [phone] | | | +--------+ + + + [...]
--- OUTSIDE RECORDS SUMMARY | ~2020-07-10 | XMS | Encounter Summary ---
Demographics + + + | Address | [address] | | | [place] [address] | + + + | Home Phone | | + + + | Preferred Language | Unknown | + + + | Marital Status | | + + + | Islam Affiliation | Unknown | + + + | Race | Unknown | + + + | Ethnic Group | Unknown | + + + Author + + + | Author | [facility] | | | and [place]hav[place]ana | + + + | Organization | [facility] | | | and [place] | + + + | Address | Unknown | + + + | Phone | Unavailable | + + + Support + + + + + | Name | Relationship | Address | Phone | + + + + + | Agusto Brdaford | ESTIVEN | Unknown | | + + + + + | Andrew Andrews | ECON | Unknown | | + + + + + | Magdiel Andrews | ECON | [address] | | | | | [place] [address] | | + + + + + Care Team Providers + +------+ + | Care Developer Evangelist Name | Role | Phone | + [...] Provider Unknown | | | | | [place] | [phone] | | | | | [address] | | | | | | [phone] | | | +--------+ + + + [...] + +--------+ + + + | XR CHEST 1 VIEW | Routin | 04/15/2016 | | Results for this | | | e | 12:29 AM | | procedure are in the | | | | PDT | | results section. | + +--------+ + + + documented in this encounter Results XR Chest 1 Vw (04/15/2016 12:29 AM PDT) + + | Specimen | [...]
--- OUTSIDE RECORDS SUMMARY | ~2020-07-10 | XMS | Encounter Summary ---
Demographics + + + | Address | [address] | | | [place] [address] | + + + | Home Phone | | + + + | Preferred Language | Unknown | + + + | Marital Status | Single | + + + | Advent Affiliation | NON | + + + [...] Team Providers + +------+ + | Care Tripe Washer Name | Role | Phone | + +------+ + | Corey Galvan MD | PCP | Unavailable | + +------+ + Encounter Details +--------+ + + + + | Date | Type | Department | Care Team | Description | +--------+ + + + + | 10/11/ | Abstract | [facility] | Brenda Hiren, | | | 2012 | | [place] [address] [address] | [place] | | | | | [address] [facility] | | | | | | for Health and | | | | | | Healing, [address] | | | | | | [place], [place] | | | | | | [address] | | | | | | [phone] | | | +--------+ + + + [...]
--- OUTSIDE RECORDS SUMMARY | ~2020-07-10 | XMS | Encounter Summary ---
Demographics + + + | Address | [address] | | | [place] [address] | + + + | Home Phone | | + + + | Preferred Language | Unknown | + + + | Marital Status | | + + + | Congregation Affiliation | Unknown | + + + | Race | Unknown | + + + | Ethnic Group | Unknown | + + + Author + + + | Author | [facility] | | | and [place]havalana | + + + | Organization | [facility] [...] | | | | | [place] [address] | | + + + + + Care Team Providers + +------+ + | Care Tire Vulcanizer Name | Role | Phone | + +------+ + | Corey Galvan MD | PCP | | + +------+ + Encounter Details +--------+ + + + + | Date | Type | Department | Care Team | Description | +--------+ + + + + | 09/21/ | Hospital | [facility] | Conversion | | | 2017 | Encounter | [facility] | Transaction, | | | | | [address] | Provider Unknown | | | | | [place], [place] | [phone] | | | | | [address] | | | | | | [phone] | Kong Cao MD | | | | | | [address] | | | | | | FLOOR [place], [place] | | | | | | [address] | | | | | | [phone] | | | | | | | [...]
--- OUTSIDE RECORDS SUMMARY | ~2020-07-10 | XMS | Encounter Summary ---
Demographics + + + | Address | [address] | | | [place] [address] | + + + | Home Phone | | + + + | Preferred Language | Unknown | + + + | Marital Status | | + + + | Muslim Affiliation | Unknown | + + + | Race | Unknown | + + + | Ethnic Group | Unknown | + + + Author + + + | Author | [facility] | | | and [place] | + + + | Organization | [facility] | | | and [...] | | | | | [place] [address] | | + + + + + Care Team Providers + +------+ + | Care Hand Sewer Shoes Name | Role | Phone | + [...] Provider Unknown | | | | | [place] | [phone] | | | | | [address] | | | | | | [phone] | | | +--------+ + + + [...] | Procedure Note | + + | Kirk Vinicius Conversion - 07/12/2019 10:11 PM PDT This is a non-reportable procedure | | without a radiologist report and isused for image storage only | + + documented in this encounter Visit Diagnoses + + | Diagnosis | + + | Pain Generalized pain | + + documented in this encounter"
--- OUTSIDE RECORDS SUMMARY | ~2020-07-10 | XMS | Encounter Summary ---
Demographics + + + | Address | [address] | | | [place] [address] | + + + | Home Phone | | + + + | Preferred Language | Unknown | + + + | Marital Status | | + + + | Scientology Affiliation | Unknown | + + + | Race | Unknown | + + + | Ethnic Group | Unknown | + + + Author + + + | Author | [facility] | | | and [place]havalana | + + + | Organization | [facility] | | | and [...] | | | | | [place] [address] | | + + + + + Care Team Providers + +------+ + | Care Technical Sales Manager Name | Role | Phone | + +------+ + | Corey Galvan MD | PCP | | + +------+ + Encounter Details +--------+ + + + + | Date | Type | Department | Care Team | Description | +--------+ + + + + | 05/26/ | Hospital | C GENERIC IP | Conversion | Pain | | 2016 | Encounter | CONVERSION [address] | Transaction, | | | | [address] | Provider Unknown | | | | | [place] | [phone] | | | | | [address] | | | | | | [phone] | | | +--------+ + + + [...]
--- OUTSIDE RECORDS SUMMARY | ~2020-07-10 | XMS | Encounter Summary ---
Demographics + + + | Address | [address] | | | [place] [address] | + + + | Home Phone | | + + + | Preferred Language | Unknown | + + + | Marital Status | Single | + + + | Jehovah'S Witness Affiliation | NON | + + + | Race | Unknown | + + + | Ethnic Group | Not or | + + + Author + + + | Author | [facility] | + + + | Organization | [facility] | + + + | Address | Unknown | + + + | Phone | Unavailable | + + + Support + + +---------+ + | Name | Relationship | Address | Phone | + + +---------+ + | Andrew Nelson | ECON | Unknown | | + + +---------+ + Care Team Providers + +------+ + | Care Frameman Name | Role | Phone | + +------+ + | Corey Galvan MD | PCP | Unavailable | + +------+ + Encounter Details +--------+------+ + + + | Date | Type | Department | Care Team | Description | +--------+------+ + + + | 09/14/ | Lab | Laboratory at [facility] | | Chronic hepatitis C | | 2010 | | [address] | | without mention of | | | | [facility] | | hepatic coma | | | | and Healing, | | | | | | [address] | | | | | | [place], [place] | | | | | | [address] | | | | | | [phone] | | | +--------+------+ + + + [...] | + +--------+ + + + | TAMIKO AB ON HEP 2, | Routin | [...] of autoimmune disease. | | | RLB (APEPTICO Forschung und Entwicklung) [facility] | | | [address] [facility] [place] | | | [address] Because MATTY titers of 1:40 and 1:80 [...] of autoimmune disease. | | | RLB (APEPTICO Forschung und Entwicklung) [facility] | | | [address] [facility], [place] | | | [address] | | + + + + + + + + | Performing | Address | City/State/Zipcode | Phone Number | | Organization | | | | + + + + + | [facility] | [address] | [place] [address] | | | LABORATORY | | | [...] [place] | [place] | | [place] [address] | REGIONAL | | [place] [address] | LABORATORY | + + + + + + + + | Performing | Address | City/State/Zipcode | Phone Number | | Organization | | | | + + + + + | [facility] | [address] | [place] [address] | | | LABORATORY | | | [...] | + + + + + | [facility] | [address] | [place] [address] | | | PATHOLOGY | [address] [...] Due to a reagent issue, | | [facility] | | | GENOTYPE | we are temporarily | | [facility] GENETICS | | | | unable to offer | | LABS | | | | Hepatitis CGenotype | | | | | | testing at [facility]. The | | | | | | samples will be sent to | | | | | | [facility] | | | | | | testing. [...] + | SPECIMEN | Plasma | | [facility] | | | TYPE | | | [...] + + + + | [facility] | [address] | [place] [address] | | | GENETICS LABS | [address] | | | | | [address]VE. [...] [place] | [place] | | [place] [address] [facility] | REGIONAL | | [place] [address] | LABORATORY | + + + + + + + + | Performing | Address | City/State/Zipcode | Phone Number | | Organization | | | | + + + + + | [facility] | [address] | [place] [address] | | | LABORATORY | | | [...] [place] | [place] | | [place] [address] | REGIONAL | | [place] [address] | LABORATORY | + + + + + + + + | Performing | Address | City/State/Zipcode | Phone Number | | Organization | | | | + + + + + | [facility] | [address] | [place] [address] | | | LABORATORY | | | [...] + + + | [facility] ([facility]) [place] | [place] | | [place] [address] | REGIONAL | | [place] [address] | LABORATORY | + + + + + + + + | Performing | Address | City/State/Zipcode | Phone Number | | Organization | | | | + + + + + | [facility] | [address] | [place] [address] | | | LABORATORY | | | [...] [place] | [place] | | [place] [address] | REGIONAL | | [place] [address] | LABORATORY | + + + + + + + + | Performing | Address | City/State/Zipcode | Phone Number | | Organization | | | | + + + + + | [facility] | [address] | [place] [address] | | | LABORATORY | | | [...] [place] | [place]AL | | [place] [address] | LABORATORY | | [place] [address] | | + + + + + + + + | Performing | Address | City/State/Zipcode | Phone Number | | Organization | | | | + + + + + | [facility] | [address] | [place] [address] | | | LABORATORY | | | [...] of autoimmune disease. | | | RLB (APEPTICO Forschung und Entwicklung) [facility] | | | [address] [facility] [place] | | | [address] Because MATTY titers of 1:40 and 1:80 [...] of autoimmune disease. | | | RLB (APEPTICO Forschung und Entwicklung) [facility] | | | [address] [facility], [place] | | | [address] | | + + + + + + + + | Performing | Address | City/State/Zipcode | Phone Number | | Organization | | | | + + + + + | [facility] | [address] | [place] [address] | | | LABORATORY | | | [...] [place] | [place] | | [place] [address] | REGIONAL | | [place] [address] | LABORATORY | + + + + + + + + | Performing | Address | City/State/Zipcode | Phone Number | | Organization | | | | + + + + + | [facility] | [address] | [place] [address] | | | LABORATORY | | | [...] + | [facility] | [address] | [place] [address] | | | PATHOLOGY | [address] [...] | + + + + + | [facility] | [address] | [place] [address] | | | PATHOLOGY | [address] [...] 99 | 60 - 99 mg/dL | [facility] | | | PLASMA | | | [...] | DEPARTMENT | | | [place] | | | OF | | | [...] | + + + + + | [facility] | [address] | [place] [address] | | | PATHOLOGY | [address] | | | + + + + + documented in this encounter Visit Diagnoses + + | Diagnosis | + + | Chronic hepatitis C without mention of hepatic coma | + + documented in this encounter"
--- OUTSIDE RECORDS SUMMARY | ~2020-07-10 | XMS | Clinical Summary ---
Demographics + + + | Address | [address] | | | [place] [address] | + + + | Home Phone | | + + + | Preferred Language | Unknown | + + + | Marital Status | | + + + | Church Affiliation | Unknown | + + + | Race | Unknown | + + + | Ethnic Group | Unknown | + + + Author + + + | Author | [facility] | | | and Dhavalana | + + + | Organization | [facility] | | | and Dhavalana [...] | | | | | [place] [address] | | + + + + + Care Team Providers + +------+ + | Care Donor Processor Name | Role | Phone | + [...] + + Plan of Treatment + + +-------+ + | Health Maintenance | Due Date | Last | Comments | | | | Done | | + + +-------+ + | Vaccine: | | | | | Dtap/Tdap/Td (1 - | 2 | | | | Tdap) | | | | + + +-------+ + | Vaccine: Zoster (1 | | | | | of 2) | 3 | | | + + +-------+ + | Breast Cancer | | | | | Screening | 8 | | | + + +-------+ + | Vaccine: | | | | | Pneumococcal 65+ (1 | 8 | | | | of 1 - PPSV23) | | | | + + +-------+ + | Vaccine: Influenza | | | | | (#1) | 0 | | | + + +-------+ + Results Not on filefrom Last 3 [...] | [employer] | [facility] | [id number] | | [phone] | | Medica | [...] Self | [birth year] | [address] | | | al/Fam | | 1955 | [phone] | [address] [place] | | | [place] | | | [place] | [address] | + +--------+ +--------+ + + Advance Directives + + + + + | Type | Date Recorded | Patient | Explanation | | | | Marketing Finance Manager | | + + + + + | Power of | | | GAVE INFO ON [id number] | | | | | | + + + + + | Advance | 04/25/2014 10:03 | | | | Directive | AM | | | + + + + +
--- OUTSIDE RECORDS SUMMARY | ~2020-07-10 | XMS | Encounter Summary ---
Demographics + + + | Address | [address] | | | [place] [address] | + + + | Home Phone [...] Author | [facility] | + + + | Organization | [facility] | + + + | Address | Unknown | + + + | Phone | Unavailable | + + + Support + + +---------+ + | Name | Relationship | Address | Phone | + + +---------+ + | Andrew Nelson | ECON | Unknown | | + + +---------+ + Care Team Providers + +------+ + | Care Vending Machine Servicer Name | Role | Phone | + +------+ + | Corey Galvan MD | PCP | Unavailable | + +------+ + Encounter Details +--------+ + + + + | Date | Type | Department | Care Team | Description | +--------+ + + + + | 07/06/ | Abstract | [facility] | Ari Sierra MD | | | 2010 | | Center [place] [address] [address] | [address] | | | | [address] | [place], [place] | | | | | for Health and | [address] | | | | | [facility] | [phone] | | | | | [place], [place] | | | | | | [address] | | | | | | [phone] | | | +--------+ + + + [...]
--- OUTSIDE RECORDS SUMMARY | ~2020-07-10 | XMS | Encounter Summary ---
Demographics + + + | Address | [address] | | | [place] [address] | + + + | Home Phone | | + + + | Preferred Language | Unknown | + + + | Marital Status | Single | + + + | Protestant Affiliation | NON | + + + [...] Team Providers + +------+ + | Care Magento Web Developer Name | Role | Phone | + +------+ + | Corey Galvan MD | PCP | Unavailable | + +------+ + Reason for Visit + + + | Reason | Comments | + + + | Scheduling | | + + + Encounter Details +--------+ + + + + | Date | Type | Department | Care Team | Description | +--------+ + + + + | 09/13/ | Telephone | [facility] | Hiren Gutierrez, | Scheduling | | 2012 | | [place] [address] [address] | [place] | | | | | [address] | | | | | | for Health and | | | | | | Healing, [address] | | | | | | [place], [place] | | | | | | [address] | | | | | | [phone] | | | +--------+ + + + [...]
--- OUTSIDE RECORDS SUMMARY | ~2020-07-10 | XMS | Encounter Summary ---
Demographics + + + | Address | [address] | | | [place] [address] | + + + | Home Phone | | + + + | Preferred Language | Unknown | + + + | Marital Status | Single | + + + | Jainism Affiliation | NON | + + + | Race | Unknown | + + + | Ethnic Group | Not or | + + + Author + + + | Author | [facility] | + + + | Organization | [facility] | + + + | Address | Unknown | + + + | Phone | Unavailable | + + + Support + + +---------+ + | Name | Relationship | Address | Phone | + + +---------+ + | Andrew Nelson | ECON | Unknown | | + + +---------+ + Care Team Providers + +------+ + | Care Equipment Monitor Phototypesetting Name | Role | Phone | + [...] | | 2010 | | Center at [facility] [address] | [place] | Respiratory | | | | [address] | | Infection; Fever | | | | for Health and | | | | | | Healing, [address] | | | | | | [place], [place] | | | | | | [address] | | | | | | [phone] | | | +--------+ + + + [...]
--- OUTSIDE RECORDS SUMMARY | ~2020-07-10 | XMS | Encounter Summary ---
Demographics + + + | Address | [address] | | | [place] [address] | + + + | Home Phone | | + + + | Preferred Language | Unknown | + + + | Marital Status | | + + + | Quaker Affiliation | Unknown | + + + | Race | Unknown | + + + | Ethnic Group | Unknown | + + + Author + + + | Author | [facility] | | | and [place]hav[place] | + + + | Organization | [facility] | | | and [...] | | | | | [place] [address] | | + + + + + Care Team Providers + +------+ + | Care Finishing Inspector Name | Role | Phone | + [...] Provider Unknown | | | | | [place] | [phone] | | | | | [address] | | | | | | [phone] | | | +--------+ + + + [...] + + + | CT ABDOMEN PELVIS WO | Routin | 04/15/2016 | | Results for this | | CONTRAST | e | 12:31 AM | | procedure are in the | | | | PDT | | results section. | + +--------+ + + + documented in this encounter Results CT Abdomen Pelvis wo Contrast (04/15/2016 12:31 AM PDT) + + | Specimen | [...]
--- OUTSIDE RECORDS SUMMARY | ~2020-07-10 | XMS | Encounter Summary ---
Demographics + + + | Address | [address] | | | [place] [address] | + + + | Home Phone [...] Author | [facility] | | | and Dhavalana | + + + | Organization | [facility] | | | and [place] | [...] | | | | | [place] [address] | | + + + + + Care Team Providers + +------+ + | Care Facilities Technician Name | Role | Phone | + +------+ + PCP | Unavailable | + +------+ + Encounter Details +--------+ + + + + | Date | Type | Department | Care Team | Description | +--------+ + + + + | 05/26/ | Emergency | [facility] | Conversion | Cervicalgia | | 2006 | | [facility]ICAL CENTER | Transaction, | | | | | EMERGENCY CENTER | Provider Unknown | | | | | [address] | | | | | | [place], [place] | (Fax) | | | | | [address] | | | | | | [phone] | | | +--------+ + + + [...]
--- OUTSIDE RECORDS SUMMARY | ~2020-07-10 | XMS | Encounter Summary ---
Demographics + + + | Address | [address] | | | [place] [address] | + + + | Home Phone | | + + + | Preferred Language | Unknown | + + + | Marital Status | | + + + | Anabaptism Affiliation | Unknown | + + + | Race | Unknown | + + + | Ethnic Group | Unknown | + + + Author + + + | Author | [facility] | | | and Dhavalana | + + + | Organization | [facility] | | | and [...] | | | | | [place] [address] | | + + + + + Care Team Providers + +------+ + | Care Silk Screen Frame Assembler Name | Role | Phone | + +------+ + | Corey Galvan MD | PCP | | + +------+ + Encounter Details +--------+ + + + + | Date | Type | Department | Care Team | Description | +--------+ + + + + | 09/21/ | Hospital | [facility] | Conversion | 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, | intervertebral disc | | | | CLINIC [address] | Provider Unknown | of cervical region | | | | [address]VD [place], [place] | | | | | | [address] | (Fax) | | | | | [phone] | | | +--------+ + + + [...] + + + | Blood Pressure | 151/74 | 09/21/2017 5:50 PM | | | | | PDT | | + + + + + | Pulse | 77 | 09/21/2017 5:50 PM | | | | | PDT | | + + + + + | Temperature | - | - | | + + + + + | Respiratory Rate | - | - | | + + + + + | Oxygen Saturation | - | - | | + + + + + | Inhaled Oxygen | - | - | | | Concentration | | | | + + + + + | Weight | 76 kg (167 lb 8.8 | 09/21/2017 5:50 PM | | | | oz) | PDT | | + + + + + | Height | 160 cm (5' 3") | 09/21/2017 5:50 PM | | | | | PDT | | + + + + + | Body Mass Index | 29.68 | 09/21/2017 5:50 PM | | | | | PDT [...] 1 tablet by | | 0 | 08/06/17 | | | (FLEXERIL) 10 mg | [...] + + documented as of this encounter Procedure Notes Conversion Transaction, Provider Unknown - 09/21/2017 6:07 PM PDTFormatting of this note m ight be different from the original. Pre-Procedure Instructions by Cecy Barrios RN at 09/21/171806 Author: Cecy Barrios RN Service: (none) Author Type: Registered Nurse Filed: 09/21/171807 Date of Service: 09/21/171806 Status: Signed Centrifugal Spinner: Cecy Barrios RN (Registered Nurse) Meets METS of 4 per AHA guidelines. Denies Chest Pain. Reports SOB with exertion. docume nted in this encounter Plan of Treatment Not on filedocumented as of this encounter Procedures + +--------+ + + + | Procedure Name | Priori | Date/Time | Associated Diagnosis | Comments | | | ty | | | | + +--------+ + + + | XR CHEST 2 VIEWS | Routin | 09/21/2017 | | Results for this | | | e | 6:30 PM | | procedure are in the | | | | PDT | | results section. | + +--------+ + + + | MRSA NAAT | Timed | 09/21/2017 | | Results for this | | | | 6:00 PM | | procedure are in the | | | | PDT | | results section. | + +--------+ + + + | EXTERNAL LAB: CBC | Routin | 09/21/2017 | | Results for this | | | e | 5:54 PM | | procedure are in the | | | | PDT | | results section. | + +--------+ + + + | PTT | Routin | 09/21/2017 | | Results for this | | | e | 5:54 PM | | procedure are in the | | | | PDT | | results section. | + +--------+ + + + | PROTIME INR | Routin | 09/21/2017 | | Results for this | | | e | 5:54 PM | | procedure are in the | | | | PDT | | results section. | + +--------+ + + + | COMPREHENSIVE | Routin | 09/21/2017 | | Results for this | | METABOLIC PANEL | e | 5:54 PM | | procedure are in the | | | | PDT | | results section. | + +--------+ + + + | ECG 12 LEAD | Routin | 09/21/2017 | | Results for this | | | e | 5:41 PM | | procedure are in the | | | | PDT | | results section. | + +--------+ + + + documented in this encounter Results XR Chest 2 Vws (09/21/2017 6:30 PM PDT) + + | Specimen | + + | | + + + + + | Impressions | Performed At | + + + | 1. No evidence of acute or new disease -- although chronic and | | | senescent appearing changes are noted as above which could | | | contribute to some symptoms. | | + + + + + + | Narrative | Performed At | + + + | HISTORY: 62 years old Female, prior surgery, pain TECHNIQUE: | | | Frontal and lateral computer enhanced radiographic examination of the | | | chest, 21 September 2017. Prior study for comparison -- 26 Apr 2016 | | | FINDINGS: Mediastinum -- unremarkable. Some vascular | | | calcification. Lung markings are somewhat coarse. There are dense | | | likely calcified small nodules extensively distributed throughout all | | | pulmonary regions. A chronic finding, previously present on the | | | studies from 2016 and stable to technique since that time No focal | | | infiltrate or evidence of advanced pulmonary venous hypertension. | | | Lung volumes are stable and symmetric. Degenerative change the | | | spine and shoulders not unusual for age with some evidence of rotator | | | cuff disease and arthropathy both shoulders. | | + + + + + | Procedure Note | + + | Vinicius Bradley Conversion - 07/12/2019 10:11 PM PDT HISTORY: 62 years old Female, prior | | surgery, pain TECHNIQUE: Frontal and lateral computer enhanced radiographic examination | | of the chest, 21 September 2017. Prior study for comparison -- 26 Apr 2016 FINDINGS: | | Mediastinum -- unremarkable. Some vascular calcification. Lung markings are somewhat | | coarse. There are dense likely calcified small nodules extensively distributed | | throughout all pulmonary regions. A chronic finding, previously present on the studies | | from 2016 and stable to technique since that time No focal infiltrate or evidence of | | advanced pulmonary venous hypertension. Lung volumes are stable and symmetric. | | Degenerative change the spine and shoulders not unusual for age with some evidence of | | rotator cuff disease and arthropathy both shoulders. IMPRESSION: 1. No evidence of | | acute or new disease -- although chronic and senescent appearing changes are noted as | | above which could contribute to some symptoms. | | | |IMPRESSION: | | | |1. No evidence of acute or new disease -- although chronic and senescent appearing changes are noted as above which could contribute to some symptoms. | | | | | | | | | + + MRSA NAAT (09/21/2017 6:00 PM PDT) + + | Specimen | + + | | + + + + + | Narrative | Performed At | + + + | SOURCE NARES(NOSE) MRSA | EXTERNAL LAB | | PCR NEGATIVE Testing | | | performed at [facility];[address] [place] [address];[place] [address] | | + + + + +---------+ + + | Performing | Address | City/State/Zipcode | Phone Number | | Organization | | | | + +---------+ + + | EXTERNAL LAB | | | | + +---------+ + + PTT (09/21/2017 5:54 PM PDT) + + + + + + | Component | Value | Ref Range | Performed | Pathologist | | | | | At | Signature | + + + + + + | aPTT, | 33 (H)Comment: Testing | 23 - 32 seconds | EXTERNAL | | | Patient | performed at [facility];[address] | | LAB | | | | [address];[place], [place] | | | | | | [address] | | | | + + + + + + + + | Specimen | + + | Blood specimen | | (specimen) | + + + +---------+ + + | Performing | Address | City/State/Zipcode | Phone Number | | Organization | | | | + +---------+ + + | EXTERNAL LAB | | | | + +---------+ + + Protime INR (09/21/2017 5:54 PM PDT) + + + + + + | Component | Value | Ref Range | Performed | Pathologist | | | | | At | Signature | + + + + + + | INR | 1.1Comment: REFERENCE | | EXTERNAL | | | | RANGE:0.9 - 1.2 | | LAB | | | | NON-ANTICOAGULATED2.0 | | | | | | - 3.0 ALL OTHER | | | | | | THERAPEUTIC | | | | | | INDICATIONS2.5 - 3.5 | | | | | | MECHANICAL HEART VALVES, | | | | | | RECURRENT OR SYSTEMIC | | | | | | EMBOLISMTesting | | | | | | performed at [facility] | | | | | | [address];[place] | | | | | | [address] | | | | + + + + + + + + | Specimen | + + | Blood specimen | | (specimen) | + + + +---------+ + + | Performing | Address | City/State/Zipcode | Phone Number | | Organization | | | | + +---------+ + + | EXTERNAL LAB | | | | + +---------+ + + External Lab: CBC (09/21/2017 5:54 PM PDT) + + + + + + | Component | Value | Ref Range | Performed | Pathologist | | | | | At | Signature | + + + + + + | WBC | 7.96 | 3.80 - 11.00 | EXTERNAL | | | | | K/uL | LAB | | + + + + + + | Non- | 5.69 (H) | 3.70 - 5.10 | EXTERNAL | | | Red Blood | | M/uL | LAB | | | Cells | | | | | | Counted | | | | | + + + + + + | Hemoglobin | 16.3 (H) | 11.3 - 15.5 | EXTERNAL | | | | | g/dL | LAB | | + + + + + + | Hematocrit, | 49.4 (H) | 34.0 - 46.0 % | EXTERNAL | | | POC | | | LAB | | + + + + + + | MCV | 86.9 | 80.0 - 100.0 fl | EXTERNAL | | | | | | LAB | | + + + + + + | MCH | 28.6 | 27.0 - 34.0 pg | EXTERNAL | | | | | | LAB | | + + + + + + | MCHC | 33.0 | 32.0 - 35.5 | EXTERNAL | | | | | g/dL | LAB | | + + + + + + | RDW-CV | 46.4 | 37 - 53 fl | EXTERNAL | | | | | | LAB | | + + + + + + | Platelet | 131 (L) | 150 - 400 K/uL | EXTERNAL | | | Count | | | LAB | | | Plasma | | | | | + + + + + + | MPV | 9.7 | fl | EXTERNAL | | | | | | LAB | | + + + + + + | Differentia | AUTOMATED | | EXTERNAL | | | l Type | | | LAB | | + + + + + + | % Segmented | 55.29 | % | EXTERNAL | | | | | | LAB | | | Neutrophils | | | | | + + + + + + | % | 30.01 | % | EXTERNAL | | | Lymphocytes | | | LAB | | + + + + + + | % Monocytes | 8.62 | % | EXTERNAL | | | | | | LAB | | + + + + + + | % | 5.22 | % | EXTERNAL | | | Eosinophils | | | LAB | | + + + + + + | % Basophils | 0.86 | % | EXTERNAL | | | | | | LAB | | + + + + + + | Absolute | 4.40 | 1.90 - 7.40 | EXTERNAL | | | Segmented | | K/uL | LAB | | | Neutrophils | | | | | + + + + + + | Absolute | 2.39 | 1.00 - 3.90 | EXTERNAL | | | Lymphocytes | | K/uL | LAB | | + + + + + + | Absolute | 0.69 | 0.00 - 0.80 | EXTERNAL | | | Monocytes | | K/uL | LAB | | + + + + + + | Absolute | 0.42 | 0.00 - 0.50 | EXTERNAL | | | Eosinophils | | K/uL | LAB | | + + + + + + | Absolute | 0.07Comment: Testing | 0.00 - 0.10 | EXTERNAL | | | Basophils | performed at [facility], [address] | K/uL | LAB | | | | [address], | | | | | | [place] [address] | | | | + + + + + + + + | Specimen | + + | Blood specimen | | (specimen) | + + + +---------+ + + | Performing | Address | City/State/Zipcode | Phone Number | | Organization | | | | + +---------+ + + | EXTERNAL LAB | | | | + +---------+ + + Comprehensive Metabolic Panel (09/21/2017 5:54 PM PDT) + + + + + + | Component | Value | Ref Range | Performed | Pathologist | | | | | At | Signature | + + + + + + | Na | 138 | 135 - 145 | EXTERNAL | | | | | mmol/L | LAB | | + + + + + + | K | 4.0 | 3.5 - 4.9 | EXTERNAL | | | | | mmol/L | LAB | | + + + + + + | Cl | 106 | 99 - 109 mmol/L | EXTERNAL | | | | | | LAB | | + + + + + + | CO2 | 28 | 23 - 32 mmol/L | EXTERNAL | | | | | | LAB | | + + + + + + | Anion Gap | 8 | 5 - 20 mmol/L | EXTERNAL | | | | | | LAB | | + + + + + + | Glucose, | 93 | 65 - 99 mg/dL | EXTERNAL | | | Fasting | | | LAB | | + + + + + + | BUN | 14 | 8 - 25 mg/dL | EXTERNAL | | | | | | LAB | | + + + + + + | Creatinine | 0.9 | 0.50 - 1.00 | EXTERNAL | | | | | mg/dL | LAB | | + + + + + + | BUN/Creatin | 16 | | EXTERNAL | | | ine Ratio | | | LAB | | + + + + + + | Calcium | 9.0 | 8.5 - 10.5 | EXTERNAL | | | | | mg/dL | LAB | | + + + + + + | Protein, | 8.0 | 6.3 - 8.2 g/dL | EXTERNAL | | | Total | | | LAB | | + + + + + + | Albumin | 3.7 | 3.3 - 4.8 g/dL | EXTERNAL | | | | | | LAB | | + + + + + + | Globulin | 4.3 | 1.3 - 4.9 g/dL | EXTERNAL | | | | | | LAB | | + + + + + + | A/G Ratio | 0.9 (L) | 1.0 - 2.4 | EXTERNAL | | | | | | LAB | | + + + + + + | Bilirubin | 0.3 | 0.1 - 1.5 mg/dL | EXTERNAL | | | Total | | | LAB | | + + + + + + | ALP, | 104 | 35 - 115 U/L | EXTERNAL | | | External | | | LAB | | + + + + + + | AST | 25 | 10 - 45 U/L | EXTERNAL | | | | | | LAB | | + + + + + + | ALT | 33 | 10 - 65 U/L | EXTERNAL | | | | | | LAB | | + + + + + + | Estimated | >60Comment: GFR <60: | mL/min/1.73m2 | EXTERNAL | | | GFR | CHRONIC KIDNEY DISEASE, | | LAB | | | | IF FOUND OVER A 3 MONTH | | | | | | PERIOD.GFR <15: KIDNEY | | | | | | FAILURE.FOR | | | | | | AMERICANS, MULTIPLY THE | | | | | | CALCULATED GFR BY | | | | | | 1.210.Testing performed | | | | | | at [facility], [address] | | | | | | [address], | | | | | | [place] [address] | | | | + + + + + + + + | Specimen | + + | Blood specimen | | (specimen) | + + + +---------+ + + | Performing | Address | City/State/Zipcode | Phone Number | | Organization | | | | + +---------+ + + | EXTERNAL LAB | | | | + +---------+ + + ECG 12 lead (09/21/2017 5:41 PM PDT) + + + + + + | Component | Value | Ref Range | Performed | Pathologist | | | | | At | Signature | + + + + + + | DIAGNOSIS: | Normal sinus | | EXTERNAL | | | | rhythmNormal ECGNo | | LAB | | | | previous ECGs | | | | | | availableConfirmed by | | | | | | Sheree Wheatley ([id number]) | | | | | | on 09/22/2017 9:04:17 PM | | | | | | | | | | + + + + + + + + | Specimen | + + | | + + + + + | Narrative | Performed At | + + + | Historically converted procedure from [employer] environment | EXTERNAL LAB | + + + + +---------+ + + | Performing | Address | City/State/Zipcode | Phone Number | | Organization | | | | + +---------+ + + | EXTERNAL LAB | | | | + +---------+ + + documented in this encounter Visit Diagnoses + + | Diagnosis | + + | Degeneration of intervertebral disc of cervical region | + + documented in this encounter
--- OUTSIDE RECORDS SUMMARY | ~2020-07-10 | XMS | Encounter Summary ---
Demographics + + + | Address | [address] | | | [place] [address] | + + + | Home Phone | | + + + | Preferred Language | Unknown | + + + | Marital Status | | + + + | Zoroastrianism Affiliation | Unknown | + + + | Race | Unknown | + + + | Ethnic Group | Unknown | + + + Author + + + | Author | [facility] | | | and Dhavalana | + + + | Organization | [facility] | | | and [...] | | | | | [place] [address] | | + + + + + Care Team Providers + +------+ + | Care Editor Book Name | Role | Phone | + [...] | | Polyarthropathy | | | | [place], [place] | | ([facility]) | | | | [address] | | | | | | [phone] | | | +--------+ + + + [...]
--- OUTSIDE RECORDS SUMMARY | ~2020-07-10 | XMS | Encounter Summary ---
Demographics + + + | Address | [address] | | | [place] [address] | + + + | Home Phone | | + + + | Preferred Language | Unknown | + + + | Marital Status | | + + + | Congregational Affiliation | Unknown | + + + | Race | Unknown | + + + | Ethnic Group | Unknown | + + + Author + + + | Author | [facility] | | | and [place]havalana | + + + | Organization | [facility] | | | and [...] | | | | | [place] [address] | | + + + + + Care Team Providers + +------+ + | Care Edge Stripper Name | Role | Phone | + [...] Provider Unknown | | | | | [place] | [phone] | | | | | [address] | | | | | | [phone] | | | +--------+ + + + [...]
--- OUTSIDE RECORDS SUMMARY | ~2020-07-10 | XMS | Encounter Summary ---
Demographics + + + | Address | [address] | | | [place] [address] | + + + | Home Phone | | + + + | Preferred Language | Unknown | + + + | Marital Status | | + + + | Mandaeism Affiliation | Unknown | + + + | Race | Unknown | + + + | Ethnic Group | Unknown | + + + Author + + + | Author | [facility] | | | and Dhavalana | + + + | Organization | [facility] | | | and Dhavalana [...] | | | | | [place] [address] | | + + + + + Care Team Providers + +------+ + | Care Inspector And Tester Name | Role | Phone | + +------+ + PCP | Unavailable | + +------+ + Encounter Details +--------+ + + + + | Date | Type | Department | Care Team | Description | +--------+ + + + + | 11/08/ | Emergency | [facility] | Conversion | Cough | | 2006 | | [facility] | Transaction, | | | | | [facility] | Provider Unknown | | | | | [address] | | | | | | [place], [place] | (Fax) | | | | | [address] | | | | | | [phone] | | | +--------+ + + + [...]
--- OUTSIDE RECORDS SUMMARY | ~2020-07-10 | XMS | Encounter Summary ---
Demographics + + + | Address | [address] | | | [place] [address] | + + + | Home Phone [...] | [facility] | | | and Dhavalana | + + + | Organization | [facility] | | | and Dhavalana [...] | | | | | [place] [address] | | + + + + + Care Team Providers + +------+ + | Care Demand Planning Analyst Name | Role | Phone | [...] | infection, | Mindi, | [address], | | | | | without | [address] | [address] | | | | | hepatic coma | [address] | [place], | | | | | Rectal | [address] | [place] [address] | | | | | bleeding | [place], | Phone: | | | | | Bowel habit | [place] [address] | [phone] | | | | | changes | Phone: | Fax: | | | | | Dysphagia | [phone] | [phone] | | | | | Heartburn | Fax: | | | | | | COPD | [phone] | | | | | | (chronic [...] | | | | | | | [place] | | | | | | | ESOPHAGOGAST | | | | | | | RODUODENOSCO | | | | | | | PY TRANSORAL | | | | | | | DIAGNOSTIC | | | | | | | [place] EDG | | | | | | | TRANSORAL | | | | | | | BIOPSY | | | | | | | SINGLE/MULTI | | | | | | | PLE [place] | | | | | | | COLONOSCOPY, | | | | | | | DIAGNOSTIC | | | | | | | [place] | | | | | | | [...] | infection, | Mindi, | [address] | | | | | without | [address] | [place], | | | | | hepatic coma | [address] | [place] | | | | | Rectal | [address] | [address] | | | | | bleeding | [place], | Phone: | | | | | Bowel habit | [place] [address] | [phone] | | | | | changes | Phone: | Fax: | | | | | Dysphagia | [phone] | [phone] | | | | | Heartburn | Fax: | | | | | | COPD | [phone] | | | | | | (chronic [...] | | | | | | | [place] BIOPSY | | | | | | | LIVER NEEDLE | | | | | | | | | | | | | | PERCUTANEOUS | | | | | | | [place] SONO | | | | | | [...] | ogy | Chronic | Corey | [place]i, | | | | | hepatitis C | MD Cholo | [address] | | | | | without | [address] | | | | | mention of | [address] | [address] | | | | | hepatic coma | [place], | [place], | | | | | Procedures | [place] [address] | [place] [address] | | | | | evaluate | Phone: | Phone: | | | | | and treat | [phone] | [phone] | | | | | | Fax: | Fax: | | | | | | [phone] | [phone] | +--------+--------+ + + + + Encounter Details +--------+---------+ + + + | Date | Type | Department | Care Team | Description | +--------+---------+ + + + | 04/09/ | Office | [facility] | [facility], | HCV infection, | | 2013 | Visit | GASTROENTEROLOGY | [address] | without hepatic coma | | | | [address] | [address] | (Primary Dx); | | | | [address] [place], [place] | [place], [place] | Rectal bleeding; | | | | [address] | [address] | Bowel habit changes; | | | | [phone] | | Dysphagia; | | | | [...] changes, or confusion. Patient was seen at [facility] 09/2013. Records indicate negative HBV panel. [...] Genotype 06/24/2011 1a Final HCV Quantitative 06/24/2011 [id number] Final HCV Quantitative Log 06/24/2011 6.5 Final [...] and AFP. All other labs done by [facility]. Vaccination: If it has not been done, recommend patient is vaccinated for both Hepatitis A and Hepatitis B. Transmission: Discussed following infection control guidelines. Inform tattoo parlors and [facility] providers of HCV infection. Avoid sharing personal [...] Rectal bleeding | 04/27/2014, Expires: | | (harri) | | | Bowel habit changes | [...] The | | | patient was placed [id number] down and remained this way for | [...] wasapplied. | | The patient was placed [id number] down and remained this way forapproximately 1 [...] | | |Dictated and Signed by: Agusto Viatl MD | | Electronically signed: 04/25/2014 2:41 PM | + + + +---------+ + + | Performing | Address | City/State/Zipcode | Phone Number | | Organization | | | | + +---------+ + + | MISCELLANEOUS LAB | | | [phone] | + +---------+ + + | MISCELANIOUS LAB | | | [phone] | + +---------+ + + documented in [...]
--- OUTSIDE RECORDS SUMMARY | ~2020-07-10 | XMS | Encounter Summary ---
Demographics + + + | Address | [address] | | | [place] [address] | + + + | Home Phone | | + + + | Preferred Language | Unknown | + + + | Marital Status | Single | + + + | Anabaptism Affiliation | NON | + + + | Race | Unknown | + + + | Ethnic Group | Not or | + + + Author + + + | Author | [facility] | + + + | Organization | [facility] | + + + | Address | Unknown | + + + | Phone | Unavailable | + + + Support + + +---------+ + | Name | Relationship | Address | Phone | + + +---------+ + | Andrew Nelson | ECON | Unknown | | + + +---------+ + Care Team Providers + +------+ + | Care Name Plate Stamper Name | Role | Phone | + +------+ + | Corey Galvan MD | PCP | Unavailable | + +------+ + Encounter Details +--------+------+ + + + | Date | Type | Department | Care Team | Description | +--------+------+ + + + | 09/14/ | Lab | Laboratory at [facility] | | Chronic hepatitis C | | 2010 | | [address] | | without mention of | | | | [place] [facility] | | hepatic coma | | | | and Healing, | | | | | | [address] | | | | | | [place], [place] | | | | | | [address] | | | | | | [phone] | | | +--------+------+ + + + [...] of autoimmune disease. | | | RLB (Systems Integration) [facility] | | | [address] [place] [facility] [place] | | | [address] Because MATTY titers of 1:40 and 1:80 [...] of autoimmune disease. | | | RLB (Systems Integration) [facility] | | | [address] [place] [facility], [place] | | | [address] | | + + + + + + + + | Performing | Address | City/State/Zipcode | Phone Number | | Organization | | | | + + + + + | [facility] | [address] | [place] [address] | | | LABORATORY | | | [...] [place] | [place] | | [place] [address] | REGIONAL | | [place] [address] | LABORATORY | + + + + + + + + | Performing | Address | City/State/Zipcode | Phone Number | | Organization | | | | + + + + + | [facility] | [address] | [place] [address] | | | LABORATORY | | | [...] + + + + + | [facility] | [address] | [place] [address] | | | PATHOLOGY | [address] [...] Due to a reagent issue, | | [facility] | | | GENOTYPE | we are temporarily | | [facility] | | | | unable to offer | | LABS | | | | Hepatitis CGenotype | | | | | | testing at [facility]. The | | | | | | samples will be sent to | | | | | | [facility] | | | | | | testing. [...] + | SPECIMEN | Plasma | | [facility] | | | TYPE | | | [...] + + + + | [facility] | [place] [address] | [place] [address] | | | GENETICS LABS | [address] | | | | | AVE. [...] [place] | [place] | | [place] [address] [address] [facility] [address] | REGIONAL | | [place] [address] | LABORATORY | + + + + + + + + | Performing | Address | City/State/Zipcode | Phone Number | | Organization | | | | + + + + + | [facility] | [address] | [place] [address] | | | LABORATORY | | | [...] [place] | [place] | | [place] [address] | REGIONAL | | [place] [address] | LABORATORY | + + + + + + + + | Performing | Address | City/State/Zipcode | Phone Number | | Organization | | | | + + + + + | [facility] | [address] | [place] [address] | | | LABORATORY | | | [...] + + + | RLB ([address] [facility]) [place] | [place] | | [place] [address] | REGIONAL | | [place] [address] | LABORATORY | + + + + + + + + | Performing | Address | City/State/Zipcode | Phone Number | | Organization | | | | + + + + + | [facility] | [address] | [place] [address] | | | LABORATORY | | | [...] [place] | [place] | | [place] [address] | REGIONAL | | [place] [address] | LABORATORY | + + + + + + + + | Performing | Address | City/State/Zipcode | Phone Number | | Organization | | | | + + + + + | [facility] | [address] | [place] [address] | | | LABORATORY | | | [...] [place] | [place] | | [place] [address] [address] | LABORATORY | | [place] [address] | | + + + + + + + + | Performing | Address | City/State/Zipcode | Phone Number | | Organization | | | | + + + + + | [facility] | [address] | [place] [address] | | | LABORATORY | | | [...] of autoimmune disease. | | | RLB (Systems Integration) [facility] | | | [address] [place] [facility] [place] | | | [address] Because MATTY titers of 1:40 and 1:80 [...] of autoimmune disease. | | | RLB (Systems Integration) [facility] | | | [address] [place] [facility], [place] | | | [address] | | + + + + + + + + | Performing | Address | City/State/Zipcode | Phone Number | | Organization | | | | + + + + + | [facility] | [address] | [place] [address] | | | LABORATORY | | | [...] [place] | [place] | | [place] [address] | REGIONAL | | [place] [address] | LABORATORY | + + + + + + + + | Performing | Address | City/State/Zipcode | Phone Number | | Organization | | | | + + + + + | [facility] | [address] | [place] [address] | | | LABORATORY | | | [...] DEPARTMENT OF | [address] | [place] [address] | | | PATHOLOGY | [address] [...] | + + + + + | [facility] DEPARTMENT | [address] | [place] [address] | | | PATHOLOGY | [address] [...] 99 | 60 - 99 mg/dL | [facility] | | | PLASMA | | | [...] | | | DEPARTMENT | | | [place] | | | OF | | | [...] + + + + + | [facility] | [address] | [place] [address] | | | PATHOLOGY | [address] | | | + + + + + documented in this encounter Visit Diagnoses + + | Diagnosis | + + | Chronic hepatitis C without mention of hepatic coma | + + documented in this encounter"
--- OUTSIDE RECORDS SUMMARY | ~2020-07-10 | XMS | Encounter Summary ---
Demographics + + + | Address | [address] | | | [place] [address] | + + + | Home Phone | | + + + | Preferred Language | Unknown | + + + | Marital Status | Single | + + + | Druze Affiliation | NON | + + + [...] Team Providers + +------+ + | Care Customs Appraiser Name | Role | Phone | + +------+ + | Corey Galvan MD | PCP | Unavailable | + +------+ + Encounter Details +--------+ + + + + | Date | Type | Department | Care Team | Description | +--------+ + + + + | 10/11/ | Abstract | [facility] | Brenda Hiren, | | | 2012 | | [place] [address] [address] | [place] | | | | | [address] [facility] | | | | | | for Health and | | | | | | Healing, [address] | | | | | | [place], [place] | | | | | | [address] | | | | | | [phone] | | | +--------+ + + + [...]
--- OUTSIDE RECORDS SUMMARY | ~2020-07-10 | XMS | Encounter Summary ---
Demographics + + + | Address | [address] | | | [place] [address] | + + + | Home Phone [...] | [facility] | | | and [place] | + + + | Organization | [facility] | | | and [place] [...] | | | | | [place] [address] | | + + + + + Care Team Providers + +------+ + | Care Rotary Drill Operator Name | Role | Phone [...] | | | | | | | ([facility]) | | | | | [...] | | | | | | | [place] | | | | | | | COLONOSCOPY, | | | | | | | DIAGNOSTIC | | | | | | | [place] | | | | | | | [...] + + | 05/25/ | Surgery | [facility] | Agusto Porter MD | EGD / COLONOSCOPY | | 2013 | | MED [facility] | [address], [place] | | | | | [address] | [address] [place] | | | | | [place], [place] | [address] | | | | | [address] | | | | | | [phone] | | | +--------+---------+ + + + [...] + + + | Blood Pressure | 136/81 | 05/25/2014 10:00 AM | | | | | PDT | | + + + + + | Pulse | 80 | 05/25/2014 10:00 AM | | | | | PDT | | + + + + + | Temperature | 36.6 C (97.9 F) | 05/25/2014 10:00 AM | | | | | PDT | | + + + + + | Respiratory Rate | 18 | 05/25/2014 10:00 AM | | | | | PDT | | + + + + + | Oxygen Saturation | 92% | 05/25/2014 10:00 AM | | | [...] + + documented as of this encounter H&P Notes Agusto Porter MD - 11/07/2014 3:34 PM PST PRE-ENDOSCOPY HISTORY AND PRE-SEDATION ASSESSMENT PATIENT NAME: Carolina Ang : 1955 TODAY'S DATE: 11/07/2014 PLANNED PROCEDURE: upper endoscopy and colonoscopy. PERTINENT HISTORY/INDICATION FOR PROCEDURE: Carolina Ang is a 59 y.o. female who is u ndergoing upper endoscopy and colonoscopy for evaluation of dysphagia, heartburn, change in bowel pattern and rectal bleeding. She complains of diarrhea and constipation. Has rectal b leeding following episodes of constipation. Complains of dysphagia about every 3 months usua lly associated with salazar foods and bread.Food usually goes down on it's own, Does not have t o vomit. Has heartburn intermittently.Will use propofol sedation due to COPD and obesity. PAST HISTORY: Past Medical History Diagnosis Date Chronic hepatitis C without mention of hepatic coma (HCC) Tobacco use disorder Spondylosis of unspecified site without mention of myelopathy Myalgia and myositis, unspecified COPD (chronic obstructive pulmonary disease) (HCC) PAST SURGICAL HISTORY Past Surgical History Procedure Date Hysterectomy Bladder suspension X 2 with mesh Appendectomy Tonsillectomy and adenoidectomy Finger surgery fracture repair Rt arm orif Egd and colonoscopy 05/25/2014 EGD / COLONOSCOPY performed by Agusto Porter MD at [facility] MEDICAL PROCEDURE UNIT HOME MEDS: Prior to Admission medications Medication Sig Taking? albuterol (VENTOLIN HFA) 90 mcg/puff inhaler Inhale 2 puffs into the lungs EVERY 4 TO 6 ARMOND RS NEEDED. Yes beclomethasone (QVAR) 40 mcg/puff inhaler Inhale 2 puffs into the lungs 2 times daily. Yes gabapentin (NEURONTIN) 600 MG tablet Take 600 mg by mouth 2 times daily. Yes HYDROcodone-acetaminophen (NORCO) 10-325 mg per tablet Take 1 tablet by mouth every 6 hours as needed. Yes ipratropium (ATROVENT HFA) 17 mcg/puff inhaler Inhale 2 puffs into the lungs 2 times daily. Yes MULTIPLE VITAMIN PO Take 1 tablet by mouth Daily. Yes ondansetron (ZOFRAN) 4 mg tablet Take 1 tablet by mouth Daily as needed for Nausea. Yes traZODone (DESYREL) 50 mg tablet Take 50 mg by mouth nightly. Yes venlafaxine (EFFEXOR) 75 MG tablet Take 75 mg by mouth Daily. ALLERGIES Allergies Allergen Reactions Codeine Hives Latex Rash ASA CLASSIFICATION; 3 EXAMINATION: Blood pressure 119/52, pulse 70, temperature 36.4 C (97.5 F), temperature source Tempor al, resp. rate 15, height 1.6 m (5' 3"), weight 95.255 kg (210 lb), SpO2 93.00%. General: Alert and oriented Throat: Normal Lungs: Clear Heart: Regular rate and rhythm with out significant murmur Abdomen: flat, normal bowel sounds. Soft, nontender 1. Available medical records have been reviewed. 2. Medication list reviewed. IMPRESSION: . Patient appropriate for procedure using propofol sedation. PLAN: 1. Proceed with procedure as stated above with propofol sedation/analgesia 2. Procedure, indications, risks and alternatives explained to patient/family and they agre ed to proceed and consent was signed. 3. Patient will be reevaluated immediately (1-2 minutes) before sedation administration and approved for the plan as stated above. Electronically Signed by: Agusto Porter MD 11/07/2014 [facility] Portions of this chart may have been created with Mobile Experience voice recognition software. Occasi onal wrong-word or sound-alike substitutions may have occurred due to the inherent gordillo itations of voice recognition software. Please read the chart carefully and recognize, using context, where these substitutions have occurred gusto Porter MD - 05/25/2014 12:48 PM PDTThe patient denies any further episodes of dysphasia or rectal bleedi ng she believes her rectal bleeding was due to vigorous wiping. Consent forms are signed pa joon has no questions she is oriented x3 vital signs are noted proceed with upper endoscopy for variceal evaluation prior episodes of dysphagia and colonoscopy for colon cancer screen ing indi Trejo ARNP - 05/02/2014 8:06 AM PDT Quick Note: Will follow up after procedure. Please schedule appointment. Thank you documented in this encounter Procedure [facility] - 05/25/2014 12:00 AM PDTAssociated Order(s): COLONOSCOPYElectronically si gned by Eduardo Casas at 05/25/2014 1:35 PM [facility] - 05/25/2014 12:00 AM PDTAss ociated Order(s): EGD documen vimal in this encounter Miscellaneous Notes Plan of Care - [facility] - 05/29/2014 12:00 AM PDT lan of Care - [facility] - 05/29/2014 12:00 AM PDTElect ronically signed by Eduardo Casas at 05/29/2014 11:34 AM PDTPlan of Care - [facility] - 05/29/2014 12:00 AM PDT isc ellaneous - [facility] - 05/29/2014 12:00 AM PDT documented in this encounter Plan of Treatment + +------+--------+ [...] | r pylori Ag | | | [facility] | | | | | | [...] + | [facility] | [address] | [place], [place] | [phone] | | [facility] | | [facility] | | | - LABORATORY | | | | + + + + + | [facility] | [address] | [place], [place] | | | [facility] | | [address] [place] [address] | | | - LABORATORY | | | | + + + + + EGD (05/25/2014 12:53 PM PDT) + + | Specimen | + + | | + + + + -+ | Narrative | Performed At | + + -+ | | [facility] | | GastroenterologyPatient Name: Carolina [facility] Date: 05/25/2014 | [facility] | | 12:53 PMMRN: [id number] #: [id number] of : | | | 1955dmit Type: AmbulatoryAge: 58Room: [facility] 01Gender: FemaleNote | | | Status: FinalizedAttending MD: Agusto Porter, [facility]: | | | Upper GI endoscopyIndications: Oropharyngeal phase | | | dysphagia, Hepatitis with suspected | | | esophageal varicesProviders: Agusto Porter MD, Carol | | | Linda Interiano RN, Jacquie Alcaraz, | | | Data Warehouse Consultant, Corey Schwab MD (Anesthesia | | | [...] the anesthesiologist and | | | the satellite dish technician in the endoscopy suite. Mental Status [...] On: | | | 05/25/2014 12:53 PM Located Within [facility], [address] | | | [place] [address] | | | - The retroflexed view [...] On: 05/25/2014 12:53 PM | | | Located Within [facility], [address] [place], [place] | | | [address] | | + + -+ + + [...] | [facility] | | GastroenterologyPatient Name: Carolina LantiguaEna Date: 05/25/2014 | [facility] | | 12:52 PMMRN: [id number] #: [id number] of : | | | 3Admit Type: AmbulatoryAge: 58Room: [facility] 01Gender: FemaleNote | | | Status: FinalizedAttending MD: Agusto Porter MDProcedure: | | | ColonoscopyIndications: Screening for [...] physician, the nurse, the anesthesiologist and the satellite dish technician | | | in the endoscopy [...] On: 05/25/2014 | | | 12:52 PM Located Within [facility], [address] [place] [address], | | | [place] [address] | | | - Non-bleeding internal hemorrhoids. [...] On: 05/25/2014 12:52 PM | | | Located Within [facility], [facility] [address] [facility], [place], [place] | | | [address] | | + + -+ + + | Transcriptions | + + | Yessenia Eduardo - 05/25/2014 12:00 AM PDT | + [...]
--- OUTSIDE RECORDS SUMMARY | ~2020-07-10 | XMS | Encounter Summary ---
Demographics + + + | Address | [address] | | | [place] [address] | + + + | Home Phone | | + + + | Preferred Language | Unknown | + + + | Marital Status | | + + + | Scientologist Affiliation | Unknown | + + + | Race | Unknown | + + + | Ethnic Group | Unknown | + + + Author + + + | Author | [facility] | | | and [place] | + + + | Organization | [facility] | | | and [...] | | | | | [place] [address] | | + + + + + Care Team Providers + +------+ + | Care Theology Teacher Name | Role | Phone | [...] | | | | | [address] | | | | | | [place], [place] | (Fax) | | | | | [address] | | | | | | [phone] | | | +--------+ + + + [...]
--- OUTSIDE RECORDS SUMMARY | ~2020-07-10 | XMS | Encounter Summary ---
Demographics + + + | Address | [address] | | | [place] [address] | + + + | Home Phone | | + + + | Preferred Language | Unknown | + + + | Marital Status | | + + + | Buddhism Affiliation | Unknown | + + + | Race | Unknown | + + + | Ethnic Group | Unknown | + + + Author + + + | Author | [facility] | | | and [place]havalana | + + + | Organization | [facility] | | | and [...] | | | | | [place] [address] | | + + + + + Care Team Providers + +------+ + | Care School Attendance Secretary Name | Role | Phone | + [...] Provider Unknown | | | | | [place] | [phone] | | | | | [address] | | | | | | [phone] | | | +--------+ + + + [...] + + + | XR CERVICAL SPINE 4 | Routin | 10/23/2015 | | Results for this | | OR 5 VWS | e | 12:31 AM | | procedure are in the | | | | PST | | results section. | + +--------+ + + + documented in this encounter Results XR Cervical Spine 4 or 5 Vws (10/23/2015 12:31 AM PST) + + | Specimen | [...]
--- OUTSIDE RECORDS SUMMARY | ~2020-07-10 | XMS | Encounter Summary ---
Demographics + + + | Address | [address] | | | [place] [address] | + + + | Home Phone | | + + + | Preferred Language | Unknown | + + + | Marital Status | | + + + | Yarsani Affiliation | Unknown | + + + | Race | Unknown | + + + | Ethnic Group | Unknown | + + + Author + + + | Author | [facility] | | | and Dhavalana | + + + | Organization | [facility] | [...] | | | | | [place] [address] | | + + + + + Care Team Providers + +------+ + | Care Help Desk Technician Name | Role | Phone | [...] | hepatitis C | [address] | | | | ogy | without | [address] | [address] | | | | | hepatic coma | [place], | [place], | | | | | follow up | [place] [address] | [place] [address] | | | | | hep c & test | Phone: | Phone: | | | | | results/pcp | [phone] | [phone] | | | | | | Fax: | Fax: | | | | | mandy/chandni | [phone] | [phone] | | | | | lycare | [...] | Office | [facility] [place] | [facility], | Hepatitis C | | 2013 | Visit | GASTROENTEROLOGY | [place] [address] | infection, without | | | | [address] | [address] | hepatic coma | | | | [address] [place], [place] | [place] | (Primary Dx); Fatty | | | | [address] | [address] | liver; Obesity (BMI | | | | [phone] | | 30-39.9); Marijuana | | | [...] the unique flavors we as sociate with Qatari, , or Ace dishes come from the [...] sesame seeds can add flavors to foods. [phone] [facility], [address] [place] [address], [place] [address]. All rights reserve d. This information is not intended as a substitute for professional medical care. Always fo llow your healthcare professional's instructions. Low Fat Diet A Low-fat diet will help you lose weight. It also can lower cholesterol and prevent symptom s of gallbladder disease. The average Cypriot diet contains up to 50% fat. This [...] or rye bread, john or soda crackers, Nell toast, plain rolls, bag els Avoid: Rolls [...] foods, and all cream sauces and gravies [phone] [facility], [address] [place] [address], [place] [address]. All rights reserve d. This information is [...] regular cheese: Use fat-free or reduced-fat cheese. [phone] [facility], [address] [place] [address], [place] [address]. All rights reserve d. This information is [...] low temperatures. Set it up in the [facility] and dinner will be ready and waiting [...] eat, but it s delicious as well. [place] vegetables as well as meat add bradford [...] Poaching works well for fish or eggs. [phone] [facility], [address] [place] [address], [place] [address]. All rights reserve d. This information is [...] further treatment options with you as needed. [phone] [facility], [address] [place] [address], [place] [address]. All rights reserve d. This information is not intended as a substitute for professional medical care. Always fo llow your healthcare professional's instructions. documented in this encounter Progress Notes Mindi Trejo, CALIBRATION LABORATORY TECHNICIAN - 06/04/2014 11:43 AM PDTFormatting of this [...] COLONOSCOPY performed by Agusto Porter MD at [facility] MEDICAL PROCEDURE UNIT History reviewed. No pertinent [...]
--- OUTSIDE RECORDS SUMMARY | ~2020-07-10 | XMS | Encounter Summary ---
Demographics + + + | Address | [address] | | | [place] [address] | + + + | Home Phone | | + + + | Preferred Language | Unknown | + + + | Marital Status | | + + + | Faith Affiliation | Unknown | + + + | Race | Unknown | + + + | Ethnic Group | Unknown | + + + Author + + + | Author | [facility] | | | and Dhavalana | + + + | Organization | [facility] | | | and Dhavalana [...] | | | | | [place] [address] | | + + + + + Care Team Providers + +------+ + | Care Printing Worker Supervisor Name | Role | Phone | [...] | | | | | | | (FORMERLY [facility]) | | | | | | | [...] | | | | | | | ME | | | | | | | COLONOSCOPY, | | | | | | | DIAGNOSTIC | | | | | | | ME | | | | | | | [...] + + | 05/25/ | Hospital | [facility] | Agusto Porter MD | Dysphagia (Primary | | 2013 | Encounter | MED [facility] IN[facility] OP | [address], [place] | Dx); Heartburn; | | | | [address] | [address] [place], [place] | Hemorrhage of rectum | | | | [place], [place] | [address] | and anus | | | | [address] | | | | | | [phone] | | | +--------+ + + + [...] COLONOSCOPY performed by Agusto Porter MD at [facility] MEDICAL PROCEDURE [facility] HOME MEDS: [...] Electronically Signed by: Agusto Porter MD 11/07/2014 [facility] Portions of this chart may have been created with [employer]kr[employer] voice recognition software. Occasi onal wrong-word or sound-alike substitutions may have occurred due to the inherent gordillo itations of voice recognition software. Please read the chart carefully and recognize, using context, where these substitutions have occurred Agusto Gar MD - 05/25/2014 12:48 PM PDTThe patient denies any further episodes of dysphasia or rectal bleedi ng she believes her rectal bleeding was due to vigorous wiping. Consent forms are signed pa tient has no questions she is oriented x3 vital signs are noted proceed with upper endoscopy for variceal evaluation prior episodes of dysphagia and colonoscopy for colon cancer screen ing indi Trejo ARNP - 05/02/2014 8:06 AM PDT Quick Note: Will follow up after procedure. Please schedule appointment. Thank you documented in this encounter [facility] - 05/25/2014 12:00 AM PDTAssociated Order(s): COLONOSCOPYElectronically si gned by Eduardo Casas at 05/25/2014 1:35 PM [facility] - 05/25/2014 12:00 AM PDTAss ociated Order(s): EGD documen vimal in this encounter Miscellaneous Notes Plan of [facility] - [facility] - 05/29/2014 12:00 AM PDT lan of Care - [facility] - 05/29/2014 12:00 AM PDTElect ronically signed by Eduardo Casas at 05/29/2014 11:34 AM PDTPlan of Care - [facility] - 05/29/2014 12:00 AM PDT isc ellaneous - [facility] - 05/29/2014 12:00 AM PDT documented [...] + | [facility] | [address] | [place], [place] | [phone] | | [facility] | | [address] | | | - LABORATORY | | | | + + + + + | [facility] | [address] | [place], [place] | | | [facility] | | [id number] [place] [address] | | | - LABORATORY | | | | + + + + + EGD (05/25/2014 12:53 PM PDT) + + | Specimen | + + | | + + + + -+ | Narrative | Performed At | + + -+ | | [facility] | | GastroenterologyPatient Name: Carolina AngProcedure Date: 05/25/2014 | [facility]ATION | | 12:53 PMMRN: [id number] #: [id number] of : | | | 3Admit Type: AmbulatoryAge: 58Room: [place] [address]Gender: FemaleNote | | | Status: FinalizedAttending MD: Agusto Porter, [facility]: | | | Upper GI endoscopyIndications: Oropharyngeal phase | | | dysphagia, Hepatitis with suspected | | | esophageal varicesProviders: Agusto Porter MD, Carol | | | Linda Interiano RN, Jacquie Alcaraz, | | | Promos Executive Producer, Corey Schwab MD (Anesthesia | | | [...] the anesthesiologist and | | | the sleep lab technician in the endoscopy suite. Mental [...] On: | | | 05/25/2014 12:53 PM [facility], [address] | | | [place] [address] | | | - The retroflexed view [...] On: 05/25/2014 12:53 PM | | | [facility], [address] [place], [place] | | | [address] | | + + -+ + + [...] At | + + -+ | | [facility] | | GastroenterologyPatient Name: Carolina Bejarano Date: 05/25/2014 | [place] | | 12:52 PMMRN: [id number] #: [id number] of : | | | 1955dmit Type: AmbulatoryAge: 58Room: [facility] 01Gender: FemaleNote | | | [...] physician, the nurse, the anesthesiologist and the sleep lab technician | | | in the [...] On: 05/25/2014 | | | 12:52 PM [facility], [address] [place] [address], | | | [place] [address] | | | - Non-bleeding internal hemorrhoids. [...] On: 05/25/2014 12:52 PM | | | [facility], [address] [place] [address], [place], [place] | | | [address] | | + + -+ + + | Transcriptions | + + | Neilwilder Eduardo - 05/25/2014 12:00 AM PDT | [...] rectum and anus | + + | Hepatitis C Unspecified viral hepatitis C without hepatic coma | + + | Rectal [...]
--- OUTSIDE RECORDS SUMMARY | ~2020-07-10 | XMS | Encounter Summary ---
Demographics + + + | Address | [address] | | | [place] [address] | + + + | Home Phone | | + + + | Preferred Language | Unknown | + + + | Marital Status | Single | + + + | Jew Affiliation | NON | + + + | Race | Unknown | + + + | Ethnic Group | Not or | + + + Author + + + | Author | [facility] | + + + | Organization | [facility] | + + + | Address | Unknown | + + + | Phone | Unavailable | + + + Support + + +---------+ + | Name | Relationship | Address | Phone | + + +---------+ + | Andrew Nelson | ECON | Unknown | | + + +---------+ + Care Team Providers + +------+ + | Care Applications Sales Consultant Name | Role | Phone | [...] (liver biopsy | | 2011 | | Center at [facility] [address] | [place] | with possible | | | | [address] [facility] | | sedation) | | | | for Health and | | | | | | Healing, [address] | | | | | | [place], [place] | | | | | | [address] | | | | | | [phone] | | | +--------+ + + + [...]
--- OUTSIDE RECORDS SUMMARY | ~2020-07-10 | XMS | Encounter Summary ---
Demographics + + + | Address | [address] | | | [place] [address] | + + + | Home Phone | | + + + | Preferred Language | Unknown | + + + | Marital Status | Single | + + + | Episcopal Affiliation | NON | + + + | Race | Unknown | + + + | Ethnic Group | Not or | + + + Author + + + | Author | [facility] | + + + | Organization | [facility] | + + + | Address | Unknown | + + + | Phone | Unavailable | + + + Support + + +---------+ + | Name | Relationship | Address | Phone | + + +---------+ + | Andrew Nelson | ECON | Unknown | | + + +---------+ + Care Team Providers + +------+ + | Care Insulating Machine Operator Name | Role | Phone [...] | | without | [place], [place] | [place], [place] | | | | | mention of | [address] | [address] | | | | | hepatic | Phone: | Phone: | | | | | coma, | [phone] | [phone] | | | | | chronic, | Fax: | Fax: | | | | | without | [phone] | [phone] | | | | | mention of [...] | 2010 | Visit | Center at [facility] [address] | [place] | without mention of | | | | [address] [facility] | | hepatic coma | | | | for Health and | | (Primary Dx) | | | | Healing, [address] | | | | | | [place], [place] | | | | | | [address] | | | | | | [phone] | | | +--------+---------+ + + + [...] 12/15/2011 03: 16 PM Modules accepted: Orders iren Gutierrez PA - 09/14/2011 1:25 PM PDT ID: Carolina Ang is a 56 y.o. female patient of Deandre Mcintosh who was referred to the [facility] Hepatology [facility] for consultation regarding Chronic Hepatitis [...] outpatient prescriptions on file. Pt will call [facility] list Past medical history Depression Past surgical [...] RONALDO | | | LAB NAME | [id number] [facility] | | DEPARTMENT | | | | [place] [address] | | OF | | | | [phone]. | | PATHOLOGY | | | | com | | | | + + + + + + + + | Specimen | + + | | + + + + + + + | Performing | Address | City/State/Zipcode | Phone Number | | Organization | | | | + + + + + | [facility] DEPARTMENT OF | [address] | [place] [address] | | | PATHOLOGY | [address] [...] Due to a reagent issue, | | [facility] | | | GENOTYPE | we are temporarily | | [facility] | | | | unable to offer | | LABS | | | | Hepatitis CGenotype | | | | | | testing at [facility]. The | | | | | | samples will be sent to | | | | | | Patient Feedfor | | | | | | testing. [...] + | SPECIMEN | Plasma | | [facility] | | | TYPE | | | [...] + + + + | [facility] | [facility] | [place] [address] | | | GENETICS LABS | [address] | | | | | AVE. [...] At | + + + | [facility] ([facility] [address] [facility]) [place] | [place] | | [place] [address] [facility] | REGIONAL | | [place] [address] | LABORATORY | + + + + + + + + | Performing | Address | City/State/Zipcode | Phone Number | | Organization | | | | + + + + + | [facility] | [address] | [place] [address] | | | LABORATORY | | | [...] [place] | [place] | | [place] [address] | REGIONAL | | [place] [address] | LABORATORY | + + + + + + + + | Performing | Address | City/State/Zipcode | Phone Number | | Organization | | | | + + + + + | [facility] | [address] | [place] [address] | | | LABORATORY | | | [...] [place] | [place] | | [place] [address] [facility] | REGIONAL | | [place] [address] | LABORATORY | + + + + + + + + | Performing | Address | City/State/Zipcode | Phone Number | | Organization | | | | + + + + + | [facility] | [address] | [place] [address] | | | LABORATORY | | | [...] [place] | [place] | | [place] [address] | REGIONAL | | [place] [address] | LABORATORY | + + + + + + + + | Performing | Address | City/State/Zipcode | Phone Number | | Organization | | | | + + + + + | [facility] | [address] | [place] [address] | | | LABORATORY | | | [...] [place] | [place]AL | | [place] [address] | LABORATORY | | [place] [address] | | + + + + + + + + | Performing | Address | City/State/Zipcode | Phone Number | | Organization | | | | + + + + + | [facility] | [address] | [place] [address] | | | LABORATORY | | | [...] | | | [facility] ([address] [facility]) [facility] [address] | | | [address] [facility] [place] | | | [address] Because MATTY titers of 1:40 and 1:80 [...] of autoimmune disease. | | | [facility] ([facility]) [facility] | | | [address] [place], [place] | | | [address] | | + + + + + + + + | Performing | Address | City/State/Zipcode | Phone Number | | Organization | | | | + + + + + | [facility] | [address] [address] | [place] [address] | | | LABORATORY | | | [...] Way Lab) [place] | [place] | | [place] [address] | REGIONAL | | [place] [address] | LABORATORY | + + + + + + + + | Performing | Address | City/State/Zipcode | Phone Number | | Organization | | | | + + + + + | [facility] | [address] | [place] [address] | | | LABORATORY | | | [...] + + + + + | [place] DEPARTMENT OF | [address] | [place] [address] | | | PATHOLOGY | [address] [...] | + + + + + | [facility] | [address] | [place] [address] | | | PATHOLOGY | [address] [...] | + + + + + | [facility] DEPARTMENT OF | [address] | [place] [address] | | | PATHOLOGY | [address] | | | + + + + + documented in this encounter Visit Diagnoses + + | Diagnosis | + + | Chronic hepatitis C without mention of hepatic coma - Primary | + + documented in this encounter
--- OUTSIDE RECORDS SUMMARY | ~2020-07-10 | XMS | Encounter Summary ---
Demographics + + + | Address | [address] | | | [place] [address] | + + + | Home Phone | | + + + | Preferred Language | Unknown | + + + | Marital Status | Single | + + + | Cheondoism Affiliation | NON | + + + | Race | Unknown | + + + | Ethnic Group | Not or | + + + Author + + + | Author | [facility] | + + + | Organization | [facility] | + + + | Address | Unknown | + + + | Phone | Unavailable | + + + Support + + +---------+ + | Name | Relationship | Address | Phone | + + +---------+ + | Andrew Nelson | ECON | Unknown | | + + +---------+ + Care Team Providers + +------+ + | Care Manager Route Name | Role | Phone | + [...] | | without | [place], [place] | [place], [place] | | | | | mention of | [address] | [address] | | | | | hepatic | Phone: | Phone: | | | | | coma, | [phone] | [phone] | | | | | chronic, | Fax: | Fax: | | | | | without | [phone] | [phone] | | | | | mention of [...] | 2010 | Visit | Center at [facility] [address] | [place] | without mention of | | | | [address] [facility] | | hepatic coma | | | | for Health and | | (Primary Dx) | | | | Healing, [address] | | | | | | [place], [place] | | | | | | [address] | | | | | | [phone] | | | +--------+---------+ + + + [...] Deandre Mcintosh who was referred to the [facility] Hepatology [facility] for consultation regarding Chronic Hepatitis [...] outpatient prescriptions on file. Pt will call [employer] list Past medical history Depression Past surgical [...] RONALDO | | | LAB NAME | [id number] [facility] | | DEPARTMENT | | | | [place] [address] | | OF | | | | [phone]. | | PATHOLOGY | | | | com | | | | + + + + + + + + | Specimen | + + | | + + + + + + + | Performing | Address | City/State/Zipcode | Phone Number | | Organization | | | | + + + + + | [facility] DEPARTMENT OF | [address] | [place] [address] | | | PATHOLOGY | [address] [...] Due to a reagent issue, | | [facility] | | | GENOTYPE | we are temporarily | | [facility] | | | | unable to offer | | LABS | | | | Hepatitis CGenotype | | | | | | testing at [facility]. The | | | | | | samples will be sent to | | | | | | Art Sumofor | | | | | | testing. [...] + | SPECIMEN | Plasma | | [facility] | | | TYPE | | | [...] + + + + | [facility] | [facility] | [place] [address] | | | GENETICS LABS | [address] | | | | | AVE. [...] At | + + + | [facility] ([address] [facility]) [place] | [place] | | [place] [address] [facility] | REGIONAL | | [place] [address] | LABORATORY | + + + + + + + + | Performing | Address | City/State/Zipcode | Phone Number | | Organization | | | | + + + + + | [facility] | [address] | [place] [address] | | | LABORATORY | | | [...] [place] | [place] | | [place] [address] | REGIONAL | | [place] [address] | LABORATORY | + + + + + + + + | Performing | Address | City/State/Zipcode | Phone Number | | Organization | | | | + + + + + | [facility] | [address] | [place] [address] | | | LABORATORY | | | [...] [place] | [place] | | [place] [address] [facility] | REGIONAL | | [place] [address] | LABORATORY | + + + + + + + + | Performing | Address | City/State/Zipcode | Phone Number | | Organization | | | | + + + + + | [facility] | [address] | [place] [address] | | | LABORATORY | | | [...] [place] | [place] | | [place] [address] | REGIONAL | | [place] [address] | LABORATORY | + + + + + + + + | Performing | Address | City/State/Zipcode | Phone Number | | Organization | | | | + + + + + | [facility] | [address] | [place] [address] | | | LABORATORY | | | [...] [place] | [place]IONAL | | [place] [address] | LABORATORY | | [place] [address] | | + + + + + + + + | Performing | Address | City/State/Zipcode | Phone Number | | Organization | | | | + + + + + | [facility] | [address] | [place] [address] | | | LABORATORY | | | [...] | | | [facility] ([address] [facility]) [facility] [address] | | | [address] [facility] [place] | | | [address] Because MATTY titers of 1:40 and 1:80 [...] of autoimmune disease. | | | [facility] ([facility]) [facility] | | | [address] [place], [place] | | | [address] | | + + + + + + + + | Performing | Address | City/State/Zipcode | Phone Number | | Organization | | | | + + + + + | [facility] | [address] [facility] [address] | [place] [address] | | | LABORATORY | | | [...] [place] | [place] | | [place] [address] | REGIONAL | | [place] [address] | LABORATORY | + + + + + + + + | Performing | Address | City/State/Zipcode | Phone Number | | Organization | | | | + + + + + | [facility] | [address] | [place] [address] | | | LABORATORY | | | [...] DEPARTMENT OF | [address] | [place] [address] | | | PATHOLOGY | [address] [...] | + + + + + | [facility] | [address] | [place] [address] | | | PATHOLOGY | [address] [...] | | | DEPARTMENT | | | [place]IAN | | | OF | | | [...] + + + + | [facility] DEPARTMENT OF | [address] | [place] [address] | | | PATHOLOGY | [address] | | | + + + + + documented in this encounter Visit Diagnoses + + | Diagnosis | + + | Chronic hepatitis C without mention of hepatic coma - Primary | + + documented in this encounter
--- OUTSIDE RECORDS SUMMARY | ~2020-07-10 | XMS | Encounter Summary ---
Demographics + + + | Address | [address] | | | [place] [address] | + + + | Home Phone | | + + + | Preferred Language | Unknown | + + + | Marital Status | Single | + + + | Mandaen Affiliation | NON | + + + [...] Team Providers + +------+ + | Care Clinical Training Specialist Name | Role | Phone | [...] | | without | [place], [place] | [place], [place] | | | | | mention of | [address] | [address] | | | | | hepatic | Phone: | Phone: | | | | | coma, | [phone] | [phone] | | | | | chronic, | Fax: | Fax: | | | | | without | [phone] | [phone] | | | | | mention of [...] of | | | | [address] [facility] | | hepatic coma | | | | for Health and | | (Primary Dx) | | | | Healing, [address] | | | | | | [place], [place] | | | | | | [address] | | | | | | [phone] | | | +--------+---------+ + + + [...] | | | | Test performed by [facility] [address] | | | [place] [address] | | |[facility] | | |[address] | | |[place] [address] | | + + + + + + + + | Performing | Address | City/State/Zipcode | Phone Number | | Organization | | | | + + + + + | [facility] | | | | + + + + + | [facility] LABORATORY | [address] | [place] [address] | | | SERVICES, CORE | PARK [...] + | [place] [facility] - | [address] | [place] [address] | | | [place] | | | [...] + | [place] [facility] | [address] | [place] [address] | | | [place] | | | [...] | + + + + + | [place] [facility] | [address] | [place] [address] | | | [place] | | | | + + + [...] [facility] | [address] | [place] [address] | | | SERVICES, CORE | PARK [...] | | | LABORATORY | | | [place] | | | SERVICES, | | | [...] | + + + + + | [facility]ORY | [address] | [place] [address] | | | [facility] | [address] | | | + + + + + documented in this encounter Visit Diagnoses + + | Diagnosis | + + | Chronic hepatitis C without mention of hepatic coma - Primary | + + documented in this encounter
--- OUTSIDE RECORDS SUMMARY | ~2020-07-10 | XMS | Encounter Summary ---
Demographics + + + | Address | [address] | | | [place] [address] | + + + | Home Phone | | + + + | Preferred Language | Unknown | + + + | Marital Status | | + + + | Episcopal Affiliation | Unknown | + + + | Race | Unknown | + + + | Ethnic Group | Unknown | + + + Author + + + | Author | [facility] | | | and Dhavalana | + + + | Organization | [facility] | | | and Dhavalana [...] | + + + + + | Mgadiel Andrews | ECON | [address] | | | | | [place] [address] | | + + + + + Care Team Providers + +------+ + | Care Inspector Fabric Name | Role | Phone | + [...] | | | | | | ([facility]) | | | | | | | [...] | | | | | [address] | [place] | | | | | [place] | [address] | | | | | [address] | | | | | | [phone] | | | +--------+ + + + [...] + + documented as of this encounter [place] Notes Anesthesia Postprocedure Evaluation - Corey Schwab MD - 05/25/2014 1:24 PM PDTFormatti ng of this note might be different from the original. ANESTHESIA POSTANESTHESIA EVALUATION Carolina Ang 58 y.o. female 1955 [id number] Procedure: Procedure(s):EGD / COLONOSCOPY Filed Vitals: 05/25/14 1000 05/25/14 1319 05/25/14 1320 BP: 136/81 89/49 87/53 Pulse: 80 77 77 Temp: 36.6 C (97.9 F) 36.4 C (97.5 F) 36.4 C (97.5 F) Resp: 18 14 14 SpO2: 92% 96% 96% Cooperates? Yes Mental Status Performs simple tasks. Respiratory Satisfactory - Airway patent (self maintained). Cardiovascular Satisfactory Blood pressure and heart rate acceptable Temperature Satisfactory Pain Satisfactory N/V Control Satisfactory Hydration Satisfactory No signs of dehydration Complications None apparent Electronically signed by Corey Schwab MD 05/25/2014 13:24 [facility] nesthesia Preprocedu re Evaluation - Corey Schwab MD - 05/25/2014 12:06 PM PDTFormatting of this note might b e different from the original. ANESTHESIA PREANESTHESIA EVALUATION Carolina Ang 58 y.o. female 1955 [id number] Scheduled procedure EGD / COLONOSCOPY [EGDCOLO] - EGD / COLONOSCOPY Medical history, anesthesia, medications, allergy histories reviewed. ECG reviewed. Labs reviewed. ROS / Med History Ane (-) PONV, difficult intubation, malignant hyperthermia . NPO status verified. CV (-) past GA. Exercise tolerance <4 METS. Pulm No acute pulmonary concerns.. (+) COPD, active smoking (49 pack years). Neuro (-) CVA. Psych (+) substance abuse (marijuana). Renal (-) chronic renal insufficiency GI/Hep (+) reflux/GERD. (+) hepatitis: type C. Endo (-) Diabetes.(+) obesity: BMI (30-39). Physical Exam Airway MP I, TM >3 FB, Mouth opening >2 FB. Neck: full ROM, extends >30 degrees. Dental Adriana sly normal except where noted below.; CV Rhythm regular. Rate Normal. (-) murmur. Pulm Clear to auscultation bilaterally. Neuro Grossly normal. Anesthesia Plan ASA 3 Type: Total IV anesthesia. Induction: Intravenous. Potential problems: None anticipated. Monitors: Standard ASA monitors. Consent statement:Anesthetic plan, alternatives, risks and benefits discussed with patient. Risks discussed included (but were not limited to): perioperative CV events, sore throat, d eath, heart problems, respiratory events, nausea, . Consenting person understands and agrees to proceed. PARQ. TIVA w/ propofol. Smoking cessation encouraged.. documented in this en counter Plan of [...] mg | | | | PRN, Starting Wed05/25/14 at | | 14 12:56 | | [...]
--- OUTSIDE RECORDS SUMMARY | ~2020-07-10 | XMS | Encounter Summary ---
Demographics + + + | Address | [address] | | | [place] [address] | + + + | Home Phone | | + + + | Preferred Language | Unknown | + + + | Marital Status | | + + + | Yazidism Affiliation | Unknown | + + + | Race | Unknown | + + + | Ethnic Group | Unknown | + + + Author + + + | Author | [facility] | | | and Dhavalana | + + + | Organization | [facility] | | | and Dhavalana [...] | | | | | [place] [address] | | + + + + + Care Team Providers + +------+ + | Care Case Loader Operator Name | Role | Phone | + +------+ + | Corey Galvan MD | PCP | | + +------+ + Reason for Visit +--------+--------+ + | Reason | Onset | Comments | | | Date | | +--------+--------+ + | Other | 05/08/ | ZOFRAN | | | 2013 | | +--------+--------+ + Encounter Details +--------+ + + + + | Date | Type | Department | Care Team | Description | +--------+ + + + + | 05/08/ | Telephone | [facility] | Maya, | Kenna (ESTER) | | 2013 | | GASTROENTEROLOGY | [address] | | | | | [address] [place] | [address] | | | | | [address] | [place] | | | | | [address] | [phone] | | | | | [phone] | | | +--------+ + + + [...] - Luda Carrasco, Master of Arts - 05/08/2014 11:37 AM PDTSpoke to patient about needing to get a prior authorization for refill of Zofran. Patient states she did not ask for a refill of this! Told her we received a notice from her Pharmacy asking for one. She said she will call Pharmacy as she does not want refill. Also she received new ins urance card she is going to take to Pharmacy stating that it pays for prescriptions.Lamont chapman signed by Luda Carrasco Master of Arts at 05/08/2014 11:40 AM PDTdocumented in t his encounter Plan of Treatment Not on filedocumented as of this encounter Visit Diagnoses Not on filedocumented in this encounter"
--- OUTSIDE RECORDS SUMMARY | ~2020-07-10 | XMS | Encounter Summary ---
Demographics + + + | Address | [address] | | | [place] [address] | + + + | Home Phone | | + + + | Preferred Language | Unknown | + + + | Marital Status | | + + + | Amish Affiliation | Unknown | + + + | Race | Unknown | + + + | Ethnic Group | Unknown | + + + Author + + + | Author | [facility] | | | and Dhavalana | + + + | Organization | [facility] | | | and Dhavalana [...] | | | | | [place] [address] | | + + + + + Care Team Providers + +------+ + | Care Color Checker Roving Or Yarn Name | Role | Phone | + +------+ + | Corey Galvan MD | PCP | | + +------+ + Encounter Details +--------+ + + + + | Date | Type | Department | Care Team | Description | +--------+ + + + + | 04/06/ | Abstract | [facility] [place] | [facility], | | | 2013 | | GASTROENTEROLOGY | [place] [address] | | | | | [address] | [address] | | | | | [address] [place] | [place] | | | | | [address] | [address] | | | | | [phone] | | | +--------+ + + + [...] documented in this encounter Results External Lab: AST (12/07/2012 12:33 PM PST) + +-------+ + [...] Resulting Agency Comment | + + | [facility] | + + + +---------+ [...] Resulting Agency Comment | + + | [facility] | + + + +---------+ [...] | | | LAB | | | [place], | | | | | | External | | | | | + +-------+ + + + + + | Specimen | + + | Blood specimen | | (specimen) | + + + + | Resulting Agency Comment | + + | [facility] | + + + +---------+ [...] Resulting Agency Comment | + + | [facility] | + + + +---------+ [...] [facility] | | | | | [facility] | | | | | | [facility] - | | | | | | LABORATORY | | + +-------+ + + + | CO2 | 30 | mmol/L | [facility] | | | [facility] | | | | | | [facility] | | | | | | C[facility] - | | | | | | LABORATORY | | + +-------+ + + + | Anion Gap | 13 | mmol/L | [facility] | | | | | | [facility] | | [...] | + + + + + | [address] | [address] | [place], [place] | | | [facility] | | [id number] | | | - LABORATORY | | | | + + + + + Hepatitis C RNA, quantitative, PCR (06/24/2011) + + + + + + | Component | Value | Ref Range | Performed | Pathologist | | | | | At | Signature | + + + + + + | HCV | 2,909,913 | | [facility] | | | Quantitativ | | | [facility] | | | e | | | MEDICAL | | | | | | CENTER - | | | | | | LABORATORY | | + + + + + + | HCV | 6.5 | | [facility] | | | Quantitativ | | | [facility] | | | e Log | [...] | | + +---------+ + + | [facility] | | | | | [facility] | | | | | - [...]
--- OUTSIDE RECORDS SUMMARY | ~2020-07-10 | XMS | Encounter Summary ---
Demographics + + + | Address | [address] | | | [place] [address] | + + + | Home Phone | | + + + | Preferred Language | Unknown | + + + | Marital Status | | + + + | Voodoo Affiliation | Unknown | + + + | Race | Unknown | + + + | Ethnic Group | Unknown | + + + Author + + + | Author | [facility] | | | and Dhavalana | + + + | Organization | [facility] | | | and Dhavalana | [...] | | | | | [place] [address] | | + + + + + Care Team Providers + +------+ + | Care Post Commander Name | Role | Phone | + +------+ + | Corey Galvan MD | PCP | | + +------+ + Reason for Visit +--------+--------+ + | Reason | Onset | Comments | | | Date | | +--------+--------+ + | Other | 04/26/ | | | | 2013 | | +--------+--------+ + Encounter Details +--------+ + + + + | Date | Type | Department | Care Team | Description | +--------+ + + + + | 04/26/ | Telephone | [facility] | Maya, | [facility] | | 2013 | | GASTROENTEROLOGY | [address] | | | | | [address] | [address] | | | | | [address] | [place] | | | | | [address] | [address] | | | | | [phone] | | | +--------+ + + + [...] this encounter Miscellaneous Notes Telephone Encounter - Mindi Trejo ARNP - 04/26/2014 11:35 AM PDTZofran sent. elephone Enccarmelo thompson - Luda Carrasco, Master of Arts - 04/26/2014 11:09 AM PDTSpoke to Carolina Mary javon d like to know if she would like something for nausea? patient said she would like something called to [facility]. elephone Encounter - Luda Carrasco, Master of Arts - 04/26/2014 10:37 AM PDTPatient had a liver biopsy yesterday and is sick to her stomach today , nausea and vomiting.wants to reschedule procedure for tomorrow . This was rescheduled to May 25 jonhnie in at 1000 am. Will send new instructions for her. Patient verbalized understanding.Elec tronically signed by Luda Carrasco Master of Arts at 04/26/2014 10:40 AM PDTdocumented in this encounter Plan of Treatment Not on filedocumented as of this encounter Visit Diagnoses Not on filedocumented in this encounter"
--- OUTSIDE RECORDS SUMMARY | ~2020-07-10 | XMS | Encounter Summary ---
Demographics + + + | Address | [address] | | | [place] [address] | + + + | Home Phone | | + + + | Preferred Language | Unknown | + + + | Marital Status | Single | + + + | Oriental Orthodox Affiliation | NON | + + + | Race | Unknown | + + + | Ethnic Group | Not or | + + + Author + + + | Author | [facility] | + + + | Organization | [facility] | + + + | Address | Unknown | + + + | Phone | Unavailable | + + + Support + + +---------+ + | Name | Relationship | Address | Phone | + + +---------+ + | Andrew Nelson | ECON | Unknown | | + + +---------+ + Care Team Providers + +------+ + | Care Transmission Design Engineer Name | Role | Phone | [...] | Scheduling | | 2012 | | [address] [place] [address] [address] | [place] | | | | | [address] | | | | | | for Health and | | | | | | Healing, [address] | | | | | | [place], [place] | | | | | | [address] | | | | | | [phone] | | | +--------+ + + + [...]
--- OUTSIDE RECORDS SUMMARY | ~2020-07-10 | XMS | Encounter Summary ---
Demographics + + + | Address | [address] | | | [place] [address] | + + + | Home Phone | | + + + | Preferred Language | Unknown | + + + | Marital Status | Single | + + + | Taoist Affiliation | NON | + + + | Race | Unknown | + + + | Ethnic Group | Not or | + + + Author + + + | Author | [facility] | + + + | Organization | [facility] | + + + | Address | Unknown | + + + | Phone | Unavailable | + + + Support + + +---------+ + | Name | Relationship | Address | Phone | + + +---------+ + | Andrew Nelson | ECON | Unknown | | + + +---------+ + Care Team Providers + +------+ + | Care Case Managers Name | Role | Phone | + [...] | | 2011 | | Center at [facility] [address] | [place] | with possible | | | | [address] [facility] | | sedation) | | | | for Health and | | | | | | Healing, [address] | | | | | | [place], [place] | | | | | | [address] | | | | | | [phone] | | | +--------+ + + + [...]
--- OUTSIDE RECORDS SUMMARY | ~2020-07-10 | XMS | Encounter Summary ---
Demographics + + + | Address | [address] | | | [place] [address] | + + + | Home Phone | | + + + | Preferred Language | Unknown | + + + | Marital Status | | + + + | Mu-Ism Affiliation | Unknown | + + + | Race | Unknown | + + + | Ethnic Group | Unknown | + + + Author + + + | Author | [facility] | | | and Dhavalana | + + + | Organization | [facility] [...] | | | | | [place] [address] | | + + + + + Care Team Providers + +------+ + | Care Cabana Attendant Name | Role | Phone | [...] | | | | | [address] | [place], [place] | | | | | [place], [place] | [address] | | | | | [address] | [phone] | | | | | [phone] | | | +--------+---------+ + + + [...] signed by: Agusto Vital MD, 04/25/2014 12:07 [facility] indi Trejo ARNP - 04/09/2014 12:01 PM [...] changes, or confusion. Patient was seen at [facility] 09/2013. Records indicate negative HBV panel. [...] Genotype 06/24/2011 1a Final HCV Quantitative 06/24/2011 [id number] Final HCV Quantitative Log 06/24/2011 6.5 Final [...] and AFP. All other labs done by [facility]. Vaccination: If it has not been done, recommend patient is vaccinated for both Hepatitis A and Hepatitis B. Transmission: Discussed following infection control guidelines. Inform [facility] of HCV infection. Avoid sharing [...] t his encounter Miscellaneous Notes Miscellaneous - [facility] - 05/01/2014 12:00 AM PDT lan [facility] - 04/26/2014 12:00 AM PDTElec tronically signed by Eduardo Casas at 04/26/2014 12:16 PM PDTMiscellaneous - [facility] - 04/26/2014 12:00 AM PDT i scellaneous - [facility] - 04/26/2014 12:00 AM PDT p Shona Pfeiffer RN - 04/25/2014 1:56 PM PDTDc'd Iv intact. Vitals stable. Dc instructions given to pt. Her bellman driver is here. [address] Home in good and stable condition.Electronically signed by Shona Oro RN at 1:58 PM PDTOp Shona Pfeiffer RN - 04/25/2014 1:43 PM [id number] Alert and oriented, denies any discomfort at this time.Electronically signed by JOSE Mauricio t 04/25/2014 1:46 PM PDTOp Shona Pfeiffer RN - 04/25/2014 1:21 PM [id number] Pt ar rived laying on her right side, vitals stable. [...] signed by: Agusto Vital MD, 04/25/2014 12:11 [facility] documented in this en counter Plan of [...] The | | | patient was placed [id number]-narl-[id number] down and remained this way for | [...] wasapplied. | | The patient was placed perbk-aqer-rmya down and remained this way forapproximately 1 [...] + | MISCELLANEOUS LAB | | | [phone] | + +---------+ + + | MISCELANIOUS LAB | | | [phone] | + +---------+ + + POC Fingerstick [...]
--- OUTSIDE RECORDS SUMMARY | ~2020-07-10 | XMS | Encounter Summary ---
Demographics + + + | Address | [address] | | | [place] [address] | + + + | Home Phone | | + + + | Preferred Language | Unknown | + + + | Marital Status | | + + + | Anglican Affiliation | Unknown | + + + | Race | Unknown | + + + | Ethnic Group | Unknown | + + + Author + + + | Author | [facility] | | | and Dhavalana | + + + | Organization | [facility] | [...] | | | | | [place] [address] | | + + + + + Care Team Providers + +------+ + | Care Production Superintendent Name | Role | Phone | + +------+ + | Corey Galvan MD | PCP | | + +------+ + Encounter Details +--------+ + + + + | Date | Type | Department | Care Team | Description | +--------+ + + + + | 08/26/ | Hospital | [facility] | Conversion | Neck pain | | 2017 | Encounter | CONVERSION [address] | Transaction, | | | | | [address] | Provider Unknown | | | | | [place] | [phone] | | | | | [address] | | | | | | [phone] | | | +--------+ + + + [...]
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
--- OUTSIDE RECORDS SUMMARY | ~2020-07-10 | XMS | Encounter Summary ---
Demographics + + + | Address | [address] | | | [place] [address] | + + + | Home Phone | | + + + | Preferred Language | Unknown | + + + | Marital Status | Single | + + + | Congregational Affiliation | NON | + + + [...] Team Providers + +------+ + | Care Sales And Support Center Agent Name | Role | Phone | + +------+ + | Corey Galvan MD | PCP | Unavailable | + +------+ + Encounter Details +--------+------+ + + + | Date | Type | Department | Care Team | Description | +--------+------+ + + + | 10/04/ | Lab | Laboratory at [facility] | | Chronic hepatitis C | | 2012 | | [address] | | without mention of | | | | [place] [facility] | | hepatic coma | | | | and Healing, | | | | | | [address] | | | | | | [place], [place] | | | | | | [address] | | | | | | [phone] | | | +--------+------+ + + + [...] | + + + + + | [facility] | [address] | [place] [address] | | | SERVICES, CORE | PARK [...] | | | | Test performed by [id number] | | | [place] [address] | | |[facility] | | |[address] | | |[place] [address] | | + + + + + + + + | Performing | Address | City/State/Zipcode | Phone Number | | Organization | | | | + + + + + | [facility] | | | | + + + + + | [facility] | [address] | [place] [address] | | | SERVICES, CORE | PARK [...] + | [place] [facility] - | [address] | [place] [address] | | | [place] | | | [...] + | [facility] - | [address] | [place] [address] | | | [place] | | | [...] + | [place] [facility] - | [address] | [place] [address] | | | [place] | | | | + + + [...] [facility] | [address] | [place] [address] | | | SERVICES, CORE | PARK [...] | | | LABORATORY | | | SUDANESE | | | SERVICES, | | | [...] | + + + + + | [facility] | [address] | [place] [address] | | | SERVICES, JOSH | OLIVA SAMANO | | | + + + + + documented in this encounter Visit Diagnoses + + | Diagnosis | + + | Chronic hepatitis C without mention of hepatic coma | + + documented in this encounter"
--- OUTSIDE RECORDS SUMMARY | ~2020-07-10 | XMS | Clinical Summary ---
Demographics + + + | Address | [address] | | | [place] [address] | + + + | Home Phone [...] Author + + + | Author | [facility] | + + + | Organization | [facility] | + + + | Address | Unknown | + + + | Phone | Unavailable | + + + Support + + +---------+ + | Name | Relationship | Address | Phone | + + +---------+ + | Andrew Nelson | ECON | Unknown | | + + +---------+ + Care Team Providers + +------+ + | Care Road Machinery Inspector Name | Role | Phone | + +------+ + PCP | Unavailable | + +------+ + Source Comments RONALDO is fully live on both [facility] Ambulatory and [facility] InPatient.[facility] Allergies Not on File Medications + +-----+ [...] | | | + +--------+ +--------+-------+---------+--------+ | 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
--- OUTSIDE RECORDS SUMMARY | ~2020-07-10 | XMS | Encounter Summary ---
Demographics + + + | Address | [address] | | | [place] [address] | + + + | Home Phone | | + + + | Preferred Language | Unknown | + + + | Marital Status | Single | + + + | Amish Affiliation | NON | + + + | Race | Unknown | + + + | Ethnic Group | Not or | + + + Author + + + | Author | [facility] | + + + | Organization | [facility] | + + + | Address | Unknown | + + + | Phone | Unavailable | + + + Support + + +---------+ + | Name | Relationship | Address | Phone | + + +---------+ + | Andrew Nelson | ECON | Unknown | | + + +---------+ + Care Team Providers + +------+ + | Care Reconsignment Clerk Name | Role | Phone | + +------+ + | Corey Galvan MD | PCP | Unavailable | + +------+ + Encounter Details +--------+ + + + + | Date | Type | Department | Care Team | Description | +--------+ + + + + | 06/23/ | Abstract | [facility] | Hiren Gutierrez, | | | 2012 | | [address] [place] [address] [address] | [place] | | | | | [address] [facility] | | | | | | for Health and | | | | | | Healing, [address] | | | | | | [place], [place] | | | | | | [address] | | | | | | [phone] | | | +--------+ + + + [...]
--- OUTSIDE RECORDS SUMMARY | ~2020-07-10 | XMS | Encounter Summary ---
Demographics + + + | Address | [address] | | | [place] [address] | + + + | Home Phone | | + + + | Preferred Language | Unknown | + + + | Marital Status | | + + + | Mosque Affiliation | Unknown | + + + | Race | Unknown | + + + | Ethnic Group | Unknown | + + + Author + + + | Author | [facility] | | | and Dhavalana | + + + | Organization | [facility] | | [...] | | | | | [place] [address] | | + + + + + Care Team Providers + +------+ + | Care Refrigeration Service Inspector Name | Role | Phone | + +------+ + | Corey Galvan MD | PCP | | + +------+ + Reason for Visit + +--------+ + | Reason | Onset | Comments | | | Date | | + +--------+ + | Appointment | 04/11/ | liver biopsy | | | 2013 | | + +--------+ + Encounter Details +--------+ + + + + | Date | Type | Department | Care Team | Description | +--------+ + + + + | 04/11/ | Telephone | [facility] | [facility], | Appointment (liver | | 2013 | | GASTROENTEROLOGY | [place] [address] | biopsy) | | | | [address] | [address] | | | | | [address] | [place] | | | | | [address] | [address] | | | | | [phone] | | | +--------+ + + + [...] - Luda Carrasco, Master of Arts - 04/11/2014 3:40 PM PDTSpoke austin kelly Figueroa,scheduled her for liver biopsy at [facility] April 25, check in at 1000 am NPO after midnig ht. She is going to have blood drawn at [facility] on April 20. Patient verbalized tiffany hargrove. do cumented in this encounter Plan of Treatment Not on filedocumented as of this encounter Visit Diagnoses Not on filedocumented in this encounter"
--- OUTSIDE RECORDS SUMMARY | ~2020-07-10 | XMS | Encounter Summary ---
Demographics + + + | Address | [address] | | | [place] [address] | + + + | Home Phone | | + + + | Preferred Language | Unknown | + + + | Marital Status | | + + + | Jain Affiliation | Unknown | + + + | Race | Unknown | + + + | Ethnic Group | Unknown | + + + Author + + + | Author | [facility] | | | and Dhavalana | + + + | Organization | [facility] | | | and [...] | | | | | [place] [address] | | + + + + + Care Team Providers + +------+ + | Care Computing Consultant Name | Role | Phone | + +------+ + | Corey Galvan MD | PCP | | + +------+ + Encounter Details +--------+ + + + + | Date | Type | Department | Care Team | Description | +--------+ + + + + | 07/10/ | Orders Only | [facility] | Provider, | | | 2019 | | SYSTEM GENERIC OP | MD [address] | | | | | [address]VERSION [address] | [address] | | | | | [address] [place], [place] | [place] [address] | | | | | [address] | | | | | | [phone] | | | +--------+ + + + [...]
--- OUTSIDE RECORDS SUMMARY | ~2020-07-10 | XMS | Encounter Summary ---
Demographics + + + | Address | [address] | | | [place] [address] | + + + | Home Phone | | + + + | Preferred Language | Unknown | + + + | Marital Status | Single | + + + | Hindu Affiliation | NON | + + + | Race | Unknown | + + + | Ethnic Group | Not or | + + + Author + + + | Author | [facility] | + + + | Organization | [facility] | + + + | Address | Unknown | + + + | Phone | Unavailable | + + + Support + + +---------+ + | Name | Relationship | Address | Phone | + + +---------+ + | Andrew Nelson | ECON | Unknown | | + + +---------+ + Care Team Providers + +------+ + | Care Donor Relations Manager Name | Role | Phone | + +------+ + | Corey Galvan MD | PCP | Unavailable | + +------+ + Encounter Details +--------+ + + + + | Date | Type | Department | Care Team | Description | +--------+ + + + + | 06/23/ | Abstract | [facility] | Hiren Gutierrez, | | | 2012 | | [address] [place] [address] [address] | [place] | | | | | [address] [facility] | | | | | | for Health and | | | | | | Healing, [address] | | | | | | [place], [place] | | | | | | [address] | | | | | | [phone] | | | +--------+ + + + [...]
--- OUTSIDE RECORDS SUMMARY | ~2020-07-10 | XMS | Encounter Summary ---
Demographics + + + | Address | [address] | | | [place] [address] | + + + | Home Phone [...] | Author | [facility] | | | and Dhavalana | + + + | Organization | [facility] | | | and Dhavalana [...] | | | | | [place] [address] | | + + + + + Care Team Providers + +------+ + | Care Dispensing Audiologist Name | Role | Phone | + +------+ + | Corey Galvan MD | PCP | | + +------+ + Encounter Details +--------+ + + + + | Date | Type | Department | Care Team | Description | +--------+ + + + + | 02/28/ | Documentati | [facility] [address] [place] | [facility], | | | 2013 | on | GASTROENTEROLOGY | [place] [address] | | | | | [address] | [address] | | | | | [address] | [place] | | | | | [address] | [id number] | | | | | [phone] | | | +--------+ + + + [...]
--- OUTSIDE RECORDS SUMMARY | ~2020-07-10 | XMS | Encounter Summary ---
Demographics + + + | Address | [address] | | | [place] [address] | + + + | Home Phone | | + + + | Preferred Language | Unknown | + + + | Marital Status | | + + + | Taoism Affiliation | Unknown | + + + | Race | Unknown | + + + | Ethnic Group | Unknown | + + + Author + + + | Author | [facility] | | | and Dhavalana | + + + | Organization | [facility] | | | and [...] | | | | | [place] [address] | | + + + + + Care Team Providers + +------+ + | Care Venetian Blind Installer Name | Role | Phone | + +------+ + PCP | Unavailable | + +------+ + Encounter Details +--------+ + + + + | Date | Type | Department | Care Team | Description | +--------+ + + + + | 03/13/ | Emergency | [facility] | Carter Bailey MD | | | 2010 | | MEDICAL CENTER | [address] | | | | | EMERGENCY CENTER | [place] [address] | | | | | [address] | [phone] | | | | | [place], [place] | | | | | | [address] | | | | | | [phone] | | | +--------+ + + + [...]
--- OUTSIDE RECORDS SUMMARY | 2020-07-10 19:52 | XMS ---
PreManage Notification: [facility] Security Emergency Manager Events No recent Security Events currently on file CRITERIA MET - History of Sepsis Dx - PDMP CARE PROVIDERS SWAPNA CORONADO [facility] 06/19/2019-Current PHONE: [phone] Kendall Floyd Agricultural Appraiser/Bridge Club Manager 04/29/2020-Current PHONE: [phone] Henny has no Care Guidelines for this patient. EFredis VISIT COUNT (12 MO.) 3 JOS[facility] LUIS Schmidt TOTAL 3 NOTE: Visits indicate total known visits. ED/UCC VISIT TRACKING (12 MO.) 07/10/2020 19:50 [facility] [place] TYPE: Emergency COMPLAINT: - SHAKES, CRAMPS 03/30/2020 14:50 [facility] [place] TYPE: Emergency COMPLAINT: - FLANK PAIN DIAGNOSES: - Other chronic pain - Hypothyroidism, unspecified - Allergy status to narcotic agent status - Low back pain - Type 2 diabetes mellitus without complications - Chronic obstructive pulmonary disease, unspecified - Other longterm (current) drug therapy - Nicotine dependence, unspecified, uncomplicated 07/29/2019 01:[address] 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
[2020-07-10] MEDS ORDERED: AMOX TR-K CLV1 EACH (20:14)
[2020-07-10] MEDS ORDERED: KEFLEX500 MG PO (22:33)
== END 2020-07-10 22:51 | disposition home or self-care (01) ==
LOC: ED 19:49
DX: N39.0 Urinary tract infection, site not specified (principal); E83.42 Hypomagnesemia; J44.9 Chronic obstructive pulmonary disease, unspecified; E03.9 Hypothyroidism, unspecified; E11.9 Type 2 diabetes mellitus without complications; F17.200 Nicotine dependence, unspecified, uncomplicated; Z88.5 Allergy status to narcotic agent; Z79.899 Other long term (current) drug therapy
CPT/HCPCS: 71045; 73660; 80053; 81001; 83605; 83735; 85025; 96374; 96375; 99283-25; J0696; J1885; J3475; J7030

== ENCOUNTER 2020-09-26 18:47 | Emergency (ER) | payer MEDICARE, OTHER ==
[~2020-09-26] VITALS: Ht 160 cm; Wt 63.6 kg
[~2020-09-26 18:47] MED LIST changes: +AMOX TR-K CLV1 EACH
--- OUTSIDE RECORDS SUMMARY | 2020-09-26 18:48 | XMS ---
PreManage Notification: [facility] CORMIER Security Technical Specialist Cytogenetics Events No recent Security Events currently on file CRITERIA MET - History of Sepsis Dx - PDMP CARE PROVIDERS SWAPNA CORONADO [facility] 06/19/2019-Current PHONE: [phone] Kendall Floyd Seed Specialist/Studio Designer 04/29/2020-Current PHONE: [phone] Henny has no Care Guidelines for this patient. EFredis VISIT COUNT (12 MO.) 3 [facility] [place] TOTAL 3 NOTE: Visits indicate total known visits. ED/UCC VISIT TRACKING (12 MO.) 09/26/2020 18:47 [facility] [place] TYPE: Emergency COMPLAINT: - PAIN ON BOTH SIDES OF ABDOM 07/10/2020 19:50 [facility] [place] TYPE: Emergency COMPLAINT: - SHAKES, CRAMPS DIAGNOSES: - Urinary tract infection, site not specified - Other termite control technician (current) drug therapy - Fever, unspecified - Hypomagnesemia - Nicotine dependence, unspecified, uncomplicated - Allergy status to narcotic agent status - Type diabetes mellitus without complications - Hypothyroidism, unspecified - Chronic obstructive pulmonary disease, unspecified 03/30/2020 14:[address] [facility] [place] TYPE: Emergency COMPLAINT: - FLANK PAIN DIAGNOSES: - Other chronic pain - Hypothyroidism, unspecified - Allergy status to narcotic agent status - Low back pain - Type diabetes mellitus without complications - Chronic obstructive pulmonary disease, unspecified - Other long-term (current) drug therapy - Nicotine dependence, unspecified, uncomplicated INPATIENT VISIT TRACKING (12 MO.) No inpatient visits to display in this time frame [id number]
[2020-09-26] MEDS ORDERED: KEFLEX500 MG PO (19:53)
== END 2020-09-26 20:08 | disposition home or self-care (01) ==
LOC: ED 18:47
DX: N39.0 Urinary tract infection, site not specified (principal); F17.200 Nicotine dependence, unspecified, uncomplicated; Z88.5 Allergy status to narcotic agent; Z79.899 Other long term (current) drug therapy; Z79.84 Long term (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 of oral hypoglycemic drugs; J44.9 Chronic obstructive pulmonary disease, unspecified; E03.9 Hypothyroidism, unspecified; E11.9 Type 2 diabetes mellitus without complications
CPT/HCPCS: 80053; 81001; 83690; 85025; 99284

== ENCOUNTER 2021-02-13 17:30 | Emergency (ER) | payer MEDICARE, OTHER ==
[~2021-02-13] VITALS: Ht 160 cm; Wt 63.6 kg
[~2021-02-13 17:30] MED LIST changes: +DULOXETINE HCL20 MG PO; +NAPROXEN500 MG PO
--- OUTSIDE RECORDS SUMMARY | 2021-02-13 17:32 | XMS ---
PreManage Notification: [facility] CORMIER Security Anesthesiologist And Critical Care Events No recent Security Events currently on file CRITERIA MET - History of Sepsis Dx - PDMP CARE PROVIDERS SWAPNA CORONADO [facility] 06/19/2019-Current PHONE: [phone] Kendall Floyd Bush And Vine Farmer Fruit Crops/Galley Boy 12/30/2020-Current PHONE: [phone] Henny has no Care Guidelines for this patient. Care History Medical/Surgical 10/02/2020 [facility] - PATIENT IS CURRENTLY ON A PAIN CONTRACT WITH DR CORONADO-PCP- [phone]. - DR CORONADO OFFICE NOTIFIED OF PATIENT ED VISIT-REQUESTING REVIEW FOR A POSSIBLE REFERRAL TO A UROLOGIST. E.Shady VISIT COUNT (12 MO.) [address] [facility] TOTAL 5 NOTE: Visits indicate total known visits. ED/UCC VISIT TRACKING (12 MO.) 02/13/2021 17:30 [facility] [place] TYPE: Emergency COMPLAINT: - SOB 01/10/2021 20:24 [facility] [place] TYPE: Emergency COMPLAINT: - BODY ACHES DIAGNOSES: - Nicotine dependence, unspecified, uncomplicated - Type 2 diabetes mellitus without complications - Allergy status to narcotic agent - Chronic obstructive pulmonary disease, unspecified - Low back pain - Other chronic pain - Urinary tract infection, site not specified - Hypothyroidism, unspecified - intermediate manager (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 of oral hypoglycemic drugs - Other termite inspector (current) drug therapy 09/26/2020 18:47 [facility] [place] TYPE: Emergency COMPLAINT: - ABDOMINAL PAIN DIAGNOSES: - Allergy status to narcotic agent - penitentiary (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 of oral hypoglycemic drugs - Urinary tract infection, site not specified - Unspecified abdominal pain - Hypothyroidism, unspecified - Type 2 diabetes mellitus without complications - Nicotine dependence, unspecified, uncomplicated - Chronic obstructive pulmonary disease, unspecified - Allergy status to narcotic agent - Other termite inspector (current) drug therapy 07/10/2020 19:50 [facility] [place] TYPE: Emergency COMPLAINT: - SHAKES, CRAMPS DIAGNOSES: - Urinary tract infection, site not specified - Other alf (current) drug therapy - Fever, unspecified - Hypomagnesemia - Nicotine dependence, unspecified, uncomplicated - Allergy status to narcotic agent - Type 2 diabetes mellitus without complications - Hypothyroidism, unspecified - Chronic obstructive pulmonary disease, unspecified 03/30/2020 14:50 [facility] [place] TYPE: Emergency COMPLAINT: - FLANK PAIN DIAGNOSES: - Other chronic pain - Hypothyroidism, unspecified - Allergy status to narcotic agent - Low back pain - Type 2 diabetes mellitus without complications - Chronic obstructive pulmonary disease, unspecified - Other termite inspector (current) drug therapy - Nicotine dependence, unspecified, uncomplicated INPATIENT VISIT TRACKING (12 MO.) No inpatient visits to display in this time frame [email or web address]
--- NOTE | 2021-02-13 20:00 | EKG ---
[facility] [address] [place], [place] [address] Signed Normal sinus rhythm Normal ECG When compared with ECG of 16-JUN-2019 12:33, No significant change was found Confirmed by JUAN LOCKWOOD MD ([id number]) on 02/13/2021 8:00:01 PM Electronically Signed By: JUAN LOCKWOOD MD 02/13/211999 PATIENT NAME: UMU CORMIER SURYA Electrocardiogram DATE OF : 51 PHYSICIAN: JUAN LOCKWOOD MD REPORT #: [id number] REPORT IS CONFIDENTIAL AND NOT TO BE RELEASED WITHOUT AUTHORIZATION
== END 2021-02-13 20:15 | disposition home or self-care (01) ==
LOC: ED 17:30
DX: J44.1 Chronic obstructive pulmonary disease with (acute) exacerbation (principal); E03.9 Hypothyroidism, unspecified; E11.9 Type 2 diabetes mellitus without complications; F17.200 Nicotine dependence, unspecified, uncomplicated; Z88.5 Allergy status to narcotic agent; Z79.899 Other long term (current) drug therapy; Z79.84 Long term (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 of oral hypoglycemic drugs
CPT/HCPCS: 71045; 80053; 83735; 84484; 85025; 93005; 93010; 94640; 96374; 99285-25; J2930

== ENCOUNTER 2021-02-14 13:16 | Emergency (ER) | payer MEDICARE, OTHER ==
[~2021-02-14] VITALS: Ht 160 cm; Wt 63.6 kg
--- OUTSIDE RECORDS SUMMARY | 2021-02-14 13:18 | XMS ---
PreManage Notification: UMU CORMIER Security Car Sales Consultant Events No recent Security Events currently on file CRITERIA MET - History of Sepsis Dx - PDMP - [facility] - 2 Visits in 30 Days CARE PROVIDERS SWAPNA CORONADO [facility] 06/19/2019-Current PHONE: [phone] Kendall Floyd Machine Set Up Operator Paper Goods/Machine Heel Sprayer 12/30/2020-Current PHONE: [phone] Henny has no Care Guidelines for this patient. Care History Medical/Surgical 10/02/2020 [facility] - PATIENT IS CURRENTLY ON A PAIN CONTRACT WITH DR CORONADO-PCP- [phone]. - DR CORONADO OFFICE NOTIFIED OF PATIENT ED VISIT-REQUESTING REVIEW FOR A POSSIBLE REFERRAL TO A UROLOGIST. [place] VISIT COUNT (12 MO.) [address] [facility] TOTAL 6 NOTE: Visits indicate total known visits. ED/UCC VISIT TRACKING (12 MO.) 02/14/2021 13:16 [facility] [place] TYPE: Emergency COMPLAINT: - SOB 02/13/2021 17:30 [facility] [place] TYPE: [...] site not specified - Hypothyroidism, unspecified - watermelon harvesting supervisor (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 of oral hypoglycemic drugs - Other rn long term care (current) drug therapy 09/26/2020 18:47 [facility] [place] TYPE: Emergency COMPLAINT: - ABDOMINAL PAIN DIAGNOSES: - Allergy status to narcotic agent - watermelon harvesting supervisor (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 of oral hypoglycemic drugs - Urinary tract infection, site not specified - Unspecified abdominal pain - Hypothyroidism, unspecified - Type 2 diabetes mellitus without complications - Nicotine dependence, unspecified, uncomplicated - Chronic obstructive pulmonary disease, unspecified - Allergy status to narcotic agent - Other rn long term care (current) drug therapy 07/10/2020 19:50 [facility] [place] TYPE: Emergency COMPLAINT: - SHAKES, CRAMPS DIAGNOSES: - Urinary tract infection, site not specified - Other rn long term care (current) drug therapy - Fever, unspecified - [...] Chronic obstructive pulmonary disease, unspecified - Other jail (current) drug therapy - Nicotine dependence, unspecified, uncomplicated INPATIENT VISIT TRACKING (12 MO.) No inpatient visits to display in this time frame [email or web address]
--- NOTE | 2021-02-15 07:22 | EKG ---
[facility] [address] [place], [place] [address] Signed Normal sinus rhythm Normal ECG When compared with ECG of 13-FEB-2021 18:39, No significant change was found Confirmed by JUAN LOCKWOOD MD ([id number]) on 02/15/2021 7:22:08 AM Electronically Signed By: JUAN LOCKWOOD MD 02/15/21 07 PATIENT NAME: UMU CORMIER SURYA Electrocardiogram DATE OF : 51 PHYSICIAN: JUAN LOCKWOOD MD REPORT #: [id number] REPORT IS CONFIDENTIAL AND NOT TO BE RELEASED WITHOUT AUTHORIZATION
== END 2021-02-14 16:33 | disposition home or self-care (01) ==
LOC: ED 13:16
DX: J44.1 Chronic obstructive pulmonary disease with (acute) exacerbation (principal); E03.9 Hypothyroidism, unspecified; E11.9 Type 2 diabetes mellitus without complications; F17.200 Nicotine dependence, unspecified, uncomplicated; Z88.5 Allergy status to narcotic agent; Z79.899 Other long term (current) drug therapy; Z79.84 Long term (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 of oral hypoglycemic drugs
CPT/HCPCS: 71045; 93005; 93010; 94640; 94664; 96374; 99285-25; J2930

== ENCOUNTER 2021-04-12 17:46 | Emergency (ER) | payer MEDICARE, OTHER ==
[~2021-04-12] VITALS: Ht 160 cm; Wt 68.2 kg
--- OUTSIDE RECORDS SUMMARY | 2021-04-12 17:48 | XMS ---
PreManage Notification: UMU CORMIER Security Manager School Events No recent Security Events currently on file CRITERIA MET - History of Sepsis Dx - PDMP CARE PROVIDERS SWAPNA CORONADO [facility] 06/19/2019-Current PHONE: [phone] Kendall Floyd Political Organizer/Business Line Manager 12/30/2020-Current PHONE: [phone] Hneny has no Care Guidelines for this patient. Care History Medical/Surgical 10/02/2020 [facility] - PATIENT IS CURRENTLY ON A PAIN CONTRACT WITH DR CORONADO-PCP- [phone]. - DR CORONADO OFFICE NOTIFIED OF PATIENT ED VISIT-REQUESTING REVIEW FOR A POSSIBLE REFERRAL TO A UROLOGIST. E.Shady VISIT COUNT (12 MO.) [address] [facility] TOTAL 6 NOTE: Visits indicate total known visits. ED/UCC VISIT TRACKING (12 MO.) 04/12/2021 17:47 [facility] [place] TYPE: Emergency COMPLAINT: - HIP PAIN 02/14/2021 13:16 [facility] [place] TYPE: Emergency COMPLAINT: - SOB DIAGNOSES: - Other ferry terminal agent (current) drug therapy - Chronic obstructive pulmonary disease with (acute) exacerbation - termite control servicer (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 of oral hypoglycemic drugs - Type 2 diabetes mellitus without complications - Hypothyroidism, unspecified - Shortness of breath - Nicotine dependence, unspecified, uncomplicated - Allergy status to narcotic agent 02/13/2021 17:30 [facility] [place] TYPE: Emergency COMPLAINT: - SOB DIAGNOSES: - Nicotine dependence, unspecified, uncomplicated - Type 2 diabetes mellitus without complications - [facility] (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 of oral hypoglycemic drugs - Chronic obstructive pulmonary disease with (acute) exacerbation - Allergy status to narcotic agent - Other m[facility]p (current) drug therapy - Shortness of breath - Hypothyroidism, unspecified 01/10/2021 20:24 [facility] [place] TYPE: Emergency COMPLAINT: - BODY ACHES DIAGNOSES: - Nicotine dependence, unspecified, uncomplicated - Type 2 diabetes mellitus without complications - Allergy status to narcotic agent - Chronic obstructive pulmonary disease, unspecified - Low back pain - Other chronic pain - Urinary tract infection, site not specified - Hypothyroidism, unspecified - termite control servicer (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 of oral hypoglycemic drugs - Other ferry terminal agent (current) drug therapy 09/26/2020 18:47 [facility] [place] TYPE: Emergency COMPLAINT: - ABDOMINAL PAIN DIAGNOSES: - Allergy status to narcotic agent - termite control servicer (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 of oral hypoglycemic drugs - Urinary tract infection, site not specified - Unspecified abdominal pain - Hypothyroidism, unspecified - Type 2 diabetes mellitus without complications - Nicotine dependence, unspecified, uncomplicated - Chronic obstructive pulmonary disease, unspecified - Allergy status to narcotic agent - Other mcfp (current) drug therapy 07/10/2020 19:[address] [facility] [place] TYPE: Emergency COMPLAINT: - SHAKES, CRAMPS DIAGNOSES: - Urinary tract infection, site not specified - Other ferry terminal agent (current) drug therapy - Fever, unspecified - Hypomagnesemia - Nicotine dependence, unspecified, uncomplicated - Allergy status to narcotic agent - Type 2 diabetes mellitus without complications - Hypothyroidism, unspecified - Chronic obstructive pulmonary disease, unspecified INPATIENT VISIT TRACKING (12 MO.) No inpatient visits to display in this time frame [id number]
[2021-04-12] MEDS ORDERED: CYCLOBENZAPRINE10 MG PO (20:17)
== END 2021-04-12 20:38 | disposition home or self-care (01) ==
LOC: ED 17:46
DX: M54.32 Sciatica, left side (principal); J44.9 Chronic obstructive pulmonary disease, unspecified; E03.9 Hypothyroidism, unspecified; E11.9 Type 2 diabetes mellitus without complications; F17.200 Nicotine dependence, unspecified, uncomplicated; Z88.5 Allergy status to narcotic agent; Z79.899 Other long term (current) drug therapy; Z79.84 Long term (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 of oral hypoglycemic drugs
CPT/HCPCS: 73502; 99283-25

== ENCOUNTER 2021-06-21 18:39 | Emergency (ER) | payer MEDICARE, OTHER ==
[~2021-06-21] VITALS: Ht 160 cm; Wt 68.2 kg
--- OUTSIDE RECORDS SUMMARY | 2021-06-21 18:42 | XMS ---
PreManage Notification: [facility] Security Graphic Specialist Events No recent Security Events currently on file CRITERIA MET - [facility] CARE PROVIDERS SWAPNA CORONADO [facility] 06/19/2019-Current PHONE: [phone] Kendall Floyd Predatory Hunter/Septic Tank Servicer 04/29/2021-Current PHONE: [phone] DAY GRISSOM [facility] 04/14/2021-Current PHONE: [phone] Henny has no Care Guidelines for this patient. Care History Medical/Surgical 10/02/2020 [facility] - PATIENT IS CURRENTLY ON A PAIN CONTRACT WITH DR CORONADO-PCP- [phone]. - DR CORONADO OFFICE NOTIFIED OF PATIENT ED VISIT-REQUESTING REVIEW FOR A POSSIBLE REFERRAL TO A UROLOGIST. [place] VISIT COUNT (12 MO.) 7 JOSÉ LUIS Schmidt TOTAL 7 NOTE: Visits indicate total known visits. ED/UCC VISIT TRACKING (12 MO.) 06/21/2021 18:40 JOSÉ LUIS [place] TYPE: Emergency COMPLAINT: - FELL OUT OF BED HURT HEAD 04/12/2021 17:47 JOSÉ LUIS v[place]ey [place] TYPE: Emergency COMPLAINT: - HIP PAIN DIAGNOSES: - Other retirement (current) drug therapy - Nicotine dependence, unspecified, uncomplicated - Type 2 diabetes mellitus without complications - Allergy status to narcotic agent - Chronic obstructive pulmonary disease, unspecified - terminal gauger supervisor (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 of oral hypoglycemic drugs - Hypothyroidism, unspecified - Sciatica, left side 02/14/2021 13:16 JOSÉ LUIS [place] TYPE: Emergency COMPLAINT: - SOB DIAGNOSES: - Other terminal manager (current) drug therapy - Chronic obstructive pulmonary disease with (acute) exacerbation - FDC (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 of oral hypoglycemic drugs - Type 2 diabetes mellitus without complications - Fibromyalgia - Hypothyroidism, unspecified - Shortness of breath - Nicotine dependence, unspecified, uncomplicated - Allergy status to narcotic agent 02/13/2021 17:30 JOSÉ LUIS [place] TYPE: Emergency COMPLAINT: - SOB DIAGNOSES: - Nicotine dependence, unspecified, uncomplicated - Type 2 diabetes mellitus without complications - terminal gauger supervisor (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 of oral hypoglycemic drugs - Chronic obstructive pulmonary disease with (acute) exacerbation - Allergy status to narcotic agent - Other retirement (current) drug therapy - Shortness of breath [...] site not specified - Hypothyroidism, unspecified - terminal gauger supervisor (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 of oral hypoglycemic drugs - Other terminal manager (current) drug therapy 09/26/2020 18:47 JOSÉ LUIS [place] TYPE: Emergency COMPLAINT: - ABDOMINAL PAIN DIAGNOSES: - Allergy status to narcotic agent - FDC (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 of oral hypoglycemic drugs - Urinary tract infection, site not specified - Unspecified abdominal pain - Hypothyroidism, unspecified - Type 2 diabetes mellitus without complications - Nicotine dependence, unspecified, uncomplicated - Chronic obstructive pulmonary disease, unspecified - Allergy status to narcotic agent - Other retirement (current) drug therapy 07/10/2020 19:50 JOSÉ LUIS [place] TYPE: Emergency COMPLAINT: - SHAKES, CRAMPS DIAGNOSES: - Urinary tract infection, site not specified - Other terminal manager (current) drug therapy - Fever, unspecified - Hypomagnesemia - Nicotine dependence, unspecified, uncomplicated - Allergy status to narcotic agent - Type 2 diabetes mellitus without complications - Hypothyroidism, unspecified - Chronic obstructive pulmonary disease, unspecified INPATIENT VISIT TRACKING (12 MO.) No inpatient visits to display in this time frame [email or web address]
== END 2021-06-21 20:33 | disposition home or self-care (01) ==
LOC: ED 18:39
DX: S09.90XA Unspecified injury of head, initial encounter (principal); S80.811A Abrasion, right lower leg, initial encounter; W19.XXXA Unspecified fall, initial encounter; J44.9 Chronic obstructive pulmonary disease, unspecified; E03.9 Hypothyroidism, unspecified; E11.9 Type 2 diabetes mellitus without complications; F17.200 Nicotine dependence, unspecified, uncomplicated; Z88.5 Allergy status to narcotic agent; Z79.899 Other long term (current) drug therapy; Z79.84 Long term (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 of oral hypoglycemic drugs
CPT/HCPCS: 70450; 99283-25

== ENCOUNTER 2021-07-01 20:36 | Inpatient (IN) | payer MEDICARE, OTHER ==
[~2021-07-01] VITALS: Ht 160 cm; Wt 68.7 kg
--- OUTSIDE RECORDS SUMMARY | 2021-07-01 20:38 | XMS ---
PreManage Notification: [facility] Security Process Mold Technician Events No recent Security Events currently on file CRITERIA MET - 6 ED Visits in 6 Months - [facility] - 2 Visits in 30 Days - [facility] CARE PROVIDERS SWAPNA CORONADO [facility] 06/19/2019-Current PHONE: [phone] Kendall Floyd Guitar Player/Production Control Coordinating Clerk 04/29/2021-Current PHONE: [phone] DAY GRISSOM [facility] 04/14/2021-Current PHONE: [phone] Henny has no Care Guidelines for this patient. Care History Medical/Surgical 10/02/2020 [facility] - PATIENT IS CURRENTLY ON A PAIN CONTRACT WITH DR CORONADO-PCP- [phone]. - DR CORONADO OFFICE NOTIFIED OF PATIENT ED VISIT-REQUESTING REVIEW FOR A POSSIBLE REFERRAL TO A UROLOGIST. [place] VISIT COUNT (12 MO.) 8 JOSÉ LUIS Schmidt TOTAL 8 NOTE: Visits indicate total known visits. ED/UCC VISIT TRACKING (12 MO.) 07/01/2021 20:36 JOSÉ LUIS [place] TYPE: Emergency COMPLAINT: - DIFFICULTY BREATHING,CHEST PAIN 06/21/2021 18:40 JOSÉ LUIS [place] TYPE: Emergency COMPLAINT: - FELL OUT OF BED HURT HEAD DIAGNOSES: - Chronic obstructive pulmonary disease, unspecified - Allergy status to narcotic agent - Type 2 diabetes mellitus without complications - Abrasion, right lower leg, initial encounter - Unspecified injury of head, initial encounter - Unspecified fall, initial encounter - Nicotine dependence, unspecified, uncomplicated - Other termite treater (current) drug therapy - correction (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 of oral hypoglycemic drugs - Hypothyroidism, unspecified 04/12/2021 17:47 JOSÉ LUIS [place] TYPE: Emergency COMPLAINT: - HIP PAIN DIAGNOSES: - Other fci (current) drug therapy - Nicotine dependence, unspecified, uncomplicated - Type 2 diabetes mellitus without complications - Allergy status to narcotic agent - Chronic obstructive pulmonary disease, unspecified - correction (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 of oral hypoglycemic drugs - Hypothyroidism, unspecified - Sciatica, left side 02/14/2021 13:16 JOSÉ LUIS [place] TYPE: Emergency COMPLAINT: - SOB DIAGNOSES: - Other termite treater (current) drug therapy - Chronic obstructive pulmonary disease with (acute) exacerbation - correction (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 of oral hypoglycemic drugs - Type 2 diabetes mellitus without complications - Fibromyalgia - Hypothyroidism, unspecified - Shortness of breath - Nicotine dependence, unspecified, uncomplicated - Allergy status to narcotic agent 02/13/2021 17:30 JOSÉ LUIS [place] TYPE: Emergency COMPLAINT: - SOB DIAGNOSES: - Nicotine dependence, unspecified, uncomplicated - Type 2 diabetes mellitus without complications - correction (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 of oral hypoglycemic drugs - Chronic obstructive pulmonary disease with (acute) exacerbation - Allergy status to narcotic agent - Other fci (current) drug therapy - Shortness of breath [...] site not specified - Hypothyroidism, unspecified - correction (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 of oral hypoglycemic drugs - Other termite treater (current) drug therapy 09/26/2020 18:47 JOSÉ LIUS [place] TYPE: Emergency COMPLAINT: - ABDOMINAL PAIN DIAGNOSES: - Allergy status to narcotic agent - correction (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 of oral hypoglycemic drugs - Urinary tract infection, site not specified - Unspecified abdominal pain - Hypothyroidism, unspecified - Type 2 diabetes mellitus without complications - Nicotine dependence, unspecified, uncomplicated - Chronic obstructive pulmonary disease, unspecified - Allergy status to narcotic agent - Other fci (current) drug therapy 07/10/2020 19:50 JOSÉ LUIS [place] TYPE: Emergency COMPLAINT: - SHAKES, CRAMPS DIAGNOSES: - Urinary tract infection, site not specified - Other fci (current) drug therapy - Fever, unspecified - Hypomagnesemia - Nicotine dependence, unspecified, uncomplicated - Allergy status to narcotic agent - Type 2 diabetes mellitus without complications - Hypothyroidism, unspecified - Chronic obstructive pulmonary disease, unspecified INPATIENT VISIT TRACKING (12 MO.) No inpatient visits to display in this time frame [email or web address]
--- NOTE | 2021-07-02 00:48 | EKG ---
[facility] [address] [place], [place] [address] Signed Sinus tachycardia Otherwise normal ECG When compared with ECG of 14-FEB-2021 13:33, Nonspecific T wave abnormality now evident in Lateral leads Confirmed by JUAN LOCKWOOD MD ([id number]) on 07/02/2021 12:47:54 AM Electronically Signed By: JUAN LOCKWOOD MD 07/02/21 0048 PATIENT NAME: CORMIERUMULEO LONDON Electrocardiogram DATE OF : 51 PHYSICIAN: JUAN LOCKWOOD MD REPORT #: [id number] REPORT IS CONFIDENTIAL AND NOT TO BE RELEASED WITHOUT AUTHORIZATION
--- NOTE | 2021-07-02 02:39 | NUR ---
ADMITH TO RM 130 PER STRETCHER. NOW SITTING AT EDGE OF BED HAD INC ABD PAIN WHEN LYING DOWN. GIVEN 15MG TORRADOL IV FOR ABD PAIN9/10 AND ALSO GIVEN ZOFRAN FOR NAUSEA. DR LOCKWOOD NOTIFIED OF MG LEVEL AND ORDER RECIEVED. PT GIVEN SIP WATER AFTER LESS NAUSEATED. PAIN IMPROVING AND NOW ABLE TO LAY DOWN. NO SOB, IS ABLE TO LAY FLAT.
--- NOTE | 2021-07-02 02:41 | NUR ---
GIVEN CALL LIGHT AND ASKED TO CALL IF NEEDED TO GET UP.
--- NOTE | 2021-07-02 04:06 | NUR ---
PT CALLED C/O SEVERE ABD PAIN, WRITHING IN BED. DR LOCKWOOD CALLED AND ORDER RECIEVED.
--- NOTE | 2021-07-02 04:28 | NUR ---
PAIN IMPROVES WITH PT SITTING AT EDGE OF BED, GIVEN 4MG MORPHINE SLOWLY. STATES FEELING BETTER AND READY TO LAY BACK DOWN. DENIES NEED TO VOID AT THIS TIME.
--- NOTE | 2021-07-02 05:25 | NUR ---
UP TO BSC, HIREN WELL. UNABLE TO VOID, PT STATES THIS SOMETIMES HAPPENS TO HER. STATES ABD PAIN IS BETTER. ABLE TO LAY BACK IN BED.
--- NOTE | 2021-07-02 07:45 | NUR ---
PT REPORTS SHE DOES NOT FEEL LIKE SHE NEEDS TO URINATE AT THIS TIME. BLADDER SCANNED FOR 133ML AT THIS TIME. V/S RE-TAKE. PT REPORTS PAIN 8/10 AT THIS TIME POSITIONAL AND COMES IN WAVES. SHE IS ALERT BUT VERY DROWSY, FALLS A SLEEP WHILE TALKING WITH HER.
--- NOTE | 2021-07-02 08:26 | NUR ---
PT UP TO BATHROOM USING FFW STANDBY ASSIST, STEADY ON HER FEET. NO DISTRESS NOTED. PT ALERT AND ORIENTED
--- NOTE | 2021-07-02 09:25 | NUR ---
GIVEN 2MG IV MORPHINE FOR PAIN 08/08 PT IS ALERT AND ORIENTED.
--- NOTE | 2021-07-02 09:54 | NUR ---
PT UP TO BEDSIDE COMMODE TO ATTEMPT TO VOID. VOIDED 40ML, CLEAR YELLOW, NO SIGNIFICANT URINE ODOR NOTED. PT BODY ODOR NOTED.
--- NOTE | 2021-07-02 10:37 | NUR ---
PT UP TO BSC NO MEASUREABLE AMOUNT OF URINE OUT, SCANT AMOUNT ON ABBY PAD.
--- NOTE | 2021-07-02 10:47 | NUR ---
RESPIRATORY DASHAWN IN PT ROOM AT THIS TIME TO GIVE NEB TREATMENT, PT FEELS SHORT OF BREATH AND HAS WHEEZES BILAT UPPER LOBES.
--- NOTE | 2021-07-02 11:43 | NUR ---
pt up to bedside commode voided 225ml cloudy uine with foul odor. will notify
--- NOTE | 2021-07-02 13:12 | NUR ---
PT SITTING UP IN BED TALKING ON HER CELL PHONE. V/S STABLE. PT ON 1L OXYGEN 94%, SHE DOES DESATURATE WITH ACTIVITY
--- NOTE | 2021-07-02 15:09 | NUR ---
PT CALL LIGHT ON. PT REQUESTS ASSISTANCE UP TO BEDSIDE COMODE. STAND BY ASSIST FOR LINE MANAGEMENT UP TO BEDSIDE COMODE. PT VOIDS 200ML CLOUDY YELLOW URINE. SAMPLE SENT TO LAB PER MD ORDER. SMALL BROWN, FORMED BOWEL MOVEMENT NOTED. ABBY CARE DONE. UNDERWARE CHANGED. STAND BY ASSIST BACK TO BED. MEDICATIONS GIVEN. NEW IV FLUID BAG HUNG. PT RESTING IN BED, BED RAILS UP. CALL LIGHT WITHIN REACH. REGINO, CASE MANAGEMENT TO BEDSIDE.
--- NOTE | 2021-07-02 15:18 | NUR ---
PT REQUESTS PAIN MEDICATION FOR 8/10 PAIN IN ABDOMEN. PT REPORTS "THE PAIN IS WORSE WHEN I USE THE BATHROOM LIKE THAT." PT CONTINUES VISITING WITH PAPER CONE MACHINE TENDER. NO ADDITIONAL REQUESTS OR COMPLAINTS. CALL LIGHT WITHIN REACH.
--- NOTE | 2021-07-02 17:20 | NUR ---
Pt lives in an apartment in [facility]. No steps into apartment. Her daughter is [place] and [place] She will assist pt if needed. Pt has DME, but does not use. She is ok financia lly, does not use food bank. Attempted to use [employer] but had lost her certificate and ID. She has ordered vital statistics from the state. States she is ok financially. Needs from assist for utilitie but cannot proceed without her ID. Pt states she has gallstones that bother her at times, but most COPD and feels this is what caused her to come in. States she will call her sister, Nneka, to stay with her when she discharges. Pt plans on dc to home when cleared medically.
--- NOTE | 2021-07-02 18:52 | NUR ---
PADILLA CATH REMOVED PER VERBAL ORDER. REMOVED WNL,PT TOLERATED WELL, 8.5ML STERILE WATER REMOVED FROM SECUREMENT BALLOON PADILLA REMOVED EXPECTED. INTACT.
--- NOTE | 2021-07-02 20:00 | NUR ---
ASSISTED PATIENT TO THE BSC. PATIENT MOVES WITH MINIMAL ASSIST. HAND TREMOR NOTED, PATIENT REPORTS THIS HAS BEEN CHRONIC FOR 6 MONTHS OR MORE. PATIENT VOIDED 75 MLS CONCENTRATED URINE. AUDIBLE WHEEZE WITH EXERTION. LUNG SOUNDS ARE COARSE THROUGHOUT WITH EXP WHEEZE IN MERCEDEZ UPPER LOBES. PATIELT TOLERATING 1L. PATIENT REPORTS ADEQUATE PAIN CONTROL AT THIS TIME. ASSISTED TO A COMFORTABLE POSITION IN BED. IV FLUIDS PER ORDER, SITE WNL. PATIENT PROVIDED WITH FRESH WATER AND CHAP STICK. NO OTHER NEEDS AT THIS TIME. CALL LIGHT IN REACH.
--- NOTE | 2021-07-02 21:13 | NUR ---
PATIENT REPORTS PAIN 8/10 IN ABD. PRN TYLENOL PROVIDED. OFFERED PATIENT A WARM PACK BUT SHE DENIED. SCHEDULED MEDS PROVIDED. ACCU CHECK 143, PATIENT ONLY TAKING SIPS OF WATER. 1 UNIT SSI HELD. PATIENT SAT AT 90 DEGREES TO TAKE MEDS. NO CONCERNS. REQUESTED NEB TREATMENT. RT CALLED.
--- NOTE | 2021-07-02 21:56 | NUR ---
PT CALLED TO USE BATHROOM, UP TO BSC WITH 1-PA, PT UNSTEADY ON FEET. VOIDED 100ML AND PERFORMED OWN PERICARE BEFORE RETURNING TO BED. SUGAR-FREE JELLO PROVIDED PER REQUEST. CALL LIGHT WITHIN REACH.
--- NOTE | 2021-07-02 22:55 | NUR ---
PT CALLED TO USE BATHROOM, UP WITH 1-PA TO BSC, REMAINS WEAK/UNSTEADY. PT HAD BEEN INCONTINENT IN PERIPAD (NEW ONE PROVIDED) AND ALSO VOIDED ABOUT 50ML. PT PROVIDED OWN ABBY-CARE AND RETURNED TO BED. PT DENIES FURTHER NEEDS, CALL LIGHT WITHIN REACH.
--- NOTE | 2021-07-03 00:04 | NUR ---
PATIENT SLEEPING SOUNDLY. RR 10, O2 SAT 95% ON 1L NC. IV FLUIDS PER ORDER, SITE WNL. ALLOWED PATIENT TO REST.
--- NOTE | 2021-07-03 02:19 | NUR ---
SCHEDULED ABX STARTED. PATIENT SLEEPING SOUNDLY. RR 12. O2 SAT 95% ON 1L NC. CALL LIGHT IN REACH.
--- NOTE | 2021-07-03 05:25 | NUR ---
PATIENT UP TO THE BSC. ABBY PAD HEAVILY SOAKED WITH URINE. PATIENT ALSO VOIDED 550 MLS. PATIENT TOLERATED ACTIVITY. NEB TREATMENT PROVIDED PER REQUEST. PATIENT CONTINUES TO HAVE COARSE LUNG SOUNDS THROUGHOUT. TOLERATING ROOM AIR. IV FLUIDS PER ORDER, SITE WNL.
--- NOTE | 2021-07-03 06:58 | NUR ---
assisted patient with new attends and zoe pad. patient had some incontinence. patient reports 8/10 pain in abd. prn tylenol provided. iv fluids per order, site wnl. vs stable. tolerating 1L nc.
--- NOTE | 2021-07-03 07:30 | NUR ---
PATIENT SHIFT REPORT RECIEVED FROM QUALITY SYSTEMS TECHNICIAN RN. PATIENT RESTING IN BED. PATIENT CALLS APPROPRIATELY. CALL LIGHT IN REACH. WILL CONTINUE TO CLOSELY MONITOR.
[2021-07-03] MEDS ORDERED: DULOXETINE HCL30 MG PO (07:58)
[2021-07-03] MEDS ORDERED: DULOXETINE HCL60 MG PO (08:00)
--- NOTE | 2021-07-03 08:00 | NUR ---
PATIENT CALLED TO GET UP AND USE CAMMODE. PATIENT ASSISTED UP TO BEDSIDE CAMMODE AND TOLERATED WELL. PATIENT NOW RESTING IN BED. PATIENT IS A LITTLE WOBBLY WITH STANDING AND REQUIRES A 1 PERSON ASSIST. WILL CONTINUE TO CLOSELY MONITOR.
--- NOTE | 2021-07-03 09:13 | NUR ---
OREDERED PATIENT A CLEAR LIQUID TRAY PER ORDERS. PATIENT STATES "I REALLY WANT REGULAR FOOD". EDUCATED PATIENT WE WOULD TALK WITH MD WHEN HE COMES TO ASSESS HER AND SEE IF SHE CAN HAVE HER DIET ADVANCED. PATIENT WORKING ON CLEAR LIQUID TRAY AT THIS ITME. PATIENT HAS VISITOR AT THE BEDSIDE. PATIENTS ASSESSMENT COMPLETED. PATIENT S BREATH SOUNDS DIMINISHED, COARSE AND A WHEEZE NOTED ON EXPIRATION. PATIENT ON 2L NC AND TOELRATING WELL. BOWEL TONES ACTIVE. PATIENT STATES SHE DOES STILL HAVE SOME ABD PAIN, BUT THINKS ITS BECAUSE SHE HASNT EATEN. NO OTHER NEEDS AT THIS TIME. WILL CONTINUE TO CLOSELY MONITOR.
--- NOTE | 2021-07-03 10:30 | NUR ---
PATIENT ASSISTED UP TO [facility]. ATTENDS CHANGED. PATIENT NOW RESTING IN BED. NO OTHER NEEDS AT THIS TIME. WILL CONTINUE TO CLOSELY MONITOR.
--- NOTE | 2021-07-03 12:30 | NUR ---
BOYKIN IN TO SEE PATIENT. REVIEWED PLAN OF CARE WITH PATIENT. ALL QUESTIONS ANSWERED. WILL CONTINUE TO CLOSELY MONITOR. NO OTHER NEEDS AT THIS TIME. LUNCH ORDERED.
--- NOTE | 2021-07-03 14:00 | NUR ---
PATIENT HAS BEEN UP TO THE CAMMODE MULTIPLE TIMES WITH STAND-BY ASSIST. PATIENT DENIES ANY OTHER ENEDS AT THIS TIME. WILL CONTINUE TO CLOSELY MONITOR.
--- NOTE | 2021-07-03 15:46 | NUR ---
PATIENT DINNER ORDERED. REVIEWED PLAN OF CARE WITH PATIENT. PATIENT RESTING IN BED AT THIS TIME. CALL LIGHT IN REACH. WILL CONTINUE TO CLOSELY MONITOR.
[2021-07-03] MEDS ORDERED: POTASSIUM GLUCO99 MG PO (16:07)
[2021-07-03] MEDS ORDERED: MULTIPLE VITAM1 EACH PO (16:08)
--- NOTE | 2021-07-03 16:08 | NUR ---
MED REC COMPLETE
--- NOTE | 2021-07-03 16:39 | NUR ---
Update from RN. Pt feeling better. Calling RN frequently. Answered light as I ws going in to see pt. She stated she could not turn her sound up on the TV. Showed pt she had muted sound. Denies change in plan for dc.
--- NOTE | 2021-07-03 17:31 | NUR ---
THIS RN IN TO GIVE MEDICATIONS AND DINNER. REVIEWED FODMAP DIET WITH PATIENT AND GAVE HER A MENU FOR HER TO REVIEW. PATIENT REPEATS EDUCATION BACK TO THIS RN. ALL QUESTIONS ANSWERED. NO OTHER NEEDS AT THIS TIME. WILL CONTINUE TO CLOSELY LINDSAY.
--- NOTE | 2021-07-03 18:23 | NUR ---
PATIENT REPORT GIVEN TO BOB GARCIA ON THE MEDICAL UNIT. CHYNA GARCIA HERE TO TRANSFER PATIENT TO MEDICAL ROOM 108. ALL QUESTIONS ANSWERED. NO OTHER NEEDS AT THIS TIME. ALL BELONGINGS SENT WITH PATIENT.
--- NOTE | 2021-07-03 18:24 | NUR ---
REPORT RECEIVED FROM CCU NURSE AND PT. ARRIVED VIA BED. PT. IS ALERT AND ORIENTED. VITALS STABLE. ON 1L 02 NC AND O2 SAT IS 91%. REVIEWED SAFETY AND POC WITH PT. PT. LEFT RESTING WITH CALL LIGHT IN REACH.
--- NOTE | 2021-07-03 21:26 | NUR ---
HELPED PATIENT BACK INTO BED FROM BEDSIDE COMMODE. NEW ATTENDS AND PERIPAD ON PATIENT. PATIENT REMAINS ON 1L/NC. PATIENT DENIES PAIN AT THIS TIME. PM MEDS GIVEN AND 1UNIT INSULIN SQ FOR BLOOD SUGAR COVERAGE. PATIENT GIVEN A PM SNACK AND HAD NO OTHER NEEDS AT THIS TIME. CALL LIGHT IN REACH.
--- NOTE | 2021-07-03 21:35 | NUR ---
IN TO CHECK ON PT TO SEE IF SHE NEEDING WITH ABBY PADS AND GETTING BACK TO BED, ASSISTED PT WITH GETTING INTO BED, PT DENIED NEEDING WATER REFILLED, NO FURTHER NEEDS AT THIS TIME
--- NOTE | 2021-07-03 22:15 | NUR ---
HELPED PATIENT CHANGE WET ATTENDS AND PAD. PATIENT HAS NO OTHER NEEDS AT THIS TIME. CALL LIGHT IS IN REACH.
--- NOTE | 2021-07-03 23:26 | NUR ---
PATIENT ASSISTED TO THE BSC. PATIENT WAS ABLE TO SELF TRANSFER WITH NO ASSISTANCE. PATIENT WAS ABLE TO VOID. PATIENT IS BACK IN BED RESTING. PATIENT DENIES ANY FURTHER NEEDS. CALL LIGHT IN REACH.
--- NOTE | 2021-07-03 23:55 | NUR ---
PATIENT RESTING QUIETLY IN BED AT THIS TIME WATCHING TV. NO CURRENT CARE NEEDS. CALL LIGHT IS IN REACH.
--- NOTE | 2021-07-04 01:04 | NUR ---
PATIENT RESTING QUIETLY IN BED WATCHING TV. NO CARE NEEDS AT THIS TIME. CALL LIGHT IN REACH.
--- NOTE | 2021-07-04 01:10 | NUR ---
IN PT RM, ASSISTING PT WITH BSC, PT IS SBA PIVOT TO BSC, WAITING FOR PT TO FINISH, ASSISTED BACK TO BED, PT ASKING FOR MILK AND CRACKERS, RN OKAY'D FOR PT, NO FURTHER NEEDS AT THIS TIME
--- NOTE | 2021-07-04 02:50 | NUR ---
pt done with bsc, in to assist pt back to bed, sba pivot,
--- NOTE | 2021-07-04 03:30 | NUR ---
SHIFT REPORT RECEIVED FROM TIAGO GARCIA. PT RESTING IN BED. CALL LIGHT IN REACH.
--- NOTE | 2021-07-04 05:00 | NUR ---
PT RESTING IN BED, EYES CLOSED. RR EVEN, UNLABORED. CALL LIGHT IN REACH.
--- NOTE | 2021-07-04 06:19 | NUR ---
ASSESSMENT, VS AND I&O COMPLETED. LUNGS DIMINISHED IN ALL LOBES AND COARSE IN RIGHT UPPER LOBE. IVs WNL. IV FLUIDS INFUSING PER ORDER. PT UP TO BSC AND BACK TO BED. SPO2 95% ON 1L NC. NO OTHER NEEDS AT THIS TIME. CALL LIGHT IN REACH.
--- NOTE | 2021-07-04 10:12 | NUR ---
PT SITTING UO IN RECLINER CONSUMED 90% BREAKFAST REPORTS PAIN 9/10, EXTRA STRENGTH TYLENOL GIVEN PRN AND BENTYL FOR STOMACH CRAMPS 20MG PRN.
--- NOTE | 2021-07-04 11:08 | NUR ---
No change in plan for dc to home.
--- NOTE | 2021-07-04 11:35 | NUR ---
pt called to report she was coughing and having difficult catching her breath, rn into room to assist. she is blowing her nose and clearing secretions on entry into room. [email or web address]. called to given her 1200 neb treatment early. oxygen saturations 94% on 1L
--- NOTE | 2021-07-04 12:51 | NUR ---
CONSULT RECEIVED FOR LOW FODMAP EDUCATION FOR MANAGING IBS. H&P REVIEWED AND PATIENT HAS BEEN HAVING CONSTIPATION AND DIARRHEA FOR SOME TIME NOW BUT HAS NEVER BEEN DIAGNOSED WITH IBS BEFORE. SHE LIVES ALONE BUT HER SON DOES HELP HER COOK SOMETIMES. SHE SAID SOMETIMES THEY EAT SEPARATE MEALS. SHE HAS NEVER HEARD OF LOW FODMAPS BEFORE. THIS RD EXPLAINED WHAT FODMAP STANDS FOR: FERMENTABLE, OLIGOSACCHARIDES, DISACCCHARIDES, MONOSACCHARIDES, AND POLYOLS. EATING LOW FODMAP FOODS CAN HELP IBS SYMPTOMS IMPROVE. THIS RD EXPLAINED THAT THIS DIET IS MEANT TO BE FOLLOWED FOR 2 TO 6 WEEKS, THEN ONE ITEM CAN BE WORKED BACK IN. I DID RECOMMEND THAT SHE WORK WITH AN RD TO MAKE SURE SHE UNDERSTANDS HOW TO WORK FOODS BACK IN. PATIENT STATES SHE USES FOOD STAMPS SO SHE CAN'T START THIS DIET 100% UNTIL SHE FIGURES OUT HER FINANCES AND WHICH LOW FODMAP FOODS SHE CAN BUY. SHE LOVES MILK, COTTAGE CHEESE, AND ICE CREAM BUT THESE FOODS CONTAIN LACTOSE WHICH IS A DISACCHARIDE WHICH IS NOT ALLOWED ON THE LOW FODMAP DIET. ENCOURAGED HER TO REVIEW THESE HANDOUTS AT HOME WITH HER SON. SHE SAID SHE PROBABLY WON'T GET THIS GOING UNTIL A FEW WEEKS AFTER SHE GOES HOME. I GAVE HER A LOW FODMAP MENU TO USE WHILE SHE IS HERE. SHE THOUGHT THIS MENU WAS STUFF SHE WASN'T ALLOWED TO EAT BUT I CLARIFIED THAT THESE ARE FOODS SHE IS ALLOWED TO EAT. SHE FELT BETTER ABOUT THAT. MY NAME AND OFFICE # PROVIDED ON THE HANDOUT. WILL CONTINUE TO MONITOR WHILE HERE. PROVIDED HANDOUTS ON LOW-FODMAP FOODS TO CONSUME AND HIGH FODMAP FOODS TO AVOID.
--- NOTE | 2021-07-04 15:09 | NUR ---
PT REPORTS SHE IS VERY UNHAPPY ABOUT THE NEW MENU GIVEN TO HER FROM DIETARY CONSUL. PT REPORTS SHE NEED TO CHANGE PAD FROM STRESS INCONTINENCE. PT DOES NOT VERBALIZE ANY NEED FOR PAIN MEDICATIONS AT THIS TIME.
--- NOTE | 2021-07-04 17:02 | NUR ---
PT AMBULATED INDEPENDENT WITH STANDBY FULL LAP OF MEDICAL SURGICAL UNIT, SHE MAINTAINED 88-89% OXYGEN SATURATION. PT TOLERATED ACTIVITY WELL.
--- NOTE | 2021-07-04 18:45 | NUR ---
GOT PATIENT UP THIS MORNING AFTER DOING HER BLOOD SUGAR CHECK ALSO ORDERED HER BREAKFAST THAN WE WALKED INTO THE BATHROOM TOGETHER. CHANGED HER ATTEND AND PAD THAN AFTER SHE WAS FINISHED WE WALKED TO THE SINK SHE WASHED HER HANDS AND HER FACE AND SHE ALSO BRUSHED HER GUMS AND HER TONGUE. THAN AFTER SHE WAS FINISHED WE WALKED TO HER CHAIR SO SHE COULD EAT HER BREAKFAST.
--- NOTE | 2021-07-04 18:56 | NUR ---
DID HER LUNCH AND DINNER BLOOD SUGAR CHECK.
--- NOTE | 2021-07-04 18:57 | NUR ---
SHE ATE HER LUNCH UP IN HER CHAIR AND FOR DINNER SHE ATE IT ON THE SIDE OF HER BED. HER SON CAME TO VISIT HER.
--- NOTE | 2021-07-04 19:23 | NUR ---
SHIFT REPORT RECEIVED FROM SHEA GARCIA. PT WALKING IN ROOM. PT ON RA. PT DENIES PAIN. NO NEEDS AT THIS TIME. CALL LIGHT IN REACH.
--- NOTE | 2021-07-04 20:17 | NUR ---
ASSESSMENT, VS AND I&O COMPLETED. GCS 15, A&O X4. LUNGS CLEAR IN ALL LOBES EXCEPT RIGHT LOWER LOBE IS COARSE. HEART TONES REGULAR. BOWEL TONES ACTIVE. CMS INTACT. SKIN HAS SCATTERED BRUISING. PT HAS OCCAISSIONAL MOIST, PRODUCTIVE COUGH. IVs WNL, CDI, FLUSHED WELL. ICE WATER PROVIDED. NO OTHER NEEDS AT THIS TIME. CALL LIGHT IN REACH.
--- NOTE | 2021-07-04 23:57 | NUR ---
PT RESTING IN BED, EYES CLOSED. RR EVEN, UNLABORED. CALL LIGHT IN REACH.
--- NOTE | 2021-07-05 02:00 | NUR ---
PT RESTING IN BED, EYES CLOSED. RR EVEN, UNLABORED. CALL LIGHT IN REACH.
--- NOTE | 2021-07-05 03:01 | NUR ---
PT UP TO THE TOILET, THEN BACK TO BED, NO FURTHER NEEDS
--- NOTE | 2021-07-05 05:40 | NUR ---
vitals and i&os done
--- NOTE | 2021-07-05 05:40 | NUR ---
call light answered, pt up to void at this time, pt back to bed, pt feeling upset this morning, listens to pt and reassured, pt requests tylenol for headache, rn is informed, no further needs at this time
--- NOTE | 2021-07-05 06:47 | NUR ---
ASSESSMENT COMPLETED. LUNGS COARSE. PT IS CRYING ABOUT POSSIBLY NOT BEING ABLE TO GO HOME TODAY BUT YET WANTING TO GO HOME. PT IS CONCERNED ABOUT FEELING "MORE WOBBLY" AT NIGHT AND IN THE MORNING. THERAPUTIC COMMUNICATION AND COFFEE PROVIDED. PT STATES SHE HAS A 9/10 HEADACHE, PRN PAIN MED AND SCHEDULED MED PROVIDED. IVs WNL. NO OTHER NEEDS. CALL LIGHT IN REACH.
[2021-07-05] MEDS ORDERED: DOXYCYCLINE HY100 MG PO (09:51)
[2021-07-05] MEDS ORDERED: IPRAT-ALBUT 0.5-3 ML INH (09:53)
[2021-07-05] MEDS ORDERED: NICOTINE LOZENGE4 MG BUCCAL (09:53)
[2021-07-05] MEDS ORDERED: DICYCLOMINE HCL10 MG PO (09:53)
[2021-07-05] MEDS ORDERED: METFORMIN HCL1000 MG PO (09:54)
[2021-07-05] MEDS ORDERED: PREDNISONE20 MG PO (09:54)
[2021-07-05] MEDS ORDERED: SPIRIVA18 MCG INH ×2 (09:57→09:58)
--- NOTE | 2021-07-05 10:50 | NUR ---
FAXED ORDER AND FACESHEET TO [facility], TALKED TO MILK TRUCK DRIVER SUPERVISOR MACHINE WORKERS DARREN IN REGARDS TO DELIVERING NEB MACHINE
--- NOTE | 2021-07-05 11:04 | NUR ---
PATIENT IN BED RESTING WITH EYES CLOSED. VITALS AND I&O'S CHARTED. CALL LIGHT IN REACH. NO FURTHER NEEDS AT THIST JOSE.
--- NOTE | 2021-07-05 11:43 | NUR ---
PT DISCHARGE TO [facility] TODAY, PT WILLING TO TAKE A SHOWER AND IV OUT AT THIS TIME WNL. ORDERED PT LUNCH AND ALL QUESTIONS ANSWERED. PT WILL BE GIVEN A CARE RIDE. ALSO WILL SEND HOME A MEAL FOR DINNER SO PT DOES NOT HAVE TO GO OUT AND OR COOK TONIGHT.
--- NOTE | 2021-07-05 11:52 | NUR ---
PT TALKING WITH PHARNANCY FOR DISCHARGE.
--- NOTE | 2021-07-05 13:02 | NUR ---
REPORT GIVEN TO ALON ALL QUESTIONS ANSWERED.
--- NOTE | 2021-07-05 13:11 | NUR ---
pt taking a shower prior to dc.
--- NOTE | 2021-07-05 13:23 | NUR ---
home cell phone number clarified [phone] as per pt. number called back and pt answered in her room. Jakob driver retraining instructor Brian called back with correct number. "If we dont deliver today, we may deliver Wednesday or Wednesday" stated, will let pt know.
--- NOTE | 2021-07-05 13:53 | NUR ---
PATIENT SITTING ON EDGE OF BED. VITALS AND I&O'S CHARTED. RN IN ROOM GOING OVER DISCHARGE PAPERWORK. CALL LIGHT IN REACH. NO FURTHER NEEDS AT THIS TIME.
--- NOTE | 2021-07-05 13:59 | NUR ---
DC instructins given verbally and written, med ed done by pharmacist and this rn, pt stated understanding. all question answered to her satisfaction. care ride called and extra lunch box given to pt. stated understanding, tolerated diet well, no emesis, voiding qs.
--- NOTE | 2021-07-05 14:08 | NUR ---
pt asking for neb tr. completed. ready to be dc
--- NOTE | 2021-07-05 14:17 | NUR ---
PT DC HOME WITH ALL BELONGING AT 1415. ALERT AND ORIENTED, WRITTEN DC INSTRUCTION AND RX AND PACKAGE TO BE GIVEN TO [facility] GIVEN TO PT EARLIER
== END 2021-07-05 14:15 | disposition home or self-care (01) | DRG 189 ==
LOC: ED 20:36 → CCU 07-02 01:23 → MS 07-03 18:28
PROVIDERS: ADMIT Internal Medicine; ATTEND Internal Medicine
DX: J96.01 Acute respiratory failure with hypoxia (principal); N17.0 Acute kidney failure with tubular necrosis; R65.11 Systemic inflammatory response syndrome (SIRS) of non-infectious origin with acute organ dysfunction; J44.1 Chronic obstructive pulmonary disease with (acute) exacerbation; Z20.822 Contact with and (suspected) exposure to COVID-19; K58.9 Irritable bowel syndrome, unspecified; E11.9 Type 2 diabetes mellitus without complications; E03.9 Hypothyroidism, unspecified; E78.5 Hyperlipidemia, unspecified; G89.4 Chronic pain syndrome; M79.7 Fibromyalgia; Z90.710 Acquired absence of both cervix and uterus; Z90.721 Acquired absence of ovaries, unilateral; Z98.890 Other specified postprocedural states; Z79.899 Other long term (current) drug therapy; Z88.5 Allergy status to narcotic agent; Z79.84 Long term (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 of oral hypoglycemic drugs; F17.210 Nicotine dependence, cigarettes, uncomplicated; B19.20 Unspecified viral hepatitis C without hepatic coma; K80.20 Calculus of gallbladder without cholecystitis without obstruction; K58.1 Irritable bowel syndrome with constipation
CPT/HCPCS: 71045; 76705; 80048; 80053; 80500; 81001; 82803; 83605; 83690; 83735; 84484; 85007; 85025; 87040; 93005; 93010; 94640; 94644; 94760; 96374; 96375; 99285-25; 99406; C9113; C9803; J0692; J1650; J1815; J1885; J2270; J2405; J2543; J2920; J2930; J3010; J3370; J3475; J7030; J7121; J7512; U0003

== ENCOUNTER 2022-04-19 16:48 | Emergency (ER) | payer OTHER, MEDICARE ==
[~2022-04-19] VITALS: Ht 160 cm; Wt 63.6 kg
[~2022-04-19 16:48] MED LIST changes: +DICYCLOMINE HCL10 MG PO; +DOXYCYCLINE HY100 MG PO; +DULOXETINE HCL30 MG PO; +DULOXETINE HCL60 MG PO; +IPRAT-ALBUT 0.5-3 ML INH; +MULTIPLE VITAM1 EACH PO; +NICOTINE LOZENGE4 MG BUCCAL; +POTASSIUM GLUCO99 MG PO; +SPIRIVA18 MCG INH
--- OUTSIDE RECORDS SUMMARY | 2022-04-19 16:50 | XMS ---
PreManage Notification: [facility] Security Tongue Binder Events No recent Security Events currently on file CRITERIA MET - AMBROCIOP CARE PROVIDERS SWAPNA CORONADO [facility] 06/19/2019-Current PHONE: Unknown Kendall Floyd Survey Engineer/Manager Athletics 03/29/2022-Current PHONE: [phone] [facility]Current PHONE: Unknown Henny has no Care Guidelines for this patient. Care History Medical/Surgical 10/02/2020 [facility] - PATIENT IS CURRENTLY ON A PAIN CONTRACT WITH DR CORONADO-PCP- [phone]. - DR CORONADO OFFICE NOTIFIED OF PATIENT ED VISIT-REQUESTING REVIEW FOR A POSSIBLE REFERRAL TO A UROLOGIST. [place] VISIT COUNT (12 MO.) 3 [facility] TOTAL 3 NOTE: Visits indicate total known visits. ED/UCC VISIT TRACKING (12 MO.) 04/19/2022 16:49 [facility] [place] TYPE: Emergency COMPLAINT: - FALL 07/01/2021 20:36 [facility] [place] TYPE: [...] Nicotine dependence, unspecified, uncomplicated - Other termite renewal inspector (current) drug therapy - skilled nursing (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 of oral hypoglycemic drugs - Hypothyroidism, unspecified INPATIENT VISIT TRACKING (12 MO.) 07/02/2021 01:23 [facility] [place] TYPE: Medical Surgical COMPLAINT: - COPD EXACERBATION DIAGNOSES: - Systemic inflammatory response syndrome (SIRS) of non-infectious origin with acute organ dysfunction - Acute respiratory failure with hypoxia - Nicotine dependence, cigarettes, uncomplicated - Other specified postprocedural states - Nicotine dependence, cigarettes, uncomplicated - 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 marine oil 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 (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 of oral hypoglycemic drugs - Systemic inflammatory response syndrome (SIRS) of non-infectious origin with acute organ dysfunction - Chronic pain syndrome - Irritable bowel syndrome with constipation - Hypothyroidism, unspecified - Other termite renewal inspector (current) drug therapy - Hyperlipidemia, unspecified - Type 2 diabetes mellitus without complications - Other mcc (current) drug therapy - Acquired absence of both cervix and uterus - Irritable bowel syndrome without diarrhea - Acquired absence of both cervix and uterus - Allergy status to narcotic agent - Chronic pain syndrome - Calculus of gallbladder without cholecystitis without obstruction - Chronic obstructive pulmonary disease with (acute) exacerbation - skilled nursing (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 of oral hypoglycemic drugs - Acquired absence of ovaries, unilateral - Acute respiratory failure with hypoxia - Acute kidney failure with tubular necrosis - Allergy status to narcotic agent - Hyperlipidemia, unspecified - Acquired absence of ovaries, unilateral - Calculus of gallbladder without cholecystitis without obstruction - Unspecified viral hepatitis C without hepatic coma - Type 2 diabetes mellitus without complications - Fibromyalgia - Irritable bowel syndrome without diarrhea - Other specified postprocedural states - Irritable bowel syndrome with constipation - Hypothyroidism, unspecified - Acute kidney failure with tubular necrosis - Unspecified viral hepatitis C without hepatic coma - Fibromyalgia [email or web address]
[2022-04-19] MEDS ORDERED: ZESTRIL10 MG (17:17)
[2022-04-19] MEDS ORDERED: BUPROPION HCL150 M2 (17:18)
[2022-04-19] MEDS ORDERED: CEPHALEXIN500 MG PO (21:15)
== END 2022-04-19 21:26 | disposition home or self-care (01) ==
LOC: ED 16:48
DX: T14.8XXA Other injury of unspecified body region, initial encounter (principal); N39.0 Urinary tract infection, site not specified; W18.30XA Fall on same level, unspecified, initial encounter; F17.200 Nicotine dependence, unspecified, uncomplicated; Z88.5 Allergy status to narcotic agent; Z79.899 Other long term (current) drug therapy
CPT/HCPCS: 36415; 70450; 70486; 72125; 72131; 73030; 80053; 81001; 85025; A9270

== ENCOUNTER 2022-10-17 21:11 | Emergency (ER) | payer MEDICARE, OTHER ==
[~2022-10-17] VITALS: Ht 160 cm; Wt 63.6 kg
[~2022-10-17 21:11] MED LIST changes: +AZITHROMYCIN500 MG PO; +BENZONATATE100 MG PO; +BUPROPION HCL150 M2; +ZESTRIL10 MG
--- OUTSIDE RECORDS SUMMARY | 2022-10-17 21:14 | XMS ---
PreManage Notification: [facility] Security Marble Finisher Events No recent Security Events currently on file CRITERIA MET - AMBROCIOP CARE PROVIDERS SWAPNA CORONADO [facility] 06/19/2019-Current PHONE: Unknown Kendall Floyd Fashion Editor/Combine Driver 04/29/2022-Current [facility]: [phone] [facility]Current PHONE: Unknown Henny has no Care Guidelines for this patient. Care History Medical/Surgical 10/02/2020 [facility] - PATIENT IS CURRENTLY ON A PAIN CONTRACT WITH DR CORONADO-PCP- [phone]. - DR CORONADO OFFICE NOTIFIED OF PATIENT ED VISIT-REQUESTING REVIEW FOR A POSSIBLE REFERRAL TO A UROLOGIST. [place] VISIT COUNT (12 MO.) 3 JOSÉ LUIS Schmidt TOTAL 3 NOTE: Visits indicate total known visits. ED/UCC VISIT TRACKING (12 MO.) 10/17/2022 21:12 [facility] [place] TYPE: Emergency COMPLAINT: - FALL 06/23/2022 19:35 [facility] [place] TYPE: Emergency COMPLAINT: - DIFFICULTY BREATHING DIAGNOSES: - Allergy status to narcotic agent - Type 2 diabetes mellitus without complications - Chronic obstructive pulmonary disease with (acute) exacerbation - Other senior living (current) drug therapy - Shortness of breath - Contact with and (suspected) exposure to COVID-19 - Hypothyroidism, unspecified - skilled nursing (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 of oral hypoglycemic drugs 04/19/2022 16:49 [facility] [place] TYPE: Emergency COMPLAINT: - FALL DIAGNOSES: - Urinary tract infection, site not specified - Fall on same level, unspecified, initial encounter - Headache, unspecified - Allergy status to narcotic agent - Nicotine dependence, unspecified, uncomplicated - Other senior living (current) drug therapy - Other injury of unspecified body region, initial encounter INPATIENT VISIT TRACKING (12 MO.) No inpatient visits to display in this time frame [id number]
== END 2022-10-17 23:59 | disposition home or self-care (01) ==
LOC: ED 21:11
DX: S70.02XA Contusion of left hip, initial encounter (principal); S70.01XA Contusion of right hip, initial encounter; J44.9 Chronic obstructive pulmonary disease, unspecified; E03.9 Hypothyroidism, unspecified; E11.9 Type 2 diabetes mellitus without complications; F17.200 Nicotine dependence, unspecified, uncomplicated; Z88.5 Allergy status to narcotic agent; Z79.84 Long term (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 of oral hypoglycemic drugs; Z79.899 Other long term (current) drug therapy; W06.XXXA Fall from bed, initial encounter
CPT/HCPCS: 36415; 73522; 80053; 81001; 85025; 85610; 96374; 96375; 99284-25; J1885; J3010; J7121

== ENCOUNTER 2023-06-09 21:22 | Observation (INO) | payer MEDICARE, OTHER ==
[~2023-06-09] VITALS: Ht 160 cm; Wt 70.9 kg
--- OUTSIDE RECORDS SUMMARY | ~2023-06-09 | XMS | Continuity of Care Document ---
Demographics + + + | Address | [address] | | | [place] [address] | + + + | Preferred Language | Unknown | + + + | Marital Status | | + + + | Protestant Affiliation | Unknown | + + + | Race | White | + + + | Ethnic Group | Not or | + + + Author + + + | Author | [facility] | + + + | Organization | [facility] | + + + | Address | [address] | | | [place] [address] | + + + | Phone | | + + + Care Team Providers + + + + | Care Cassandra Architect Name | Role | Phone | + + + + Unavailable | Unavailable | + + + + Unavailable | Unavailable | + + + + Unavailable | Unavailable | + + + + Allergies and Intolerances + + + + + + | date | description | facility | reaction | severity | + + + + + + | (no date) | Mild | [facility] | (no reaction) | (no severity) | [facility] | | | + + + + + + | (no date) | Codeine | [facility] | (no reaction) | (no severity) | [facility] | | | + + + + + + | (no date) | codeine | [facility] | (no reaction) | (no severity) | [facility] | | | + + + + + + | (no date) | codeine | [facility] | (no reaction) | (no severity) | + + + + + + | (no date) | Codeine | [facility] | (no reaction) | (no severity) | | [facility] | | | + + + + + + Encounters No information. Functional Status No information. Immunizations No information. Medications + + + + | date | description | facility | + + + + | 2022-06-23 00:00 | [facility] | + + + + | 2022-10-18 00:00 | LISINOPRIL | [facility] | + + + + | 2016-04-29 00:00 | OXYCODONE HCL | [facility] | + + + + | 2016-04-29 00:00 | OXYCODONE HCL | [facility] | + + + + | 2022-06-23 00:00 | OXYCODONE HCL | [facility] | + + + + | 2022-10-18 00:00 | OXYCODONE HCL | [facility] | + + + + | 2022-06-23 00:00 | ALBUTEROL SULFATE | [facility] | + + + + | 2022-10-18 00:00 | ALBUTEROL SULFATE | [facility] | + + + + | 2021-07-05 00:00 | IPRATROPIUM/ALBUTEROL | [facility] | | | SULFATE | | + + + + | 2021-07-05 00:00 | IPRATROPIUM/ALBUTEROL | [facility] | | | SULFATE | | + + + + | 2022-06-23 00:00 | LEDIPASVIR/SOFOSBUVIR | [facility] | + + + + | 2022-10-18 00:00 | LEDIPASVIR/SOFOSBUVIR | [facility] | + + + + | 2022-06-23 00:00 | BENZONATATE | [facility] | + + + + | 2022-06-23 00:00 | BENZONATATE | [facility] | + + + + | 2022-06-23 00:00 | NAPROXEN | [facility] | + + + + | 2022-10-18 00:00 | NAPROXEN | [facility] | + + + + | 2018-04-21 00:00 | NICOTINE 7MG | [facility] | + + + + | 2018-04-21 00:00 | NICOTINE 7MG | [facility] | + + + + | 2022-06-23 00:00 | RANITIDINE HCL | [facility] | + + + + | 2022-10-18 00:00 | RANITIDINE HCL | [facility] | + + + + | 2022-06-23 00:00 | CITALOPRAM HYDROBROMIDE | [facility] | + + + + | 2022-10-18 00:00 | CITALOPRAM HYDROBROMIDE | [facility] | + + + + | 2018-12-06 00:00 | CEPHALEXIN | [facility] | + + + + | 2018-12-06 00:00 | CEPHALEXIN | [facility] | + + + + | 2019-03-18 00:00 | CEPHALEXIN | [facility] | + + + + | 2019-03-18 00:00 | CEPHALEXIN | [facility] | + + + + | 2020-07-10 00:00 | CEPHALEXIN | [facility] | + + + + | 2020-07-10 00:00 | CEPHALEXIN | [facility] | + + + + | 2022-06-23 00:00 | CEPHALEXIN | [facility] | + + + + | 2022-10-18 00:00 | CEPHALEXIN | [facility] | + + + + | 2022-06-23 00:00 | CALCIUM CARBONATE | [facility] | + + + + | 2022-10-18 00:00 | CALCIUM CARBONATE | [facility] | + + + + | 2016-04-29 00:00 | CEFPODOXIME PROXETIL | [facility] | + + + + | 2016-04-29 00:00 | CEFPODOXIME PROXETIL | [facility] | + + + + | 2018-02-13 00:00 | CEFUROXIME AXETIL | [facility] | + + + + | 2018-02-13 00:00 | CEFUROXIME AXETIL | [facility] | + + + + | 2016-08-16 00:00 | CEPHALEXIN | [facility] | + + + + | 2016-08-16 00:00 | CEPHALEXIN | [facility] | + + + + | 2021-01-10 00:00 | CEPHALEXIN | [facility] | + + + + | 2021-01-10 00:00 | CEPHALEXIN | [facility] | + + + + | 2022-04-19 00:00 | CEPHALEXIN | [facility] | + + + + | 2022-04-19 00:00 | CEPHALEXIN | [facility] | + + + + | 2022-06-23 00:00 | GABAPENTIN | [facility] | + + + + | 2022-10-18 00:00 | GABAPENTIN | [facility] | + + + + | 2014-05-31 00:00 | predniSONE | [facility] | + + + + | 2014-05-31 00:00 | predniSONE | [facility] | + + + + | 2022-06-23 00:00 | predniSONE | [facility] | + + + + | 2022-06-23 00:00 | predniSONE | [facility] | + + + + | 2016-04-13 00:00 | NICOTINE POLACRILEX | [facility] | + + + + | 2016-04-13 00:00 | NICOTINE POLACRILEX | [facility] | + + + + | 2016-08-14 00:00 | NITROFURANTOIN MONOHYD | [facility] | | | MACROCR | | + + + + | 2016-08-14 00:00 | NITROFURANTOIN MONOHYD | [facility] | | | MACROCR | | + + + + | 2022-06-23 00:00 | DULOXETINE HCL | [facility] | + + + + | 2022-10-18 00:00 | DULOXETINE HCL | [facility] | + + + + | 2022-06-23 00:00 | AMOXICILLIN/POTASSIUM CLAV | [facility] | | | | | + + + + | 2022-10-18 00:00 | AMOXICILLIN/POTASSIUM CLAV | [facility] | | | | | + + + + | 2022-06-23 00:00 | AZITHROMYCIN | [facility] | + + + + | 2022-06-23 00:00 | AZITHROMYCIN | [facility] | + + + + | 2014-05-31 00:00 | CYCLOBENZAPRINE HCL | [facility] | + + + + | 2014-05-31 00:00 | CYCLOBENZAPRINE HCL | [facility] | + + + + | 2021-04-12 00:00 | CYCLOBENZAPRINE HCL | [facility] | + + + + | 2021-04-12 00:00 | CYCLOBENZAPRINE HCL | [facility] | + + + + | 2014-05-31 00:00 | TRAMADOL HCL | [facility] | + + + + | 2014-05-31 00:00 | TRAMADOL HCL | [facility] | + + + + | 2022-06-23 00:00 | IPRATROPIUM BROMIDE MDI | [facility] | + + + + | 2022-10-18 00:00 | IPRATROPIUM BROMIDE MDI | [facility] | + + + + | 2022-06-23 00:00 | TRAZODONE HCL | [facility] | + + + + | 2022-10-18 00:00 | TRAZODONE HCL | [facility] | + + + + | 2016-04-13 00:00 | HYDROCODONE/APAP | [facility] | | | (10-325MG) | | + + + + | 2016-04-13 00:00 | HYDROCODONE/APAP | [facility] | | | (10-325MG) | | + + + + | 2022-06-23 00:00 | HYDROCODONE/APAP | [facility] | | | (10-325MG) | | + + + + | 2022-10-18 00:00 | HYDROCODONE/APAP | [facility] | | | (10-325MG) | | + + + + | 2021-07-05 00:00 | METFORMIN HCL | [facility] | + + + + | 2021-07-05 00:00 | METFORMIN HCL | [facility] | + + + + | 2022-06-23 00:00 | METFORMIN HCL | [facility] | + + + + | 2022-10-18 00:00 | METFORMIN HCL | [facility] | + + + + | 2022-06-23 00:00 | LEVOTHYROXINE SODIUM | [facility] | + + + + | 2022-10-18 00:00 | LEVOTHYROXINE SODIUM | [facility] | + + + + | 2022-06-23 00:00 | BECLOMETHASONE | [facility] | | | DIPROPIONATE | | + + + + | 2022-10-18 00:00 | BECLOMETHASONE | [facility] | | | DIPROPIONATE | | + + + + | 2022-06-23 00:00 | BUPROPION HCL | [facility] | + + + + | 2022-10-18 00:00 | BUPROPION HCL | [facility] | + + + + Problems + + + + | date | description | facility | + + + + | 2015-10-13 00:00 | Bronchitis | [facility] | + + + + | 2015-10-13 00:00 | Bronchitis | [facility] | + + + + | 2015-10-13 00:00 | Radicular pain of right | [facility] | | | upper extremity | | + + + + | 2015-10-13 00:00 | Radicular pain of right | [facility] | | | upper extremity | | + + + + | 2016-04-15 00:00 | Peripheral edema | [facility] | + + + + | 2016-04-15 00:00 | Peripheral edema | [facility] | + + + + | 2016-04-26 00:00 | Acute pyelonephritis | [facility] | + + + + | 2016-04-26 00:00 | Acute pyelonephritis | [facility] | + + + + | 2016-04-28 00:00 | Chronic hepatitis C virus | [facility] | | | infection | | + + + + | 2016-04-28 00:00 | Chronic hepatitis C virus | [facility] | | | infection | | + + + + | 2016-04-28 00:00 | Thrombocytopenia | [facility] | + + + + | 2016-04-28 00:00 | Thrombocytopenia | [facility] | + + + + | 2016-04-28 00:00 | Hypothyroidism | [facility] | + + + + | 2016-04-28 00:00 | Hypothyroidism | [facility] | + + + + | 2016-04-28 00:00 | Type 2 diabetes mellitus | [facility] | + + + + | 2016-04-28 00:00 | Type 2 diabetes mellitus | [facility] | + + + + | 2016-04-28 00:00 | Hyperbilirubinemia | [facility] | + + + + | 2016-04-28 00:00 | Hyperbilirubinemia | [facility] | + + + + | 2016-04-28 00:00 | Hyponatremia | [facility] | + + + + | 2016-04-28 00:00 | Hyponatremia | [facility] | + + + + | 2016-04-28 00:00 | Chronic pain syndrome | [facility] | + + + + | 2016-04-28 00:00 | Chronic pain syndrome | [facility] | + + + + | 2016-04-28 00:00 | Chronic obstructive | [facility] | | | pulmonary disease | | + + + + | 2016-04-28 00:00 | Chronic obstructive | [facility] | | | pulmonary disease | | + + + + | 2016-08-14 00:00 | Hematuria | [facility] | + + + + | 2016-08-14 00:00 | Hematuria | [facility] | + + + + | 2016-08-16 00:00 | Urinary tract infection | [facility] | | | with hematuria | | + + + + | 2016-08-16 00:00 | Urinary tract infection | [facility] | | | with hematuria | | + + + + | 2017-04-14 00:00 | Pneumonia | [facility] | + + + + | 2017-04-14 00:00 | Pneumonia | [facility] | + + + + | 2018-02-13 00:00 | Urinary tract infection | [facility] | + + + + | 2018-02-13 00:00 | Urinary tract infection | [facility] | + + + + | 2018-04-09 00:00 | Acute exacerbation of | [facility] | | | chronic obstructive | | | | pulmonary disease | | + + + + | 2018-04-09 00:00 | Acute exacerbation of | [facility] | | | chronic obstructive | | | | pulmonary disease | | + + + + | 2019-06-16 00:00 | Shortness of breath | [facility] | + + + + | 2019-06-16 00:00 | Shortness of breath | [facility] | + + + + | 2021-01-10 00:00 | Exacerbation of chronic | [facility] | | | back pain | | + + + + | 2021-01-10 00:00 | Exacerbation of chronic | [facility] | | | back pain | | + + + + | 2021-04-12 00:00 | Sciatica of left side | [facility] | + + + + | 2021-04-12 00:00 | Sciatica of left side | [facility] | + + + + | 2021-06-21 00:00 | Minor head injury | [facility] | + + + + | 2021-06-21 00:00 | Minor head injury | [facility] | + + + + | 2021-06-21 00:00 | Abrasion of right lower | [facility] | | | leg, initial encounter | | + + + + | 2021-06-21 00:00 | Abrasion of right lower | [facility] | | | leg, initial encounter | | + + + + | 2021-06-21 00:00 | Fall | [facility] | + + + + | 2021-06-21 00:00 | Fall | [facility] | + + + + | 2021-07-02 00:00 | Severe sepsis | [facility] | + + + + | 2021-07-02 00:00 | Severe sepsis | [facility] | + + + + | 2021-07-02 00:00 | Hypomagnesemia | [facility] | + + + + | 2021-07-02 00:00 | Hypomagnesemia | [facility] | + + + + | 2021-07-02 00:00 | Biliary colic | [facility] | + + + + | 2021-07-02 00:00 | Biliary colic | [facility] | + + + + | 2021-07-02 00:00 | Acute kidney injury | [facility] | + + + + | 2021-07-02 00:00 | Acute kidney injury | [facility] | + + + + | 2022-04-19 16:49 | Nicotine dependence, | [facility] | | | unspecified, uncomplicated [facility] | + + + + | 2022-04-19 16:49 | Urinary tract infection, | [facility] | | | site not specified | [facility] | + + + + | 2022-04-19 16:49 | Headache, unspecified | [facility] | | | | [facility] | + + + + | 2022-04-19 16:49 | Other injury of | [facility] | | | unspecified body region, | [facility] | | | initial encounter | | + + + + | 2022-04-19 16:49 | Fall on same level, | [facility] | | | unspecified, initial | [facility] | | | encounter | | + + + + | 2022-04-19 16:49 | Other halfway (current) | [facility] | | | drug therapy | [facility] | + + + + | 2022-04-19 16:49 | Allergy status to narcotic | [facility] | | | agent | [facility] | + + + + | 2022-06-23 00:00 | Chronic obstructive | [facility] | | | pulmonary disease with | | | | acute exacerbation | | + + + + | 2022-06-23 00:00 | Chronic obstructive | [facility] | | | pulmonary disease with | | | | acute exacerbation | | + + + + | 2022-10-17 00:00 | Contusion of hip | [facility] | + + + + | 2022-10-17 21:12 | HYPOTHYROIDISM, | [facility] | | | UNSPECIFIED | | + + + + | 2022-10-17 21:12 | TYPE 2 DIABETES MELLITUS | [facility] | | | WITHOUT COMPLICATIONS | | + + + + | 2022-10-17 21:12 | NICOTINE DEPENDENCE, | [facility] | | | UNSPECIFIED, UNCOMPLICATED | | + + + + | 2022-10-17 21:12 | CHRONIC OBSTRUCTIVE | [facility] | | | PULMONARY DISEASE, | | | | UNSPECIFIED | | + + + + | 2022-10-17 21:12 | PAIN IN RIGHT HIP | [facility] | + + + + | 2022-10-17 21:12 | CONTUSION OF RIGHT HIP, | [facility] | | | INITIAL ENCOUNTER | | + + + + | 2022-10-17 21:12 | CONTUSION OF LEFT HIP, | [facility] | | | INITIAL ENCOUNTER | | + + + + | 2022-10-17 21:12 | FALL FROM BED, INITIAL | [facility] | | | ENCOUNTER | | + + + + | 2022-10-17 21:12 | JAIL (CURRENT) USE OF | [facility] | | | ORAL HYPOGLYCEMIC DRUGS | | + + + + | 2022-10-17 21:12 | OTHER SHIPMASTER (CURRENT) | [facility] | | | DRUG THERAPY | | + + + + | 2022-10-17 21:12 | ALLERGY STATUS TO NARCOTIC | [facility] | | | AGENT STATUS | | + + + + Procedures No information. Results/Labs +--------+--------+ +---------+--------+---------+ | test | date | facility | value | unit | notes | +--------+--------+ +---------+--------+---------+ + + | Result panel 1 | + + + + + + + + + | | 2022-04-19 | [facility] | YELLOW | (missing) | (missing) | | (unavailable | [facility]30 [facility] | | | + + + + + + + + + | Result panel 2 | + + + + + + + + + | | 2022-04-19 | [facility] | NORMAL | (missing) | (missing) | | (unavailable | [facility]30 [facility] | | | + + + + + + + + + | Result panel 3 | + + + + + + + + + | | 2022-04-19 | [facility] | POSITIVE | (missing) | (missing) | | (unavailable | [facility]30 [facility] | | | + + + + + + + + + | Result panel 4 | + + + + + + + + + | | 2022-04-19 | [facility] | MODERATE | (missing) | (missing) | | (unavailable [facility]30 [facility] | | | + + + + + + + + + | Result panel 5 | + + + + + +-------+ + + | | 2022-04-19 | [facility] | 4-6 | (missing) | (missing) | | (unavailable [facility]30 [facility] | | | + + + +-------+ + + + + | Result panel 6 | + + + + + +---------+ + + | | 2022-04-19 | [facility] | 12-20 | (missing) | (missing) | | (unavailable | [facility]:30 [facility] | | | + + + +---------+ + + + + | Result panel 7 | + + + + + +-----+ + + | | 2022-04-19 | [facility] | 0 | (missing) | (missing) | | (unavailable [facility]30 [facility] | | | + + + +-----+ + + + + | Result panel 8 | + + + + + +------+ + + | | 2022-04-19 | [facility] | 1+ | (missing) | (missing) | | (unavailable [facility]30 [facility] | | | + + + +------+ + + + + | Result panel 9 | + + + + + +-------+ + + | | 2022-04-19 | [facility] | Yes | (missing) | (missing) | | (unavailable | [facility]30 [facility] | | | + + + +-------+ + + + + | Result panel 10 | + + + + + + + + + | | 2022-04-19 | [facility] | CLEAN CATCH | (missing) | (missing) | | (unavailable | [facility]:30 [facility] | | | + + + + + + + + + | Result panel 11 | + + + + + + + + + | | 2022-04-19 | [facility] | CLOUDY | (missing) | (missing) | | (unavailable | [facility]:30 [facility] | | | + + + + + + + + + | Result panel 12 | + + + + + + + + + | | 2022-04-19 | [facility] | NEGATIVE | (missing) | (missing) | | (unavailable [facility]30 [facility] | | | + + + + + + + + + | Result panel 13 | + + + + + + + + + | | 2022-04-19 | [facility] | NEGATIVE | (missing) | (missing) | | (unavailable [facility]:30 [facility] | | | + + + + + + + + + | Result panel 14 | + + + + + + + + + | | 2022-04-19 | [facility] | NEGATIVE | (missing) | (missing) | | (unavailable | [facility]:30 [facility] | | | + + + + + + + + + | Result panel 15 | + + + + + +---------+ + + | | 2022-04-19 | [facility] | 1.020 | (missing) | (missing) | | (unavailable | [facility]:30 [facility] | | | + + + +---------+ + + + + | Result panel 16 | + + + + + + + + + | | 2022-04-19 | [facility] | TRACE-I | (missing) | (missing) | | (unavailable | [facility]:30 [facility] | | | + + + + + + + + + | Result panel 17 | + + + + + +-------+ + + | | 2022-04-19 | [facility] | 5.5 | (missing) | (missing) | | (unavailable | [facility]:30 [facility] | | | + + + +-------+ + + + + | Result panel 18 | + + + + + + + + + | | 2022-04-19 | [facility] | NEGATIVE | (missing) | (missing) | | (unavailable [facility]:30 [facility] | | | + + + + + + + + + | Result panel 19 | + + + + + +-------+ + + | | 2022-06-23 | [facility] | 7.3 | (missing) | (missing) | | (unavailable | 19:41 [facility] | | | + + + +-------+ + + + + | Result panel 20 | + + + + + +--------+ + + | | 2022-06-23 | [facility] | 5.09 | (missing) | (missing) | | (unavailable | 19:41 [facility] | | | + + + +--------+ + + + + | Result panel 21 | + + + + + +--------+ + + | | 2022-06-23 | [facility] | 14.8 | (missing) | (missing) | | (unavailable | [facility]:41 [facility] | | | + + + +--------+ + + + + | Result panel 22 | + + + + + +--------+ + + | | 2022-06-23 | [facility] | 45.0 | (missing) | (missing) | | (unavailable | [facility]:41 [facility] | | | + + + +--------+ + + + + | Result panel 23 | + + + + + +--------+ + + | | 2022-06-23 | [facility] | 88.3 | (missing) | (missing) | | (unavailable | [facility]:41 [facility] | | | + + + +--------+ + + + + | Result panel 24 | + + + + + +--------+ + + | | 2022-06-23 | [facility] | 29.0 | (missing) | (missing) | | (unavailable | [facility]:41 [facility] | | | + + + +--------+ + + + + | Result panel 25 | + + + + + +--------+ + + | | 2022-06-23 | [facility] | 32.8 | (missing) | (missing) | | (unavailable | 19:41 [facility] | | | + + + +--------+ + + + + | Result panel 26 | + + + + + +--------+ + + | | 2022-06-23 | [facility] | 15.4 | (missing) | (missing) | | (unavailable | 19:41 [facility] | | | + + + +--------+ + + + + | Result panel 27 | + + + + + +-------+ + + | | 2022-06-23 | [facility] | 130 | (missing) | (missing) | | (unavailable | 19:41 [facility] | | | + + + +-------+ + + + + | Result panel 28 | + + + + + +--------+ + + | | 2022-06-23 | [facility] | 70.8 | (missing) | (missing) | | (unavailable | 19:41 [facility] | | | + + + +--------+ + + + + | Result panel 29 | + + + + + +--------+ + + | | 2022-06-23 | [facility] | 13.7 | (missing) | (missing) | | (unavailable | [facility]:41 [facility] | | | + + + +--------+ + + + + | Result panel 30 | + + + + + +--------+ + + | | 2022-06-23 | [facility] | 11.5 | (missing) | (missing) | | (unavailable | [facility]:41 [facility] | | | + + + +--------+ + + + + | Result panel 31 | + + + + + +-------+ + + | | 2022-06-23 | [facility] | 3.1 | (missing) | (missing) | | (unavailable | 19:41 [facility] | | | + + + +-------+ + + + + | Result panel 32 | + + + + + +-------+ + + | | 2022-06-23 | [facility] | 0.9 | (missing) | (missing) | | (unavailable | [facility]:41 [facility] | | | + + + +-------+ + + + + | Result panel 33 | + + + + + +--------+ + + | | 2022-06-23 | [facility] | 13.4 | (missing) | (missing) | | (unavailable | [facility]:41 [facility] | | | + + + +--------+ + + + + | Result panel 34 | + + + + + +--------+ + + | | 2022-06-23 | [facility] | 1.05 | (missing) | (missing) | | (unavailable | [facility]:41 [facility] | | | + + + +--------+ + + + + | Result panel 35 | + + + + + +-------+---------+ + | | 2022-06-23 | [facility] | 117 | mg/dL | (missing) | | (unavailable | [facility]:41 [facility] | | | + + + +-------+---------+ + + + | Result panel 36 | + + + + + +------+---------+ + | | 2022-06-23 | [facility] | 26 | mg/dL | (missing) | | (unavailable | [facility]:41 [facility] | | | + + + +------+---------+ + + + | Result panel 37 | + + + + + +--------+---------+ + | | 2022-06-23 | [facility] | 1.52 | mg/dL | (missing) | | (unavailable | [facility]:41 [facility] | | | + + + +--------+---------+ + + + | Result panel 38 | + + + + + +------+ + + | | 2022-06-23 | [facility] | 37 | (missing) | (missing) | | (unavailable | [facility]:41 [facility] | | | + + + +------+ + + + + | Result panel 39 | + + + + + +---------+ + + | | 2022-06-23 | [facility] | 17.10 | (missing) | (missing) | | (unavailable | [facility]:41 [facility] | | | + + + +---------+ + + + + | Result panel 40 | + + + + + +-------+ + + | | 2022-06-23 | [facility] | 140 | (missing) | (missing) | | (unavailable | [facility]:41 [facility] | | | + + + +-------+ + + + + | Result panel 41 | + + + + + +-------+ + + | | 2022-06-23 | [facility] | 4.1 | (missing) | (missing) | | (unavailable | [facility]:41 [facility] | | | + + + +-------+ + + + + | Result panel 42 | + + + + + +-------+ + + | | 2022-06-23 | [facility] | 103 | (missing) | (missing) | | (unavailable | 19:41 [facility] | | | | + + + +-------+ + + + + | Result panel 43 | + + + + + +------+ + + | | 2022-06-23 | [facility] | 28 | (missing) | (missing) | | (unavailable | 19:41 [facility] | | | | + + + +------+ + + + + | Result panel 44 | + + + + + +--------+ + + | | 2022-06-23 | [facility] | 13.1 | (missing) | (missing) | | (unavailable | 19:41 [facility] | | | | + + + +--------+ + + + + | Result panel 45 | + + + + + +-------+---------+ + | | 2022-06-23 | [facility] | 8.5 | mg/dL | (missing) | | (unavailable | 19:41 | [facility] | | | | + + + +-------+---------+ + + + | Result panel 46 | + + + + + +-------+---------+ + | | 2022-06-23 | [facility] | 1.9 | mg/dL | (missing) | | (unavailable | 19:41 [facility] | | | + + + +-------+---------+ + + + | Result panel 47 | + + + + + +-------+ + + | | 2022-06-23 | [facility] | 7.6 | (missing) | (missing) | | (unavailable | 19:41 [facility] | | | + + + +-------+ + + + + | Result panel 48 | + + + + + +-------+ + + | | 2022-06-23 | [facility] | 3.5 | (missing) | (missing) | | (unavailable | 19:41 [facility] | | | + + + +-------+ + + + + | Result panel 49 | + + + + + +-------+ + + | | 2022-06-23 | [facility] | 4.1 | (missing) | (missing) | | (unavailable | 19:41 [facility] | | | + + + +-------+ + + + + | Result panel 50 | + + + + + +--------+ + + | | 2022-06-23 | [facility] | 0.85 | (missing) | (missing) | | (unavailable | 19:41 [facility] | | | + + + +--------+ + + + + | Result panel 51 | + + + + + +-------+ + + | | 2022-06-23 | [facility] | 0.7 | (missing) | (missing) | | (unavailable | 19:41 [facility] | | | + + + +-------+ + + + + | Result panel 52 | + + + + + +------+ + + | | 2022-06-23 | [facility] | 16 | (missing) | (missing) | | (unavailable | 19:41 [facility] | | | + + + +------+ + + + + | Result panel 53 | + + + + + +------+ + + | | 2022-06-23 | [facility] | 16 | (missing) | (missing) | | (unavailable | 19:41 [facility] | | | + + + +------+ + + + + | Result panel 54 | + + + + + +------+ + + | | 2022-06-23 | [facility] | 98 | (missing) | (missing) | | (unavailable | 19:41 [facility] | | | + + + +------+ + + + + | Result panel 55 | + + + + + +-------+ + + | | 2022-06-23 | [facility] | 5.8 | (missing) | (missing) | | (unavailable | 19:41 [facility] | | | + + + +-------+ + + + + | Result panel 56 | + + + + + + + + + | | 2022-06-23 | [facility] | NEGATIVE | (missing) | (missing) | | (unavailable | 19:50 [facility] | | | + + + + + + + + + | Result panel 57 | + + + + + + + + + | | 2022-06-23 | [facility] | NEGATIVE | (missing) | (missing) | | (unavailable | 19:50 [facility] | | | + + + + + + + + + | Result panel 58 | + + + + + + + + + | | 2022-06-23 | [facility] | NEGATIVE | (missing) | (missing) | | (unavailable | 19:50 [facility] | | | + + + + + + + + + | Result panel 59 | + + + + + + + + + | | 2022-06-23 | [facility] | NEGATIVE | (missing) | (missing) | | (unavailable | 19:50 [facility] | | | + + + + + + + + + | Result panel 60 | + + + + + +-------+ + + | | 2022-10-17 | [facility] | 4.7 | (missing) | (missing) | | (unavailable | 21:45 [facility] | | | + + + +-------+ + + + + | Result panel 61 | + + + + + +-------+ + + | | 2022-10-17 | [facility] | 103 | (missing) | (missing) | | (unavailable | 21:45 [facility] | | | + + + +-------+ + + + + | Result panel 62 | + + + + + +------+ + + | | 2022-10-17 | [facility] | 21 | (missing) | (missing) | | (unavailable | 21:45 [facility] | | | + + + +------+ + + + + | Result panel 63 | + + + + + +--------+ + + | | 2022-10-17 | [facility] | 14.7 | (missing) | (missing) | | (unavailable | 21:45 [facility] | | | + + + +--------+ + + + + | Result panel 64 | + + + + + +-------+---------+ + | | 2022-10-17 | [facility] | 8.3 | mg/dL | (missing) | | (unavailable | 21:45 [facility] | | | + + + +-------+---------+ + + + | Result panel 65 | + + + + + +-------+ + + | | 2022-10-17 | [facility] | 7.3 | (missing) | (missing) | | (unavailable | 21:45 [facility] | | | + + + +-------+ + + + + | Result panel 66 | + + + + + +-------+ + + | | 2022-10-17 | [facility] | 3.1 | (missing) | (missing) | | (unavailable | 21:45 [facility] | | | + + + +-------+ + + + + | Result panel 67 | + + + + + +-------+ + + | | 2022-10-17 | [facility] | 4.2 | (missing) | (missing) | | (unavailable | 21:45 [facility] | | | + + + +-------+ + + + + | Result panel 68 | + + + + + +--------+ + + | | 2022-10-17 | [facility] | 0.74 | (missing) | (missing) | | (unavailable | 21:45 [facility] | | | + + + +--------+ + + + + | Result panel 69 | + + + + + +-------+ + + | | 2022-10-17 | [facility] | 0.6 | (missing) | (missing) | | (unavailable | 21:45 [facility] | | | + + + +-------+ + + + + | Result panel 70 | + + + + + +------+ + + | | 2022-10-17 | [facility] | 23 | (missing) | (missing) | | (unavailable | 21:45 [facility] | | | + + + +------+ + + + + | Result panel 71 | + + + + + +------+ + + | | 2022-10-17 | [facility] | 22 | (missing) | (missing) | | (unavailable | 21:45 [facility] | | | + + + +------+ + + + + | Result panel 72 | + + + + + +-------+ + + | | 2022-10-17 | [facility] | 100 | (missing) | (missing) | | (unavailable | 21:45 [facility] | | | + + + +-------+ + + + + | Result panel 73 | + + + + + +-------+ + + | | 2022-10-17 | [facility] | 9.5 | (missing) | (missing) | | (unavailable | 21:45 [facility] | | | + + + +-------+ + + + + | Result panel 74 | + + + + + +--------+ + + | | 2022-10-17 | [facility] | 4.60 | (missing) | (missing) | | (unavailable | 21:45 [facility] | | | + + + +--------+ + + + + | Result panel 75 | + + + + + +--------+ + + | | 2022-10-17 | [facility] | 13.3 | (missing) | (missing) | | (unavailable | 21:45 [facility] | | | + + + +--------+ + + + + | Result panel 76 | + + + + + +--------+ + + | | 2022-10-17 | [facility] | 39.8 | (missing) | (missing) | | (unavailable | 21:45 [facility] | | | + + + +--------+ + + + + | Result panel 77 | + + + + + +--------+ + + | | 2022-10-17 | [facility] | 86.5 | (missing) | (missing) | | (unavailable | 21:45 [facility] | | | + + + +--------+ + + + + | Result panel 78 | + + + + + +--------+ + + | | 2022-10-17 | [facility] | 29.0 | (missing) | (missing) | | (unavailable | 21:45 [facility] | | | + + + +--------+ + + + + | Result panel 79 | + + + + + +--------+ + + | | 2022-10-17 | [facility] | 33.5 | (missing) | (missing) | | (unavailable | 21:45 [facility] | | | + + + +--------+ + + + + | Result panel 80 | + + + + + +--------+ + + | | 2022-10-17 | [facility] | 14.6 | (missing) | (missing) | | (unavailable | 21:45 [facility] | | | + + + +--------+ + + + + | Result panel 81 | + + + + + +-------+ + + | | 2022-10-17 | [facility] | 172 | (missing) | (missing) | | (unavailable | 21:45 [facility] | | | + + + +-------+ + + + + | Result panel 82 | + + + + + +--------+ + + | | 2022-10-17 | [facility] | 74.0 | (missing) | (missing) | | (unavailable | 21:45 [facility] | | | + + + +--------+ + + + + | Result panel 83 | + + + + + +--------+ + + | | 2022-10-17 | [facility] | 10.2 | (missing) | (missing) | | (unavailable | 21:45 [facility] | | | + + + +--------+ + + + + | Result panel 84 | + + + + + +--------+ + + | | 2022-10-17 | [facility] | 13.9 | (missing) | (missing) | | (unavailable | 21:45 [facility] | | | + + + +--------+ + + + + | Result panel 85 | + + + + + +-------+ + + | | 2022-10-17 | [facility] | 1.7 | (missing) | (missing) | | (unavailable | 21:45 [facility] | | + + + +-------+ + + + + | Result panel 86 | + + + + + +-------+ + + | | 2022-10-17 | [facility] | 0.2 | (missing) | (missing) | | (unavailable | 21:45 [facility] | | + + + +-------+ + + + + | Result panel 87 | + + + + + +--------+ + + | | 2022-10-17 | [facility] | 13.7 | (missing) | (missing) | | (unavailable | 21:45 [facility] | | | + + + +--------+ + + + + | Result panel 88 | + + + + + +--------+ + + | | 2022-10-17 | [facility] | 1.07 | (missing) | (missing) | | (unavailable | 21:45 [facility] | | | + + + +--------+ + + + + | Result panel 89 | + + + + + +-------+---------+ + | | 2022-10-17 | [facility] | 105 | mg/dL | (missing) | | (unavailable | 21:45 [facility] | | | + + + +-------+---------+ + + + | Result panel 90 | + + + + + +------+---------+ + | | 2022-10-17 | [facility] | 20 | mg/dL | (missing) | | (unavailable | 21:45 [facility] | | | + + + +------+---------+ + + + | Result panel 91 | + + + + + +--------+---------+ + | | 2022-10-17 | [facility] | 1.50 | mg/dL | (missing) | | (unavailable | 21:45 [facility] | | | + + + +--------+---------+ + + + | Result panel 92 | + + + + + +------+ + + | | 2022-10-17 | [facility] | 37 | (missing) | (missing) | | (unavailable | 21:45 [facility] | | | + + + +------+ + + + + | Result panel 93 | + + + + + +---------+ + + | | 2022-10-17 | [facility] | 13.33 | (missing) | (missing) | | (unavailable | 21:45 [facility] | | | + + + +---------+ + + + + | Result panel 94 | + + + + + +-------+ + + | | 2022-10-17 | [facility] | 134 | (missing) | (missing) | | (unavailable | 21:45 [facility] | | | + + + +-------+ + + + + | Result panel 95 | + + + + + + + + + | | 2022-10-17 | [facility] | POSITIVE | (missing) | (missing) | | (unavailable | 22:20 [facility] | | | + + + + + + + + + | Result panel 96 | + + + + + + + + + | | 2022-10-17 | [facility] | NEGATIVE | (missing) | (missing) | | (unavailable | 22:20 [facility] | | | + + + + + + + + + | Result panel 97 | + + + + + + + + + | | 2022-10-17 | [facility] | NEGATIVE | (missing) | (missing) | | (unavailable | 22:20 [facility] | | | + + + + + + + + + | Result panel 98 | + + + + + + + + + | | 2022-10-17 | [facility] | NEGATIVE | (missing) | (missing) | | (unavailable | 22:20 [facility] | | | + + + + + + + + + | Result panel 99 | + + + + + + + + + | | 2022-10-17 | [facility] | NEGATIVE | (missing) | (missing) | | (unavailable | 22:20 [facility] | | | + + + + + + + + + | Result panel 100 | + + + + + + + + + | | 2022-10-17 | [facility] | NEGATIVE | (missing) | (missing) | | (unavailable | 22:20 [facility] | | | + + + + + + + + + | Result panel 101 | + + + + + + + + + | | 2022-10-17 | [facility] | NEGATIVE | (missing) | (missing) | | (unavailable | 22:20 [facility] | | | + + + + + + + + + | Result panel 102 | + + + + + + + + + | | 2022-10-17 | [facility] | NEGATIVE | (missing) | (missing) | | (unavailable | 22:20 [facility] | | | + + + + + + + + + | Result panel 103 | + + + + + + + + + | | 2022-10-17 | [facility] | NEGATIVE | (missing) | (missing) | | (unavailable | 22:20 [facility] | | | + + + + + + + + + | Result panel 104 | + + + + + + + + + | | 2022-10-17 | [facility] | NEGATIVE | (missing) | (missing) | | (unavailable | 22:20 [facility] | | | + + + + + + + + + | Result panel 105 | + + + + + + + + + | | 2022-10-17 | [facility] | NEGATIVE | (missing) | (missing) | | (unavailable | 22:20 [facility] | | | + + + + + + + + + | Result panel 106 | + + + + + + + + + | | 2022-10-17 | [facility] | NEGATIVE | (missing) | (missing) | | (unavailable | 22:20 [facility] | | | + + + + + + + + + | Result panel 107 | + + + + + + + + + | | 2022-10-17 | [facility] | NEGATIVE | (missing) | (missing) | | (unavailable | 22:20 [facility] | | | + + + + + + + + + | Result panel 108 | + + + + + + + + + | | 2022-10-17 | [facility] | YELLOW | (missing) | (missing) | | (unavailable | 22:20 [facility] | | | + + + + + + + + + | Result panel 109 | + + + + + +---------+ + + | | 2022-10-17 | [facility] | CLEAR | (missing) | (missing) | | (unavailable | 22:20 [facility] | | | + + + +---------+ + + + + | Result panel 110 | + + + + + + + + + | | 2022-10-17 | [facility] | NEGATIVE | (missing) | (missing) | | (unavailable | 22:20 [facility] | | | + + + + + + + + + | Result panel 111 | + + + + + + + + + | | 2022-10-17 | [facility] | NEGATIVE | (missing) | (missing) | | (unavailable | 22:20 [facility] | | | + + + + + + + + + | Result panel 112 | + + + + + + + + + | | 2022-10-17 | [facility] | NEGATIVE | (missing) | (missing) | | (unavailable | 22:20 [facility] | | | + + + + + + + + + | Result panel 113 | + + + + + +---------+ + + | | 2022-10-17 | [facility] | 1.020 | (missing) | (missing) | | (unavailable | 22:20 [facility] | | | + + + +---------+ + + + + | Result panel 114 | + + + + + +---------+ + + | | 2022-10-17 | [facility] | SMALL | (missing) | (missing) | | (unavailable | 22:20 [facility] | | | + + + +---------+ + + + + | Result panel 115 | + + + + + +-------+ + + | | 2022-10-17 | [facility] | 6.0 | (missing) | (missing) | | (unavailable | 22:20 [facility] | | | + + + +-------+ + + + + | Result panel 116 | + + + + + +------+ + + | | 2022-10-17 | [facility] | 30 | (missing) | (missing) | | (unavailable | 22:20 [facility] | | | + + + +------+ + + + + | Result panel 117 | + + + + + + + + + | | 2022-10-17 | [facility] | NORMAL | (missing) | (missing) | | (unavailable | 22:20 [facility] | | | + + + + + + + + + | Result panel 118 | + + + + + + + + + | | 2022-10-17 | [facility] | NEGATIVE | (missing) | (missing) | | (unavailable | 22:20 [facility] | | | + + + + + + + + + | Result panel 119 | + + + + + +---------+ + + | | 2022-10-17 | [facility] | SMALL | (missing) | (missing) | | (unavailable | 22:20 [facility] | | | + + + +---------+ + + + + | Result panel 120 | + + + + + +-------+ + + | | 2022-10-17 | [facility] | 2-3 | (missing) | (missing) | | (unavailable | 22:20 [facility] | | | + + + +-------+ + + + + | Result panel 121 | + + + + + +--------+ + + | | 2022-10-17 | [facility] | 7-11 | (missing) | (missing) | | (unavailable | 22:20 [facility] | | | + + + +--------+ + + + + | Result panel 122 | + + + + + + + + + | | 2022-10-17 | [facility] | | (missing) | (missing) | | (unavailable | 22:20 [facility] | 1+ | | | + + + + + + + + + | Result panel 123 | + + + + + +------+ + + | | 2022-10-17 | [facility] | 1+ | (missing) | (missing) | | (unavailable | 22:20 [facility] | | | + + + +------+ + + + + | Result panel 124 | + + + + + +-------+ + + | | 2022-10-17 | [facility] | Yes | (missing) | (missing) | | (unavailable | 22:20 [facility] | | | + + + +-------+ + + + + | Result panel 125 | + + + + + +--------+ + + | | 2022-10-17 | [facility] | CATH | (missing) | (missing) | | (unavailable | 22:20 [facility] | | | + + + +--------+ + + Social History No information. Vital Signs + + + +---------+ | date | measurement | value | units | + + + +---------+ | 2022-04-19 00:00 | BMI | 24.9 | kg/m2 | + + + +---------+ | 2022-04-19 00:00 | BP_diastolic | 82 | mmHg | + + + +---------+ | 2022-04-19 00:00 | BP_systolic | 141 | mmHg | + + + +---------+ | 2022-04-19 00:00 | heart_rate | 78 | /min | + + + +---------+ | 2022-04-19 00:00 | height_metric | 160.02 | cm | + + + +---------+ | 2022-04-19 00:00 | height_standard | 63 | in | + + + +---------+ | 2022-04-19 00:00 | o2_saturation | 97 | % | + + + +---------+ | 2022-04-19 00:00 | respiration_rate | 14 | /min | + + + +---------+ | 2022-04-19 00:00 | temperature_metric | 36.83 | C | | | | | | + + + +---------+ | 2022-04-19 00:00 | | 98.3 | F | | | temperature_standar | | | | | d | | | + + + +---------+ | 2022-04-19 00:00 | weight_metric | 63.64 | kg | + + + +---------+ | 2022-04-19 00:00 | weight_standard | 140.3 | lb | + + + +---------+ | 2022-04-19 00:00 | weight_standard | 140.31 | lb | + + + +---------+ | 2022-06-23 00:00 | BMI | 24.9 | kg/m2 | + + + +---------+ | 2022-06-23 00:00 | BP_diastolic | 77 | mmHg | + + + +---------+ | 2022-06-23 00:00 | BP_systolic | 110 | mmHg | + + + +---------+ | 2022-06-23 00:00 | heart_rate | 83 | /min | + + + +---------+ | 2022-06-23 00:00 | height_metric | 160.02 | cm | + + + +---------+ | 2022-06-23 00:00 | height_standard | 63 | in | + + + +---------+ | 2022-06-23 00:00 | o2_saturation | 94 | % | + + + +---------+ | 2022-06-23 00:00 | respiration_rate | 19 | /min | + + + +---------+ | 2022-06-23 00:00 | temperature_metric | 37 | C | | | | | | + + + +---------+ | 2022-06-23 00:00 | | 98.6 | F | | | temperature_standar | | | | | d | | | + + + +---------+ | 2022-06-23 00:00 | weight_metric | 63.64 | kg | + + + +---------+ | 2022-06-23 00:00 | weight_standard | 140.3 | lb | + + + +---------+ | 2022-06-23 00:00 | weight_standard | 140.31 | lb | + + + +---------+ | 2022-10-17 00:00 | BMI | 24.9 | kg/m2 | + + + +---------+ | 2022-10-17 00:00 | BP_diastolic | 66 | mmHg | + + + +---------+ | 2022-10-17 00:00 | BP_systolic | 105 | mmHg | + + + +---------+ | 2022-10-17 00:00 | heart_rate | 79 | /min | + + + +---------+ | 2022-10-17 00:00 | height_metric | 160.02 | cm | + + + +---------+ | 2022-10-17 00:00 | height_standard | 63 | in | + + + +---------+ | 2022-10-17 00:00 | o2_saturation | 95 | % | + + + +---------+ | 2022-10-17 00:00 | respiration_rate | 18 | /min | + + + +---------+ | 2022-10-17 00:00 | temperature_metric | 37.39 | C | | | | | | + + + +---------+ | 2022-10-17 00:00 | | 99.3 | F | | | temperature_standar | | | | | d | | | + + + +---------+ | 2022-10-17 00:00 | weight_metric | 63.64 | kg | + + + +---------+ | 2022-10-17 00:00 | weight_standard | 140.3 | lb | + + + +---------+ | 2022-10-17 00:00 | weight_standard | 140.31 | lb | + + + +---------+"
--- OUTSIDE RECORDS SUMMARY | ~2023-06-09 | XMS | Continuity of Care Document ---
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 | (no reaction) | (no severity) | | | | [facility] | [facility] | | | + + + + + + Encounters No information. Functional Status No information. Immunizations No information. Medications + + + + | date | description | facility | + + + + | 2022-06-23 00:00 | LISINOPRIL | [facility] | + + + + | 2022-10-18 00:00 | LISINOPRIL | [facility] | + + + + | 2016-04-29 00:00 | OXYCODONE HCL | [facility] | + + + + | 2016-04-29 00:00 | OXYCODONE HCL | [facility] | + + + + | 2022-06-23 00:00 | OXYCODONE HCL | [facility] | + + + + | 2022-10-18 00:00 | OXYCODONE HCL | [facility] | + + + + | 2022-06-23 00:00 | ALBUTEROL SULFATE | [facility] | + + + + | 2022-10-18 00:00 | ALBUTEROL SULFATE | [facility] | + + + + | 2021-07-05 00:00 | IPRATROPIUM/ALBUTEROL | [facility] | | | SULFATE | | + + + + | 2021-07-05 00:00 | IPRATROPIUM/ALBUTEROL | [facility] | | | SULFATE | | + + + + | 2022-06-23 00:00 | LEDIPASVIR/SOFOSBUVIR | [facility] | + + + + | 2022-10-18 00:00 | LEDIPASVIR/SOFOSBUVIR | [facility] | + + + + | 2022-06-23 00:00 | BENZONATATE | [facility] | + + + + | 2022-06-23 00:00 | BENZONATATE | [facility] | + + + + | 2022-06-23 00:00 | NAPROXEN | [facility] | + + + + | 2022-10-18 00:00 | NAPROXEN | [facility] | + + + + | 2018-04-21 00:00 | NICOTINE 7MG | [facility] | + + + + | 2018-04-21 00:00 | NICOTINE 7MG | [facility] | + + + + | 2022-06-23 00:00 | RANITIDINE HCL | [facility] | + + + + | 2022-10-18 00:00 | RANITIDINE HCL | [facility] | + + + + | 2022-06-23 00:00 | CITALOPRAM HYDROBROMIDE | [facility] | + + + + | 2022-10-18 00:00 | CITALOPRAM HYDROBROMIDE | [facility] | + + + + | 2018-12-06 00:00 | CEPHALEXIN | [facility] | + + + + | 2018-12-06 00:00 | CEPHALEXIN | [facility] | + + + + | 2019-03-18 00:00 | CEPHALEXIN | [facility] | + + + + | 2019-03-18 00:00 | CEPHALEXIN | [facility] | + + + + | 2020-07-10 00:00 | CEPHALEXIN | [facility] | + + + + | 2020-07-10 00:00 | CEPHALEXIN | [facility] | + + + + | 2022-06-23 00:00 | CEPHALEXIN | [facility] | + + + + | 2022-10-18 00:00 | CEPHALEXIN | [facility] | + + + + | 2022-06-23 00:00 | CALCIUM CARBONATE | [facility] | + + + + | 2022-10-18 00:00 | CALCIUM CARBONATE | [facility] | + + + + | 2016-04-29 00:00 | CEFPODOXIME PROXETIL | [facility] | + + + + | 2016-04-29 00:00 | CEFPODOXIME PROXETIL | [facility] | + + + + | 2018-02-13 00:00 | CEFUROXIME AXETIL | [facility] | + + + + | 2018-02-13 00:00 | CEFUROXIME AXETIL | [facility] | + + + + | 2016-08-16 00:00 | CEPHALEXIN | [facility] | + + + + | 2016-08-16 00:00 | CEPHALEXIN | [facility] | + + + + | 2021-01-10 00:00 | CEPHALEXIN | [facility] | + + + + | 2021-01-10 00:00 | CEPHALEXIN | [facility] | + + + + | 2022-04-19 00:00 | CEPHALEXIN | [facility] | + + + + | 2022-04-19 00:00 | CEPHALEXIN | [facility] | + + + + | 2022-06-23 00:00 | GABAPENTIN | [facility] | + + + + | 2022-10-18 00:00 | GABAPENTIN | [facility] | + + + + | 2014-05-31 00:00 | predniSONE | [facility] | + + + + | 2014-05-31 00:00 | predniSONE | [facility] | + + + + | 2022-06-23 00:00 | predniSONE | [facility] | + + + + | 2022-06-23 00:00 | predniSONE | [facility] | + + + + | 2016-04-13 00:00 | NICOTINE POLACRILEX | [facility] | + + + + | 2016-04-13 00:00 | NICOTINE POLACRILEX | [facility] | + + + + | 2016-08-14 00:00 | NITROFURANTOIN MONOHYD | [facility] | | | MACROCR | | + + + + | 2016-08-14 00:00 | NITROFURANTOIN MONOHYD | [facility] | | | MACROCR | | + + + + | 2022-06-23 00:00 | DULOXETINE HCL | [facility] | + + + + | 2022-10-18 00:00 | DULOXETINE HCL | [facility] | + + + + | 2022-06-23 00:00 | AMOXICILLIN/POTASSIUM CLAV | [facility] | | | | | + + + + | 2022-10-18 00:00 | AMOXICILLIN/POTASSIUM CLAV | [facility] | | | | | + + + + | 2022-06-23 00:00 | AZITHROMYCIN | [facility] | + + + + | 2022-06-23 00:00 | AZITHROMYCIN | [facility] | + + + + | 2014-05-31 00:00 | CYCLOBENZAPRINE HCL | [facility] | + + + + | 2014-05-31 00:00 | CYCLOBENZAPRINE HCL | [facility] | + + + + | 2021-04-12 00:00 | CYCLOBENZAPRINE HCL | [facility] | + + + + | 2021-04-12 00:00 | CYCLOBENZAPRINE HCL | [facility] | + + + + | 2014-05-31 00:00 | TRAMADOL HCL | [facility] | + + + + | 2014-05-31 00:00 | TRAMADOL HCL | [facility] | + + + + | 2022-06-23 00:00 | IPRATROPIUM BROMIDE MDI | [facility] | + + + + | 2022-10-18 00:00 | IPRATROPIUM BROMIDE MDI | [facility] | + + + + | 2022-06-23 00:00 | TRAZODONE HCL | [facility] | + + + + | 2022-10-18 00:00 | TRAZODONE HCL | [facility] | + + + + | 2016-04-13 00:00 | HYDROCODONE/APAP | [facility] | | | (10-325MG) | | + + + + | 2016-04-13 00:00 | HYDROCODONE/APAP | [facility] | | | (10-325MG) | | + + + + | 2022-06-23 00:00 | HYDROCODONE/APAP | [facility] | | | (10-325MG) | | + + + + | 2022-10-18 00:00 | HYDROCODONE/APAP | [facility] | | | (10-325MG) | | + + + + | 2021-07-05 00:00 | METFORMIN HCL | [facility] | + + + + | 2021-07-05 00:00 | METFORMIN HCL | [facility] | + + + + | 2022-06-23 00:00 | METFORMIN HCL | [facility] | + + + + | 2022-10-18 00:00 | METFORMIN HCL | [facility] | + + + + | 2022-06-23 00:00 | LEVOTHYROXINE SODIUM | [facility] | + + + + | 2022-10-18 00:00 | LEVOTHYROXINE SODIUM | [facility] | + + + + | 2022-06-23 00:00 | BECLOMETHASONE | [facility] | | | DIPROPIONATE | | + + + + | 2022-10-18 00:00 | BECLOMETHASONE | [facility] | | | DIPROPIONATE | | + + + + | 2022-06-23 00:00 | BUPROPION HCL | [facility] | + + + + | 2022-10-18 00:00 | BUPROPION HCL | [facility] | + + + + Problems + + + + | date | description | facility | + + + + | 2015-10-13 00:00 | Bronchitis | [facility] | + + + + | 2015-10-13 00:00 | Bronchitis | [facility] | + + + + | 2015-10-13 00:00 | Radicular pain of right | [facility] | | | upper extremity | | + + + + | 2015-10-13 00:00 | Radicular pain of right | [facility] | | | upper extremity | | + + + + | 2016-04-15 00:00 | Peripheral edema | [facility] | + + + + | 2016-04-15 00:00 | Peripheral edema | [facility] | + + + + | 2016-04-26 00:00 | Acute pyelonephritis | [facility] | + + + + | 2016-04-26 00:00 | Acute pyelonephritis | [facility] | + + + + | 2016-04-28 00:00 | Chronic hepatitis C virus | [facility] | | | infection | | + + + + | 2016-04-28 00:00 | Chronic hepatitis C virus | [facility] | | | infection | | + + + + | 2016-04-28 00:00 | Thrombocytopenia | [facility] | + + + + | 2016-04-28 00:00 | Thrombocytopenia | [facility] | + + + + | 2016-04-28 00:00 | Hypothyroidism | [facility] | + + + + | 2016-04-28 00:00 | Hypothyroidism | [facility] | + + + + | 2016-04-28 00:00 | Type 2 diabetes mellitus | [facility] | + + + + | 2016-04-28 00:00 | Type 2 diabetes mellitus | [facility] | + + + + | 2016-04-28 00:00 | Hyperbilirubinemia | [facility] | + + + + | 2016-04-28 00:00 | Hyperbilirubinemia | [facility] | + + + + | 2016-04-28 00:00 | Hyponatremia | [facility] | + + + + | 2016-04-28 00:00 | Hyponatremia | [facility] | + + + + | 2016-04-28 00:00 | Chronic pain syndrome | [facility] | + + + + | 2016-04-28 00:00 | Chronic pain syndrome | [facility] | + + + + | 2016-04-28 00:00 | Chronic obstructive | [facility] | | | pulmonary disease | | + + + + | 2016-04-28 00:00 | Chronic obstructive | [facility] | | | pulmonary disease | | + + + + | 2016-08-14 00:00 | Hematuria | [facility] | + + + + | 2016-08-14 00:00 | Hematuria | [facility] | + + + + | 2016-08-16 00:00 | Urinary tract infection | [facility] | | | with hematuria | | + + + + | 2016-08-16 00:00 | Urinary tract infection | [facility] | | | with hematuria | | + + + + | 2017-04-14 00:00 | Pneumonia | [facility] | + + + + | 2017-04-14 00:00 | Pneumonia | [facility] | + + + + | 2018-02-13 00:00 | Urinary tract infection | [facility] | + + + + | 2018-02-13 00:00 | Urinary tract infection | [facility] | + + + + | 2018-04-09 00:00 | Acute exacerbation of | [facility] | | | chronic obstructive | | | | pulmonary disease | | + + + + | 2018-04-09 00:00 | Acute exacerbation of | [facility] | | | chronic obstructive | | | | pulmonary disease | | + + + + | 2019-06-16 00:00 | Shortness of breath | [facility] | + + + + | 2019-06-16 00:00 | Shortness of breath | [facility] | + + + + | 2021-01-10 00:00 | Exacerbation of chronic | [facility] | | | back pain | | + + + + | 2021-01-10 00:00 | Exacerbation of chronic | [facility] | | | back pain | | + + + + | 2021-04-12 00:00 | Sciatica of left side | [facility] | + + + + | 2021-04-12 00:00 | Sciatica of left side | [facility] | + + + + | 2021-06-21 00:00 | Minor head injury | [facility] | + + + + | 2021-06-21 00:00 | Minor head injury | [facility] | + + + + | 2021-06-21 00:00 | Abrasion of right lower | [facility] | | | leg, initial encounter | | + + + + | 2021-06-21 00:00 | Abrasion of right lower | [facility] | | | leg, initial encounter | | + + + + | 2021-06-21 00:00 | Fall | [facility] | + + + + | 2021-06-21 00:00 | Fall | [facility] | + + + + | 2021-07-02 00:00 | Severe sepsis | [facility] | + + + + | 2021-07-02 00:00 | Severe sepsis | [facility] | + + + + | 2021-07-02 00:00 | Hypomagnesemia | [facility] | + + + + | 2021-07-02 00:00 | Hypomagnesemia | [facility] | + + + + | 2021-07-02 00:00 | Biliary colic | [facility] | + + + + | 2021-07-02 00:00 | Biliary colic | [facility] | + + + + | 2021-07-02 00:00 | Acute kidney injury | [facility] | + + + + | 2021-07-02 00:00 | Acute kidney injury | [facility] | + + + + [...] + + | 2022-04-19 16:49 | Other skilled nursing (current) | [facility] | | | drug therapy | [facility] | + + + + | 2022-04-19 16:49 | Allergy status to narcotic | [facility] | | | agent | [facility] | + + + + | 2022-06-23 00:00 | Chronic obstructive | [facility] | | | pulmonary disease with | | | | acute exacerbation | | + + + + | 2022-06-23 00:00 | Chronic obstructive | [facility] | | | pulmonary disease with | | | | acute exacerbation | | + + + + | 2022-10-17 00:00 | Contusion of hip | [facility] | + + + + Procedures No [...] | | 2022-10-17 | [facility] | [facility] | (missing) | (missing) | | (unavailable [...]
--- OUTSIDE RECORDS SUMMARY | ~2023-06-09 | XMS | Continuity of Care Document ---
Demographics + + + | Address | [address] | | | [place] [address] | + + + | Preferred Language | Unknown | + + + | Marital Status | | + + + | Zoroastrian Affiliation | Unknown | + + + | Race | White | + + + | Ethnic Group | Not or | + + + Author + + + | Author | [facility] | + + + | Organization | [facility] | + + + | Address | [address] | | | [place] [address] | + + + | Phone | | + + + Care Team Providers + + + + | Care Television Inspector Name | Role | Phone | [...] + | (no date) | Codeine | [facility]. | (no reaction) | (no severity) | | | | [facility] | | | | | | [facility] | | | + + + + + + Encounters No information. Functional Status No information. Immunizations No information. Medications + + + + | date | description | facility | + + + + | 2022-06-23 00:00 | LISINOPRIL | [facility] | + + + + | 2022-10-18 00:00 | LISINOPRIL | [facility] | + + + + | 2016-04-29 00:00 | OXYCODONE HCL | [facility] | + + + + | 2016-04-29 00:00 | OXYCODONE HCL | [facility] | + + + + | 2022-06-23 00:00 | OXYCODONE HCL | [facility] | + + + + | 2022-10-18 00:00 | OXYCODONE HCL | [facility] | + + + + | 2022-06-23 00:00 | ALBUTEROL SULFATE | [facility] | + + + + | 2022-10-18 00:00 | ALBUTEROL SULFATE | [facility] | + + + + | 2021-07-05 00:00 | IPRATROPIUM/ALBUTEROL | [facility] | | | SULFATE | | + + + + | 2021-07-05 00:00 | IPRATROPIUM/ALBUTEROL | [facility] | | | SULFATE | | + + + + | 2022-06-23 00:00 | LEDIPASVIR/SOFOSBUVIR | [facility] | + + + + | 2022-10-18 00:00 | LEDIPASVIR/SOFOSBUVIR | [facility] | + + + + | 2022-06-23 00:00 | BENZONATATE | [facility] | + + + + | 2022-06-23 00:00 | BENZONATATE | [facility] | + + + + | 2022-06-23 00:00 | NAPROXEN | [facility] | + + + + | 2022-10-18 00:00 | NAPROXEN | [facility] | + + + + | 2018-04-21 00:00 | NICOTINE 7MG | [facility] | + + + + | 2018-04-21 00:00 | NICOTINE 7MG | [facility] | + + + + | 2022-06-23 00:00 | RANITIDINE HCL | [facility] | + + + + | 2022-10-18 00:00 | RANITIDINE HCL | [facility] | + + + + | 2022-06-23 00:00 | CITALOPRAM HYDROBROMIDE | [facility] | + + + + | 2022-10-18 00:00 | CITALOPRAM HYDROBROMIDE | [facility] | + + + + | 2018-12-06 00:00 | CEPHALEXIN | [facility] | + + + + | 2018-12-06 00:00 | CEPHALEXIN | [facility] | + + + + | 2019-03-18 00:00 | CEPHALEXIN | [facility] | + + + + | 2019-03-18 00:00 | CEPHALEXIN | [facility] | + + + + | 2020-07-10 00:00 | CEPHALEXIN | [facility] | + + + + | 2020-07-10 00:00 | CEPHALEXIN | [facility] | + + + + | 2022-06-23 00:00 | CEPHALEXIN | [facility] | + + + + | 2022-10-18 00:00 | CEPHALEXIN | [facility] | + + + + | 2022-06-23 00:00 | CALCIUM CARBONATE | [facility] | + + + + | 2022-10-18 00:00 | CALCIUM CARBONATE | [facility] | + + + + | 2016-04-29 00:00 | CEFPODOXIME PROXETIL | [facility] | + + + + | 2016-04-29 00:00 | CEFPODOXIME PROXETIL | [facility] | + + + + | 2018-02-13 00:00 | CEFUROXIME AXETIL | [facility] | + + + + | 2018-02-13 00:00 | CEFUROXIME AXETIL | [facility] | + + + + | 2016-08-16 00:00 | CEPHALEXIN | [facility] | + + + + | 2016-08-16 00:00 | CEPHALEXIN | [facility] | + + + + | 2021-01-10 00:00 | CEPHALEXIN | [facility] | + + + + | 2021-01-10 00:00 | CEPHALEXIN | [facility] | + + + + | 2022-04-19 00:00 | CEPHALEXIN | [facility] | + + + + | 2022-04-19 00:00 | CEPHALEXIN | [facility] | + + + + | 2022-06-23 00:00 | GABAPENTIN | [facility] | + + + + | 2022-10-18 00:00 | GABAPENTIN | [facility] | + + + + | 2014-05-31 00:00 | predniSONE | [facility] | + + + + | 2014-05-31 00:00 | predniSONE | [facility] | + + + + | 2022-06-23 00:00 | predniSONE | [facility] | + + + + | 2022-06-23 00:00 | predniSONE | [facility] | + + + + | 2016-04-13 00:00 | NICOTINE POLACRILEX | [facility] | + + + + | 2016-04-13 00:00 | NICOTINE POLACRILEX | [facility] | + + + + | 2016-08-14 00:00 | NITROFURANTOIN MONOHYD | [facility] | | | MACROCR | | + + + + | 2016-08-14 00:00 | NITROFURANTOIN MONOHYD | [facility] | | | MACROCR | | + + + + | 2022-06-23 00:00 | DULOXETINE HCL | [facility] | + + + + | 2022-10-18 00:00 | DULOXETINE HCL | [facility] | + + + + | 2022-06-23 00:00 | AMOXICILLIN/POTASSIUM CLAV | [facility] | | | | | + + + + | 2022-10-18 00:00 | AMOXICILLIN/POTASSIUM CLAV | [facility] | | | | | + + + + | 2022-06-23 00:00 | AZITHROMYCIN | [facility] | + + + + | 2022-06-23 00:00 | AZITHROMYCIN | [facility] | + + + + | 2014-05-31 00:00 | CYCLOBENZAPRINE HCL | [facility] | + + + + | 2014-05-31 00:00 | CYCLOBENZAPRINE HCL | [facility] | + + + + | 2021-04-12 00:00 | CYCLOBENZAPRINE HCL | [facility] | + + + + | 2021-04-12 00:00 | CYCLOBENZAPRINE HCL | [facility] | + + + + | 2014-05-31 00:00 | TRAMADOL HCL | [facility] | + + + + | 2014-05-31 00:00 | TRAMADOL HCL | [facility] | + + + + | 2022-06-23 00:00 | IPRATROPIUM BROMIDE MDI | [facility] | + + + + | 2022-10-18 00:00 | IPRATROPIUM BROMIDE MDI | [facility] | + + + + | 2022-06-23 00:00 | TRAZODONE HCL | [facility] | + + + + | 2022-10-18 00:00 | TRAZODONE HCL | [facility] | + + + + | 2016-04-13 00:00 | HYDROCODONE/APAP | [facility] | | | (10-325MG) | | + + + + | 2016-04-13 00:00 | HYDROCODONE/APAP | [facility] | | | (10-325MG) | | + + + + | 2022-06-23 00:00 | HYDROCODONE/APAP | [facility] | | | (10-325MG) | | + + + + | 2022-10-18 00:00 | HYDROCODONE/APAP | [facility] | | | (10-325MG) | | + + + + | 2021-07-05 00:00 | METFORMIN HCL | [facility] | + + + + | 2021-07-05 00:00 | METFORMIN HCL | [facility] | + + + + | 2022-06-23 00:00 | METFORMIN HCL | [facility] | + + + + | 2022-10-18 00:00 | METFORMIN HCL | [facility] | + + + + | 2022-06-23 00:00 | LEVOTHYROXINE SODIUM | [facility] | + + + + | 2022-10-18 00:00 | LEVOTHYROXINE SODIUM | [facility] | + + + + | 2022-06-23 00:00 | BECLOMETHASONE | [facility] | | | DIPROPIONATE | | + + + + | 2022-10-18 00:00 | BECLOMETHASONE | [facility] | | | DIPROPIONATE | | + + + + | 2022-06-23 00:00 | BUPROPION HCL | [facility] | + + + + | 2022-10-18 00:00 | BUPROPION HCL | [facility] | + + + + Problems + + + + | date | description | facility | + + + + | 2015-10-13 00:00 | Bronchitis | [facility] | + + + + | 2015-10-13 00:00 | Bronchitis | [facility] | + + + + | 2015-10-13 00:00 | Radicular pain of right | [facility] | | | upper extremity | | + + + + | 2015-10-13 00:00 | Radicular pain of right | [facility] | | | upper extremity | | + + + + | 2016-04-15 00:00 | Peripheral edema | [facility] | + + + + | 2016-04-15 00:00 | Peripheral edema | [facility] | + + + + | 2016-04-26 00:00 | Acute pyelonephritis | [facility] | + + + + | 2016-04-26 00:00 | Acute pyelonephritis | [facility] | + + + + | 2016-04-28 00:00 | Chronic hepatitis C virus | [facility] | | | infection | | + + + + | 2016-04-28 00:00 | Chronic hepatitis C virus | [facility] | | | infection | | + + + + | 2016-04-28 00:00 | Thrombocytopenia | [facility] | + + + + | 2016-04-28 00:00 | Thrombocytopenia | [facility] | + + + + | 2016-04-28 00:00 | Hypothyroidism | [facility] | + + + + | 2016-04-28 00:00 | Hypothyroidism | [facility] | + + + + | 2016-04-28 00:00 | Type 2 diabetes mellitus | [facility] | + + + + | 2016-04-28 00:00 | Type 2 diabetes mellitus | [facility] | + + + + | 2016-04-28 00:00 | Hyperbilirubinemia | [facility] | + + + + | 2016-04-28 00:00 | Hyperbilirubinemia | [facility] | + + + + | 2016-04-28 00:00 | Hyponatremia | [facility] | + + + + | 2016-04-28 00:00 | Hyponatremia | [facility] | + + + + | 2016-04-28 00:00 | Chronic pain syndrome | [facility] | + + + + | 2016-04-28 00:00 | Chronic pain syndrome | [facility] | + + + + | 2016-04-28 00:00 | Chronic obstructive | [facility] | | | pulmonary disease | | + + + + | 2016-04-28 00:00 | Chronic obstructive | [facility] | | | pulmonary disease | | + + + + | 2016-08-14 00:00 | Hematuria | [facility] | + + + + | 2016-08-14 00:00 | Hematuria | [facility] | + + + + | 2016-08-16 00:00 | Urinary tract infection | [facility] | | | with hematuria | | + + + + | 2016-08-16 00:00 | Urinary tract infection | [facility] | | | with hematuria | | + + + + | 2017-04-14 00:00 | Pneumonia | [facility] | + + + + | 2017-04-14 00:00 | Pneumonia | [facility] | + + + + | 2018-02-13 00:00 | Urinary tract infection | [facility] | + + + + | 2018-02-13 00:00 | Urinary tract infection | [facility] | + + + + | 2018-04-09 00:00 | Acute exacerbation of | [facility] | | | chronic obstructive | | | | pulmonary disease | | + + + + | 2018-04-09 00:00 | Acute exacerbation of | [facility] | | | chronic obstructive | | | | pulmonary disease | | + + + + | 2019-06-16 00:00 | Shortness of breath | [facility] | + + + + | 2019-06-16 00:00 | Shortness of breath | [facility] | + + + + | 2021-01-10 00:00 | Exacerbation of chronic | [facility] | | | back pain | | + + + + | 2021-01-10 00:00 | Exacerbation of chronic | [facility] | | | back pain | | + + + + | 2021-04-12 00:00 | Sciatica of left side | [facility] | + + + + | 2021-04-12 00:00 | Sciatica of left side | [facility] | + + + + | 2021-06-21 00:00 | Minor head injury | [facility] | + + + + | 2021-06-21 00:00 | Minor head injury | [facility] | + + + + | 2021-06-21 00:00 | Abrasion of right lower | [facility] | | | leg, initial encounter | | + + + + | 2021-06-21 00:00 | Abrasion of right lower | [facility] | | | leg, initial encounter | | + + + + | 2021-06-21 00:00 | Fall | [facility] | + + + + | 2021-06-21 00:00 | Fall | [facility] | + + + + | 2021-07-02 00:00 | Severe sepsis | [facility] | + + + + | 2021-07-02 00:00 | Severe sepsis | [facility] | + + + + | 2021-07-02 00:00 | Hypomagnesemia | [facility] | + + + + | 2021-07-02 00:00 | Hypomagnesemia | [facility] | + + + + | 2021-07-02 00:00 | Biliary colic | [facility] | + + + + | 2021-07-02 00:00 | Biliary colic | [facility] | + + + + | 2021-07-02 00:00 | Acute kidney injury | [facility] | + + + + | 2021-07-02 00:00 | Acute kidney injury | [facility] | + + + + [...] + + | 2022-04-19 16:49 | Other senior living (current) | [facility] | | | drug therapy | [facility] | + + + + | 2022-04-19 16:49 | Allergy status to narcotic | [facility] | | | agent | [facility] | + + + + | 2022-06-23 00:00 | Chronic obstructive | [facility] | | | pulmonary disease with | | | | acute exacerbation | | + + + + | 2022-06-23 00:00 | Chronic obstructive | [facility] | | | pulmonary disease with | | | | acute exacerbation | | + + + + | 2022-10-17 00:00 | Contusion of hip | [facility] | + + + + [...]
[~2023-06-09 21:22] MED LIST changes: -BUPROPION HCL150 M2; +BUPROPION HCL150 M2 PO; +PROAIR DIGIHAL90 MCG INH; -PROAIR HFA8.5 GM IH; -ZESTRIL10 MG; +ZESTRIL10 MG PO
--- OUTSIDE RECORDS SUMMARY | 2023-06-09 21:24 | XMS ---
PreManage Notification: [facility] [employer] Flame Hardening Machine Setter Events No recent Security Events currently on file CRITERIA MET - ERIK CARE PROVIDERS -, Sravani- Dentist: Validation Software Facilitator [facility] PHONE: [phone] SWAPNA CORONADO [facility] 06/19/2019-Current PHONE: Unknown Kendall Floyd Green Building Design Specialist/Geotechnical Field Technician 04/29/2023-Current PHONE: [phone] DAY GRISSOM [facility] 04/14/2021-Current PHONE: Unknown Henny has no Care Guidelines for this patient. Care History Medical/Surgical 10/02/2020 [facility] - PATIENT IS CURRENTLY ON A PAIN CONTRACT WITH DR CORONADO-PCP- [phone]. - DR CORONADO OFFICE NOTIFIED OF PATIENT ED VISIT-REQUESTING REVIEW FOR A POSSIBLE REFERRAL TO A UROLOGIST. [place] VISIT COUNT (12 MO.) 3 [facility] TOTAL 3 NOTE: Visits indicate total known visits. ED/UCC VISIT TRACKING (12 MO.) 06/09/2023 21:22 [facility] [place] TYPE: Emergency COMPLAINT: - STROKE SYMPTOMS 10/17/2022 21:[address] [facility] [place] TYPE: Emergency COMPLAINT: - FALL DIAGNOSES: - Allergy status to narcotic agent - Chronic obstructive pulmonary disease, unspecified - Contusion of left hip, initial encounter - Contusion of right hip, initial encounter - Fall from bed, initial encounter - Hypothyroidism, unspecified - intermission coordinator (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 of oral hypoglycemic drugs - Nicotine dependence, unspecified, uncomplicated - Other usp (current) drug therapy - Pain in right hip - Type 2 diabetes mellitus without complications 06/23/2022 19:35 [facility] [place] TYPE: Emergency COMPLAINT: - DIFFICULTY BREATHING DIAGNOSES: - Allergy status to narcotic agent - Chronic obstructive pulmonary disease with (acute) exacerbation - Contact with and (suspected) exposure to COVID-19 - Hypothyroidism, unspecified - intermission coordinator (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 of oral hypoglycemic drugs - Other buttermaker helper (current) drug therapy - Shortness of breath - Type 2 diabetes mellitus without complications INPATIENT VISIT TRACKING (12 MO.) No inpatient visits to display in this time frame [id number]
--- NOTE | 2023-06-10 01:30 | NUR ---
PATIENT ADMITTED TO [facility]. BEDSIDE REPORT FROM LEONID GARCIA. PATIENT THEN TRANSFERED TO [place] [facility]. PATIENT ABLE TO STAND AND TRANSFER TO HOSPITAL BED. VSS WNL. LR @ 125 ML/HR. FULL BODY ASSESMENT COMPLETED. SKIN INTACT. NOTED REDNESS TO LOWER BACK, BLANCHABLE. PATIENT RATES PAIN 3/10 ON PAIN SCALE, TOLERABLE. AAOX3, CONFUSED ABOUT DAY OF WEEK. NIH SCORE OF 2. PATIENT REPORTS KNEES HAVE BEEN FEELING WEAK AND ACHY FOR MONTHS NOW. WHEN PERFORMING NIH ASSESMENT, NOTED LEGS DRIFT DOWN. PATIENT ORIENTED TO ROOM. DIABETIC SNACK PROVIDED. NO OTHER NEEDS AT THIS TIME.
[2023-06-10 02:55] VITALS: BP 136/60
--- NOTE | 2023-06-10 04:36 | NUR ---
SON YARIEL UMANA CALLED AND WAS UNAWARE OF pt's HOSPITALIZATION STATING, "I WOKE UP AND FOUND OUT I HAD A MISSED CALL. I DIDN'T KNOW SHE WAS IN THE HOSPITAL". SON UPDATED ON HOSPITALIZATION AND QUESTIONS ANSWERED, DISCUSSED POC WITH SON. PRIMARY RN KELVIN UPDATED AND UPDATED.
--- NOTE | 2023-06-10 05:00 | NUR ---
ASSESMENT COMPLETE. PATIENT UP TO BATHROOM, STEADY ON FEET. PROVIDED STBY WITH IV POLE. NO OTHER NEEDS AT THIS TIME.
[2023-06-10 05:24] VITALS: BP 147/54
--- NOTE | 2023-06-10 06:26 | NUR ---
PATIENT RESTING IN BED. NO NEEDS AT THIS TIME.
--- NOTE | 2023-06-10 07:56 | NUR ---
RECIEVED SHIFT REPORT. MD IN ROOM AT BEDSIDE. PT AWAKE IN BED. CALL LIGHT IN REACH.
--- NOTE | 2023-06-10 08:07 | NUR ---
DOPE EDGER ENTERED ROOM TO TAKE PATIENTS BLOOD SUGAR. PATIENTS BLOOD SUGAR WAS 86. PT APPEARED SHAKEY. NURSE WAS NOTIFED ABOUT LOW BLOOD SUGAR. NURSE ADVISED DOPE EDGER TO GIVE PT JUICE. PT WAS GIVEN JUICE AND FINISHED IT. WILL CONTINUE TO MONITOR PT. CALL LIGHT WITHIN REACH.
--- NOTE | 2023-06-10 08:40 | NUR ---
MORNING ASSESSMENT COMPLETE. PT LAYING IN BED, AWAKE. REPORTS BACK PAIN 07/08. PRN PAIN MEDICATION OFFERED, PT REFUSED. LUNG SOUNDS COARSE ADOLFO/RLL, EXP WHEEZE LLL. DENIES SOB OR DIF. BREATHING. TELE #[address] ASSISTED TO SIDE OF BED TO EAT BREAKFAST. DENIES FURTHER NEEDS. CALL LIGHT IN REACH.
[2023-06-10 09:04] VITALS: BP 104/50
--- NOTE | 2023-06-10 09:30 | NUR ---
Assisted Pt SBA FWW from bed to bathroom and back. Call light left in reach, bed alarm on. No other needs expressed by Pt.
[2023-06-10] MEDS ORDERED: METFORMIN HCL500 MG PO (10:02)
[2023-06-10] MEDS ORDERED: ANORO ELLIPTA1 EACH INH (10:04)
--- NOTE | 2023-06-10 10:39 | NUR ---
SPOKE WITH REGINALD JANG. PATIENT SAFE TO DC TO HOME. COULD BENEFIT FROM O/P PT IF PATIENT DESIRES.
--- NOTE | 2023-06-10 11:45 | NUR ---
PATIENT ALERT AND ORIENTED IN BED. STATES SHE LIVES IN AN APARTMENT, ALONE, NO STAIRS. STATES SHE IS ABLE TO DRIVE BUT PREFERS NOT TO AND USUALLY USES A [facility] OR HER SON FOR TRANSPORTATION. DENIES DIFFICULTY OBTAINING MEDICATION, FOOD, NO FINANCIAL HARDSHIPS. STATES SHE HAS A WALKER AT HOME, DOES NOT NEED ONE. STATES SHE IS CONCERNED ABOUT NEED FOR GRAB BARS AND POTENTIALLY A SHOWER CHAIR. INFORMATION ABOUT [employer] PROVIDED FOR SHOWER CHAIR NEED. PATIENT VERBALIZES UNDERSTANDING. DENIES FURTHER NEEDS AT THIS TIME. INFORMED TO NOTIFY STAFF IF SHE THINKS OF ANYTHING.
[2023-06-10 12:35] VITALS: BP 151/61
--- NOTE | 2023-06-10 13:12 | NUR ---
SON VISITED BRIEFLY. HAD TO LEAVE BUT INDICATED WOULD RETURN. PT LAYING ON SIDE IN BED. DISCOMFORT APPARENT IN REPEATED ATTEMPTS TO READJUST. INDICATED RN WAS AWARE WHEN I INQUIRED. PT VERY EMOTIONAL. EXPRESSED CONCERN FOR CATS DESPITE SON'S RECENT ASSURANCES THAT HE HAD JUST FED THEM. WHEN ASKED REASON FOR TEARS STATED SHE "DID NOT KNOW." SEEMED COMFORTED BY PRAYER. GAVE PRAYER QUILT.
--- NOTE | 2023-06-10 14:05 | NUR ---
DISCUSSED WITH LAINE AT [facility], PATIENT TO HAVE HOME HEALTH PT/OT. FACESHEET, FACE TO FACE, ER SUMMARY, DC SUMMARY FAXED TO [facility].
--- NOTE | 2023-06-10 14:24 | NUR ---
Assisted Pt SBA FWW from bed to bathroom and back. Call light left in reach and bed alarm on. No other needs expressed by Pt.
[2023-06-10] MEDS ORDERED: CEPHALEXIN500 MG PO (14:35)
--- NOTE | 2023-06-10 14:37 | NUR ---
PT RESTING IN BED, EYES CLOSED, BREATHING EVEN AND UNLABORED. CALL LIGHT IN REACH.
--- NOTE | 2023-06-10 16:14 | NUR ---
AFTERNOON ASSESSMENT COMPLETE. NO NEW CHANGES. PT DENIES ANY DISCOMFORT. PT RESTING IN BED, AWAKE. CALL LIGHT IN REACH.
--- NOTE | 2023-06-10 16:45 | NUR ---
RECEIVED REPORT FROM ANURAG RN. ROUNDED ON PT. ASSISTED TO THE BATHROOM. UP SBA WITH FWW.
--- NOTE | 2023-06-12 05:49 | EKG ---
[facility] [address] [place] [address] Signed Normal sinus rhythm Low voltage QRS Borderline ECG When compared with ECG of 23-JUN-2022 19:44, No significant change was found Confirmed by LAYTON BRENNAN MD ([id number]) on 06/12/2023 5:49:33 AM Electronically Signed By: LAYTON BRENNAN 06/12/23 0549 PATIENT NAME: [facility] Electrocardiogram DATE OF : 51 PHYSICIAN: LAYTON BRENNAN REPORT #: [id number] REPORT IS CONFIDENTIAL AND NOT TO BE RELEASED WITHOUT AUTHORIZATION
== END 2023-06-10 18:56 | disposition home or self-care (01) ==
LOC: ED 21:22 → MS 21:23
PROVIDERS: ADMIT Family Medicine; ATTEND Family Medicine
DX: R53.1 Weakness (principal); M54.9 Dorsalgia, unspecified; E86.0 Dehydration; N39.0 Urinary tract infection, site not specified; M54.2 Cervicalgia; G89.29 Other chronic pain; F17.200 Nicotine dependence, unspecified, uncomplicated; J44.9 Chronic obstructive pulmonary disease, unspecified; E11.9 Type 2 diabetes mellitus without complications; I10 Essential (primary) hypertension; F41.9 Anxiety disorder, unspecified; M25.562 Pain in left knee; Z79.899 Other long term (current) drug therapy; Z88.5 Allergy status to narcotic agent; Z91.81 History of falling
CPT/HCPCS: 36415; 51701; 70450; 70496; 70498; 70551; 71045; 72128; 72131; 73560; 80053; 81001; 82553; 84484; 85025; 85610; 85730; 87088; 93005; 93010; 96372; 99285 25; G0378; G0480; J0696; J1170; J1650; J3010; J7121; Q3014; Q9967

== ENCOUNTER 2023-07-26 13:02 | Emergency (ER) | payer MEDICARE, OTHER ==
[~2023-07-26] VITALS: Ht 160 cm; Wt 70.8 kg
--- OUTSIDE RECORDS SUMMARY | ~2023-07-26 | XMS | Continuity of Care Document ---
Demographics + + + | Address | [address] | | | [place] [address] | + + + | Preferred Language | Unknown | + + + | Marital Status | | + + + | Latter-Day Affiliation | Unknown | + + + | Race | White | + + + | Ethnic Group | Not or | + + + Author + + + | Author | [facility] | + + + | Organization | [facility] | + + + | Address | [address] | | | [place] [address] | + + + | Phone | | + + + Care Team Providers + + + + | Care Flight Reservations Manager Name | Role | Phone | [...] + | 2022-06-23 00:00 | LISINOPRIL | [facility] | + + + + | 2022-10-18 00:00 | LISINOPRIL | [facility] | + + + + | 2023-06-10 00:00 | LISINOPRIL | [facility] | + + + + | 2016-04-29 00:00 | OXYCODONE HCL | [facility] | + + + + | 2016-04-29 00:00 | OXYCODONE HCL | [facility] | + + + + | 2016-04-29 00:00 | OXYCODONE HCL | [facility] | + + + + | 2022-06-23 00:00 | OXYCODONE HCL | [facility] | + + + + | 2022-10-18 00:00 | OXYCODONE HCL | [facility] | + + + + | 2023-06-10 00:00 | OXYCODONE HCL | [facility] | + + + + | 2022-06-23 00:00 | ALBUTEROL SULFATE | [facility] | + + + + | 2022-10-18 00:00 | ALBUTEROL SULFATE | [facility] | + + + + | 2021-07-05 00:00 | IPRATROPIUM/ALBUTEROL | [facility] | | | SULFATE | | + + + + | 2021-07-05 00:00 | IPRATROPIUM/ALBUTEROL | [facility] | | | SULFATE | | + + + + | 2023-06-10 00:00 | UMECLIDINIUM | [facility] | | | BRM/VILANTEROL TR | | + + + + | 2022-06-23 00:00 | LEDIPASVIR/SOFOSBUVIR | [facility] | + + + + | 2022-10-18 00:00 | LEDIPASVIR/SOFOSBUVIR | [facility] | + + + + | 2023-06-10 00:00 | LEDIPASVIR/SOFOSBUVIR | [facility] | + + + + | 2022-06-23 00:00 | BENZONATATE | [facility] | + + + + | 2022-06-23 00:00 | BENZONATATE | [facility] | + + + + | 2022-06-23 00:00 | BENZONATATE | [facility] | + + + + | 2022-06-23 00:00 | NAPROXEN | [facility] | + + + + | 2022-10-18 00:00 | NAPROXEN | [facility] | + + + + | 2023-06-10 00:00 | NAPROXEN | [facility] | + + + + | 2018-04-21 00:00 | NICOTINE 7MG | [facility] | + + + + | 2018-04-21 00:00 | NICOTINE 7MG | [facility] | + + + + | 2018-04-21 00:00 | NICOTINE 7MG | [facility] | + + + + | 2022-06-23 00:00 | RANITIDINE HCL | [facility] | + + + + | 2022-10-18 00:00 | RANITIDINE HCL | [facility] | + + + + | 2023-06-10 00:00 | RANITIDINE HCL | [facility] | + + + + | 2022-06-23 00:00 | CITALOPRAM HYDROBROMIDE | [facility] | + + + + | 2022-10-18 00:00 | CITALOPRAM HYDROBROMIDE | [facility] | + + + + | 2023-06-10 00:00 | CITALOPRAM HYDROBROMIDE | [facility] | + + + + | 2018-12-06 00:00 | CEPHALEXIN | [facility] | + + + + | 2018-12-06 00:00 | CEPHALEXIN | [facility] | + + + + | 2018-12-06 00:00 | CEPHALEXIN | [facility] | + + + + | 2019-03-18 00:00 | CEPHALEXIN | [facility] | + + + + | 2019-03-18 00:00 | CEPHALEXIN | [facility] | + + + + | 2019-03-18 00:00 | CEPHALEXIN | [facility] | + + + + | 2020-07-10 00:00 | CEPHALEXIN | [facility] | + + + + | 2020-07-10 00:00 | CEPHALEXIN | [facility] | + + + + | 2020-07-10 00:00 | CEPHALEXIN | [facility] | + + + + | 2022-06-23 00:00 | CEPHALEXIN | [facility] | + + + + | 2022-10-18 00:00 | CEPHALEXIN | [facility] | + + + + | 2023-06-10 00:00 | CEPHALEXIN | [facility] | + + + + | 2023-06-10 00:00 | Albuterol Sulfate | [facility] | + + + + | 2022-06-23 00:00 | CALCIUM CARBONATE | [facility] | + + + + | 2022-10-18 00:00 | CALCIUM CARBONATE | [facility] | + + + + | 2023-06-10 00:00 | CALCIUM CARBONATE | [facility] | + + + + | 2016-04-29 00:00 | CEFPODOXIME PROXETIL | [facility] | + + + + | 2016-04-29 00:00 | CEFPODOXIME PROXETIL | [facility] | + + + + | 2016-04-29 00:00 | CEFPODOXIME PROXETIL | [facility] | + + + + | 2018-02-13 00:00 | CEFUROXIME AXETIL | [facility] | + + + + | 2018-02-13 00:00 | CEFUROXIME AXETIL | [facility] | + + + + | 2018-02-13 00:00 | CEFUROXIME AXETIL | [facility] | + + + + | 2016-08-16 00:00 | CEPHALEXIN | [facility] | + + + + | 2016-08-16 00:00 | CEPHALEXIN | [facility] | + + + + | 2016-08-16 00:00 | CEPHALEXIN | [facility] | + + + + | 2021-01-10 00:00 | CEPHALEXIN | [facility] | + + + + | 2021-01-10 00:00 | CEPHALEXIN | [facility] | + + + + | 2021-01-10 00:00 | CEPHALEXIN | [facility] | + + + + | 2022-04-19 00:00 | CEPHALEXIN | [facility] | + + + + | 2022-04-19 00:00 | CEPHALEXIN | [facility] | + + + + | 2022-04-19 00:00 | CEPHALEXIN | [facility] | + + + + | 2023-06-10 00:00 | CEPHALEXIN | [facility] | + + + + | 2022-06-23 00:00 | GABAPENTIN | [facility] | + + + + | 2022-10-18 00:00 | GABAPENTIN | [facility] | + + + + | 2023-06-10 00:00 | GABAPENTIN | [facility] | + + + + | 2014-05-31 00:00 | predniSONE | [facility] | + + + + | 2014-05-31 00:00 | predniSONE | [facility] | + + + + | 2014-05-31 00:00 | predniSONE | [facility] | + + + + | 2022-06-23 00:00 | predniSONE | [facility] | + + + + | 2022-06-23 00:00 | [facility]SONE [facility] | + + + + | 2016-04-13 00:00 | NICOTINE POLACRILEX | [facility] | + + + + | 2016-04-13 00:00 | NICOTINE POLACRILEX | [facility] | + + + + | 2016-04-13 00:00 | NICOTINE POLACRILEX | [facility] | + + + + | 2016-08-14 00:00 | NITROFURANTOIN MONOHYD | [facility] | | | MACROCR | | + + + + | 2016-08-14 00:00 | NITROFURANTOIN MONOHYD | [facility] | | | MACROCR | | + + + + | 2016-08-14 00:00 | NITROFURANTOIN MONOHYD | [facility] | | | MACROCR | | + + + + | 2022-06-23 00:00 | DULOXETINE HCL | [facility] | + + + + | 2022-10-18 00:00 | DULOXETINE HCL | [facility] | + + + + | 2023-06-10 00:00 | DULOXETINE HCL | [facility] | + + + + | 2022-06-23 00:00 | AMOXICILLIN/POTASSIUM CLAV | [facility] | | | | | + + + + | 2022-10-18 00:00 | AMOXICILLIN/POTASSIUM CLAV | [facility] | | | | | + + + + | 2023-06-10 00:00 | AMOXICILLIN/POTASSIUM CLAV | [facility] | | | | | + + + + | 2022-06-23 00:00 | AZITHROMYCIN | [facility] | + + + + | 2022-06-23 00:00 | AZITHROMYCIN | [facility] | + + + + | 2022-06-23 00:00 | AZITHROMYCIN | [facility] | + + + + | 2014-05-31 00:00 | CYCLOBENZAPRINE HCL | [facility] | + + + + | 2014-05-31 00:00 | CYCLOBENZAPRINE HCL | [facility] | + + + + | 2014-05-31 00:00 | CYCLOBENZAPRINE HCL | [facility] | + + + + | 2021-04-12 00:00 | CYCLOBENZAPRINE HCL | [facility] | + + + + | 2021-04-12 00:00 | CYCLOBENZAPRINE HCL | [facility] | + + + + | 2021-04-12 00:00 | CYCLOBENZAPRINE HCL | [facility] | + + + + | 2014-05-31 00:00 | TRAMADOL HCL | [facility] | + + + + | 2014-05-31 00:00 | TRAMADOL HCL | [facility] | + + + + | 2014-05-31 00:00 | TRAMADOL HCL | [facility] | + + + + | 2022-06-23 00:00 | IPRATROPIUM BROMIDE MDI | [facility] | + + + + | 2022-10-18 00:00 | IPRATROPIUM BROMIDE MDI | [facility] | + + + + | 2023-06-10 00:00 | IPRATROPIUM BROMIDE MDI | [facility] | + + + + | 2022-06-23 00:00 | TRAZODONE HCL | [facility] | + + + + | 2022-10-18 00:00 | TRAZODONE HCL | [facility] | + + + + | 2023-06-10 00:00 | TRAZODONE HCL | [facility] | + + + + | 2016-04-13 00:00 | HYDROCODONE/APAP | [facility] | | | (10-325MG) | | + + + + | 2016-04-13 00:00 | HYDROCODONE/APAP | [facility] | | | (10-325MG) | | + + + + | 2016-04-13 00:00 | HYDROCODONE/APAP | [facility] | | | (10-325MG) | | + + + + | 2022-06-23 00:00 | HYDROCODONE/APAP | [facility] | | | (10-325MG) | | + + + + | 2022-10-18 00:00 | HYDROCODONE/APAP | [facility] | | | (10-325MG) | | + + + + | 2023-06-10 00:00 | HYDROCODONE/APAP | [facility] | | | (10-325MG) | | + + + + | 2021-07-05 00:00 | METFORMIN HCL | [facility] | + + + + | 2021-07-05 00:00 | METFORMIN HCL | [facility] | + + + + | 2022-06-23 00:00 | METFORMIN HCL | [facility] | + + + + | 2022-10-18 00:00 | METFORMIN HCL | [facility] | + + + + | 2023-06-10 00:00 | METFORMIN HCL | [facility] | + + + + | 2023-06-10 00:00 | METFORMIN HCL | [facility] | + + + + | 2022-06-23 00:00 | LEVOTHYROXINE SODIUM | [facility] | + + + + | 2022-10-18 00:00 | LEVOTHYROXINE SODIUM | [facility] | + + + + | 2023-06-10 00:00 | LEVOTHYROXINE SODIUM | [facility] | + + + + | 2022-06-23 00:00 | BECLOMETHASONE | [facility] | | | DIPROPIONATE | | + + + + | 2022-10-18 00:00 | BECLOMETHASONE | [facility] | | | DIPROPIONATE | | + + + + | 2023-06-10 00:00 | BECLOMETHASONE | [facility] | | | DIPROPIONATE | | + + + + | 2022-06-23 00:00 | BUPROPION HCL | [facility] | + + + + | 2022-10-18 00:00 | BUPROPION HCL | [facility] | + + + + | 2023-06-10 00:00 | BUPROPION HCL | [facility] | + + + + Problems + + + + | date | description | facility | + + + + | 2015-10-13 00:00 | Bronchitis | [facility] | + + + + | 2015-10-13 00:00 | Bronchitis | [facility] | + + + + | 2015-10-13 00:00 | Bronchitis | [facility] | + + + + | 2015-10-13 00:00 | Radicular pain of right | [facility] | | | upper extremity | | + + + + | 2015-10-13 00:00 | Radicular pain of right | [facility] | | | upper extremity | | + + + + | 2015-10-13 00:00 | Radicular pain of right | [facility] | | | upper extremity | | + + + + | 2016-04-15 00:00 | Peripheral edema | [facility] | + + + + | 2016-04-15 00:00 | Peripheral edema | [facility] | + + + + | 2016-04-15 00:00 | Peripheral edema | [facility] | + + + + | 2016-04-26 00:00 | Acute pyelonephritis | [facility] | + + + + | 2016-04-26 00:00 | Acute pyelonephritis | [facility] | + + + + | 2016-04-26 00:00 | Acute pyelonephritis | [facility] | + + + + | 2016-04-28 00:00 | Chronic hepatitis C virus | [facility] | | | infection | | + + + + | 2016-04-28 00:00 | Chronic hepatitis C virus | [facility] | | | infection | | + + + + | 2016-04-28 00:00 | Chronic hepatitis C virus | [facility] | | | infection | | + + + + | 2016-04-28 00:00 | Thrombocytopenia | [facility] | + + + + | 2016-04-28 00:00 | Thrombocytopenia | [facility] | + + + + | 2016-04-28 00:00 | Thrombocytopenia | [facility] | + + + + | 2016-04-28 00:00 | Hypothyroidism | [facility] | + + + + | 2016-04-28 00:00 | Hypothyroidism | [facility] | + + + + | 2016-04-28 00:00 | Hypothyroidism | [facility] | + + + + | 2016-04-28 00:00 | Type 2 diabetes mellitus | [facility] | + + + + | 2016-04-28 00:00 | Type 2 diabetes mellitus | [facility] | + + + + | 2016-04-28 00:00 | Type 2 diabetes mellitus | [facility] | + + + + | 2016-04-28 00:00 | Hyperbilirubinemia | [facility] | + + + + | 2016-04-28 00:00 | Hyperbilirubinemia | [facility] | + + + + | 2016-04-28 00:00 | Hyperbilirubinemia | [facility] | + + + + | 2016-04-28 00:00 | Hyponatremia | [facility] | + + + + | 2016-04-28 00:00 | Hyponatremia | [facility] | + + + + | 2016-04-28 00:00 | Hyponatremia | [facility] | + + + + | 2016-04-28 00:00 | Chronic pain syndrome | [facility] | + + + + | 2016-04-28 00:00 | Chronic pain syndrome | [facility] | + + + + | 2016-04-28 00:00 | Chronic pain syndrome | [facility] | + + + + | 2016-04-28 00:00 | Chronic obstructive | [facility] | | | pulmonary disease | | + + + + | 2016-04-28 00:00 | Chronic obstructive | [facility] | | | pulmonary disease | | + + + + | 2016-04-28 00:00 | Chronic obstructive | [facility] | | | pulmonary disease | | + + + + | 2016-08-14 00:00 | Hematuria | [facility] | + + + + | 2016-08-14 00:00 | Hematuria | [facility] | + + + + | 2016-08-14 00:00 | Hematuria | [facility] | + + + + | 2016-08-16 00:00 | Urinary tract infection | [facility] | | | with hematuria | | + + + + | 2016-08-16 00:00 | Urinary tract infection | [facility] | | | with hematuria | | + + + + | 2016-08-16 00:00 | Urinary tract infection | [facility] | | | with hematuria | | + + + + | 2017-04-14 00:00 | Pneumonia | [facility] | + + + + | 2017-04-14 00:00 | Pneumonia | [facility] | + + + + | 2017-04-14 00:00 | Pneumonia | [facility] | + + + + | 2018-02-13 00:00 | Urinary tract infection | [facility] | + + + + | 2018-02-13 00:00 | Urinary tract infection | [facility] | + + + + | 2018-02-13 00:00 | Urinary tract infection | [facility] | + + + + | 2018-04-09 00:00 | Acute exacerbation of | [facility] | | | chronic obstructive | | | | pulmonary disease | | + + + + | 2018-04-09 00:00 | Acute exacerbation of | [facility] | | | chronic obstructive | | | | pulmonary disease | | + + + + | 2018-04-09 00:00 | Acute exacerbation of | [facility] | | | chronic obstructive | | | | pulmonary disease | | + + + + | 2019-06-16 00:00 | Shortness of breath | [facility] | + + + + | 2019-06-16 00:00 | Shortness of breath | [facility] | + + + + | 2019-06-16 00:00 | Shortness of breath | [facility] | + + + + | 2021-01-10 00:00 | Exacerbation of chronic | [facility] | | | back pain | | + + + + | 2021-01-10 00:00 | Exacerbation of chronic | [facility] | | | back pain | | + + + + | 2021-01-10 00:00 | Exacerbation of chronic | [facility] | | | back pain | | + + + + | 2021-04-12 00:00 | Sciatica of left side | [facility] | + + + + | 2021-04-12 00:00 | Sciatica of left side | [facility] | + + + + | 2021-04-12 00:00 | Sciatica of left side | [facility] | + + + + | 2021-06-21 00:00 | Minor head injury | [facility] | + + + + | 2021-06-21 00:00 | Minor head injury | [facility] | + + + + | 2021-06-21 00:00 | Minor head injury | [facility] | + + + + | 2021-06-21 00:00 | Abrasion of right lower | [facility] | | | leg, initial encounter | | + + + + | 2021-06-21 00:00 | Abrasion of right lower | [facility] | | | leg, initial encounter | | + + + + | 2021-06-21 00:00 | Abrasion of right lower | [facility] | | | leg, initial encounter | | + + + + | 2021-06-21 00:00 | Fall | [facility] | + + + + | 2021-06-21 00:00 | Fall | [facility] | + + + + | 2021-06-21 00:00 | Fall | [facility] | + + + + | 2021-07-02 00:00 | Severe sepsis | [facility] | + + + + | 2021-07-02 00:00 | Severe sepsis | [facility] | + + + + | 2021-07-02 00:00 | Severe sepsis | [facility] | + + + + | 2021-07-02 00:00 | Hypomagnesemia | [facility] | + + + + | 2021-07-02 00:00 | Hypomagnesemia | [facility] | + + + + | 2021-07-02 00:00 | Hypomagnesemia | [facility] | + + + + | 2021-07-02 00:00 | Biliary colic | [facility] | + + + + | 2021-07-02 00:00 | Biliary colic | [facility] | + + + + | 2021-07-02 00:00 | Biliary colic | [facility] | + + + + | 2021-07-02 00:00 | Acute kidney injury | [facility] | + + + + | 2021-07-02 00:00 | Acute kidney injury | [facility] | + + + + | 2021-07-02 00:00 | Acute kidney injury | [facility] | + + + + | 2022-04-19 [...] | 2022-06-23 00:00 | Chronic obstructive | [facility] | | | pulmonary disease with | | | | acute exacerbation | | + + + + | 2022-06-23 00:00 | Chronic obstructive | [facility] | | | pulmonary disease with | | | | acute exacerbation | | + + + + | 2022-06-23 00:00 | Chronic obstructive | [facility] | | | pulmonary disease with | | | | acute exacerbation | | + + + + | 2022-10-17 00:00 | Contusion of hip | [facility] | + + + + | 2022-10-17 00:00 | Contusion of hip | [facility] | + + + + | 2022-10-17 [...] + + + | 2022-10-17 21:12 | [facility] (CURRENT) USE OF | [facility] | | | ORAL HYPOGLYCEMIC DRUGS | | + + + + | 2022-10-17 21:12 | OTHER SADDLE LINING STITCHER (CURRENT) | [facility] | | | DRUG THERAPY | | + + + + | 2022-10-17 21:12 | ALLERGY STATUS TO NARCOTIC | [facility] | | | AGENT STATUS | | + + + + | 2023-06-09 21:23 | TYPE 2 DIABETES MELLITUS | [facility] | | | WITHOUT COMPLICATIONS | | + + + + | 2023-06-09 21:23 | DEHYDRATION | [facility] | + + + + | 2023-06-09 21:23 | NICOTINE DEPENDENCE, | [facility] | | | UNSPECIFIED, UNCOMPLICATED | | + + + + | 2023-06-09 21:23 | ANXIETY DISORDER, | [facility] | | | UNSPECIFIED | | + + + + | 2023-06-09 21:23 | TRANSIENT CEREBRAL | [facility] | | | ISCHEMIC ATTACK, | | | | UNSPECIFIED | | + + + + | 2023-06-09 21:23 | OTHER CHRONIC PAIN | [facility] | + + + + | 2023-06-09 21:23 | Essential (primary) | [facility] | | | hypertension | | + + + + | 2023-06-09 21:23 | CHRONIC OBSTRUCTIVE | [facility] | | | PULMONARY DISEASE, | | | | UNSPECIFIED | | + + + + | 2023-06-09 21:23 | PAIN IN LEFT KNEE | [facility] | + + + + | 2023-06-09 21:23 | CERVICALGIA | [facility] | + + + + | 2023-06-09 21:23 | DORSALGIA, UNSPECIFIED | [facility] | + + + + | 2023-06-09 21:23 | URINARY TRACT INFECTION, | [facility] | | | SITE NOT SPECIFIED | | + + + + | 2023-06-09 21:23 | WEAKNESS | [facility] | + + + + | 2023-06-09 21:23 | OTHER [facility] (CURRENT) | [facility] | | | DRUG THERAPY | | + + + + | 2023-06-09 21:23 | ALLERGY STATUS TO NARCOTIC | [facility] | | | AGENT STATUS | | + + + + | 2023-06-09 21:23 | HISTORY OF FALLING | [facility] | + + + + | 2023-06-10 00:00 | Dehydration | [facility] | + + + + | 2023-06-10 00:00 | Transient ischemic attack | [facility] | + + + + | 2023-06-10 00:00 | Back pain | [facility] | + + + + Procedures No [...] 5 | + + + + + + [...] 7 | + + + + + + + + + | | 2022-04-19 | [facility] | TRACE-I | (missing) | (missing) | | (unavailable | 17:30 [facility] | | | | + + + + + + + + + | Result panel 8 | + + + + + +-------+ + + | | 2022-04-19 | [facility] | 5.5 | (missing) | (missing) | | (unavailable | 17:30 [facility] | | | | + + + +-------+ + + + + | Result panel 9 | + + + + + + [...] 13 | + + + + + +-------+ + + | | 2022-04-19 | [facility] | 4-6 | (missing) | (missing) | | (unavailable | 17:30 [facility] | | | | + + + +-------+ + + + + | Result panel 14 | + + + + + +---------+ + + | | 2022-04-19 | [facility] | 12-20 | (missing) | (missing) | | (unavailable | 17:30 [facility] | | | | + + + +---------+ + + + + | Result panel 15 | + + + + + +-----+ + + | | 2022-04-19 | [facility] | 0 | (missing) | (missing) | | (unavailable | 17:30 [facility] | | | | + + + +-----+ + + + + | Result panel 16 | + + + + + +------+ [...] 19 | + + + + + +--------+ [...] 22 | + + + + + +-------+ + + | | 2022-06-23 | [facility] | 3.1 | (missing) | (missing) | | (unavailable | 19:41 [facility] | | | | + + + +-------+ + + + + | Result panel 23 | + + + + + +-------+ [...] 26 | + + + + + +-------+---------+ + | | 2022-06-23 | [facility] | 117 | mg/dL | (missing) | | (unavailable | 19:41 [facility] | | | | + + + +-------+---------+ + + + | Result panel 27 | + + + + + +------+---------+ + | | 2022-06-23 | [facility] | 26 | mg/dL | (missing) | | (unavailable | 19:41 [facility] | | | | + + + +------+---------+ + + + | Result panel 28 | + + + + + +--------+---------+ + | | 2022-06-23 | [facility] | 1.52 | mg/dL | (missing) | | (unavailable | 19:41 [facility] | | | | + + + +--------+---------+ + + + | Result panel 29 | + + + + + +------+ + + | | 2022-06-23 | [facility] | 37 | (missing) | (missing) | | (unavailable | 19:41 [facility] | | | | + + + +------+ + + + + | Result panel 30 | + + + + + +---------+ [...] 33 | + + + + + +-------+ + + | | 2022-06-23 | [facility] | 103 | (missing) | (missing) | | (unavailable | 19:41 [facility] | | | | + + + +-------+ + + + + | Result panel 34 | + + + + + +------+ + + | | 2022-06-23 | [facility] | 28 | (missing) | (missing) | | (unavailable | 19:41 [facility] | | | | + + + +------+ + + + + | Result panel 35 | + + + + + +--------+ + + | | 2022-06-23 | [facility] | 13.1 | (missing) | (missing) | | (unavailable | 19:41 [facility] | | | | + + + +--------+ + + + + | Result panel 36 | + + + + + +-------+---------+ + | | 2022-06-23 | [facility] | 8.5 | mg/dL | (missing) | | (unavailable | 19:41 [facility] | | | | + + + +-------+---------+ + + + | Result panel 37 | + + + + + +-------+---------+ + | | 2022-06-23 | [facility] | 1.9 | mg/dL | (missing) | | (unavailable | 19:41 [facility] | | | | + + + +-------+---------+ + + + | Result panel 38 | + + + + + +-------+ + + | | 2022-06-23 | [facility] | 7.6 | (missing) | (missing) | | (unavailable | 19:41 [facility] | | | | + + + +-------+ + + + + | Result panel 39 | + + + + + +-------+ [...] 41 | + + + + + +--------+ [...] 44 | + + + + + +------+ + + | | 2022-06-23 | [facility] | 16 | (missing) | (missing) | | (unavailable | 19:41 [facility] | | | | + + + +------+ + + + + | Result panel 45 | + + + + + +------+ + + | | 2022-06-23 | [facility] | 98 | (missing) | (missing) | | (unavailable | 19:41 | [facility] | | | + + + +------+ + + + + | Result panel 46 | + + + + + +-------+ + + | | 2022-06-23 | [facility] | 5.8 | (missing) | (missing) | | (unavailable | 19:41 [facility] | | | + + + +-------+ + + + + | Result panel 47 [...] 48 | + + + + + +--------+ + + | | 2022-06-23 | [facility] | 5.09 | (missing) | (missing) | | (unavailable | 19:41 [facility] | | | + + + +--------+ + + + + | Result panel 49 | + + + + + +--------+ [...] 51 | + + + + + +--------+ + + | | 2022-06-23 | [facility] | 88.3 | (missing) | (missing) | | (unavailable | 19:41 [facility] | | | + + + +--------+ + + + + | Result panel 52 | + + + + + +--------+ + + | | 2022-06-23 | [facility] | 29.0 | (missing) | (missing) | | (unavailable | 19:41 [facility] | | | + + + +--------+ + + + + | Result panel 53 | + + + + + +--------+ + + | | 2022-06-23 | [facility] | 32.8 | (missing) | (missing) | | (unavailable | 19:41 [facility] | | | + + + +--------+ + + + + | Result panel 54 | + + + + + +--------+ [...] 61 | + + + + + +--------+ + + | | 2022-10-17 | [facility] | 4.60 | (missing) | (missing) | | (unavailable | 21:45 [facility] | | | + + + +--------+ + + + + | Result panel 62 | + + + + + +--------+ [...] 64 | + + + + + +--------+ + + | | 2022-10-17 | [facility] | 86.5 | (missing) | (missing) | | (unavailable | 21:45 [facility] | | | + + + +--------+ + + + + | Result panel 65 | + + + + + +--------+ + + | | 2022-10-17 | [facility] | 29.0 | (missing) | (missing) | | (unavailable | 21:45 [facility] | | | + + + +--------+ + + + + | Result panel 66 | + + + + + +--------+ + + | | 2022-10-17 | [facility] | 33.5 | (missing) | (missing) | | (unavailable | 21:45 [facility] | | + + + +--------+ + + + + | Result panel 67 | + + + + + +--------+ + + | | 2022-10-17 | [facility] | 14.6 | (missing) | (missing) | | (unavailable | 21:45 [facility] | | | + + + +--------+ + + + + | Result panel 68 | + + + + + +-------+ + + | | 2022-10-17 | [facility] | 172 | (missing) | (missing) | | (unavailable | 21:45 [facility] | | | + + + +-------+ + + + + | Result panel 69 | + + + + + +--------+ + + | | 2022-10-17 | [facility] | 74.0 | (missing) | (missing) | | (unavailable | 21:45 [facility] | | | + + + +--------+ + + + + | Result panel 70 | + + + + + +--------+ + + | | 2022-10-17 | [facility] | 10.2 | (missing) | (missing) | | (unavailable | 21:45 [facility] | | | + + + +--------+ + + + + | Result panel 71 | + + + + + +--------+ [...] 76 | + + + + + +-------+---------+ + | | 2022-10-17 | [facility] | 105 | mg/dL | (missing) | | (unavailable | 21:45 [facility] | | | + + + +-------+---------+ + + + | Result panel 77 | + + + + + +------+---------+ + | | 2022-10-17 | [facility] | 20 | mg/dL | (missing) | | (unavailable | 21:45 [facility] | | | + + + +------+---------+ + + + | Result panel 78 | + + + + + +--------+---------+ + | | 2022-10-17 | [facility] | 1.50 | mg/dL | (missing) | | (unavailable | 21:45 [facility] | | | + + + +--------+---------+ + + + | Result panel 79 | + + + + + +------+ + + | | 2022-10-17 | [facility] | 37 | (missing) | (missing) | | (unavailable | 21:45 [facility] | | | + + + +------+ + + + + | Result panel 80 | + + + + + +---------+ [...] 82 | + + + + + +-------+ + + | | 2022-10-17 | [facility] | 4.7 | (missing) | (missing) | | (unavailable | 21:45 [facility] | | | + + + +-------+ + + + + | Result panel 83 | + + + + + +-------+ + + | | 2022-10-17 | [facility] | 103 | (missing) | (missing) | | (unavailable | 21:45 [facility] | | | + + + +-------+ + + + + | Result panel 84 | + + + + + +------+ + + | | 2022-10-17 | [facility] | 21 | (missing) | (missing) | | (unavailable | 21:45 [facility] | | | + + + +------+ + + + + | Result panel 85 | + + + + + +--------+ + + | | 2022-10-17 | [facility] | 14.7 | (missing) | (missing) | | (unavailable | 21:45 [facility] | | | + + + +--------+ + + + + | Result panel 86 | + + + + + +-------+---------+ + | | 2022-10-17 | [facility] | 8.3 | mg/dL | (missing) | | (unavailable | 21:45 [facility] | | | + + + +-------+---------+ + + + | Result panel 87 | + + + + + +-------+ + + | | 2022-10-17 | [facility] | 7.3 | (missing) | (missing) | | (unavailable | 21:45 [facility] | | | + + + +-------+ + + + + | Result panel 88 | + + + + + +-------+ + + | | 2022-10-17 | [facility] | 3.1 | (missing) | (missing) | | (unavailable | 21:45 [facility] | | | + + + +-------+ + + + + | Result panel 89 | + + + + + +-------+ + + | | 2022-10-17 | [facility] | 4.2 | (missing) | (missing) | | (unavailable | 21:45 [facility] | | | + + + +-------+ + + + + | Result panel 90 | + + + + + +--------+ + + | | 2022-10-17 | [facility] | 0.74 | (missing) | (missing) | | (unavailable | 21:45 [facility] | | | + + + +--------+ + + + + | Result panel 91 | + + + + + +-------+ + + | | 2022-10-17 | [facility] | 0.6 | (missing) | (missing) | | (unavailable | 21:45 [facility] | | | + + + +-------+ + + + + | Result panel 92 [...] 93 | + + + + + +------+ [...] 96 | + + + + + +---------+ [...] 100 | + + + + + +---------+ + + | | 2022-10-17 | [facility] | 1.020 | (missing) | (missing) | | (unavailable | 22:20 | [facility] | | | + + + +---------+ + + + + | Result panel 101 | + + + + + +---------+ + + | | 2022-10-17 | [facility] | SMALL | (missing) | (missing) | | (unavailable | 22:20 [facility] | | | + + + +---------+ + + + + | Result panel 102 | + + + + + +-------+ + + | | 2022-10-17 | [facility] | 6.0 | (missing) | (missing) | | (unavailable | 22:20 [facility] | | | + + + +-------+ + + + + | Result panel 103 | + + + + + +------+ [...] 106 | + + + + + +---------+ + + | | 2022-10-17 | [facility] | SMALL | (missing) | (missing) | | (unavailable | 22:20 [facility] | | | + + + +---------+ + + + + | Result panel 107 | + + + + + +-------+ + + | | 2022-10-17 | [facility] | 2-3 | (missing) | (missing) | | (unavailable | 22:20 [facility] | | | + + + +-------+ + + + + | Result panel 108 | + + + + + +--------+ + + | | 2022-10-17 | [facility] | 7-11 | (missing) | (missing) | | (unavailable | 22:20 [facility] | | | + + + +--------+ + + + + | Result panel 109 | + + + + + + + + + | | 2022-10-17 | [facility] | | (missing) | (missing) | | (unavailable | 22:20 | [facility] | 1+ | | | + + + + + + + + + | Result panel 110 | + + + + + +------+ + + | | 2022-10-17 | [facility] | 1+ | (missing) | (missing) | | (unavailable | 22:20 [facility] | | | + + + +------+ + + + + | Result panel 111 | + + + + + +-------+ + + | | 2022-10-17 | [facility] | Yes | (missing) | (missing) | | (unavailable | 22:20 [facility] | | | + + + +-------+ + + + + | Result panel 112 | + + + + + +--------+ + + | | 2022-10-17 | [facility] | CATH | (missing) | (missing) | | (unavailable | 22:20 [facility] | | | + + + +--------+ + + + + | Result panel 113 | + + + + + + + + + | | 2022-10-17 | [facility] | POSITIVE | (missing) | (missing) | | (unavailable | 22:20 [facility] | | | + + + + + + + + + | Result panel 114 | + + + + + + + + + | | 2022-10-17 | [facility] | NEGATIVE | (missing) | (missing) | | (unavailable | 22:20 | [facility] | | | + + + + + + + + + | Result panel 115 | + + + + + + + + + | | 2022-10-17 | [facility] | NEGATIVE | (missing) | (missing) | | (unavailable | 22:20 [facility] | | | + + + + + + + + + | Result panel 116 | + + + + + + [...] 119 | + + + + + + + + + | | 2022-10-17 | [facility] | NEGATIVE | (missing) | (missing) | | (unavailable | 22:20 [facility] | | | + + + + + + + + + | Result panel 120 | + + + + + + + + + | | 2022-10-17 | [facility] | NEGATIVE | (missing) | (missing) | | (unavailable | 22:20 [facility] | | | + + + + + + + + + | Result panel 121 | + + + + + + [...] 123 | + + + + + + + + + | | 2022-10-17 | [facility] | NEGATIVE | (missing) | (missing) | | (unavailable | 22:20 [facility] | | | + + + + + + + + + | Result panel 124 | + + + + + + + + + | | 2022-10-17 | [facility] | NEGATIVE | (missing) | (missing) | | (unavailable | 22:20 [facility] | | | + + + + + + + + + | Result panel 125 | + + + + + + + + + | | 2022-10-17 | [facility] | NEGATIVE | (missing) | (missing) | | (unavailable | 22:20 [facility] | | | + + + + + + + + + | Result panel 126 | + + + + + +--------+ + + | | 2023-06-09 | [facility] | 13.3 | (missing) | (missing) | | (unavailable | 21:59:07 [facility] | | | + + + +--------+ + + + + | Result panel 127 | + + + + + +--------+ + + | | 2023-06-09 | [facility] | 1.06 | (missing) | (missing) | | (unavailable | 21:59:07 [facility] | | | + + + +--------+ + + + + | Result panel 128 | + + + + + +--------+ + + | | 2023-06-09 | [facility] | 35.3 | (missing) | (missing) | | (unavailable | 21:59:07 [facility] | | | + + + +--------+ + + + + | Result panel 129 | + + + + + +------+ + + | | 2023-06-09 | [facility] | 63 | (missing) | (missing) | | (unavailable | 21:59:07 [facility] | | | + + + +------+ + + + + | Result panel 130 | + + + + + +--------+ + + | | 2023-06-09 | [facility] | <4.0 | (missing) | (missing) | | (unavailable | 21:59:07 [facility] | | | + + + +--------+ + + + + | Result panel 131 | + + + + + +------+ + + | | 2023-06-09 | [facility] | <3 | (missing) | (missing) | | (unavailable | 21:59:07 [facility] | | | + + + +------+ + + + + | Result panel 132 | + + + + + + + + + | | 2023-06-10 | [facility] | YELLOW | (missing) | (missing) | | (unavailable | 00:34:07 [facility] | | | + + + + + + + + + | Result panel 133 | + + + + + +---------+ + + | | 2023-06-10 | [facility] | CLEAR | (missing) | (missing) | | (unavailable | 00:34:07 [facility] | | | | + + + +---------+ + + + + | Result panel 134 | + + + + + + + + + | | 2023-06-10 | [facility] | NEGATIVE | (missing) | (missing) | | (unavailable | 00:34:07 [facility] | | | + + + + + + + + + | Result panel 135 | + + + + + + + + + | | 2023-06-10 | [facility] | NEGATIVE | (missing) | (missing) | | (unavailable | 00:: | [facility] | | | + + + + + + + + + | Result panel 136 | + + + + + + + + + | | 2023-06-10 | [facility] | NEGATIVE | (missing) | (missing) | | (unavailable | 00:: | [facility] | | | + + + + + + + + + | Result panel 137 | + + + + + + + + + | | 2023-06-10 | [facility] | <=1.005 | (missing) | (missing) | | (unavailable | 00:34:07 [facility] | | | + + + + + + + + + | Result panel 138 | + + + + + + + + + | | 2023-06-10 | [facility] | TRACE-L | (missing) | (missing) | | (unavailable | 00:34:07 [facility] | | | + + + + + + + + + | Result panel 139 | + + + + + +-------+ + + | | 2023-06-10 | [facility] | 5.5 | (missing) | (missing) | | (unavailable | 00:34:07 [facility] | | | + + + +-------+ + + + + | Result panel 140 | + + + + + + + + + | | 2023-06-10 | [facility] | NEGATIVE | (missing) | (missing) | | (unavailable | 00:34:07 [facility] | | | | + + + + + + + + + | Result panel 141 | + + + + + + + + + | | 2023-06-10 | [facility] | NORMAL | (missing) | (missing) | | (unavailable | 00:34:07 [facility] | | | + + + + + + + + + | Result panel 142 | + + + + + + + + + | | 2023-06-10 | [facility] | NEGATIVE | (missing) | (missing) | | (unavailable | 00:34:07 [facility] | | | | + + + + + + + + + | Result panel 143 | + + + + + +---------+ + + | | 2023-06-10 | [facility] | SMALL | (missing) | (missing) | | (unavailable | 00:34:07 [facility] | | | + + + +---------+ + + + + | Result panel 144 | + + + + + +-------+ + + | | 2023-06-10 | [facility] | 2-3 | (missing) | (missing) | | (unavailable | 00:34:07 [facility] | | | + + + +-------+ + + + + | Result panel 145 | + + + + + +-------+ + + | | 2023-06-10 | [facility] | >50 | (missing) | (missing) | | (unavailable | 00:34:07 [facility] | | | + + + +-------+ + + + + | Result panel 146 | + + + + + + + + + | | 2023-06-10 | [facility] | SQUAMOUS 1+ | (missing) | (missing) | | (unavailable | 00:34:07 [facility] | | | | + + + + + + + + + | Result panel 147 | + + + + + + + + + | | 2023-06-10 | [facility] | NONE SEEN | (missing) | (missing) | | (unavailable | 00:34:07 [facility] | | | + + + + + + + + + | Result panel 148 | + + + + + +--------+ + + | | 2023-06-10 | [facility] | RARE | (missing) | (missing) | | (unavailable | 00:34:07 [facility] | | | + + + +--------+ + + + + | Result panel 149 | + + + + + + + + + | | 2023-06-10 | [facility] | NONE SEEN | (missing) | (missing) | | (unavailable | 00:34:07 [facility] | | | + + + + + + + + + | Result panel 150 | + + + + + +-------+ + + | | 2023-06-10 | [facility] | Yes | (missing) | (missing) | | (unavailable | 00:34:07 [facility] | | | | + + + +-------+ + + + + | Result panel 151 | + + + + + + + + + | | 2023-06-10 | [facility] | POSITIVE | (missing) | (missing) | | (unavailable | 00:34:07 [facility] | | | | + + + + + + + + + | Result panel 152 | + + + + + + + + + | | 2023-06-10 | [facility] | NEGATIVE | (missing) | (missing) | | (unavailable | 00:34:07 [facility] | | | | + + + + + + + + + | Result panel 153 | + + + + + + + + + | | 2023-06-10 | [facility] | NEGATIVE | (missing) | (missing) | | (unavailable | 00:34:07 [facility] | | | | + + + + + + + + + | Result panel 154 | + + + + + + + + + | | 2023-06-10 | [facility] | NEGATIVE | (missing) | (missing) | | (unavailable | 00:34:07 [facility] | | | | + + + + + + + + + | Result panel 155 | + + + + + + + + + | | 2023-06-10 | [facility] | NEGATIVE | (missing) | (missing) | | (unavailable | 00:34:07 [facility] | | | | + + + + + + + + + | Result panel 156 | + + + + + + + + + | | 2023-06-10 | [facility] | NEGATIVE | (missing) | (missing) | | (unavailable | 00:34:07 [facility] | | | + + + + + + + + + | Result panel 157 | + + + + + + + + + | | 2023-06-10 | [facility] | NEGATIVE | (missing) | (missing) | | (unavailable | 00:34:07 [facility] | | | + + + + + + + + + | Result panel 158 | + + + + + + + + + | | 2023-06-10 | [facility] | NEGATIVE | (missing) | (missing) | | (unavailable | 00:34:07 [facility] | | | + + + + + + + + + | Result panel 159 | + + + + + + + + + | | 2023-06-10 | [facility] | NEGATIVE | (missing) | (missing) | | (unavailable | 00:34:07 [facility] | | | + + + + + + + + + | Result panel 160 | + + + + + + + + + | | 2023-06-10 | [facility] | NEGATIVE | (missing) | (missing) | | (unavailable | 00:34:07 [facility] | | | | + + + + + + + + + | Result panel 161 | + + + + + + + + + | | 2023-06-10 | [facility] | NEGATIVE | (missing) | (missing) | | (unavailable | 00:34:07 [facility] | | | | + + + + + + + + + | Result panel 162 | + + + + + + + + + | | 2023-06-10 | [facility] | NEGATIVE | (missing) | (missing) | | (unavailable | 00:34:07 [facility] | | | | + + + + + + + + + | Result panel 163 | + + + + + + + + + | | 2023-06-10 | [facility] | NEGATIVE | (missing) | (missing) | | (unavailable | 00:34:07 [facility] | | | | + + + + + + + + + | Result panel 164 | + + + + + +--------+ + + | | 2023-06-10 | [facility] | 40.1 | (missing) | (missing) | | (unavailable | 05:06:07 [facility] | | | + + + +--------+ + + + + | Result panel 165 | + + + + + +--------+ + + | | 2023-06-10 | [facility] | 86.6 | (missing) | (missing) | | (unavailable | 05:06:07 [facility] | | | | + + + +--------+ + + + + | Result panel 166 | + + + + + +--------+ + + | | 2023-06-10 | [facility] | 27.9 | (missing) | (missing) | | (unavailable | 05:06:07 [facility] | | | + + + +--------+ + + + + | Result panel 167 | + + + + + +--------+ + + | | 2023-06-10 | [facility] | 32.3 | (missing) | (missing) | | (unavailable | 05:06:07 [facility] | | | | + + + +--------+ + + + + | Result panel 168 | + + + + + +--------+ + + | | 2023-06-10 | [facility] | 15.3 | (missing) | (missing) | | (unavailable | 05:06:07 [facility] | | | + + + +--------+ + + + + | Result panel 169 | + + + + + +-------+ + + | | 2023-06-10 | [facility] | 155 | (missing) | (missing) | | (unavailable | 05:06:07 [facility] | | | | + + + +-------+ + + + + | Result panel 170 | + + + + + +--------+ + + | | 2023-06-10 | [facility] | 66.4 | (missing) | (missing) | | (unavailable | 05:06:07 [facility] | | | + + + +--------+ + + + + | Result panel 171 | + + + + + +--------+ + + | | 2023-06-10 | [facility] | 17.7 | (missing) | (missing) | | (unavailable | 05:06:07 [facility] | | | + + + +--------+ + + + + | Result panel 172 | + + + + + +--------+ + + | | 2023-06-10 | [facility] | 10.5 | (missing) | (missing) | | (unavailable | 05:06:07 [facility] | | | + + + +--------+ + + + + | Result panel 173 | + + + + + +-------+ + + | | 2023-06-10 | [facility] | 4.7 | (missing) | (missing) | | (unavailable | 05:06:07 [facility] | | | + + + +-------+ + + + + | Result panel 174 | + + + + + +-------+ + + | | 2023-06-10 | [facility] | 0.7 | (missing) | (missing) | | (unavailable | 05:06:07 [facility] | | | + + + +-------+ + + + + | Result panel 175 | + + + + + +-------+---------+ + | | 2023-06-10 | [facility] | 153 | mg/dL | (missing) | | (unavailable | 05:06:07 [facility] | | | | + + + +-------+---------+ + + + | Result panel 176 | + + + + + +------+---------+ + | | 2023-06-10 | [facility] | 37 | mg/dL | (missing) | | (unavailable | 05:06:07 [facility] | | | + + + +------+---------+ + + + | Result panel 177 | + + + + + +--------+---------+ + | | 2023-06-10 | [facility] | 2.08 | mg/dL | (missing) | | (unavailable | 05:06:07 [facility] | | | + + + +--------+---------+ + + + | Result panel 178 | + + + + + +------+ + + | | 2023-06-10 | [facility] | 25 | (missing) | (missing) | | (unavailable | 05:06:07 [facility] | | | + + + +------+ + + + + | Result panel 179 | + + + + + +---------+ + + | | 2023-06-10 | [facility] | 17.78 | (missing) | (missing) | | (unavailable | 05:06:07 [facility] | | | + + + +---------+ + + + + | Result panel 180 | + + + + + +-------+ + + | | 2023-06-10 | [facility] | 139 | (missing) | (missing) | | (unavailable | 05::07 [facility] | | | + + + +-------+ + + + + | Result panel 181 | + + + + + +-------+ + + | | 2023-06-10 | [facility] | 4.4 | (missing) | (missing) | | (unavailable | 05::07 [facility] | | | + + + +-------+ + + + + | Result panel 182 | + + + + + +-------+ + + | | 2023-06-10 | [facility] | 105 | (missing) | (missing) | | (unavailable | 05::07 [facility] | | | + + + +-------+ + + + + | Result panel 183 | + + + + + +------+ + + | | 2023-06-10 | [facility] | 26 | (missing) | (missing) | | (unavailable | 05::07 [facility] | | | | + + + +------+ + + + + | Result panel 184 | + + + + + +--------+ + + | | 2023-06-10 | [facility] | 12.4 | (missing) | (missing) | | (unavailable | 05::07 [facility] | | | + + + +--------+ + + + + | Result panel 185 | + + + + + +-------+---------+ + | | 2023-06-10 | [facility] | 8.4 | mg/dL | (missing) | | (unavailable | 05: | [facility] | | | | + + + +-------+---------+ + + + | Result panel 186 | + + + + + +-------+ + + | | 2023-06-10 | [facility] | 6.7 | (missing) | (missing) | | (unavailable | 05::07 [facility] | | | + + + +-------+ + + + + | Result panel 187 | + + + + + +-------+ + + | | 2023-06-10 | [facility] | 2.9 | (missing) | (missing) | | (unavailable | 05:06:07 [facility] | | | | + + + +-------+ + + + + | Result panel 188 | + + + + + +-------+ + + | | 2023-06-10 | [facility] | 3.8 | (missing) | (missing) | | (unavailable | 05::07 [facility] | | | | + + + +-------+ + + + + | Result panel 189 | + + + + + +--------+ + + | | 2023-06-10 | [facility] | 0.76 | (missing) | (missing) | | (unavailable | 05:06:07 [facility] | | | | + + + +--------+ + + + + | Result panel 190 | + + + + + +-------+ + + | | 2023-06-10 | [facility] | 0.2 | (missing) | (missing) | | (unavailable | 05:06:07 [facility] | | | | + + + +-------+ + + + + | Result panel 191 | + + + + + +------+ + + | | 2023-06-10 | [facility] | 14 | (missing) | (missing) | | (unavailable | 05:06:07 [facility] | | | | + + + +------+ + + + + | Result panel 192 | + + + + + +------+ + + | | 2023-06-10 | [facility] | 19 | (missing) | (missing) | | (unavailable | 05::07 [facility] | | | | + + + +------+ + + + + | Result panel 193 | + + + + + +-------+ + + | | 2023-06-10 | [facility] | 112 | (missing) | (missing) | | (unavailable | 05:06:07 [facility] | | | | + + + +-------+ + + + + | Result panel 194 | + + + + + +-------+ + + | | 2023-06-10 | [facility] | 6.6 | (missing) | (missing) | | (unavailable | 05:06:07 [facility] | | | | + + + +-------+ + + + + | Result panel 195 | + + + + + +--------+ + + | | 2023-06-10 | [facility] | 4.63 | (missing) | (missing) | | (unavailable | 05:06:07 [facility] | | | | + + + +--------+ + + + + | Result panel 196 | + + + + + +--------+ + + | | 2023-06-10 | [facility] | 12.9 | (missing) | (missing) | | (unavailable | 05:06:07 [facility] | | | | + + + +--------+ + + + + | Result panel 197 | + + + + + +------+ + + | | 2023-06-10 | [facility] | 99 | (missing) | (missing) | | (unavailable | 16:32:07 | [facility] | | | | + + + +------+ + + Social History No information. Vital [...] lb | + + + +---------+ | 2023-06-10 00:00 | BMI | 27.7 | kg/m2 | + + + +---------+ | 2023-06-10 00:00 | BP_diastolic | 61 | mmHg | + + + +---------+ | 2023-06-10 00:00 | BP_systolic | 151 | mmHg | + + + +---------+ | 2023-06-10 00:00 | heart_rate | 76 | /min | + + + +---------+ | 2023-06-10 00:00 | height_metric | 160.02 | cm | + + + +---------+ | 2023-06-10 00:00 | height_standard | 63 | in | + + + +---------+ | 2023-06-10 00:00 | o2_saturation | 94 | % | + + + +---------+ | 2023-06-10 00:00 | respiration_rate | 16 | /min | + + + +---------+ | 2023-06-10 00:00 | temperature_metric | 36.44 | C | | | | | | + + + +---------+ | 2023-06-10 00:00 | | 97.6 | F | | | temperature_standar | | | | | d | | | + + + +---------+ | 2023-06-10 00:00 | weight_metric | 70.9 | kg | + + + +---------+ | 2023-06-10 00:00 | weight_standard | 156.31 | lb | + + + +---------+"
--- OUTSIDE RECORDS SUMMARY | ~2023-07-26 | XMS | Continuity of Care Document ---
Demographics + + + | Address | [address] | | | [place] [address] | + + + | Preferred Language | Unknown | + + + | Marital Status | | + + + | Christian Affiliation | Unknown | + + + | Race | White | + + + | Ethnic Group | Not or | + + + Author + + + | Author | [facility] | + + + | Organization | [facility] | + + + | Address | [address] | | | [place] [address] | + + + | Phone | | + + + Care Team Providers + + + + | Care Employment Assistant Name | Role | Phone | + [...] + | 2022-06-23 00:00 | LISINOPRIL | [facility] | + + + + | 2022-10-18 00:00 | LISINOPRIL | [facility] | + + + + | 2023-06-10 00:00 | LISINOPRIL | [facility] | + + + + | 2016-04-29 00:00 | OXYCODONE HCL | [facility] | + + + + | 2016-04-29 00:00 | OXYCODONE HCL | [facility] | + + + + | 2016-04-29 00:00 | OXYCODONE HCL | [facility] | + + + + | 2022-06-23 00:00 | OXYCODONE HCL | [facility] | + + + + | 2022-10-18 00:00 | OXYCODONE HCL | [facility] | + + + + | 2023-06-10 00:00 | OXYCODONE HCL | [facility] | + + + + | 2022-06-23 00:00 | ALBUTEROL SULFATE | [facility] | + + + + | 2022-10-18 00:00 | ALBUTEROL SULFATE | [facility] | + + + + | 2021-07-05 00:00 | IPRATROPIUM/ALBUTEROL | [facility] | | | SULFATE | | + + + + | 2021-07-05 00:00 | IPRATROPIUM/ALBUTEROL | [facility] | | | SULFATE | | + + + + | 2023-06-10 00:00 | UMECLIDINIUM | [facility] | | | BRM/VILANTEROL TR | | + + + + | 2022-06-23 00:00 | LEDIPASVIR/SOFOSBUVIR | [facility] | + + + + | 2022-10-18 00:00 | LEDIPASVIR/SOFOSBUVIR | [facility] | + + + + | 2023-06-10 00:00 | LEDIPASVIR/SOFOSBUVIR | [facility] | + + + + | 2022-06-23 00:00 | BENZONATATE | [facility] | + + + + | 2022-06-23 00:00 | BENZONATATE | [facility] | + + + + | 2022-06-23 00:00 | BENZONATATE | [facility] | + + + + | 2022-06-23 00:00 | NAPROXEN | [facility] | + + + + | 2022-10-18 00:00 | NAPROXEN | [facility] | + + + + | 2023-06-10 00:00 | NAPROXEN | [facility] | + + + + | 2018-04-21 00:00 | NICOTINE 7MG | [facility] | + + + + | 2018-04-21 00:00 | NICOTINE 7MG | [facility] | + + + + | 2018-04-21 00:00 | NICOTINE 7MG | [facility] | + + + + | 2022-06-23 00:00 | RANITIDINE HCL | [facility] | + + + + | 2022-10-18 00:00 | RANITIDINE HCL | [facility] | + + + + | 2023-06-10 00:00 | RANITIDINE HCL | [facility] | + + + + | 2022-06-23 00:00 | CITALOPRAM HYDROBROMIDE | [facility] | + + + + | 2022-10-18 00:00 | CITALOPRAM HYDROBROMIDE | [facility] | + + + + | 2023-06-10 00:00 | CITALOPRAM HYDROBROMIDE | [facility] | + + + + | 2018-12-06 00:00 | CEPHALEXIN | [facility] | + + + + | 2018-12-06 00:00 | CEPHALEXIN | [facility] | + + + + | 2018-12-06 00:00 | CEPHALEXIN | [facility] | + + + + | 2019-03-18 00:00 | CEPHALEXIN | [facility] | + + + + | 2019-03-18 00:00 | CEPHALEXIN | [facility] | + + + + | 2019-03-18 00:00 | CEPHALEXIN | [facility] | + + + + | 2020-07-10 00:00 | CEPHALEXIN | [facility] | + + + + | 2020-07-10 00:00 | CEPHALEXIN | [facility] | + + + + | 2020-07-10 00:00 | CEPHALEXIN | [facility] | + + + + | 2022-06-23 00:00 | CEPHALEXIN | [facility] | + + + + | 2022-10-18 00:00 | CEPHALEXIN | [facility] | + + + + | 2023-06-10 00:00 | CEPHALEXIN | [facility] | + + + + | 2023-06-10 00:00 | Albuterol Sulfate | [facility] | + + + + | 2022-06-23 00:00 | CALCIUM CARBONATE | [facility] | + + + + | 2022-10-18 00:00 | CALCIUM CARBONATE | [facility] | + + + + | 2023-06-10 00:00 | CALCIUM CARBONATE | [facility] | + + + + | 2016-04-29 00:00 | CEFPODOXIME PROXETIL | [facility] | + + + + | 2016-04-29 00:00 | CEFPODOXIME PROXETIL | [facility] | + + + + | 2016-04-29 00:00 | CEFPODOXIME PROXETIL | [facility] | + + + + | 2018-02-13 00:00 | CEFUROXIME AXETIL | [facility] | + + + + | 2018-02-13 00:00 | CEFUROXIME AXETIL | [facility] | + + + + | 2018-02-13 00:00 | CEFUROXIME AXETIL | [facility] | + + + + | 2016-08-16 00:00 | CEPHALEXIN | [facility] | + + + + | 2016-08-16 00:00 | CEPHALEXIN | [facility] | + + + + | 2016-08-16 00:00 | CEPHALEXIN | [facility] | + + + + | 2021-01-10 00:00 | CEPHALEXIN | [facility] | + + + + | 2021-01-10 00:00 | CEPHALEXIN | [facility] | + + + + | 2021-01-10 00:00 | CEPHALEXIN | [facility] | + + + + | 2022-04-19 00:00 | CEPHALEXIN | [facility] | + + + + | 2022-04-19 00:00 | CEPHALEXIN | [facility] | + + + + | 2022-04-19 00:00 | CEPHALEXIN | [facility] | + + + + | 2023-06-10 00:00 | CEPHALEXIN | [facility] | + + + + | 2022-06-23 00:00 | GABAPENTIN | [facility] | + + + + | 2022-10-18 00:00 | GABAPENTIN | [facility] | + + + + | 2023-06-10 00:00 | GABAPENTIN | [facility] | + + + + | 2014-05-31 00:00 | predniSONE | [facility] | + + + + | 2014-05-31 00:00 | predniSONE | [facility] | + + + + | 2014-05-31 00:00 | predniSONE | [facility] | + + + + | 2022-06-23 00:00 | predniSONE | [facility] | + + + + | 2022-06-23 00:00 | [facility]E [facility] | + + + + | 2016-04-13 00:00 | NICOTINE POLACRILEX | [facility] | + + + + | 2016-04-13 00:00 | NICOTINE POLACRILEX | [facility] | + + + + | 2016-04-13 00:00 | NICOTINE POLACRILEX | [facility] | + + + + | 2016-08-14 00:00 | NITROFURANTOIN MONOHYD | [facility] | | | MACROCR | | + + + + | 2016-08-14 00:00 | NITROFURANTOIN MONOHYD | [facility] | | | MACROCR | | + + + + | 2016-08-14 00:00 | NITROFURANTOIN MONOHYD | [facility] | | | MACROCR | | + + + + | 2022-06-23 00:00 | DULOXETINE HCL | [facility] | + + + + | 2022-10-18 00:00 | DULOXETINE HCL | [facility] | + + + + | 2023-06-10 00:00 | DULOXETINE HCL | [facility] | + + + + | 2022-06-23 00:00 | AMOXICILLIN/POTASSIUM CLAV | [facility] | | | | | + + + + | 2022-10-18 00:00 | AMOXICILLIN/POTASSIUM CLAV | [facility] | | | | | + + + + | 2023-06-10 00:00 | AMOXICILLIN/POTASSIUM CLAV | [facility] | | | | | + + + + | 2022-06-23 00:00 | AZITHROMYCIN | [facility] | + + + + | 2022-06-23 00:00 | AZITHROMYCIN | [facility] | + + + + | 2022-06-23 00:00 | AZITHROMYCIN | [facility] | + + + + | 2014-05-31 00:00 | CYCLOBENZAPRINE HCL | [facility] | + + + + | 2014-05-31 00:00 | CYCLOBENZAPRINE HCL | [facility] | + + + + | 2014-05-31 00:00 | CYCLOBENZAPRINE HCL | [facility] | + + + + | 2021-04-12 00:00 | CYCLOBENZAPRINE HCL | [facility] | + + + + | 2021-04-12 00:00 | CYCLOBENZAPRINE HCL | [facility] | + + + + | 2021-04-12 00:00 | CYCLOBENZAPRINE HCL | [facility] | + + + + | 2014-05-31 00:00 | TRAMADOL HCL | [facility] | + + + + | 2014-05-31 00:00 | TRAMADOL HCL | [facility] | + + + + | 2014-05-31 00:00 | TRAMADOL HCL | [facility] | + + + + | 2022-06-23 00:00 | IPRATROPIUM BROMIDE MDI | [facility] | + + + + | 2022-10-18 00:00 | IPRATROPIUM BROMIDE MDI | [facility] | + + + + | 2023-06-10 00:00 | IPRATROPIUM BROMIDE MDI | [facility] | + + + + | 2022-06-23 00:00 | TRAZODONE HCL | [facility] | + + + + | 2022-10-18 00:00 | TRAZODONE HCL | [facility] | + + + + | 2023-06-10 00:00 | TRAZODONE HCL | [facility] | + + + + | 2016-04-13 00:00 | HYDROCODONE/APAP | [facility] | | | (10-325MG) | | + + + + | 2016-04-13 00:00 | HYDROCODONE/APAP | [facility] | | | (10-325MG) | | + + + + | 2016-04-13 00:00 | HYDROCODONE/APAP | [facility] | | | (10-325MG) | | + + + + | 2022-06-23 00:00 | HYDROCODONE/APAP | [facility] | | | (10-325MG) | | + + + + | 2022-10-18 00:00 | HYDROCODONE/APAP | [facility] | | | (10-325MG) | | + + + + | 2023-06-10 00:00 | HYDROCODONE/APAP | [facility] | | | (10-325MG) | | + + + + | 2021-07-05 00:00 | METFORMIN HCL | [facility] | + + + + | 2021-07-05 00:00 | METFORMIN HCL | [facility] | + + + + | 2022-06-23 00:00 | METFORMIN HCL | [facility] | + + + + | 2022-10-18 00:00 | METFORMIN HCL | [facility] | + + + + | 2023-06-10 00:00 | METFORMIN HCL | [facility] | + + + + | 2023-06-10 00:00 | METFORMIN HCL | [facility] | + + + + | 2022-06-23 00:00 | LEVOTHYROXINE SODIUM | [facility] | + + + + | 2022-10-18 00:00 | LEVOTHYROXINE SODIUM | [facility] | + + + + | 2023-06-10 00:00 | LEVOTHYROXINE SODIUM | [facility] | + + + + | 2022-06-23 00:00 | BECLOMETHASONE | [facility] | | | DIPROPIONATE | | + + + + | 2022-10-18 00:00 | BECLOMETHASONE | [facility] | | | DIPROPIONATE | | + + + + | 2023-06-10 00:00 | BECLOMETHASONE | [facility] | | | DIPROPIONATE | | + + + + | 2022-06-23 00:00 | BUPROPION HCL | [facility] | + + + + | 2022-10-18 00:00 | BUPROPION HCL | [facility] | + + + + | 2023-06-10 00:00 | BUPROPION HCL | [facility] | + + + + Problems + + + + | date | description | facility | + + + + | 2015-10-13 00:00 | Bronchitis | [facility] | + + + + | 2015-10-13 00:00 | Bronchitis | [facility] | + + + + | 2015-10-13 00:00 | Bronchitis | [facility] | + + + + | 2015-10-13 00:00 | Radicular pain of right | [facility] | | | upper extremity | | + + + + | 2015-10-13 00:00 | Radicular pain of right | [facility] | | | upper extremity | | + + + + | 2015-10-13 00:00 | Radicular pain of right | [facility] | | | upper extremity | | + + + + | 2016-04-15 00:00 | Peripheral edema | [facility] | + + + + | 2016-04-15 00:00 | Peripheral edema | [facility] | + + + + | 2016-04-15 00:00 | Peripheral edema | [facility] | + + + + | 2016-04-26 00:00 | Acute pyelonephritis | [facility] | + + + + | 2016-04-26 00:00 | Acute pyelonephritis | [facility] | + + + + | 2016-04-26 00:00 | Acute pyelonephritis | [facility] | + + + + | 2016-04-28 00:00 | Chronic hepatitis C virus | [facility] | | | infection | | + + + + | 2016-04-28 00:00 | Chronic hepatitis C virus | [facility] | | | infection | | + + + + | 2016-04-28 00:00 | Chronic hepatitis C virus | [facility] | | | infection | | + + + + | 2016-04-28 00:00 | Thrombocytopenia | [facility] | + + + + | 2016-04-28 00:00 | Thrombocytopenia | [facility] | + + + + | 2016-04-28 00:00 | Thrombocytopenia | [facility] | + + + + | 2016-04-28 00:00 | Hypothyroidism | [facility] | + + + + | 2016-04-28 00:00 | Hypothyroidism | [facility] | + + + + | 2016-04-28 00:00 | Hypothyroidism | [facility] | + + + + | 2016-04-28 00:00 | Type 2 diabetes mellitus | [facility] | + + + + | 2016-04-28 00:00 | Type 2 diabetes mellitus | [facility] | + + + + | 2016-04-28 00:00 | Type 2 diabetes mellitus | [facility] | + + + + | 2016-04-28 00:00 | Hyperbilirubinemia | [facility] | + + + + | 2016-04-28 00:00 | Hyperbilirubinemia | [facility] | + + + + | 2016-04-28 00:00 | Hyperbilirubinemia | [facility] | + + + + | 2016-04-28 00:00 | Hyponatremia | [facility] | + + + + | 2016-04-28 00:00 | Hyponatremia | [facility] | + + + + | 2016-04-28 00:00 | Hyponatremia | [facility] | + + + + | 2016-04-28 00:00 | Chronic pain syndrome | [facility] | + + + + | 2016-04-28 00:00 | Chronic pain syndrome | [facility] | + + + + | 2016-04-28 00:00 | Chronic pain syndrome | [facility] | + + + + | 2016-04-28 00:00 | Chronic obstructive | [facility] | | | pulmonary disease | | + + + + | 2016-04-28 00:00 | Chronic obstructive | [facility] | | | pulmonary disease | | + + + + | 2016-04-28 00:00 | Chronic obstructive | [facility] | | | pulmonary disease | | + + + + | 2016-08-14 00:00 | Hematuria | [facility] | + + + + | 2016-08-14 00:00 | Hematuria | [facility] | + + + + | 2016-08-14 00:00 | Hematuria | [facility] | + + + + | 2016-08-16 00:00 | Urinary tract infection | [facility] | | | with hematuria | | + + + + | 2016-08-16 00:00 | Urinary tract infection | [facility] | | | with hematuria | | + + + + | 2016-08-16 00:00 | Urinary tract infection | [facility] | | | with hematuria | | + + + + | 2017-04-14 00:00 | Pneumonia | [facility] | + + + + | 2017-04-14 00:00 | Pneumonia | [facility] | + + + + | 2017-04-14 00:00 | Pneumonia | [facility] | + + + + | 2018-02-13 00:00 | Urinary tract infection | [facility] | + + + + | 2018-02-13 00:00 | Urinary tract infection | [facility] | + + + + | 2018-02-13 00:00 | Urinary tract infection | [facility] | + + + + | 2018-04-09 00:00 | Acute exacerbation of | [facility] | | | chronic obstructive | | | | pulmonary disease | | + + + + | 2018-04-09 00:00 | Acute exacerbation of | [facility] | | | chronic obstructive | | | | pulmonary disease | | + + + + | 2018-04-09 00:00 | Acute exacerbation of | [facility] | | | chronic obstructive | | | | pulmonary disease | | + + + + | 2019-06-16 00:00 | Shortness of breath | [facility] | + + + + | 2019-06-16 00:00 | Shortness of breath | [facility] | + + + + | 2019-06-16 00:00 | Shortness of breath | [facility] | + + + + | 2021-01-10 00:00 | Exacerbation of chronic | [facility] | | | back pain | | + + + + | 2021-01-10 00:00 | Exacerbation of chronic | [facility] | | | back pain | | + + + + | 2021-01-10 00:00 | Exacerbation of chronic | [facility] | | | back pain | | + + + + | 2021-04-12 00:00 | Sciatica of left side | [facility] | + + + + | 2021-04-12 00:00 | Sciatica of left side | [facility] | + + + + | 2021-04-12 00:00 | Sciatica of left side | [facility] | + + + + | 2021-06-21 00:00 | Minor head injury | [facility] | + + + + | 2021-06-21 00:00 | Minor head injury | [facility] | + + + + | 2021-06-21 00:00 | Minor head injury | [facility] | + + + + | 2021-06-21 00:00 | Abrasion of right lower | [facility] | | | leg, initial encounter | | + + + + | 2021-06-21 00:00 | Abrasion of right lower | [facility] | | | leg, initial encounter | | + + + + | 2021-06-21 00:00 | Abrasion of right lower | [facility] | | | leg, initial encounter | | + + + + | 2021-06-21 00:00 | Fall | [facility] | + + + + | 2021-06-21 00:00 | Fall | [facility] | + + + + | 2021-06-21 00:00 | Fall | [facility] | + + + + | 2021-07-02 00:00 | Severe sepsis | [facility] | + + + + | 2021-07-02 00:00 | Severe sepsis | [facility] | + + + + | 2021-07-02 00:00 | Severe sepsis | [facility] | + + + + | 2021-07-02 00:00 | Hypomagnesemia | [facility] | + + + + | 2021-07-02 00:00 | Hypomagnesemia | [facility] | + + + + | 2021-07-02 00:00 | Hypomagnesemia | [facility] | + + + + | 2021-07-02 00:00 | Biliary colic | [facility] | + + + + | 2021-07-02 00:00 | Biliary colic | [facility] | + + + + | 2021-07-02 00:00 | Biliary colic | [facility] | + + + + | 2021-07-02 00:00 | Acute kidney injury | [facility] | + + + + | 2021-07-02 00:00 | Acute kidney injury | [facility] | + + + + | 2021-07-02 00:00 | Acute kidney injury | [facility] | + + + + | [...] + + | 2022-04-19 16:49 | Other penitentiary (current) | [facility] | | | drug therapy | [facility] | + + + + | 2022-04-19 16:49 | Allergy status to narcotic | [facility] | | | agent | [facility] | + + + + | 2022-06-23 00:00 | Chronic obstructive | [facility] | | | pulmonary disease with | | | | acute exacerbation | | + + + + | 2022-06-23 00:00 | Chronic obstructive | [facility] | | | pulmonary disease with | | | | acute exacerbation | | + + + + | 2022-06-23 00:00 | Chronic obstructive | [facility] | | | pulmonary disease with | | | | acute exacerbation | | + + + + | 2022-10-17 00:00 | Contusion of hip | [facility] | + + + + | 2022-10-17 00:00 | Contusion of hip | [facility] | + + + + | [...] + + + | 2022-10-17 21:12 | SHELTER (CURRENT) USE OF | [facility] | | | ORAL HYPOGLYCEMIC DRUGS | | + + + + | 2022-10-17 21:12 | OTHER POT RUNNER (CURRENT) | [facility] | | | DRUG [...] + + | 2023-06-09 21:23 | OTHER SHELTER (CURRENT) | [facility] | | | DRUG THERAPY | | + + + + | 2023-06-09 21:23 | ALLERGY STATUS TO NARCOTIC | [facility] | | | AGENT STATUS | | + + + + | 2023-06-09 21:23 | HISTORY OF FALLING | [facility] | + + + + | 2023-06-10 00:00 | Dehydration | [facility] | + + + + | 2023-06-10 00:00 | Transient ischemic attack | [facility] | + + + + | 2023-06-10 00:00 | Back pain | [facility] | + + + + Procedures [...]
[~2023-07-26 13:02] MED LIST changes: +ANORO ELLIPTA1 EACH INH; +METFORMIN HCL500 MG PO
--- OUTSIDE RECORDS SUMMARY | 2023-07-26 13:05 | XMS ---
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 Care History Medical/Surgical 10/02/2020 [facility] - PATIENT IS CURRENTLY ON A PAIN CONTRACT WITH DR CORONADO-PCP- [phone]. - DR CORONADO OFFICE NOTIFIED OF PATIENT ED VISIT-REQUESTING REVIEW FOR A POSSIBLE REFERRAL TO A UROLOGIST. [place] VISIT COUNT (12 MO.) 3 [facility] TOTAL 3 NOTE: Visits indicate total known visits. ED/UCC VISIT TRACKING (12 MO.) 07/26/2023 13:03 [facility] [place] TYPE: Emergency COMPLAINT: - R HAND INJURY 06/09/2023 21:22 [facility] [place] TYPE: Emergency COMPLAINT: - STROKE SYMPTOMS 10/17/2022 21:12 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 [place] TYPE: Observation COMPLAINT: - TIA/BACK PAIN DIAGNOSES: - Allergy status to narcotic agent - Anxiety disorder, unspecified - Cervicalgia - Chronic obstructive pulmonary disease, unspecified - Dehydration - Dorsalgia, unspecified - Essential (primary) hypertension - Headache, unspecified - History of falling - Nicotine dependence, unspecified, uncomplicated - Other chronic pain - Other intermodal customer service (current) drug therapy - Pain in left knee - Transient cerebral ischemic attack, unspecified - Type 2 diabetes mellitus without complications - Urinary tract infection, site not specified - Weakness [email or web address]
[2023-07-26] MEDS ORDERED: BUPROPION XL300 MG PO (13:17)
[2023-07-26] MEDS ORDERED: HYDROCODON-ACE1 EA10 PO (14:01)
[2023-07-26 14:28] VITALS: BP 105/79
== END 2023-07-26 14:18 | disposition home or self-care (01) ==
LOC: ED 13:02
DX: S62.616A Displaced fracture of proximal phalanx of right little finger, initial encounter for closed fracture (principal); W18.39XA Other fall on same level, initial encounter; J44.9 Chronic obstructive pulmonary disease, unspecified; E11.9 Type 2 diabetes mellitus without complications; E03.9 Hypothyroidism, unspecified; F17.200 Nicotine dependence, unspecified, uncomplicated; Z88.5 Allergy status to narcotic agent; Z79.899 Other long term (current) drug therapy; Z79.84 Long term (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 of oral hypoglycemic drugs
CPT/HCPCS: 73130

== ENCOUNTER 2023-12-27 13:01 | Emergency (ER) | payer MEDICARE, OTHER ==
[~2023-12-27] VITALS: Ht 160 cm; Wt 66.8 kg
[~2023-12-27 13:01] MED LIST changes: +BUPROPION XL300 MG PO; +HYDROCODON-ACE1 EA10 PO
[2023-12-27 13:50] LABS: BASOPHILS 0.3 % (0-2); EOSINOPHILS 0.9 % (0-6); HEMATOCRIT 41.4 % (35.0-50.0); HEMOGLOBIN 13.3 g/dL (12.0-18.0); LYMPHOCYTES 6.3 % (24-44); MCH 28.5 (27-36); MCHC 32.1 g/dl (30-36); MCV 88.8 fl (81-99); MONOCYTES 6.5 % (0-12); PLATELET COUNT 168 K/uL (140-440); RBC 4.66 M/ul (4.3-5.7); RDW 15.6 (10.5-15.0)
[2023-12-27 14:11] LABS: ALBUMIN 3.4 g/dL (3.4-5.0); ALBUMIN/GLOBULIN RATIO 0.87 (1.1-2.4); ANION GAP 17.1 (7-21); BILIRUBIN, TOTAL 0.3 ng/dL (0.2-1.0); BUN/CREATININE RATIO 16.55 (6.0-28.6); CALCIUM 8.6 mg/dL (8.5-10.1); CREATININE, SERUM 3.08 mg/dL (0.55-1.02); MAGNESIUM 2.1 mg/dL (1.8-2.4); POTASSIUM 5.1 mmol/L (3.5-5.1); PROTEIN, TOTAL 7.3 g/dL (6.4-8.2)
[2023-12-27 14:28] LABS: LACTIC ACID, BLOOD 1.6 mmol/L (0.4-2.0)
[2023-12-27 18:40] VITALS: BP 118/75
--- NOTE | 2023-12-28 20:20 | EKG ---
[facility] [address] [facility] [place] [address] Signed Normal sinus rhythm Rightward axis Borderline ECG When compared with ECG of 09-JUN-2023 21:41, No significant change was found Confirmed by Connor Payne MD () on 12/28/2023 8:19:57 PM Electronically Signed By: CONNOR PAYNE MD 12/28/23 2020 PATIENT NAME: RAMON CORMIERLEO [place] Electrocardiogram DATE OF : 51 PHYSICIAN: CONNOR PAYNE MD REPORT #: [id number] REPORT IS CONFIDENTIAL AND NOT TO BE RELEASED WITHOUT AUTHORIZATION
== END 2023-12-27 18:40 | disposition home or self-care (01) ==
LOC: ED 13:01
PROVIDERS: Emergency Medicine; Family Medicine
DX: M62.82 Rhabdomyolysis (principal); M54.2 Cervicalgia; W18.30XA Fall on same level, unspecified, initial encounter; J44.9 Chronic obstructive pulmonary disease, unspecified; E11.9 Type 2 diabetes mellitus without complications; E03.9 Hypothyroidism, unspecified; F17.200 Nicotine dependence, unspecified, uncomplicated; Z88.5 Allergy status to narcotic agent; Z79.899 Other long term (current) drug therapy; Z79.890 Hormone replacement therapy; Z79.84 Long term (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 of oral hypoglycemic drugs
CPT/HCPCS: 36415; 70450; 72125; 80053; 82553; 83605; 83735; 84484; 85025; 93005; 93010; 96360; 99285-25; A9270; J7030

== ENCOUNTER 2024-01-14 16:17 | Inpatient (IN) | payer MEDICARE, OTHER ==
[~2024-01-14] VITALS: Ht 160 cm; Wt 65.5 kg
[2024-01-14 17:27] LABS: HEMATOCRIT 42.4 % (35.0-50.0); HEMOGLOBIN 13.5 g/dL (12.0-18.0); MCH 27.9 (27-36); MCHC 31.8 g/dl (30-36); MCV 87.9 fl (81-99); PLATELET COUNT 148 K/uL (140-440); RBC 4.83 M/ul (4.3-5.7); RDW 15.2 (10.5-15.0)
[2024-01-14 17:42] LABS: BANDS, MANUAL DIFF 1; LYMPHOCYTES, MANUAL DIFF 8; MONOCYTES, MANUAL DIFF 7; NEUTROPHILS, MANUAL DIFF 84
[2024-01-14 17:44] LABS: ALBUMIN 3.3 g/dL (3.4-5.0); ALBUMIN/GLOBULIN RATIO 0.8 (1.1-2.4); ANION GAP 17.1 (7-21); BILIRUBIN, TOTAL 0.9 ng/dL (0.2-1.0); BUN/CREATININE RATIO 14.5 (6.0-28.6); CALCIUM 8.6 mg/dL (8.5-10.1); POTASSIUM 5.1 mmol/L (3.5-5.1); PROTEIN, TOTAL 7.4 g/dL (6.4-8.2)
[2024-01-14 18:16] LABS: INFLUENZA B NAA NEGATIVE (NEGATIVE); RESPIRATORY SYNCYTIAL VIR NAA NEGATIVE (NEGATIVE)
[2024-01-14 18:31] LABS: BILIRUBIN, URINE NEGATIVE (negative); BLOOD/HGB, URINE MODERATE (Negative); KETONE, URINE TRACE (Negative); LEUK ESTERASE, URINE MODERATE (negative); NITRITE, URINE NEGATIVE (negative)
[2024-01-14 18:40] LABS: BACTERIA, URINE 2+ /hpf (negative); CASTS, URINE NONE SEEN \\lpf; COLLECTION TYPE, URINE CATH; CRYSTALS, URINE NONE SEEN (0-1+); EPITHELIAL CELLS, URINE SQUAMOUS 1+ /lpf (0-1+); REFLEX CULTURE, URINE Yes (No); WHITE BLOOD CELLS, URINE >50 /HPF (0-5)
[2024-01-14] MEDS ORDERED: CEFTRIAXONE/SODIUM CHLORIDE 1 GM/100 ML PIGGYBACK IV ONE ×2 (19:00→20:30)
[2024-01-14] MEDS ORDERED: CEPHALEXIN500 M1 PO (19:05)
[2024-01-14] MEDS ORDERED: SODIUM CHLORIDE 0.9% 1,000 ML IV SCH (20:30)
[2024-01-14] MEDS ORDERED: ondansetron HCL 4 MG/2 ML VIAL IV PRN (20:30)
[2024-01-14] MEDS ORDERED: DEXTROSE 5% 1,000 ML IV PRN (20:30)
[2024-01-14] MEDS ORDERED: DEXTROSE 50% 50 ML SYR IV PRN ×2 (20:30)
[2024-01-14] MEDS ORDERED: GLUCAGON,HUMAN RECOMBINANT 1 MG/ML VIAL SUB-Q PRN (20:30)
[2024-01-14] MEDS ORDERED: PROCHLORPERAZINE EDISYLATE 10 MG/2 ML VIAL IV PRN (20:30)
[2024-01-14] MEDS ORDERED: IBLOOD GLUCOSE TEST STRIP 1 EA TEST XX PRN (20:30)
[2024-01-14] MEDS ORDERED: ACETAMINOPHEN 325 MG TAB PO PRN (20:30)
[2024-01-14] MEDS ORDERED: IBLOOD GLUCOSE TEST STRIP 1 EA TEST VI SCH (21:00)
[2024-01-14] MEDS ORDERED: NICOTINE 14 MG/24 HR 1 EA TDSY TD PRN (21:00)
[2024-01-14] MEDS ORDERED: INSULIN LISPRO 100 UNIT/ML ML SUB-Q SCH (21:00)
[2024-01-14 21:03] VITALS: BP 97/69
[2024-01-14] MEDS ORDERED: ALBUTEROL/IPRATROPIUM 3 ML NEB INH PRN (22:30)
[2024-01-14] MEDS ORDERED: LIDOCAINE HCL 4% 1 EACH PATCH TD PRN (22:30)
[2024-01-14] MEDS ORDERED: ALBUTEROL SULFATE 0.083% 3 ML VIAL INH PRN (22:30)
[2024-01-15] VITALS (11 sets, daily range): BP systolic 97–153; BP diastolic 53–76
[2024-01-15 05:30] LABS: BASOPHILS 0.4 % (0-2); EOSINOPHILS 0.4 % (0-6); HEMATOCRIT 39.6 % (35.0-50.0); HEMOGLOBIN 12.9 g/dL (12.0-18.0); LYMPHOCYTES 8.7 % (24-44); MCH 28.6 (27-36); MCHC 32.6 g/dl (30-36); MCV 87.6 fl (81-99); NEUTROPHILS 78.5 % (39-80); PLATELET COUNT 126 K/uL (140-440); RBC 4.52 M/ul (4.3-5.7); RDW 14.9 (10.5-15.0)
[2024-01-15 05:44] LABS: ALBUMIN 2.9 g/dL (3.4-5.0); ALBUMIN/GLOBULIN RATIO 0.73 (1.1-2.4); ANION GAP 15.4 (7-21); BILIRUBIN, TOTAL 0.5 ng/dL (0.2-1.0); BUN/CREATININE RATIO 14.42 (6.0-28.6); CALCIUM 8.2 mg/dL (8.5-10.1); CREATININE, SERUM 2.08 mg/dL (0.55-1.02); MAGNESIUM 1.8 mg/dL (1.8-2.4); PHOSPHORUS, INORGANIC 3.8 mg/dL (2.5-4.9); POTASSIUM 4.4 mmol/L (3.5-5.1); PROTEIN, TOTAL 6.9 g/dL (6.4-8.2)
[2024-01-15] MEDS ORDERED: NYSTATIN15 G2 TOP (10:57)
[2024-01-15] MEDS ORDERED: TRIAMCINOLONE A15 G2 TOP (10:58)
[2024-01-15] MEDS ORDERED: LOPERAMIDE HCL 2 MG CAP PO PRN (11:00)
[2024-01-15] MEDS ORDERED: PHARMACY RENAL DOSE ADJUSTMENT 1 DOSE MISC PO SCH (12:00)
[2024-01-15] MEDS ORDERED: HYDROCODONE/ACETA 5/325 TAB PO PRN (13:45)
[2024-01-15] MEDS ORDERED: CEFTRIAXONE/SODIUM CHLORIDE 2 GM/100 ML PIGGYBACK IV SCH (18:00)
[2024-01-15] MEDS ORDERED: LIDOCAINE PATCH REMOVAL 1 EA TD SCH (21:00)
[2024-01-16 04:00] VITALS: BP 141/71
[2024-01-16 05:21] LABS: BASOPHILS 0.4 % (0-2); EOSINOPHILS 3.2 % (0-6); HEMOGLOBIN 11.8 g/dL (12.0-18.0); MCH 28.5 (27-36); MCHC 32.7 g/dl (30-36); MCV 87.3 fl (81-99); MONOCYTES 13.2 % (0-12); NEUTROPHILS 76.2 % (39-80); PLATELET COUNT 110 K/uL (140-440); RBC 4.13 M/ul (4.3-5.7)
[2024-01-16 05:39] LABS: ALBUMIN 2.6 g/dL (3.4-5.0); ALBUMIN/GLOBULIN RATIO 0.68 (1.1-2.4); ANION GAP 13.1 (7-21); BILIRUBIN, TOTAL 0.3 ng/dL (0.2-1.0); BUN/CREATININE RATIO 16.56 (6.0-28.6); CALCIUM 8.2 mg/dL (8.5-10.1); CREATININE, SERUM 1.69 mg/dL (0.55-1.02); POTASSIUM 4.1 mmol/L (3.5-5.1); PROTEIN, TOTAL 6.4 g/dL (6.4-8.2)
[2024-01-16 09:23] VITALS: BP 149/74
[2024-01-16 09:30] VITALS: BP 149/74
[2024-01-16 14:38] VITALS: BP 134/68
[2024-01-16 14:46] VITALS: BP 134/68
== END 2024-01-16 16:36 | disposition home or self-care (01) | DRG 690 ==
LOC: ED 16:17 → MS 20:21
PROVIDERS: Emergency Medicine; ADMIT Family Medicine; ATTEND Family Medicine
DX: N39.0 Urinary tract infection, site not specified (principal); G93.49 Other encephalopathy; N18.4 Chronic kidney disease, stage 4 (severe); E11.22 Type 2 diabetes mellitus with diabetic chronic kidney disease; E87.5 Hyperkalemia; F17.210 Nicotine dependence, cigarettes, uncomplicated; J44.9 Chronic obstructive pulmonary disease, unspecified; M19.90 Unspecified osteoarthritis, unspecified site; M79.7 Fibromyalgia; E03.9 Hypothyroidism, unspecified; G89.29 Other chronic pain; F41.9 Anxiety disorder, unspecified; W19.XXXA Unspecified fall, initial encounter; Z79.899 Other long term (current) drug therapy; Z79.890 Hormone replacement therapy; Z88.5 Allergy status to narcotic agent; Z90.49 Acquired absence of other specified parts of digestive tract; Z90.89 Acquired absence of other organs; Z90.710 Acquired absence of both cervix and uterus; Z90.721 Acquired absence of ovaries, unilateral; Z79.84 Long term (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 of oral hypoglycemic drugs; Z11.52 Encounter for screening for COVID-19
CPT/HCPCS: 36415; 51701; 70450; 71045; 80053; 81001; 83735; 84100; 84484; 85025; 87077; 87088; 87186; 87502; 94667; 94760; 97161; 99285-25; A9270; J0696; J2405; J7030; U0002

== ENCOUNTER 2024-06-10 04:06 | Emergency (ER) | payer MEDICARE, OTHER ==
[~2024-06-10] VITALS: Ht 160 cm; Wt 68.6 kg
[~2024-06-10 04:06] MED LIST changes: +BACTRIM DS TAB1 EACH PO; +CEPHALEXIN500 M1 PO; +NYSTATIN15 G2 TOP; +TRIAMCINOLONE A15 G2 TOP
[2024-06-10 04:23] LABS: MCH 28.7 (27-36); MCHC 32.6 g/dl (30-36); RBC 4.65 M/ul (4.3-5.7); RDW 15.4 (10.5-15.0)
[2024-06-10 04:26] LABS: BASOPHILS 0.3 % (0-2); EOSINOPHILS 1.9 % (0-6); HEMOGLOBIN 13.3 g/dL (12.0-18.0); LYMPHOCYTES 11.3 % (24-44); MCV 88.2 fl (81-99); MONOCYTES 12.6 % (0-12); NEUTROPHILS 73.9 % (39-80); PLATELET COUNT 135 K/uL (140-440)
[2024-06-10 04:39] LABS: ALBUMIN 3.5 g/dL (3.4-5.0); ALBUMIN/GLOBULIN RATIO 0.83 (1.1-2.4); ALCOHOL, MEDICAL <3 ng/dL (<3); ALKALINE PHOSPHATASE 130 U/L (46-116); ALT (SGPT) 19 U/L (14-59); ANION GAP 12.6 (7-21); AST (SGOT) 17 U/L (15-37); BILIRUBIN, TOTAL 0.5 ng/dL (0.2-1.0); BUN/CREATININE RATIO 13.36 (6.0-28.6); CALCIUM 8.4 mg/dL (8.5-10.1); CARBON DIOXIDE 26 mmol/L (21-32); CHLORIDE 101 mmol/L (98-107); CREATININE, SERUM 2.02 mg/dL (0.55-1.02); GLOMERULAR FILTRATION RATE,EST 26 mL/min (>60); POTASSIUM 4.6 mmol/L (3.5-5.1); PROTEIN, TOTAL 7.7 g/dL (6.4-8.2); UREA NITROGEN 27 mg/dL (7-18)
[2024-06-10 04:59] LABS: ABO O; ANTIBODY SCREEN NEGATIVE; RH POSITIVE
[2024-06-10] MEDS ORDERED: KETOROLAC TROMETHAMINE 30 MG/ML VIAL IV ONE (05:15)
[2024-06-10 05:16] LABS: BILIRUBIN, URINE NEGATIVE (negative); BLOOD/HGB, URINE MODERATE (Negative); KETONE, URINE NEGATIVE (Negative); LEUK ESTERASE, URINE SMALL (negative); NITRITE, URINE POSITIVE (negative); PH, URINE 5.5 (5-7)
[2024-06-10 05:25] LABS: BACTERIA, URINE 2+ /hpf (negative); CASTS, URINE NONE SEEN \\lpf; COLLECTION TYPE, URINE CLEAN CATCH; CRYSTALS, URINE NONE SEEN (0-1+); EPITHELIAL CELLS, URINE SQUAMOUS 1+ /lpf (0-1+); REFLEX CULTURE, URINE Yes (No); WHITE BLOOD CELLS, URINE 41-50 /HPF (0-5)
[2024-06-10 05:32] LABS: AMPHETAMINES, URINE NEGATIVE (NEGATIVE); BARBITURATES, URINE NEGATIVE (NEGATIVE); BENZODIAZEPINE, URINE NEGATIVE (NEGATIVE); BUPRENORPHINE, URINE NEGATIVE (NEGATIVE); CANNABINOID, URINE POSITIVE (NEGATIVE); COCAINE, URINE NEGATIVE (NEGATIVE); ECSTASY, URINE POSITIVE (NEGATIVE); FENTANYL, URINE POSITIVE (NEGATIVE); METHADONE, URINE NEGATIVE (NEGATIVE); OPIATES, URINE NEGATIVE (NEGATIVE); OXYCODONE, URINE NEGATIVE (NEGATIVE); PHENCYCLIDINE, URINE NEGATIVE (NEGATIVE)
[2024-06-10] MEDS ORDERED: CEPHALEXIN500 M1 PO (05:44)
[2024-06-10] MEDS ORDERED: CEPHALEXIN MONOHYDRATE 500 MG HOME.PACK PO ONE (07:00)
[2024-06-10 07:15] VITALS: BP 103/60
== END 2024-06-10 07:15 | disposition home or self-care (01) ==
LOC: ED 04:06
PROVIDERS: Emergency Medicine
DX: S00.93XA Contusion of unspecified part of head, initial encounter (principal); S16.1XXA Strain of muscle, fascia and tendon at neck level, initial encounter; S40.021A Contusion of right upper arm, initial encounter; S80.01XA Contusion of right knee, initial encounter; N39.0 Urinary tract infection, site not specified; J44.9 Chronic obstructive pulmonary disease, unspecified; E11.9 Type 2 diabetes mellitus without complications; F17.200 Nicotine dependence, unspecified, uncomplicated; W18.30XA Fall on same level, unspecified, initial encounter; Z88.5 Allergy status to narcotic agent; Z79.899 Other long term (current) drug therapy; Z79.890 Hormone replacement therapy
CPT/HCPCS: 36415; 70450; 71045; 72125; 73060; 73560; 80053; 80307; 81001; 85025; 86850; 86900; 86901; 87077; 87088; 87186; 96374; 99284-25; A9270; G0480; J1885

== ENCOUNTER 2024-07-30 10:38 | Emergency (ER) | payer MEDICARE, OTHER ==
[~2024-07-30] VITALS: Ht 160 cm; Wt 71.8 kg
[2024-07-30] MEDS ORDERED: NITROGLYCERIN 0.4 MG SUBL SL PRN (10:45)
[2024-07-30 10:53] LABS: BASOPHILS 0.2 % (0-2); EOSINOPHILS 0.4 % (0-6); HEMATOCRIT 43.7 % (35.0-50.0); HEMOGLOBIN 14.3 g/dL (12.0-18.0); LYMPHOCYTES 4.6 % (24-44); MCH 28.5 (27-36); MCHC 32.7 g/dl (30-36); MCV 87.2 fl (81-99); MONOCYTES 12.3 % (0-12); NEUTROPHILS 82.5 % (39-80); PLATELET COUNT 150 K/uL (140-440); RBC 5.01 M/ul (4.3-5.7); RDW 15.1 (10.5-15.0)
[2024-07-30] MEDS ORDERED: SODIUM CHLORIDE 0.9% 500 ML IV PRN (11:00)
[2024-07-30 11:11] LABS: ALBUMIN 3.4 g/dL (3.4-5.0); ALBUMIN/GLOBULIN RATIO 0.87 (1.1-2.4); ANION GAP 15.7 (7-21); BILIRUBIN, TOTAL 0.8 ng/dL (0.2-1.0); BUN/CREATININE RATIO 12.42 (6.0-28.6); CALCIUM 7.5 mg/dL (8.5-10.1); CREATININE, SERUM 1.69 mg/dL (0.55-1.02); MAGNESIUM 1.7 mg/dL (1.8-2.4); POTASSIUM 4.7 mmol/L (3.5-5.1); PROTEIN, TOTAL 7.3 g/dL (6.4-8.2)
[2024-07-30] MEDS ORDERED: ALBUTEROL/IPRATROPIUM 3 ML NEB INH ONE (11:15)
[2024-07-30] MEDS ORDERED: HEPARIN SOD,PORK IN 0.45% NACL 500 ML IV SCH (11:30)
[2024-07-30] MEDS ORDERED: HEParin SOD (PORCINE) 5,000 UNIT/ML VIAL IV ONE (11:30)
[2024-07-30 12:27] VITALS: BP 104/70
--- NOTE | 2024-08-01 13:15 | EKG ---
[facility] [address] [facility] [place] [address] Signed Normal sinus rhythm Left anterior fascicular block Cannot rule out Inferior infarct (masked by fascicular block?) , age undetermined Anteroseptal infarct , age undetermined T wave abnormality, consider lateral ischemia Abnormal ECG When compared with ECG of 27-DEC-2023 13:40, Significant changes have occurred Confirmed by Shira Eduardo MD ([id number]) on 08/01/2024 1:15:00 PM Electronically Signed By: SHIRA EDUARDO 08/01/24 1315 PATIENT NAME: UMU CORMIER Electrocardiogram DATE OF : 51 PHYSICIAN: SHIRA EDUARDO REPORT #: [id number] REPORT IS CONFIDENTIAL AND NOT TO BE RELEASED WITHOUT AUTHORIZATION
== END 2024-07-30 12:27 | disposition short-term general hospital (02) ==
LOC: ED 10:38
PROVIDERS: Emergency Medicine
DX: I21.4 Non-ST elevation (NSTEMI) myocardial infarction (principal); J44.9 Chronic obstructive pulmonary disease, unspecified; E03.9 Hypothyroidism, unspecified; E11.9 Type 2 diabetes mellitus without complications; F17.200 Nicotine dependence, unspecified, uncomplicated; Z88.5 Allergy status to narcotic agent; Z79.890 Hormone replacement therapy; Z79.899 Other long term (current) drug therapy; Z79.84 Long term (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 of oral hypoglycemic drugs
CPT/HCPCS: 36415; 71045; 80053; 83735; 84484; 85025; 93005; 93010; 94640; 96374; 99285-25; J1644; J7040

== ENCOUNTER 2025-03-28 19:25 | Emergency (ER) | payer MEDICARE, OTHER ==
[~2025-03-28] VITALS: Ht 160 cm; Wt 67.5 kg
[~2025-03-28 19:25] MED LIST changes: +CEFDINIR300 MG PO
[2025-03-28 19:45] LABS: BASOPHILS 0.7 % (0-2); EOSINOPHILS 2.4 % (0-6); HEMATOCRIT 37.5 % (35.0-50.0); HEMOGLOBIN 12.5 g/dL (12.0-18.0); LYMPHOCYTES 15.4 % (24-44); MCH 28.6 (27-36); MCHC 33.4 g/dl (30-36); MCV 85.5 fl (81-99); MONOCYTES 9.7 % (0-12); NEUTROPHILS 71.8 % (39-80); PLATELET COUNT 229 K/uL (140-440); RBC 4.39 M/ul (4.3-5.7); RDW 15.1 (10.5-15.0)
[2025-03-28] MEDS ORDERED: ASPIRIN 81 MG CHEW PO ONE (19:45)
[2025-03-28] MEDS ORDERED: ALBUTEROL/IPRATROPIUM 3 ML NEB INH ONE (20:00)
[2025-03-28 20:02] LABS: ALBUMIN 3.3 g/dL (3.4-5.0); ALBUMIN/GLOBULIN RATIO 0.83 (1.1-2.4); ANION GAP 11.3 (7-21); BILIRUBIN, TOTAL 0.4 mg/dL (0.2-1.0); BUN/CREATININE RATIO 13.92 (6.0-28.6); CALCIUM 8.4 mg/dL (8.5-10.1); CREATININE, SERUM 1.58 mg/dL (0.55-1.02); MAGNESIUM 1.8 mg/dL (1.8-2.4); POTASSIUM 4.3 mmol/L (3.5-5.1); PROTEIN, TOTAL 7.3 g/dL (6.4-8.2)
[2025-03-28 20:04] LABS: INR 1.01 (0.80-1.30); PROTIME 12.7 Sec (11.2-14.2)
[2025-03-28] MEDS ORDERED: MAGNESIUM OXIDE 400 MG TABLET PO ONE (21:30)
[2025-03-28] MEDS ORDERED: ROPINIROLE HCL 0.25 MG TAB PO ONE (21:45)
[2025-03-28] MEDS ORDERED: CYCLOBENZAPRINE10 MG PO (22:53)
[2025-03-28] MEDS ORDERED: CYCLOBENZAPRINE HCL 10 MG HOME.PACK PO ONE (23:00)
[2025-03-28 23:05] VITALS: BP 130/80
--- NOTE | 2025-03-29 08:16 | EKG ---
[facility] [address] [facility] [place] [address] Signed Normal sinus rhythm Low voltage QRS Borderline ECG When compared with ECG of 30-JUL-2024 10:43, Left anterior fascicular block is no longer present Criteria for Anteroseptal infarct are no longer present Minimal criteria for Inferior infarct are no longer present ST no longer elevated in Anterior leads T wave inversion no longer evident in Anterolateral leads QT has shortened Confirmed by Ryland Zee DO ([id number]) on 03/29/2025 8:15:55 AM Electronically Signed By: RYLAND ZEE DO 03/29/25 0816 PATIENT NAME: UMU KEYS Electrocardiogram DATE OF : 51 PHYSICIAN: RYLAND ZEE DO REPORT #: [id number] REPORT IS CONFIDENTIAL AND NOT TO BE RELEASED WITHOUT AUTHORIZATION
== END 2025-03-28 23:10 | disposition home or self-care (01) ==
LOC: ED 19:25
PROVIDERS: Family Medicine
DX: R07.89 Other chest pain (principal); J44.9 Chronic obstructive pulmonary disease, unspecified; E03.9 Hypothyroidism, unspecified; E11.9 Type 2 diabetes mellitus without complications; I25.2 Old myocardial infarction; F17.200 Nicotine dependence, unspecified, uncomplicated; Z79.84 Long term (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 of oral hypoglycemic drugs; Z79.899 Other long term (current) drug therapy; Z88.5 Allergy status to narcotic agent
CPT/HCPCS: 36415; 71045; 76705; 80053; 83735; 83880; 84484; 85025; 85610; 93005; 93010; 99285-25; A9270

== ENCOUNTER 2025-06-22 16:07 | Emergency (ER) | payer MEDICARE, OTHER ==
[~2025-06-22] VITALS: Ht 160 cm; Wt 63.6 kg
[2025-06-22] MEDS ORDERED: HYDROmorphone HCL 1 MG/ML SYR IM ONE (17:00)
[2025-06-22 18:00] VITALS: BP 133/74
[2025-06-22] MEDS ORDERED: HYDROCODON-ACE1 EAC8 PO (19:00)
== END 2025-06-22 18:00 | disposition home or self-care (01) ==
LOC: ED 16:07
DX: M25.561 Pain in right knee (principal); E03.9 Hypothyroidism, unspecified; E11.9 Type 2 diabetes mellitus without complications; J44.9 Chronic obstructive pulmonary disease, unspecified; I25.2 Old myocardial infarction; F17.200 Nicotine dependence, unspecified, uncomplicated; Z79.84 Long term (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 of oral hypoglycemic drugs; Z79.899 Other long term (current) drug therapy; Z88.5 Allergy status to narcotic agent
CPT/HCPCS: 73552; 73560; 96372; 99283; J1171

== ENCOUNTER 2025-08-01 20:30 | Emergency (ER) | payer MEDICARE, OTHER ==
[~2025-08-01] VITALS: Ht 160 cm; Wt 68.0 kg
[2025-08-01 20:44] LABS: BASOPHILS 0.6 % (0.1-1.2); EOSINOPHILS 2.2 % (0.7-5.8); LYMPHOCYTES 14.5 % (19.3-51.7); MCH 22.3 PG (25.6-32.2); MCHC 28.8 g/dL (32.2-35.5); MCV 77.4 fL (79.4-94.8); MONOCYTES 12.0 % (4.7-12.5); NEUTROPHILS 70.2 % (34.0-71.1); RBC 3.50 M/uL (3.93-5.22)
[2025-08-01] MEDS ORDERED: NITROGLYCERIN PACKET TOP ONE (20:45)
[2025-08-01] MEDS ORDERED: ASPIRIN 81 MG CHEW PO ONE (20:45)
[2025-08-01] MEDS ORDERED: MORPHINE SULFATE 4 MG/ML VIAL IV ONE ×2 (20:45→22:15)
[2025-08-01 20:54] LABS: INR 1.12 (0.80-1.30); PROTIME 13.7 Sec (11.2-14.2)
[2025-08-01 21:02] LABS: ALT (SGPT) 30.0 U/L (14-59); AST (SGOT) 26.0 U/L (15-37); GLOMERULAR FILTRATION RATE,EST 33.0 mL/min (>60); PROTEIN, TOTAL 6.9 g/dL (6.4-8.2); UREA NITROGEN 39.0 mg/dL (7-18)
[2025-08-01 22:23] LABS: ABO O; ANTIBODY SCREEN NEGATIVE; RH POSITIVE
[2025-08-01 22:24] LABS: ABO O; RH POSITIVE
[2025-08-01 22:25] LABS: IS CROSSMATCH COMPATIBLE
[2025-08-01] MEDS ORDERED: PIPERACILLIN/TAZOBACTAM 4.5 GM in SODIUM CHLORIDE 0.9% 100 ML IV ONE (23:00)
[2025-08-02] MEDS ORDERED: FERROUS SULFAT325 M2 PO (02:58)
[2025-08-02] MEDS ORDERED: AMOX TR-K CLV1 EAC1 PO (02:58)
[2025-08-02] MEDS ORDERED: VITAMIN C500 M1 PO (02:58)
[2025-08-02] MEDS ORDERED: ONDANSETRON ODT8 MG PO (02:58)
[2025-08-02] MEDS ORDERED: FUROSEMIDE 40 MG/4 ML VIAL IV ONE (04:15)
[2025-08-02 06:44] VITALS: BP 125/67
--- NOTE | 2025-08-02 10:25 | EKG ---
[facility] [address] [facility] [place], [place] [address] Signed Normal sinus rhythm Normal ECG When compared with ECG of 28-MAR-2025 19:27, No significant change was found Confirmed by ABDULLAHI UMANA MD ([id number]) on 08/02/2025 10:24:52 AM Electronically Signed By: ABDULLAHI UMANA 08/02/25 1025 PATIENT NAME: UMU KEYS Electrocardiogram DATE OF : 51 PHYSICIAN: ABDULLAHI UMANA REPORT #: [id number] REPORT IS CONFIDENTIAL AND NOT TO BE RELEASED WITHOUT AUTHORIZATION
== END 2025-08-02 06:45 | disposition home or self-care (01) ==
LOC: ED 20:30
PROVIDERS: Family Medicine
DX: K57.32 Diverticulitis of large intestine without perforation or abscess without bleeding (principal); D64.9 Anemia, unspecified; B19.20 Unspecified viral hepatitis C without hepatic coma; N28.89 Other specified disorders of kidney and ureter; I25.2 Old myocardial infarction; E11.9 Type 2 diabetes mellitus without complications; J44.9 Chronic obstructive pulmonary disease, unspecified; F17.200 Nicotine dependence, unspecified, uncomplicated; Z88.5 Allergy status to narcotic agent; Z79.84 Long term (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 of oral hypoglycemic drugs; Z79.890 Hormone replacement therapy; Z79.899 Other long term (current) drug therapy
CPT/HCPCS: 36415; 36430; 71045; 71260; 74177; 80053; 83735; 84484; 85025; 85610; 85730; 86850; 86900; 86901; 86922; 93005; 93010; 96365; 96375; 96376; 99285-25; J1938; J2270; J2543; P9016; Q9967